=== PATIENT | male | born 1965 | race Caucasian/White ===

== ENCOUNTER 2017-06-20 17:15 | Inpatient (IN) | payer OTHER ==
--- NOTE | 2017-06-20 17:46 | Emergency Department Report ---
ED Shortness of Breath HPI - General Stated Complaint: SOB Time Seen by Provider: 06/20/17 17:35 Source: patient, EMS Mode of arrival: Stretcher Limitations: No Limitations - History of Present Illness Initial Comments: Patient is a 52-year-old male that presents to the ER via EMS for shortness of breath and cough 7 days patient states that the shortness of breath has worsened today. Patient states his cough is productive with yellow sputum. Patient is a current smoker of one pack per day. Patient denies chest pain,, fever, chills, diaphoresis. She states shortness of breath is worse with exertion. Patient denies past medical history but however has not seen a doctor in many years. MD Complaint: shortness of breath, cough -: Gradual, days(s) Severity: severe Consistency: constant Improves With: oxygen, bronchodilators Worsens With: lying flat, movement, coughing, inspiration Context: recent URI Associated Symptoms: cough, sputum production, diaphoresis Treatments Prior to Arrival: oxygen, bronchodilator - Related Data Home Oxygen Therapy: No Allergies Allergy/AdvReac Type Severity Reaction Status Date / Time codeine Allergy Severe Itching Verified 06/20/17 17:57 ED Review of Systems ROS: Stated complaint: SOB Other details as noted in HPI Constitutional: denies: chills, fever Eyes: denies: eye pain, eye discharge, vision change ENT: denies: ear pain, throat pain Respiratory: cough, shortness of breath. denies: wheezing Cardiovascular: denies: chest pain, palpitations Endocrine: no symptoms reported Gastrointestinal: denies: abdominal pain, nausea, diarrhea Genitourinary: denies: urgency, dysuria Musculoskeletal: denies: back pain, joint swelling, arthralgia Skin: denies: rash, lesions Neurological: denies: headache, weakness, paresthesias Psychiatric: denies: anxiety, depression Hematological/Lymphatic: denies: easy bleeding, easy bruising ED Past Medical Hx - Past Medical History Previous Medical History?: No ED Physical Exam - General General appearance: alert, in no apparent distress - Head Head exam: Present: atraumatic, normocephalic - Eye Eye exam: Present: normal appearance - ENT ENT exam: Present: mucous membranes moist - Neck Neck exam: Present: normal inspection - Respiratory Respiratory exam: Present: normal lung sounds bilaterally, respiratory distress , wheezes, rhonchi - Cardiovascular Cardiovascular Exam: Present: regular rate, normal rhythm. Absent: systolic murmur, diastolic murmur, rubs, gallop - GI/Abdominal GI/Abdominal exam: Present: soft, normal bowel sounds - Rectal Rectal exam: Present: deferred - Extremities Exam Extremities exam: Present: normal inspection - Back Exam Back exam: Present: normal inspection - Neurological Exam Neurological exam: Present: alert, oriented X3 - Psychiatric Psychiatric exam: Present: normal affect, normal mood - Skin Skin exam: Present: warm, dry, intact, normal color. Absent: rash ED Course Vital Signs 06/20/17 06/20/17 06/20/17 18:09 21:08 21:15 Temperature 98.7 F Pulse Rate 111 H Pulse Rate [ 84 Right Lower Lobe] Respiratory 26 H 32 H Rate Respiratory 20 Rate [Right Lower Lobe] Blood Pressure 196/103 Blood Pressure 183/94 [Left] O2 Sat by Pulse 96 94 Oximetry 06/21/17 00:11 Temperature Pulse Rate Pulse Rate [ Right Lower Lobe] Respiratory Rate Respiratory Rate [Right Lower Lobe] Blood Pressure 155/79 Blood Pressure [Left] O2 Sat by Pulse 96 Oximetry - Reevaluation(s) Reevaluation #1: 06/20/17 1920 pt became acutely worse with hypoxia at 86 and increase work to breath. rsi started and pt intubated due to hypoxia and increased effort. Reevaluation #2: 06/20/17 2100 Patient bucking the vent and moving within the bed. Will add Versed drip and titrated to effect. Patient currently maxed out on propofol and still moving and breathing over the vent. - Intubation Time Out Performed: Yes Sedative: Versed Paralytic: Succinylcholine Laryngoscope: Hess Assist Device Used: fiberoptic device ET Tube Size: 7.5 Tube Placement Confirmation: visualized tube passing t, equal breath sounds bilat, no breath sounds over epi, confirmation by capnometr Patient Tolerated Procedure: well, no complications Intubation Complications: none Additional Comments: X-ray checked as well and ET tube in good position ED Medical Decision Making - Lab Data Result diagrams: 06/20/17 19:00 06/20/17 19:00 - EKG Data -: EKG Interpreted by Me EKG shows normal: sinus rhythm Rate: tachycardia - EKG Data Interpretation: no acute changes, LVH - Radiology Data Radiology results: report reviewed - Medical Decision Making Stress case with hospitalist. Hospitalist to admit. All labs and diagnostics reviewed Critical Care Time: Yes Critical care attestation.: If time is entered above; I have spent that time in minutes in the direct care of this critically ill patient, excluding procedure time. Critical Care Time: 60 minutes spent with patient for critical care time ED Disposition Clinical Impression: SOB (shortness of breath), Hypoxia, Respiratory distress, Pneumonia, Congestive heart failure, Acute exacerbation of CHF (congestive heart failure) Disposition: OP ADMIT IP TO THIS HOSP Is pt being admited?: Yes Does the pt Need Aspirin: No Condition: Critical Time of Disposition: 20:07
[2017-06-20] MEDS ORDERED: DUONEB *Not for PRN Use IH ONE (18:15)
--- NOTE | 2017-06-20 18:59 | XRay Report ---
FINAL REPORT EXAM: XR CHEST 1V AP HISTORY: Dyspnea TECHNIQUE: One view examination of the chest PRIORS: None FINDINGS: Linear scar versus atelectasis in left mid and lower lung. Nonspecific patchy opacity with slight consolidation in right lower lung. No pneumothorax or pleural effusion. No acute displaced fracture. Cardiac silhouette size slightly enlarged without definite vascular congestion. Atherosclerotic tortuosity in aorta. IMPRESSION: Linear scar versus atelectasis in mid and lower left lung Patchy opacity in right lower lung may be edema, atelectasis, scar, or pneumonia. Followup may be useful to exclude underlying neoplasm
[2017-06-20 19:14] LABS: Basophils # (Auto) 0.1 K/mm3 (0.0-0.1); Basophils % (Auto) 0.7 % (0.0-1.8); Eosinophils % (Auto) 0.1 % (0.0-4.3); Hematocrit 42.9 % (35.5-45.6); Hemoglobin 14.8 gm/dl (11.8-15.2); Lymphocytes # (Auto) 0.4 K/mm3 (1.2-5.4); Lymphocytes % (Auto) 4.1 % (13.4-35.0); Mean Corpuscular HGB Conc 35 % (32-34); Mean Corpuscular Hemoglobin 35 pg (28-32); Mean Corpuscular Volume 100 fl (84-94); Monocytes # (Auto) 0.9 K/mm3 (0.0-0.8); Monocytes % (Auto) 8.9 % (0.0-7.3); Platelet Count 194 K/mm3 (140-440); Red Blood Count 4.28 M/mm3 (3.65-5.03); Red Cell Distribution Width 18.8 % (13.2-15.2)
[2017-06-20] MEDS ORDERED: ROCEPHIN/NS 1 GM/50 ML 1 GM/50 ML BAG IV ONE (19:22)
[2017-06-20] MEDS ORDERED: DIPRIVAN 10 MG/ML 1,000 MG/100 ML BOTTLE IV ONE (19:39)
[2017-06-20] MEDS: DIPRIVAN 10 MG/ML 1,000 MG/100 ML BOTTLE IV SCH (19:40)
[2017-06-20 19:42] LABS: Creatine Kinase MB 8.6 ng/mL (0.0-4.0)
[2017-06-20 19:43] LABS: Alanine Aminotransferase 119 units/L (7-56); Albumin 3.7 g/dL (3.9-5); BUN/Creatinine Ratio 18; Blood Urea Nitrogen 16 mg/dL (9-20); Calcium 8.9 mg/dL (8.4-10.2); Hemolysis Index 6
[2017-06-20] MEDS ORDERED: cefTRIAXone 1 GM in NACL 0.9% 20 ML IV ONE (20:00)
[2017-06-20 20:02] LABS: Chol/HDL Ratio 2.43 %; HDL Cholesterol 87 mg/dL (40-59); LDL Cholesterol,Direct 103 mg/dL (50-130)
[2017-06-20] MEDS ORDERED: VERSED IV ONE (20:23)
[2017-06-20] MEDS ORDERED: LASIX 80 MG in NACL 0.9% 50 ML IV ONE (20:43)
[2017-06-20] MEDS ORDERED: LASIX ONE (20:54)
--- NOTE | 2017-06-20 21:02 | XRay Report ---
FINAL REPORT EXAM: XR CHEST 1V AP HISTORY: post intubation TECHNIQUE: AP portable view of the chest. The study is centered at the upper chest. The lower chest is not included in the field of view. PRIORS: 06/20/2017 at 6:19 p.m. FINDINGS: There is an endotracheal tube in place which appears adequately positioned in the mid trachea. There is an NG tube in place which courses below the diaphragm and below the lower margin of the film. The visualized cardiomediastinal silhouette appears normal. A right basilar infiltrate is partially demonstrated. The bones and soft tissues are unremarkable. IMPRESSION: The endotracheal tube appears adequately positioned. Right basilar infiltrate incompletely evaluated
[2017-06-20] MEDS ORDERED: ARTIFICIAL TEARS OPHTH OINT OU PRN (21:11)
[2017-06-20] MEDS ORDERED: VASELINE LIP THERAPY TP PRN (21:11)
[2017-06-20] MEDS: MIDAZOLAM 100 MG in NACL 0.9% 80 ML IV SCH (21:25)
[2017-06-20] MEDS ORDERED: LASIX IV ONE (22:00)
[2017-06-20] MEDS ORDERED: NACL 0.9% 500 ML IV SCH (22:00)
--- NOTE | 2017-06-20 23:07 | History and Physical Report ---
History of Present Illness Date of examination: 06/20/17 Chief complaint: Respiratory failure History of present illness: By the time I examined the patient, the patient was intubated and on mechanical ventilation. So history is obtained from ER doctor documentation. The patient was complaining cough and shortness of breath for 1 week, while in the emergency department patient's shortness of breath was getting worse and become desaturated, and he was emergently intubated and put on mechanical ventilation. CTA was done and showed bilateral pneumonia. REVIEW OF SYSTEMS: Couldn't be obtained because patient is intubated in the mechanical ventilation. Past History Past Medical History: other (Couldn't be obtained because the patient is intubated and on MV.) Past Surgical History: Other (Couldn't be obtained because the patient is intubated and on MV.) Social history: other (Couldn't be obtained because the patient is intubated and on MV.) Family history: other (Couldn't be obtained because the patient is intubated and on MV.) Medications and Allergies Allergies Allergy/AdvReac Type Severity Reaction Status Date / Time codeine Allergy Severe Itching Verified 06/20/17 17:57 Active Meds: Active Medications Furosemide (Lasix) 40 mg PO 0600,1800 CRISTINA Hydrophilic Ointment (Vaseline Lip Therapy) 1 applic TP Q2HR PRN PRN Reason: Dry Lips Midazolam HCl 100 mg/ Sodium (Chloride) 100 mls @ 2 mls/hr IV TITR CRISTINA; 2 MG/HR PRN Reason: Protocol Last Admin: 06/20/17 21:25 Dose: 2 mg/hr, 2 mls/hr Propofol (Diprivan 10 Mg/Ml) 1,000 mg in 100 mls @ 2.177 mls/hr IV TITR CRISTINA; 5 MCG/KG/MIN PRN Reason: Protocol Piperacillin Sod/Tazobactam Sod (Zosyn/Ns 4.5gm/100ml) 4.5 gm in 100 mls @ 200 mls/hr IV Q6HR CRISTINA PRN Reason: Protocol Fentanyl Citrate (Fentanyl Drip Premix) 2,000 mcg in 100 mls @ 3.629 mls/hr IV TITR CRISTINA; 1 MCG/KG/HR PRN Reason: Protocol Methylprednisolone Sodium Succinate (Solu-Medrol) 60 mg IV TID CRISTINA Multi-Ingred Cream/Lotion/Oil/Oint (Artificial Tears Ophth Oint) 1 applic OU Q4HR PRN PRN Reason: Dry Eye(s) Sodium Chloride (Nacl 0.9% 500 Ml) 1 ml IV DIRECT CRISTINA Vancomycin HCl (Vancomycin Pharmacy To Dose) 1 each IV PKCONSULT CRISTINA PRN Reason: Protocol Exam - Physical Exam Narrative exam: patient is intubated and on MV. The patient appeared well nourished and normally developed. Vital signs as documented. Head exam is unremarkable. No scleral icterus . Neck is without jugular venous distension, thyromegaly, or carotid bruits. Lungs are coarse creptations bilaterally . Cardiac exam reveals regular rate and Rhythm. First and second heart sounds normal. No murmurs, rubs or gallops. Abdominal exam reveals normal bowel sounds, no masses, no organomegaly and no aortic enlargement. Extremities are nonedematous and both femoral and pedal pulses are normal. PROJECT DESIGNER: sedated. - Constitutional Vitals: Temp Pulse Resp BP Pulse Ox 98.7 F 84 32 H 196/103 94 06/20/17 18:09 06/20/17 21:08 06/20/17 21:15 06/20/17 21:15 06/20/17 21:15 Results - Labs CBC & Chem 7: 06/20/17 19:00 06/20/17 19:00 Labs: Laboratory Last Values WBC 9.9 K/mm3 (4.5-11.0) 06/20/17 19:00 RBC 4.28 M/mm3 (3.65-5.03) 06/20/17 19:00 Hgb 14.8 gm/dl (11.8-15.2) 06/20/17 19:00 Hct 42.9 % (35.5-45.6) 06/20/17 19:00 MCV 100 fl (84-94) H 06/20/17 19:00 MCH 35 pg (28-32) H 06/20/17 19:00 MCHC 35 % (32-34) H 06/20/17 19:00 RDW 18.8 % (13.2-15.2) H 06/20/17 19:00 Plt Count 194 K/mm3 (140-440) 06/20/17 19:00 Lymph % (Auto) 4.1 % (13.4-35.0) L 06/20/17 19:00 Bucks % (Auto) 8.9 % (0.0-7.3) H 06/20/17 19:00 Eos % (Auto) 0.1 % (0.0-4.3) 06/20/17 19:00 Baso % (Auto) 0.7 % (0.0-1.8) 06/20/17 19:00 Lymph # 0.4 K/mm3 (1.2-5.4) L 06/20/17 19:00 Bucks # 0.9 K/mm3 (0.0-0.8) H 06/20/17 19:00 Eos # 0.0 K/mm3 (0.0-0.4) 06/20/17 19:00 Baso # 0.1 K/mm3 (0.0-0.1) 06/20/17 19:00 Seg Neutrophils % 86.2 % (40.0-70.0) H 06/20/17 19:00 Seg Neutrophils # 8.6 K/mm3 (1.8-7.7) H 06/20/17 19:00 D-Dimer 747.03 ng/mlDDU (0-234) H 06/20/17 19:00 Sodium 142 mmol/L (137-145) 06/20/17 19:00 Potassium 3.7 mmol/L (3.6-5.0) 06/20/17 19:00 Chloride 98.8 mmol/L (98-107) 06/20/17 19:00 Carbon Dioxide 25 mmol/L (22-30) 06/20/17 19:00 Anion Gap 22 mmol/L 06/20/17 19:00 BUN 16 mg/dL (9-20) 06/20/17 19:00 Creatinine 0.9 mg/dL (0.8-1.5) 06/20/17 19:00 Estimated GFR > 60 ml/min 06/20/17 19:00 BUN/Creatinine Ratio 18 % 06/20/17 19:00 Glucose 98 mg/dL (75-100) 06/20/17 19:00 Calcium 8.9 mg/dL (8.4-10.2) 06/20/17 19:00 Total Bilirubin 2.10 mg/dL (0.1-1.2) H 06/20/17 19:00 AST 157 units/L (5-40) H 06/20/17 19:00 ALT 119 units/L (7-56) H 06/20/17 19:00 Alkaline Phosphatase 133 units/L (35-129) H 06/20/17 19:00 Total Creatine Kinase 285 units/L (55-170) H 06/20/17 19:00 CK-MB (CK-2) 8.6 ng/mL (0.0-4.0) H 06/20/17 19:00 CK-MB (CK-2) Rel Index 3.0 (0-4) 06/20/17 19:00 Troponin T 0.043 ng/mL (0.00-0.029) H 06/20/17 19:00 NT-Pro-B Natriuret Pep 68338 pg/mL (0-900) H 06/20/17 19:00 Total Protein 6.0 g/dL (6.3-8.2) L 06/20/17 19:00 Albumin 3.7 g/dL (3.9-5) L 06/20/17 19:00 Albumin/Globulin Ratio 1.6 % 06/20/17 19:00 Triglycerides 114 mg/dL (2-149) 06/20/17 19:00 Cholesterol 212 mg/dL (50-199) H 06/20/17 19:00 LDL Cholesterol Direct 103 mg/dL (50-130) 06/20/17 19:00 HDL Cholesterol 87 mg/dL (40-59) H 06/20/17 19:00 Cholesterol/HDL Ratio 2.43 % 06/20/17 19:00 - Imaging and Cardiology CT scan - chest: report reviewed (bilateral pneumonia) Assessment and Plan Assessment and plan: Acute hypoxic respiratory failure On mechanical ventilation less than 96 hours Sepsis Aspiration pneumonia Transaminitis - Patient is intubated and on mechanical ventilation, IV antibiotics, IV fluids , IV Solu-Medrol - Chemicals Distiller consulted - UDS pending, acute hepatitis panel pending DVT prophylaxis -Heparin Disposition - Admit to ICU The high probability of a clinically significant, sudden or life threatening deterioration of the [respiratory, PROJECT DESIGNER] system(s) required my full and direct attention, intervention and personal management. The aggregate critical care time was [35] minutes. This time is in addition to time spent performing reported procedures but includes the following: [X] Data Review and interpretation [X] Patient assessment and monitoring of vital signs [X] Documentation [X] Medication orders and management Advance Directives: Yes VTE prophylaxis?: Chemical Plan of care discussed with patient/family: Yes
[2017-06-20] MEDS ORDERED: APRESOLINE IV PRN (23:11)
[2017-06-20] MEDS: fentaNYL DRIP Premix 2,000 MCG/100 ML BAG IV SCH (23:30)
[2017-06-20] MEDS ORDERED: VANCOMYCIN PHARMACY TO DOSE IV SCH (23:45)
[2017-06-21] MEDS: PEPCID IV SCH ×3 (00:28→21:56)
[2017-06-21] MEDS: ZOSYN/NS 4.5GM/100ML 4.5 GM/100 ML VIAL IV SCH ×4 (00:28→19:35)
[2017-06-21] MEDS ORDERED: VANCOMYCIN 1,500 MG in NACL 0.9% 500 ML 500 ML IV ONE (02:00)
--- NOTE | 2017-06-21 02:02 | Cat Scan Report ---
FINAL REPORT EXAM: CT ANGIO CHEST HISTORY: sob. hypoxia. high d dimer TECHNIQUE: High-resolution helical axial images were obtained of the chest during intravenous administration of iodinated contrast. Images are reconstructed in the sagittal and coronal planes. PRIORS: None. FINDINGS: There is an endotracheal tube in place which appears adequately positioned in the mid trachea. There is NG tube in place with the tip in the stomach. There is no evidence of pulmonary embolism, the pulmonary arteries opacify normally. The thoracic aorta is tortuous. There is a kink in the proximal descending thoracic aorta with mild dilatation distal to the kink. There is coronary artery atherosclerotic calcification. The heart is mildly enlarged due to left ventricular enlargement. There are large bilateral dependent consolidative infiltrates and patchy bilateral upper lobe airspace infiltrates. Images through the upper abdomen show fatty infiltration of the liver. There are degenerative changes of the upper lumbar spine. IMPRESSION: 1. No evidence of pulmonary embolism. 2. 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 Large bilateral dependent consolidative infiltrates consistent with pneumonia. Possible aspiration pneumonia. Associated patchy bilateral upper lobe airspace infiltrates 4. Diffuse fatty infiltration of the liver. 5. Coronary artery atherosclerotic calcification. Enlarged left ventricle.
[2017-06-21] MEDS ORDERED: LASIX PO SCH (06:00)
[2017-06-21 06:41] LABS: Bacteria,Urine 1+ /HPF (Negative); Bilirubin,Urine NEG (Negative); Blood,Urine MOD (Negative); Color,Urine Yellow (Yellow); Nitrite,Urine NEG (Negative); Protein,Urine <15 mg/dL mg/dL (Negative); Urobilinogen,Urine < 2.0 mg/dL (<2.0)
[2017-06-21 06:46] LABS: Amphetamine Screen,Urine PRESUMPTIVE NEGATIVE; Cannabinoid Screen,Urine PRESUMPTIVE NEGATIVE; Cocaine Screen,Urine PRESUMPTIVE NEGATIVE; Methadone Screen,Urine PRESUMPTIVE NEGATIVE; Opiate Screen,Urine PRESUMPTIVE NEGATIVE
[2017-06-21] MEDS: MIDAZOLAM 100 MG in NACL 0.9% 80 ML IV SCH (07:20)
[2017-06-21 07:55] LABS: Benzodiazepines Screen,Urine PRESUMPTIVE POSITIVE
[2017-06-21] MEDS: DUONEB *Not for PRN Use IH SCH ×4 (07:56→20:10)
[2017-06-21 08:24] LABS: Hematocrit 42.1 % (35.5-45.6); Mean Corpuscular HGB Conc 33 % (32-34); Mean Corpuscular Hemoglobin 35 pg (28-32); Mean Corpuscular Volume 104 fl (84-94); Platelet Count 184 K/mm3 (140-440); Red Blood Count 4.06 M/mm3 (3.65-5.03); Red Cell Distribution Width 19.3 % (13.2-15.2)
[2017-06-21] MEDS: fentaNYL DRIP Premix 2,000 MCG/100 ML BAG IV SCH ×3 (08:31→22:21)
[2017-06-21 08:41] LABS: BUN/Creatinine Ratio 19; Blood Urea Nitrogen 21 mg/dL (9-20); Calcium 8.1 mg/dL (8.4-10.2); Hemolysis Index 75
[2017-06-21] MEDS: DIPRIVAN 10 MG/ML 1,000 MG/100 ML BOTTLE IV SCH ×4 (08:41→23:08)
[2017-06-21 09:23] LABS: Anisocytosis 1+; Macrocytosis 1+
[2017-06-21 09:24] LABS: Platelet Clumps Rare; Platelet Estimate Consistent w Auto
[2017-06-21 09:26] LABS: Band Neutrophils # (Manual) 0.4 K/mm3; Basophils % (Manual) 0 % (0.0-1.8); Eosinophils % (Manual) 0 % (0.0-4.3); Total Cells Counted 100
[2017-06-21] MEDS: HEPARIN SUB-Q SCH ×3 (09:28→21:14)
[2017-06-21] MEDS ORDERED: VERSED IV ONE (11:04)
[2017-06-21] MEDS ORDERED: QUELICIN ONE (11:04)
[2017-06-21 12:59] LABS: Hepatitis A Antibody IgM Non-Reactive (NonReactive); Hepatitis B Core IgM Non-Reactive (NonReactive); Hepatitis B Surface Antigen Non-Reactive (Negative); Hepatitis C Virus Antibody Non-Reactive (NonReactive)
--- NOTE | 2017-06-21 13:11 | Progress Note ---
Assessment and Plan Assessment and plan: Acute hypoxic respiratory failure On mechanical ventilation less than 96 hours Patient currently with before meals mode ventilation rate of 16, tidal volume 450, PEEP 8, FiO2 60%. Continue weaning ventilator per pulmonary. Patient is intubated and on mechanical ventilation, IV antibiotics, IV fluids Elevated BNP. Check echocardiogram. Sepsis. Continue sepsis pathway. Follow-up blood cultures Bilateral pneumonia. Etiology secondary to ? Aspiration. Continue IV antibiotics and follow-up chest x-ray. Reactive airway disease vs. asthma. There is been no report of course with history of asthma. Continue bronchodilators and IV Solu-Medrol. Transaminitis - Etiology, likely secondary to shock liver from sepsis. - UDS pending, acute hepatitis panel negative Elevated troponin. -Etiology, likely secondary to sepsis -Check echocardiogram, continue to trend troponins every 8 hours. DVT prophylaxis -Heparin Disposition - ICU management. The high probability of a clinically significant, sudden or life threatening deterioration of the [respiratory, COMMUNITY SERVICE REPRESENTATIVE] system(s) required my full and direct attention, intervention and personal management. The aggregate critical care time was [35] minutes. This time is in addition to time spent performing reported procedures but includes the following: [X] Data Review and interpretation [X] Patient assessment and monitoring of vital signs [X] Documentation [X] Medication orders and management History Interval history: Patient is currently intubated on mechanical ventilation. Hospitalist Physical - Constitutional Vitals: Temp Pulse Resp BP Pulse Ox 99.0 F 95 H 16 122/64 92 06/21/17 12:00 06/21/17 11:33 06/21/17 11:33 06/21/17 08:30 06/21/17 12:00 General appearance: Present: no acute distress, well-nourished, other (orally intubated) - EENT Eyes: Present: PERRL, EOM intact ENT: hearing intact, clear oral mucosa, dentition normal - Neck Neck: Present: supple, normal ROM - Respiratory Respiratory effort: normal Respiratory: bilateral: diminished, rhonchi - Cardiovascular Rhythm: regular Heart Sounds: Present: S1 & S2. Absent: gallop, rub - Extremities Extremities: no ischemia, No edema, Full ROM - Abdominal General gastrointestinal: soft, non-tender, non-distended, normal bowel sounds - Integumentary Integumentary: Present: clear, warm, dry - Neurologic Neurologic: CNII-XII intact, moves all extremities Results - Labs CBC & Chem 7: 06/21/17 07:50 06/21/17 07:50 Labs: Laboratory Last Values WBC 12.0 K/mm3 (4.5-11.0) H 06/21/17 07:50 RBC 4.06 M/mm3 (3.65-5.03) 06/21/17 07:50 Hgb 14.0 gm/dl (11.8-15.2) 06/21/17 07:50 Hct 42.1 % (35.5-45.6) 06/21/17 07:50 MCV 104 fl (84-94) H 06/21/17 07:50 MCH 35 pg (28-32) H 06/21/17 07:50 MCHC 33 % (32-34) 06/21/17 07:50 RDW 19.3 % (13.2-15.2) H 06/21/17 07:50 Plt Count 184 K/mm3 (140-440) 06/21/17 07:50 Lymph % (Auto) 4.1 % (13.4-35.0) L 06/20/17 19:00 Ralls % (Auto) 8.9 % (0.0-7.3) H 06/20/17 19:00 Eos % (Auto) 0.1 % (0.0-4.3) 06/20/17 19:00 Baso % (Auto) 0.7 % (0.0-1.8) 06/20/17 19:00 Lymph # 0.4 K/mm3 (1.2-5.4) L 06/20/17 19:00 Ralls # 0.9 K/mm3 (0.0-0.8) H 06/20/17 19:00 Eos # 0.0 K/mm3 (0.0-0.4) 06/20/17 19:00 Baso # 0.1 K/mm3 (0.0-0.1) 06/20/17 19:00 Add Manual Diff Complete 06/21/17 07:50 Total Counted 100 06/21/17 07:50 Seg Neutrophils % Party Bus Driver 06/21/17 07:50 Seg Neuts % (Manual) 93.0 % (40.0-70.0) H 06/21/17 07:50 Band Neutrophils % 3.0 % 06/21/17 07:50 Lymphocytes % (Manual) 1.0 % (13.4-35.0) L 06/21/17 07:50 Reactive Lymphs % (Man) 0 % 06/21/17 07:50 Monocytes % (Manual) 3.0 % (0.0-7.3) 06/21/17 07:50 Eosinophils % (Manual) 0 % (0.0-4.3) 06/21/17 07:50 Basophils % (Manual) 0 % (0.0-1.8) 06/21/17 07:50 Metamyelocytes % 0 % 06/21/17 07:50 Myelocytes % 0 % 06/21/17 07:50 Promyelocytes % 0 % 06/21/17 07:50 Blast Cells % 0 % 06/21/17 07:50 Nucleated RBC % Not Reportable 06/21/17 07:50 Seg Neutrophils # 8.6 K/mm3 (1.8-7.7) H 06/20/17 19:00 Seg Neutrophils # Man 11.2 K/mm3 (1.8-7.7) H 06/21/17 07:50 Band Neutrophils # 0.4 K/mm3 06/21/17 07:50 Lymphocytes # (Manual) 0.1 K/mm3 (1.2-5.4) L 06/21/17 07:50 Abs React Lymphs (Man) 0.0 K/mm3 06/21/17 07:50 Monocytes # (Manual) 0.4 K/mm3 (0.0-0.8) 06/21/17 07:50 Eosinophils # (Manual) 0.0 K/mm3 (0.0-0.4) 06/21/17 07:50 Basophils # (Manual) 0.0 K/mm3 (0.0-0.1) 06/21/17 07:50 Metamyelocytes # 0.0 K/mm3 06/21/17 07:50 Myelocytes # 0.0 K/mm3 06/21/17 07:50 Promyelocytes # 0.0 K/mm3 06/21/17 07:50 Blast Cells # 0.0 K/mm3 06/21/17 07:50 WBC Morphology Not Reportable 06/21/17 07:50 Hypersegmented Neuts Not Reportable 06/21/17 07:50 Hyposegmented Neuts Not Reportable 06/21/17 07:50 Hypogranular Neuts Not Reportable 06/21/17 07:50 Smudge Cells Not Reportable 06/21/17 07:50 Toxic Granulation Not Reportable 06/21/17 07:50 Toxic Vacuolation Not Reportable 06/21/17 07:50 Dohle Bodies Not Reportable 06/21/17 07:50 Pelger-Huet Anomaly Not Reportable 06/21/17 07:50 Luz Maria Rods Not Reportable 06/21/17 07:50 Platelet Estimate Consistent w auto 06/21/17 07:50 Clumped Platelets Rare 06/21/17 07:50 Plt Clumps, EDTA Not Reportable 06/21/17 07:50 Large Platelets Not Reportable 06/21/17 07:50 Giant Platelets Not Reportable 06/21/17 07:50 Platelet Satelliting Not Reportable 06/21/17 07:50 Plt Morphology Comment Not Reportable 06/21/17 07:50 RBC Morphology Not Reportable 06/21/17 07:50 Dimorphic RBCs Not Reportable 06/21/17 07:50 Polychromasia Not Reportable 06/21/17 07:50 Hypochromasia Not Reportable 06/21/17 07:50 Poikilocytosis Not Reportable 06/21/17 07:50 Anisocytosis 1+ 06/21/17 07:50 Microcytosis Not Reportable 06/21/17 07:50 Macrocytosis 1+ 06/21/17 07:50 Spherocytes Not Reportable 06/21/17 07:50 Pappenheimer Bodies Not Reportable 06/21/17 07:50 Sickle Cells Not Reportable 06/21/17 07:50 Target Cells Not Reportable 06/21/17 07:50 Tear Drop Cells Not Reportable 06/21/17 07:50 Ovalocytes Not Reportable 06/21/17 07:50 Helmet Cells Not Reportable 06/21/17 07:50 Marinelli-Manele Bodies Not Reportable 06/21/17 07:50 [place] Rings Not Reportable 06/21/17 07:50 Jennifer Cells Not Reportable 06/21/17 07:50 Bite Cells Not Reportable 06/21/17 07:50 Crenated Cell Not Reportable 06/21/17 07:50 Elliptocytes Not Reportable 06/21/17 07:50 Acanthocytes (Spur) Not Reportable 06/21/17 07:50 Rouleaux Not Reportable 06/21/17 07:50 Hemoglobin C Crystals Not Reportable 06/21/17 07:50 Schistocytes Not Reportable 06/21/17 07:50 Malaria parasites Not Reportable 06/21/17 07:50 Franklyn Bodies Not Reportable 06/21/17 07:50 Hem Pathologist Commnt No 06/21/17 07:50 D-Dimer 747.03 ng/mlDDU (0-234) H 06/20/17 19:00 POC ABG pH 7.438 (7.35-7.45) 06/21/17 04:40 POC ABG pCO2 47.1 (35-45) H 06/21/17 04:40 POC ABG pO2 221 (80-105) H 06/21/17 04:40 POC ABG HCO3 31.9 06/21/17 04:40 POC ABG Total CO2 33 06/21/17 04:40 POC ABG O2 Sat 100 06/21/17 04:40 POC ABG Base Excess 8 06/21/17 04:40 FiO2 100 % 06/21/17 04:40 Sodium 142 mmol/L (137-145) 06/21/17 07:50 Potassium 4.2 mmol/L (3.6-5.0) 06/21/17 07:50 Chloride 98.9 mmol/L (98-107) 06/21/17 07:50 Carbon Dioxide 24 mmol/L (22-30) 06/21/17 07:50 Anion Gap 23 mmol/L 06/21/17 07:50 BUN 21 mg/dL (9-20) H 06/21/17 07:50 Creatinine 1.1 mg/dL (0.8-1.5) 06/21/17 07:50 Estimated GFR > 60 ml/min 06/21/17 07:50 BUN/Creatinine Ratio 19 % 06/21/17 07:50 Glucose 130 mg/dL (75-100) H 06/21/17 07:50 Lactic Acid 1.50 mmol/L (0.7-2.0) 06/20/17 11:35 Calcium 8.1 mg/dL (8.4-10.2) L 06/21/17 07:50 Total Bilirubin 2.10 mg/dL (0.1-1.2) H 06/20/17 19:00 AST 157 units/L (5-40) H 06/20/17 19:00 ALT 119 units/L (7-56) H 06/20/17 19:00 Alkaline Phosphatase 133 units/L (35-129) H 06/20/17 19:00 Total Creatine Kinase 285 units/L (55-170) H 06/20/17 19:00 CK-MB (CK-2) 8.6 ng/mL (0.0-4.0) H 06/20/17 19:00 CK-MB (CK-2) Rel Index 3.0 (0-4) 06/20/17 19:00 Troponin T 0.043 ng/mL (0.00-0.029) H 06/20/17 19:00 NT-Pro-B Natriuret Pep 89437 pg/mL (0-900) H 06/20/17 19:00 Total Protein 6.0 g/dL (6.3-8.2) L 06/20/17 19:00 Albumin 3.7 g/dL (3.9-5) L 06/20/17 19:00 Albumin/Globulin Ratio 1.6 % 06/20/17 19:00 Triglycerides 114 mg/dL (2-149) 06/20/17 19:00 Cholesterol 212 mg/dL (50-199) H 06/20/17 19:00 LDL Cholesterol Direct 103 mg/dL (50-130) 06/20/17 19:00 HDL Cholesterol 87 mg/dL (40-59) H 06/20/17 19:00 Cholesterol/HDL Ratio 2.43 % 06/20/17 19:00 Urine Color Yellow (Yellow) 06/21/17 05:29 Urine Turbidity Clear (Clear) 06/21/17 05:29 Urine pH 5.0 (5.0-7.0) 06/21/17 05:29 Ur Specific [place] 1.049 (1.003-1.030) H 06/21/17 05:29 Urine Protein <15 mg/dl mg/dL (Negative) 06/21/17 05:29 Urine Glucose (UA) Neg mg/dL (Negative) 06/21/17 05:29 Urine Ketones Neg mg/dL (Negative) 06/21/17 05:29 Urine Blood Mod (Negative) 06/21/17 05:29 Urine Nitrite Neg (Negative) 06/21/17 05:29 Urine Bilirubin Neg (Negative) 06/21/17 05:29 Urine Urobilinogen < 2.0 mg/dL (<2.0) 06/21/17 05:29 Ur Leukocyte Esterase Tr (Negative) 06/21/17 05:29 Urine WBC (Auto) 11.0 /HPF (0.0-6.0) H 06/21/17 05:29 Urine RBC (Auto) 2.0 /HPF (0.0-6.0) 06/21/17 05:29 U Epithel Cells (Auto) < 1.0 /HPF (0-13.0) 06/21/17 05:29 Urine Bacteria (Auto) 1+ /HPF (Negative) 06/21/17 05:29 Urine Opiates Screen Presumptive negative 06/21/17 05:29 Urine Methadone Screen Presumptive negative 06/21/17 05:29 Ur Barbiturates Screen Presumptive negative 06/21/17 05:29 Ur Phencyclidine Scrn Presumptive negative 06/21/17 05:29 Ur Amphetamines Screen Presumptive negative 06/21/17 05:29 U Benzodiazepines Scrn Presumptive positive 06/21/17 05:29 Urine Cocaine Screen Presumptive negative 06/21/17 05:29 U Marijuana (THC) Screen Presumptive negative 06/21/17 05:29 Drugs of Abuse Note Disclamer 06/21/17 05:29 Hepatitis A IgM Ab Non-reactive (NonReactive) 06/21/17 11:35 Hep Bs Antigen Non-reactive (Negative) 06/21/17 11:35 Hep B Core IgM Ab Non-reactive (NonReactive) 06/21/17 11:35 Hepatitis C Antibody Non-reactive (NonReactive) 06/21/17 11:35
[2017-06-21] MEDS: VANCOMYCIN/NS 1 GM/250 ML 1 GM/250 ML BAG IV SCH (13:19)
--- NOTE | 2017-06-21 13:43 | Consultation ---
History of Present Illness Consult date: 06/21/17 Requesting physician: LIS CARSON Reason for consult: other (Acute Hypoxemic Resp Failure) History of present illness: PULMONARY/CCM CONSULT NOTE (Full dictation # [id number]) Please see dictated notes for full details Past History Past Medical History: other (Couldn't be obtained because the patient is intubated and on MV.) Past Surgical History: Other (Couldn't be obtained because the patient is intubated and on MV.) Social history: other (Couldn't be obtained because the patient is intubated and on MV.) Family history: other (Couldn't be obtained because the patient is intubated and on MV.) Medications and Allergies Allergies Allergy/AdvReac Type Severity Reaction Status Date / Time codeine Allergy Severe Itching Verified 06/20/17 17:57 Active Meds: Active Medications Albuterol/Ipratropium (Duoneb *Not For Prn Use*) 1 ampul IH QIDRT [facility] Last Admin: 06/21/17 11:28 Dose: 1 ampul Famotidine (Pepcid) 20 mg IV BID [facility] Last Admin: 06/21/17 10:55 Dose: 20 mg Heparin Sodium (Porcine) (Heparin) 5,000 unit SUB-Q TID [facility] Last Admin: 06/21/17 09:28 Dose: 5,000 unit Hydralazine HCl (Apresoline) 20 mg IV Q4H PRN PRN Reason: Hypertension Hydrophilic Ointment (Vaseline Lip Therapy) 1 applic TP Q2HR PRN PRN Reason: Dry Lips Midazolam HCl 100 mg/ Sodium (Chloride) 100 mls @ 2 mls/hr IV TITR CRISTINA; 2 MG/HR PRN Reason: Protocol Last Titration: 06/21/17 08:58 Dose: 0 mg/hr, 0 mls/hr Propofol (Diprivan 10 Mg/Ml) 1,000 mg in 100 mls @ 2.177 mls/hr IV TITR CRISTINA; 5 MCG/KG/MIN PRN Reason: Protocol Last Admin: 06/21/17 12:51 Dose: 50 mcg/kg/min, 21.773 mls/hr Piperacillin Sod/Tazobactam Sod (Zosyn/Ns 4.5gm/100ml) 4.5 gm in 100 mls @ 200 mls/hr IV Q6HR CRISTINA PRN Reason: Protocol Last Admin: 06/21/17 12:47 Dose: 200 mls/hr Fentanyl Citrate (Fentanyl Drip Premix) 2,000 mcg in 100 mls @ 3.629 mls/hr IV TITR CRISTINA; 1 MCG/KG/HR PRN Reason: Protocol Last Titration: 06/21/17 12:19 Dose: 1.1 mcg/kg/hr, 4 mls/hr Vancomycin HCl (Vancomycin/Ns 1 Gm/250 Ml) 1 gm in 250 mls @ 167.007 mls/hr IV Q12H [facility] Last Admin: 06/21/17 13:19 Dose: 167.007 mls/hr Influenza Virus Vaccine Quadrival (Fluarix Quad 8537-1550(36 Mos+) 0.5 ml IM .ONCE ONE Stop: 06/22/17 12:01 Methylprednisolone Sodium Succinate (Solu-Medrol) 60 mg IV TID [facility] Last Admin: 06/21/17 09:28 Dose: 60 mg Multi-Ingred Cream/Lotion/Oil/Oint (Artificial Tears Ophth Oint) 1 applic OU Q4HR PRN PRN Reason: Dry Eye(s) Pneumococcal Polyvalent Vaccine (Pneumovax 23) 0.5 ml IM .ONCE ONE Stop: 06/22/17 12:01 Sodium Chloride (Nacl 0.9% 500 Ml) 1 ml IV DIRECT CRISTINA Vancomycin HCl (Vancomycin Pharmacy To Dose) 1 each IV PKCONSULT CRISTINA PRN Reason: Protocol Physical Examination Vital signs: Vital Signs Temp Pulse Resp BP Pulse Ox 98.7 F 111 H 26 H 183/94 96 06/20/17 18:09 06/20/17 18:09 06/20/17 18:09 06/20/17 18:09 06/20/17 18:09 Results - Laboratory Findings CBC and BMP: 06/21/17 07:50 06/21/17 07:50 ABG POC ABG pH 7.438 (7.35-7.45) 06/21/17 04:40 POC ABG pCO2 47.1 (35-45) H 06/21/17 04:40 POC ABG pO2 221 (80-105) H 06/21/17 04:40 POC ABG HCO3 31.9 06/21/17 04:40 POC ABG Total CO2 33 06/21/17 04:40 POC ABG O2 Sat 100 06/21/17 04:40 PT/INR, D-dimer D-Dimer 747.03 ng/mlDDU (0-234) H 06/20/17 19:00 Abnormal lab findings: Abnormal Labs 06/20/17 06/20/17 06/20/17 19:00 19:00 19:00 WBC MCV 100 H MCH 35 H MCHC 35 H RDW 18.8 H Lymph % (Auto) 4.1 L [place] % (Auto) 8.9 H Lymph # 0.4 L [place]oard # 0.9 H Seg Neutrophils % 86.2 H Seg Neuts % (Manual) Lymphocytes % (Manual) Seg Neutrophils # 8.6 H Seg Neutrophils # Man Lymphocytes # (Manual) D-Dimer 747.03 H POC ABG pCO2 POC ABG pO2 BUN Glucose Calcium Total Bilirubin 2.10 H AST 157 H ALT 119 H Alkaline Phosphatase 133 H Total Creatine Kinase 285 H CK-MB (CK-2) 8.6 H Troponin T 0.043 H NT-Pro-B Natriuret Pep 73747 H Total Protein 6.0 L Albumin 3.7 L Cholesterol 212 H HDL Cholesterol 87 H Ur Specific [place] Urine WBC (Auto) 06/20/17 06/21/17 06/21/17 23:18 04:40 05:29 WBC MCV MCH MCHC RDW Lymph % (Auto) [place] % (Auto) Lymph # [place] # Seg Neutrophils % Seg Neuts % (Manual) Lymphocytes % (Manual) Seg Neutrophils # Seg Neutrophils # Man Lymphocytes # (Manual) D-Dimer POC ABG pCO2 53.9 H 47.1 H POC ABG pO2 221 H BUN Glucose Calcium Total Bilirubin AST ALT Alkaline Phosphatase Total Creatine Kinase CK-MB (CK-2) Troponin T NT-Pro-B Natriuret Pep Total Protein Albumin Cholesterol HDL Cholesterol Ur Specific [place] 1.049 H Urine WBC (Auto) 11.0 H 06/21/17 06/21/17 07:50 07:50 WBC 12.0 H MCV 104 H MCH 35 H MCHC RDW 19.3 H Lymph % (Auto) [place] % (Auto) Lymph # [place] # Seg Neutrophils % Seg Neuts % (Manual) 93.0 H Lymphocytes % (Manual) 1.0 L Seg Neutrophils # Seg Neutrophils # Man 11.2 H Lymphocytes # (Manual) 0.1 L D-Dimer POC ABG pCO2 POC ABG pO2 BUN 21 H Glucose 130 H Calcium 8.1 L Total Bilirubin AST ALT Alkaline Phosphatase Total Creatine Kinase CK-MB (CK-2) Troponin T NT-Pro-B Natriuret Pep Total Protein Albumin Cholesterol HDL Cholesterol Ur Specific [place] Urine WBC (Auto)
[2017-06-21 18:44] LABS: Magnesium 1.7 mg/dL (1.7-2.3)
[2017-06-22] MEDS: VANCOMYCIN/NS 1 GM/250 ML 1 GM/250 ML BAG IV SCH ×2 (00:39→12:20)
[2017-06-22] MEDS: ZOSYN/NS 4.5GM/100ML 4.5 GM/100 ML VIAL IV SCH ×4 (02:16→17:45)
[2017-06-22] MEDS: DIPRIVAN 10 MG/ML 1,000 MG/100 ML BOTTLE IV SCH ×5 (02:56→17:45)
[2017-06-22 04:43] LABS: Hematocrit 35.1 % (35.5-45.6); Hemoglobin 11.7 gm/dl (11.8-15.2); Mean Corpuscular HGB Conc 34 % (32-34); Mean Corpuscular Hemoglobin 35 pg (28-32); Mean Corpuscular Volume 103 fl (84-94); Platelet Count 150 K/mm3 (140-440); Red Cell Distribution Width 18.7 % (13.2-15.2)
[2017-06-22 05:05] LABS: Calcium 7.7 mg/dL (8.4-10.2)
[2017-06-22 05:07] LABS: Creatine Kinase MB 6.3 ng/mL (0.0-4.0)
[2017-06-22 05:46] LABS: Band Neutrophils # (Manual) 0.1 K/mm3; Basophils % (Manual) 0 % (0.0-1.8); Eosinophils % (Manual) 0 % (0.0-4.3); RBC Morphology Normal; Total Cells Counted 100
[2017-06-22] MEDS: fentaNYL DRIP Premix 2,000 MCG/100 ML BAG IV SCH ×3 (06:02→17:25)
--- NOTE | 2017-06-22 07:20 | Consultation ---
PULMONARY CRITICAL CARE CONSULTATION CONSULTING PHYSICIAN: Dr. Fox. REASON FOR CONSULTATION: Acute respiratory failure. CHIEF COMPLAINT AND HISTORY OF PRESENT ILLNESS: The patient is a 52-year-old male with past medical history unknown really, who was brought in by emergency medical services after about 7 days of coughing and shortness of breath. On the day of presentation, the patient had complained that the shortness of breath was worse and was coughing up yellowish phlegm. He does have a 10+ pack year tobacco smoking history. Apparently, he had denied fevers, chills, diaphoresis to the Emergency Room physician and complained of some dyspnea on exertion. He went into severe respiratory extremis while in the Emergency Room and was intubated. We are asked to assist with his management. When I stopped by to see him, he was on mechanical ventilatory support. He was sedated, really sedation scale or RASS scale of about -2 to -3 at the time I saw him and he was unarousable. I do not have any history of vomiting or overt aspiration, although I cannot rule that out. This really is as much of the history of presentation as I have. PAST MEDICAL HISTORY: Unknown. PAST SURGICAL HISTORY: Unknown. MEDICATIONS: He was on at the time I stopped by to see him were reviewed, pertinent medications include the following: He was on DuoNeb treatments nebulized q.i.d., Pepcid 20 mg IV b.i.d., fentanyl drip was going at 4 mcg/kg per hour, heparin 5000 units subcu t.i.d., Solu-Medrol 60 mg IV t.i.d., Versed drip was not hanging, a propofol drip was going at 50 mcg per kilogram per minute. He was on Zosyn 4.5 grams IV q. 6 hours. Vancomycin 1 gram IV q. 12 hours. ALLERGIES: CODEINE, nature of this allergy is unknown. DIET: Well-built gentleman, acute weight loss or gain history is unknown. FAMILY AND SOCIAL HISTORY: It appears that he lives in the community. According to the ER notes, he was brought in from home. Alcohol, tobacco history is as in the body of history above; a 10+ pack year tobacco smoking. Alcohol, illicit drug use or abuse history is unknown. REVIEW OF SYSTEMS: Unobtainable secondary to the patient's medical and mental condition. Since he has been here, no gross hematochezia or melena, no gross hematuria, no hematemesis, no bloody tracheal secretions, no witnessed seizures have been reported. PHYSICAL EXAMINATION: VITAL SIGNS: On presentation in the Emergency Room, vital signs. He was afebrile, temperature 98.7, pulse was 111, respiratory rate 26, blood pressure 183/94, oxygen sats were 96%, inspired oxygen concentration was not recorded. GENERAL: A well-built male, a little unkempt. He does look his stated age, on the mechanical ventilator. No significant patient ventilator dyssynchrony. Sedated. HEAD, EYES, EARS, NOSE AND THROAT: He is anicteric. No conjunctival erythema. Endotracheal tube is in place, taped at the lips around 20 to 23 cm. Grossly, no palpable lymph nodes in the supraclavicular or submandibular lymph node chains. No gross jugular venous distention, no thyromegaly. LUNGS: Auscultation of both lung blandon, diminished bibasilar air entry, very scant basilar rales, no wheezing. HEART: Sounds 1 and 2 are heard; at the time of my evaluation, regular rate and rhythm. He had a systolic ejection murmur that was heard best in the upper right sternal border. No rubs. ABDOMEN: Soft. Bowel sounds are positive, did not appear tender. No palpable hepatosplenomegaly. EXTREMITIES: Without overt digital clubbing, cyanosis, or pedal edema. Dorsalis pedis pulses were palpable bilaterally. NEUROLOGIC: The pupils were equal, round, about 2 mm, sluggishly reactive to light. Extraocular muscle movements could not be assessed. He had spontaneous movement to noxious stimuli of all 4 extremities. LABORATORY DATA: From my review are as follows: Admission white count 9900, hemoglobin 14.8, hematocrit 42.9, platelet count 194. No band forms reported. D-dimer was elevated at 747. Arterial blood gas showed a pH of 7.36, pCO2 of 54, pO2 of 91 on 100% at presentation. Serum sodium was 142, potassium 3.7, chloride 99, bicarbonate 25, BUN 16, creatinine 0.9, glucose was 98. Lactic acid level was within normal limits. Total bilirubin was 2.1, AST 157, ALT 119. Troponin 0.043. Albumin 3.7. LDL cholesterol 103. Urine drug screen was negative. Urinalysis is negative for nitrites, trace leukocyte esterase, 11 white cells per high power field. Hepatitis screen was negative. Influenza A and B antigen test negative. Blood cultures no growth to date. DIAGNOSTIC DATA: Radiographic studies have been reviewed. I have also reviewed the radiologist's interpretation. A CT scan essentially shows dense consolidation of both lower lobes with some air bronchograms in them. No significant ground glass opacification or pleural effusions. 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 Chest x-ray shows an endotracheal tube in place with the tip at the lower level of the clavicular heads. ASSESSMENT AND PLAN: 1. Acute hypoxemic respiratory failure, on mechanical ventilator support. 2. Bilateral pneumonia, possibly aspiration with basilar predominance. 3. Hypercapnia. 4. Elevated D-dimer. 5. Elevated transaminases. 6. Hyperlipidemia. 7. Possible urinary tract infection. PLAN: We will keep him on full mechanical ventilatory support in the short time. We will continue bronchodilators and pulmonary hygiene per the respiratory therapist. We will continue systemic steroids as ordered at this time. It is unclear if he does have a baseline history of chronic obstructive pulmonary disease. No active wheezing. I will deescalate the systemic steroids shortly. Anti-infectives will be continued as ordered broad-spectrum with vancomycin and Zosyn. They will be deescalated based on results of clinical and microbiologic data. I will also get a CRP level and trend along with lactic acid level as necessary. Oxygen will be weaned to keep sats greater than or equal to about 90%, PEEP is currently at 8 with a tidal volume of 500 and a rate of 16. We will continue those settings. His FiO2 is now down to 60%. A 2D echocardiogram will be ordered if none has been ordered to evaluate for heart failure and to help make decisions regarding ARDS ventilation strategies. He is appropriately on GI and DVT prophylaxis. Venous thromboembolic disorder workup is negative so far. Flu and pneumonia vaccination will be per protocol. Enteral nutrition will be the feeding modality of choice, a nutrition consult has been placed. Thank you very much for the consult. We will follow along and make further recommendations as picture progresses/becomes clearer. At this time, I have spent about 30 to 35 minutes of critical care time without overlap excluding any procedural time that may be necessary. He is critically ill on life-sustaining interventions including mechanical ventilatory support at high risk for further deterioration including . JOB# [id number] MAEGAN/IAN
[2017-06-22] MEDS: DUONEB *Not for PRN Use IH SCH ×5 (09:29→20:13)
[2017-06-22] MEDS: HEPARIN SUB-Q SCH ×3 (09:56→22:34)
[2017-06-22] MEDS: PEPCID IV SCH ×2 (09:56→22:34)
--- NOTE | 2017-06-22 10:38 | Consultation ---
History of Present Illness Consult date: 06/22/17 Consult reason: tachycardia History of present illness: 52 YO man with unknown previous medical history who presented to ED with severe shortness of breath and was intubated due to respiratory failure. He is felt to have bilateral pneumonia likely due to aspiration and sepsis. He is not able to provide and medical history at the present time. His BNP was also noted to be elevated. We have been asked to consult because he had episode of non-sustained ventricular tachycardia. ECG is consistent with NSR, LAE, LVH, prolonged QTc. Past History Past Medical History: other (Couldn't be obtained because the patient is intubated and on MV.) Past Surgical History: Other (Couldn't be obtained because the patient is intubated and on MV.) Social history: other (Couldn't be obtained because the patient is intubated and on MV.) Family history: other (Couldn't be obtained because the patient is intubated and on MV.) Medications and Allergies Allergies Allergy/AdvReac Type Severity Reaction Status Date / Time codeine Allergy Severe Itching Verified 06/20/17 17:57 Active Meds: Active Medications Albuterol/Ipratropium (Duoneb *Not For Prn Use*) 1 ampul IH QIDRT [facility] Last Admin: 06/22/17 09:29 Dose: 1 ampul Famotidine (Pepcid) 20 mg IV BID [facility] Last Admin: 06/22/17 09:56 Dose: 20 mg Heparin Sodium (Porcine) (Heparin) 5,000 unit SUB-Q TID [facility] Last Admin: 06/22/17 09:56 Dose: 5,000 unit Hydralazine HCl (Apresoline) 20 mg IV Q4H PRN PRN Reason: Hypertension Hydrophilic Ointment (Vaseline Lip Therapy) 1 applic TP Q2HR PRN PRN Reason: Dry Lips Midazolam HCl 100 mg/ Sodium (Chloride) 100 mls @ 2 mls/hr IV TITR CRISTINA; 2 MG/HR PRN Reason: Protocol Last Titration: 06/21/17 08:58 Dose: 0 mg/hr, 0 mls/hr Propofol (Diprivan 10 Mg/Ml) 1,000 mg in 100 mls @ 2.177 mls/hr IV TITR CRISTINA; 5 MCG/KG/MIN PRN Reason: Protocol Last Admin: 06/22/17 07:31 Dose: 50 mcg/kg/min, 21.773 mls/hr Piperacillin Sod/Tazobactam Sod (Zosyn/Ns 4.5gm/100ml) 4.5 gm in 100 mls @ 200 mls/hr IV Q6HR CRISTINA PRN Reason: Protocol Last Admin: 06/22/17 06:02 Dose: 200 mls/hr Fentanyl Citrate (Fentanyl Drip Premix) 2,000 mcg in 100 mls @ 3.629 mls/hr IV TITR CRISTINA; 1 MCG/KG/HR PRN Reason: Protocol Last Admin: 06/22/17 06:02 Dose: 4 mcg/kg/hr, 14.515 mls/hr Vancomycin HCl (Vancomycin/Ns 1 Gm/250 Ml) 1 gm in 250 mls @ 167.007 mls/hr IV Q12H [facility] Last Admin: 06/22/17 00:39 Dose: 167.007 mls/hr Influenza Virus Vaccine Quadrival (Fluarix Quad 0540-2128(36 Mos+) 0.5 ml IM .ONCE ONE Stop: 06/22/17 12:01 Methylprednisolone Sodium Succinate (Solu-Medrol) 60 mg IV TID [facility] Last Admin: 06/22/17 09:56 Dose: 60 mg Multi-Ingred Cream/Lotion/Oil/Oint (Artificial Tears Ophth Oint) 1 applic OU Q4HR PRN PRN Reason: Dry Eye(s) Pneumococcal Polyvalent Vaccine (Pneumovax 23) 0.5 ml IM .ONCE ONE Stop: 06/22/17 12:01 Sodium Chloride (Nacl 0.9% 500 Ml) 1 ml IV DIRECT CRISTINA Vancomycin HCl (Vancomycin Pharmacy To Dose) 1 each IV PKCONSULT CRISTIAN PRN Reason: Protocol Review of Systems ROS unobtainable: due to endotracheal tube Physical Examination Vital Signs Temp Pulse Resp BP Pulse Ox 98.7 F 111 H 26 H 183/94 96 06/20/17 18:09 06/20/17 18:09 06/20/17 18:09 06/20/17 18:09 06/20/17 18:09 General appearance: no acute distress HEENT: Positive: PERRL Neck: Positive: neck supple, trachea midline Cardiac: Positive: Reg Rate and Rhythm. Negative: Audible Murmur Lungs: Positive: Rhonchi (bilateral coarse breath sounds) Abdomen: Positive: Soft, Active Bowel Sounds Extremities: Absent: edema Results 06/22/17 04:19 06/22/17 04:19 Cardiac Enzymes 06/22/17 Range/Units 04:19 CK-MB (CK-2) 6.3 H (0.0-4.0) ng/mL CBC 06/22/17 Range/Units 04:19 WBC 10.5 (4.5-11.0) K/mm3 RBC 3.40 L (3.65-5.03) M/mm3 Hgb 11.7 L (11.8-15.2) gm/dl Hct 35.1 L D (35.5-45.6) % Plt Count 150 (140-440) K/mm3 Comprehensive Metabolic Panel 06/22/17 Range/Units 04:19 Sodium 143 (137-145) mmol/L Potassium 4.3 (3.6-5.0) mmol/L Chloride 100.4 (98-107) mmol/L Carbon Dioxide 27 (22-30) mmol/L BUN 41 H (9-20) mg/dL Creatinine 1.6 H (0.8-1.5) mg/dL Glucose 126 H (75-100) mg/dL Calcium 7.7 L (8.4-10.2) mg/dL Assessment and Plan Respiratory failure Sepsis Pneumonia Non sustained ventricular tachycardia Nonspecifically elevated cardiac enzymes: pattern not consistent with ACS Recommend: Check Echocardiogram Monitor and correct electrolyte abnormalities Continue current therapy.
--- NOTE | 2017-06-22 11:16 | Progress Note ---
Assessment and Plan Assessment and plan: Acute hypoxic respiratory failure On mechanical ventilation less than 96 hours Patient currently with AC mode ventilation rate of 16, tidal volume 450, PEEP 8 , FiO2 60%. Continue weaning ventilator per pulmonary. Patient is intubated and on mechanical ventilation, IV antibiotics, IV fluids Elevated BNP. Check echocardiogram. Sepsis. Continue sepsis pathway. Follow-up blood cultures Bilateral pneumonia. Etiology secondary to ? Aspiration. Continue IV antibiotics and follow-up chest x-ray. Acute renal failure. Etiology likely secondary to acute kidney injury from sepsis/ATN. Continue IV fluid hydration. Consider nephrology consultation. Reactive airway disease vs. asthma. ? history of asthma. Continue bronchodilators and IV Solu-Medrol. Transaminitis - Etiology, likely secondary to shock liver from sepsis. - UDS pending, acute hepatitis panel negative Elevated troponin. -Etiology, likely secondary to sepsis -Check echocardiogram, continue to trend troponins every 8 hours. NSVT. Cardiology consultation pending. DVT prophylaxis -Heparin Disposition - ICU management. The high probability of a clinically significant, sudden or life threatening deterioration of the [respiratory, [employer]] system(s) required my full and direct attention, intervention and personal management. The aggregate critical care time was [35] minutes. This time is in addition to time spent performing reported procedures but includes the following: [X] Data Review and interpretation [X] Patient assessment and monitoring of vital signs [X] Documentation [X] Medication orders and management History Interval history: Patient is currently intubated on mechanical ventilation. Hospitalist Physical - Constitutional Vitals: Temp Pulse Resp BP Pulse Ox 99.2 F 63 18 103/52 97 06/22/17 08:00 06/22/17 09:44 06/22/17 09:44 06/22/17 09:29 06/22/17 09:29 General appearance: Present: no acute distress, well-nourished, other (orally intubated) - EENT Eyes: Present: PERRL, EOM intact ENT: hearing intact, clear oral mucosa, dentition normal - Neck Neck: Present: supple, normal ROM - Respiratory Respiratory effort: normal Respiratory: bilateral: CTA - Cardiovascular Rhythm: regular Heart Sounds: Present: S1 & S2. Absent: gallop, rub - Extremities Extremities: no ischemia, No edema, Full ROM - Abdominal General gastrointestinal: soft, non-tender, non-distended, normal bowel sounds - Integumentary Integumentary: Present: clear, warm, dry - Neurologic Neurologic: CNII-XII intact, moves all extremities Results - Labs CBC & Chem 7: 06/22/17 04:19 06/22/17 04:19 Labs: Laboratory Last Values WBC 10.5 K/mm3 (4.5-11.0) 06/22/17 04:19 RBC 3.40 M/mm3 (3.65-5.03) L 06/22/17 04:19 Hgb 11.7 gm/dl (11.8-15.2) L 06/22/17 04:19 Hct 35.1 % (35.5-45.6) L D 06/22/17 04:19 MCV 103 fl (84-94) H 06/22/17 04:19 MCH 35 pg (28-32) H 06/22/17 04:19 MCHC 34 % (32-34) 06/22/17 04:19 RDW 18.7 % (13.2-15.2) H 06/22/17 04:19 Plt Count 150 K/mm3 (140-440) 06/22/17 04:19 Lymph % (Auto) 4.1 % (13.4-35.0) L 06/20/17 19:00 [place] % (Auto) 8.9 % (0.0-7.3) H 06/20/17 19:00 Eos % (Auto) 0.1 % (0.0-4.3) 06/20/17 19:00 Baso % (Auto) 0.7 % (0.0-1.8) 06/20/17 19:00 Lymph # 0.4 K/mm3 (1.2-5.4) L 06/20/17 19:00 [place] # 0.9 K/mm3 (0.0-0.8) H 06/20/17 19:00 Eos # 0.0 K/mm3 (0.0-0.4) 06/20/17 19:00 Baso # 0.1 K/mm3 (0.0-0.1) 06/20/17 19:00 Add Manual Diff Complete 06/22/17 04:19 Total Counted 100 06/22/17 04:19 Seg Neutrophils % [employer] Technician 06/22/17 04:19 Seg Neuts % (Manual) 97.0 % (40.0-70.0) H 06/22/17 04:19 Band Neutrophils % 1.0 % 06/22/17 04:19 Lymphocytes % (Manual) 1.0 % (13.4-35.0) L 06/22/17 04:19 Reactive Lymphs % (Man) 0 % 06/22/17 04:19 Monocytes % (Manual) 1.0 % (0.0-7.3) 06/22/17 04:19 Eosinophils % (Manual) 0 % (0.0-4.3) 06/22/17 04:19 Basophils % (Manual) 0 % (0.0-1.8) 06/22/17 04:19 Metamyelocytes % 0 % 06/22/17 04:19 Myelocytes % 0 % 06/22/17 04:19 Promyelocytes % 0 % 06/22/17 04:19 Blast Cells % 0 % 06/22/17 04:19 Nucleated RBC % Not Reportable 06/22/17 04:19 Seg Neutrophils # 8.6 K/mm3 (1.8-7.7) H 06/20/17 19:00 Seg Neutrophils # Man 10.2 K/mm3 (1.8-7.7) H 06/22/17 04:19 Band Neutrophils # 0.1 K/mm3 06/22/17 04:19 Lymphocytes # (Manual) 0.1 K/mm3 (1.2-5.4) L 06/22/17 04:19 Abs React Lymphs (Man) 0.0 K/mm3 06/22/17 04:19 Monocytes # (Manual) 0.1 K/mm3 (0.0-0.8) 06/22/17 04:19 Eosinophils # (Manual) 0.0 K/mm3 (0.0-0.4) 06/22/17 04:19 Basophils # (Manual) 0.0 K/mm3 (0.0-0.1) 06/22/17 04:19 Metamyelocytes # 0.0 K/mm3 06/22/17 04:19 Myelocytes # 0.0 K/mm3 06/22/17 04:19 Promyelocytes # 0.0 K/mm3 06/22/17 04:19 Blast Cells # 0.0 K/mm3 06/22/17 04:19 WBC Morphology Not Reportable 06/22/17 04:19 Hypersegmented Neuts Not Reportable 06/22/17 04:19 Hyposegmented Neuts Not Reportable 06/22/17 04:19 Hypogranular Neuts Not Reportable 06/22/17 04:19 Smudge Cells Not Reportable 06/22/17 04:19 Toxic Granulation Not Reportable 06/22/17 04:19 Toxic Vacuolation Not Reportable 06/22/17 04:19 Dohle Bodies Not Reportable 06/22/17 04:19 Pelger-Huet Anomaly Not Reportable 06/22/17 04:19 Luz Maria Rods Not Reportable 06/22/17 04:19 Platelet Estimate Appears normal 06/22/17 04:19 Clumped Platelets Not Reportable 06/22/17 04:19 Plt Clumps, EDTA Not Reportable 06/22/17 04:19 Large Platelets Not Reportable 06/22/17 04:19 Giant Platelets Not Reportable 06/22/17 04:19 Platelet Satelliting Not Reportable 06/22/17 04:19 Plt Morphology Comment Not Reportable 06/22/17 04:19 RBC Morphology Normal 06/22/17 04:19 Dimorphic RBCs Not Reportable 06/22/17 04:19 Polychromasia Not Reportable 06/22/17 04:19 Hypochromasia Not Reportable 06/22/17 04:19 Poikilocytosis Not Reportable 06/22/17 04:19 Anisocytosis Not Reportable 06/22/17 04:19 Microcytosis Not Reportable 06/22/17 04:19 Macrocytosis Not Reportable 06/22/17 04:19 Spherocytes Not Reportable 06/22/17 04:19 Pappenheimer Bodies Not Reportable 06/22/17 04:19 Sickle Cells Not Reportable 06/22/17 04:19 Target Cells Not Reportable 06/22/17 04:19 Tear Drop Cells Not Reportable 06/22/17 04:19 Ovalocytes Not Reportable 06/22/17 04:19 Helmet Cells Not Reportable 06/22/17 04:19 [place] Bodies Not Reportable 06/22/17 04:[address] [place] [address] Rings Not Reportable 06/22/17 04:19 [place] Cells Not Reportable 06/22/17 04:19 Bite Cells Not Reportable 06/22/17 04:19 Crenated Cell Not Reportable 06/22/17 04:19 Elliptocytes Not Reportable 06/22/17 04:19 Acanthocytes (Spur) Not Reportable 06/22/17 04:19 Rouleaux Not Reportable 06/22/17 04:19 Hemoglobin C Crystals Not Reportable 06/22/17 04:19 Schistocytes Not Reportable 06/22/17 04:19 Malaria parasites Not Reportable 06/22/17 04:19 [place] Bodies Not Reportable 06/22/17 04:19 Hem Pathologist Commnt No 06/22/17 04:19 D-Dimer 747.03 ng/mlDDU (0-234) H 06/20/17 19:00 POC ABG pH 7.352 (7.35-7.45) 06/22/17 03:03 POC ABG pCO2 56.7 (35-45) H 06/22/17 03:03 POC ABG pO2 115 (80-105) H 06/22/17 03:03 POC ABG HCO3 31.5 06/22/17 03:03 POC ABG Total CO2 33 06/22/17 03:03 POC ABG O2 Sat 98 06/22/17 03:03 POC ABG Base Excess 6 06/22/17 03:03 FiO2 50 % 06/22/17 03:03 Sodium 143 mmol/L (137-145) 06/22/17 04:19 Potassium 4.3 mmol/L (3.6-5.0) 06/22/17 04:19 Chloride 100.4 mmol/L (98-107) 06/22/17 04:19 Carbon Dioxide 27 mmol/L (22-30) 06/22/17 04:19 Anion Gap 20 mmol/L 06/22/17 04:19 BUN 41 mg/dL (9-20) H 06/22/17 04:19 Creatinine 1.6 mg/dL (0.8-1.5) H 06/22/17 04:19 Estimated GFR 45 ml/min 06/22/17 04:19 BUN/Creatinine Ratio 26 % 06/22/17 04:19 Glucose 126 mg/dL (75-100) H 06/22/17 04:19 Lactic Acid 1.50 mmol/L (0.7-2.0) 06/20/17 11:35 Calcium 7.7 mg/dL (8.4-10.2) L 06/22/17 04:19 Phosphorus 7.20 mg/dL (2.5-4.5) H 06/21/17 18:15 Magnesium 1.70 mg/dL (1.7-2.3) 06/21/17 18:15 Total Bilirubin 2.10 mg/dL (0.1-1.2) H 06/20/17 19:00 AST 157 units/L (5-40) H 06/20/17 19:00 ALT 119 units/L (7-56) H 06/20/17 19:00 Alkaline Phosphatase 133 units/L (35-129) H 06/20/17 19:00 Total Creatine Kinase 228 units/L (55-170) H 06/22/17 04:19 CK-MB (CK-2) 6.3 ng/mL (0.0-4.0) H 06/22/17 04:19 CK-MB (CK-2) Rel Index 2.7 (0-4) 06/22/17 04:19 Troponin T 0.031 ng/mL (0.00-0.029) H D 06/22/17 04:19 C-Reactive Protein 3.90 mg/dL (0.00-1.30) H 06/21/17 18:15 NT-Pro-B Natriuret Pep 67127 pg/mL (0-900) H 06/20/17 19:00 Total Protein 6.0 g/dL (6.3-8.2) L 06/20/17 19:00 Albumin 3.7 g/dL (3.9-5) L 06/20/17 19:00 Albumin/Globulin Ratio 1.6 % 06/20/17 19:00 Triglycerides 114 mg/dL (2-149) 06/20/17 19:00 Cholesterol 212 mg/dL (50-199) H 06/20/17 19:00 LDL Cholesterol Direct 103 mg/dL (50-130) 06/20/17 19:00 HDL Cholesterol 87 mg/dL (40-59) H 06/20/17 19:00 Cholesterol/HDL Ratio 2.43 % 06/20/17 19:00 Urine Color Yellow (Yellow) 06/21/17 05:29 Urine Turbidity Clear (Clear) 06/21/17 05:29 Urine pH 5.0 (5.0-7.0) 06/21/17 05:29 Ur Specific [place] 1.049 (1.003-1.030) H 06/21/17 05:29 Urine Protein <15 mg/dl mg/dL (Negative) 06/21/17 05:29 Urine Glucose (UA) Neg mg/dL (Negative) 06/21/17 05:29 Urine Ketones Neg mg/dL (Negative) 06/21/17 05:29 Urine Blood Mod (Negative) 06/21/17 05:29 Urine Nitrite Neg (Negative) 06/21/17 05:29 Urine Bilirubin Neg (Negative) 06/21/17 05:29 Urine Urobilinogen < 2.0 mg/dL (<2.0) 06/21/17 05:29 Ur Leukocyte Esterase Tr (Negative) 06/21/17 05:29 Urine WBC (Auto) 11.0 /HPF (0.0-6.0) H 06/21/17 05:29 Urine RBC (Auto) 2.0 /HPF (0.0-6.0) 06/21/17 05:29 U Epithel Cells (Auto) < 1.0 /HPF (0-13.0) 06/21/17 05:29 Urine Bacteria (Auto) 1+ /HPF (Negative) 06/21/17 05:29 Urine Opiates Screen Presumptive negative 06/21/17 05:29 Urine Methadone Screen Presumptive negative 06/21/17 05:29 Ur Barbiturates Screen Presumptive negative 06/21/17 05:29 Ur Phencyclidine Scrn Presumptive negative 06/21/17 05:29 Ur Amphetamines Screen Presumptive negative 06/21/17 05:29 U Benzodiazepines Scrn Presumptive positive 06/21/17 05:29 Urine Cocaine Screen Presumptive negative 06/21/17 05:29 U Marijuana (THC) Screen Presumptive negative 06/21/17 05:29 Drugs of Abuse Note Disclamer 06/21/17 05:29 Hepatitis A IgM Ab Non-reactive (NonReactive) 06/21/17 11:35 Hep Bs Antigen Non-reactive (Negative) 06/21/17 11:35 Hep B Core IgM Ab Non-reactive (NonReactive) 06/21/17 11:35 Hepatitis C Antibody Non-reactive (NonReactive) 06/21/17 11:35
[2017-06-22] MEDS ORDERED: PNEUMOVAX 23 IM ONE (12:00)
[2017-06-22] MEDS ORDERED: Fluarix Quad 2017-2018(36 MOS+ IM ONE (12:00)
--- NOTE | 2017-06-22 13:45 | Progress Note ---
Assessment and Plan Acute hypoxemic respiratory failure, on mechanical ventilator support. Bilateral pneumonia, possibly aspiration with basilar predominance. Hypercapnia. Elevated D-dimer. Elevated transaminases. Hyperlipidemia. Possible urinary tract infection. - continue full AC support - reduced Peep to 8 as long as O2 Sats > 90% - continue aspiration precations / addressing VAP bundle daily - continue bronchodilators and pulmonary hygeine per RT - continue enteral nutrition as tolerated - continue empiric AB's and follow cultures - continue GI & VTE prophylaxis Subjective Date of service: 06/22/17 Principal diagnosis: Acute Hypoxemic Hypercapnic Resp Failure; Bilateral Pneumonis (?Aspiration) Interval history: Patient is seen today for: Acute Hypoxemic Hypercapnic Resp Failure; Bilateral Pneumonis (?Aspiration) Seen and examined at bedside; 24hour events reviewed; nursing and respiratory care staff consulted; no adverse overnight events reported to me; remains on MVS and tolerating well; Sedate RASS -3; no emesis or overt aspiration reported ; FiO2 down to 40% but Peep still at 8 cmH2O Objective Vital Signs - 12hr 06/22/17 06/22/17 06/22/17 02:00 02:30 02:58 Temperature Pulse Rate 76 71 67 Pulse Rate [ Anterior Bilateral Throughout] Respiratory 11 L 15 Rate Respiratory Rate [Anterior Bilateral Throughout] Blood Pressure 101/55 102/49 100/46 Blood Pressure [Left] O2 Sat by Pulse 97 99 98 Oximetry 06/22/17 06/22/17 06/22/17 03:00 03:20 03:23 Temperature Pulse Rate 67 68 Pulse Rate [ Anterior Bilateral Throughout] Respiratory 18 Rate Respiratory Rate [Anterior Bilateral Throughout] Blood Pressure 101/47 Blood Pressure [Left] O2 Sat by Pulse 98 98 98 Oximetry 06/22/17 06/22/17 06/22/17 03:30 04:00 04:30 Temperature Pulse Rate 61 62 62 Pulse Rate [ Anterior Bilateral Throughout] Respiratory 18 18 18 Rate Respiratory Rate [Anterior Bilateral Throughout] Blood Pressure 101/45 101/47 103/48 Blood Pressure [Left] O2 Sat by Pulse 97 97 98 Oximetry 06/22/17 06/22/17 06/22/17 05:00 05:30 06:00 Temperature Pulse Rate 67 63 64 Pulse Rate [ Anterior Bilateral Throughout] Respiratory 18 18 18 Rate Respiratory Rate [Anterior Bilateral Throughout] Blood Pressure 103/52 101/48 100/50 Blood Pressure [Left] O2 Sat by Pulse 98 96 96 Oximetry 06/22/17 06/22/17 06/22/17 06:30 06:46 07:00 Temperature 98.3 F Pulse Rate 62 62 62 Pulse Rate [ Anterior Bilateral Throughout] Respiratory 18 16 18 Rate Respiratory Rate [Anterior Bilateral Throughout] Blood Pressure 100/48 102/50 Blood Pressure 101/51 [Left] O2 Sat by Pulse 96 97 97 Oximetry 06/22/17 06/22/17 06/22/17 07:30 08:00 08:30 Temperature 99.2 F Pulse Rate 65 64 63 Pulse Rate [ Anterior Bilateral Throughout] Respiratory 18 18 18 Rate Respiratory Rate [Anterior Bilateral Throughout] Blood Pressure 104/52 104/52 102/51 Blood Pressure [Left] O2 Sat by Pulse 97 96 97 Oximetry 06/22/17 06/22/17 06/22/17 09:00 09:29 09:30 Temperature Pulse Rate 62 61 61 Pulse Rate [ 61 Anterior Bilateral Throughout] Respiratory 18 18 Rate Respiratory 18 Rate [Anterior Bilateral Throughout] Blood Pressure 104/52 103/52 105/52 Blood Pressure [Left] O2 Sat by Pulse 97 97 97 Oximetry 06/22/17 06/22/17 06/22/17 09:44 10:00 10:30 Temperature Pulse Rate 64 64 Pulse Rate [ 63 Anterior Bilateral Throughout] Respiratory 18 18 Rate Respiratory 18 Rate [Anterior Bilateral Throughout] Blood Pressure 107/53 107/51 Blood Pressure [Left] O2 Sat by Pulse 96 97 Oximetry 06/22/17 06/22/17 06/22/17 11:00 11:30 12:29 Temperature Pulse Rate 70 67 63 Pulse Rate [ 64 Anterior Bilateral Throughout] Respiratory 18 18 Rate Respiratory 18 Rate [Anterior Bilateral Throughout] Blood Pressure 111/55 109/55 111/55 Blood Pressure [Left] O2 Sat by Pulse 97 96 97 Oximetry 06/22/17 06/22/17 12:42 12:53 Temperature Pulse Rate 63 Pulse Rate [ 62 Anterior Bilateral Throughout] Respiratory Rate Respiratory 18 Rate [Anterior Bilateral Throughout] Blood Pressure 108/56 Blood Pressure [Left] O2 Sat by Pulse 97 Oximetry Constitutional: no acute distress, other (sedated) Eyes: non-icteric ENT: oropharynx moist, other (ETT at 22cm) Neck: supple, no lymphadenopathy, no JVD, other (No thyromegaly) Effort: mildly labored Ascultation: Bilateral: rales (bases) Percussion: Bilateral: not dull Cardiovascular: regular rate and rhythm, other (No rubs or murmurs) Gastrointestinal: normoactive bowel sounds, soft, non-tender, non-distended, other (No palpable HSM) Integumentary: normal Extremities: no cyanosis, no edema, pink and warm, pulses normal Neurologic: non-focal exam (grossly), unable to assess, other (sedated) Psychiatric: other (sedated) CBC and BMP: 06/22/17 04:19 06/22/17 04:19 ABG, PT/INR, D-dimer: ABG POC ABG pH 7.352 (7.35-7.45) 06/22/17 03:03 POC ABG pCO2 56.7 (35-45) H 06/22/17 03:03 POC ABG pO2 115 (80-105) H 06/22/17 03:03 POC ABG HCO3 31.5 06/22/17 03:03 POC ABG Total CO2 33 06/22/17 03:03 POC ABG O2 Sat 98 06/22/17 03:03 PT/INR, D-dimer D-Dimer 747.03 ng/mlDDU (0-234) H 06/20/17 19:00 Abnormal lab findings: Abnormal Labs 06/20/17 06/20/17 06/20/17 19:00 19:00 19:00 WBC RBC Hgb Hct MCV 100 H MCH 35 H MCHC 35 H RDW 18.8 H Lymph % (Auto) 4.1 L [place] % (Auto) 8.9 H Lymph # 0.4 L [place] # 0.9 H Seg Neutrophils % 86.2 H Seg Neuts % (Manual) Lymphocytes % (Manual) Seg Neutrophils # 8.6 H Seg Neutrophils # Man Lymphocytes # (Manual) D-Dimer 747.03 H POC ABG pCO2 POC ABG pO2 BUN Creatinine Glucose Calcium Phosphorus Total Bilirubin 2.10 H AST 157 H ALT 119 H Alkaline Phosphatase 133 H Total Creatine Kinase 285 H CK-MB (CK-2) 8.6 H Troponin T 0.043 H C-Reactive Protein NT-Pro-B Natriuret Pep 73256 H Total Protein 6.0 L Albumin 3.7 L Cholesterol 212 H HDL Cholesterol 87 H Ur Specific [place] Urine WBC (Auto) 06/20/17 06/21/1706/21/18 23:18 04:40 05:29 WBC RBC Hgb Hct MCV MCH MCHC RDW Lymph % (Auto) [place] % (Auto) Lymph # [place] # Seg Neutrophils % Seg Neuts % (Manual) Lymphocytes % (Manual) Seg Neutrophils # Seg Neutrophils # Man Lymphocytes # (Manual) D-Dimer POC ABG pCO2 53.9 H 47.1 H POC ABG pO2 221 H BUN Creatinine Glucose Calcium Phosphorus Total Bilirubin AST ALT Alkaline Phosphatase Total Creatine Kinase CK-MB (CK-2) Troponin T C-Reactive Protein NT-Pro-B Natriuret Pep Total Protein Albumin Cholesterol HDL Cholesterol Ur Specific [place] 1.049 H Urine WBC (Auto) 11.0 H 06/21/17 06/21/17 06/21/17 07:50 07:50 13:33 WBC 12.0 H RBC Hgb Hct MCV 104 H MCH 35 H MCHC RDW 19.3 H Lymph % (Auto) [place] % (Auto) Lymph # [place] # Seg Neutrophils % Seg Neuts % (Manual) 93.0 H Lymphocytes % (Manual) 1.0 L Seg Neutrophils # Seg Neutrophils # Man 11.2 H Lymphocytes # (Manual) 0.1 L D-Dimer POC ABG pCO2 POC ABG pO2 BUN 21 H Creatinine Glucose 130 H Calcium 8.1 L Phosphorus Total Bilirubin AST ALT Alkaline Phosphatase Total Creatine Kinase CK-MB (CK-2) Troponin T 0.054 H D C-Reactive Protein NT-Pro-B Natriuret Pep Total Protein Albumin Cholesterol HDL Cholesterol Ur Specific [place] Urine WBC (Auto) 06/21/17 06/21/17 06/21/17 18:15 18:15 20:55 WBC RBC Hgb Hct MCV MCH MCHC RDW Lymph % (Auto) [place] % (Auto) Lymph # [place] # Seg Neutrophils % Seg Neuts % (Manual) Lymphocytes % (Manual) Seg Neutrophils # Seg Neutrophils # Man Lymphocytes # (Manual) D-Dimer POC ABG pCO2 POC ABG pO2 BUN Creatinine Glucose Calcium Phosphorus 7.20 H Total Bilirubin AST ALT Alkaline Phosphatase Total Creatine Kinase CK-MB (CK-2) Troponin T 0.042 H D C-Reactive Protein 3.90 H NT-Pro-B Natriuret Pep Total Protein Albumin Cholesterol HDL Cholesterol Ur Specific [place] Urine WBC (Auto) 06/22/17 06/22/17 06/22/17 03:03 04:19 04:19 WBC RBC 3.40 L Hgb 11.7 L Hct 35.1 L D MCV 103 H MCH 35 H MCHC RDW 18.7 H Lymph % (Auto) [place] % (Auto) Lymph # [place] # Seg Neutrophils % Seg Neuts % (Manual) 97.0 H Lymphocytes % (Manual) 1.0 L Seg Neutrophils # Seg Neutrophils # Man 10.2 H Lymphocytes # (Manual) 0.1 L D-Dimer POC ABG pCO2 56.7 H POC ABG pO2 115 H BUN 41 H Creatinine 1.6 H Glucose 126 H Calcium 7.7 L Phosphorus Total Bilirubin AST ALT Alkaline Phosphatase Total Creatine Kinase CK-MB (CK-2) Troponin T C-Reactive Protein NT-Pro-B Natriuret Pep Total Protein Albumin Cholesterol HDL Cholesterol Ur Specific [place] Urine WBC (Auto) 06/22/17 04:19 WBC RBC Hgb Hct MCV MCH MCHC RDW Lymph % (Auto) [place] % (Auto) Lymph # [place] # Seg Neutrophils % Seg Neuts % (Manual) Lymphocytes % (Manual) Seg Neutrophils # Seg Neutrophils # Man Lymphocytes # (Manual) D-Dimer POC ABG pCO2 POC ABG pO2 BUN Creatinine Glucose Calcium Phosphorus Total Bilirubin AST ALT Alkaline Phosphatase Total Creatine Kinase 228 H CK-MB (CK-2) 6.3 H Troponin T 0.031 H D C-Reactive Protein NT-Pro-B Natriuret Pep Total Protein Albumin Cholesterol HDL Cholesterol Ur Specific [place] Urine WBC (Auto) Chest x-ray: pending Allied health notes reviewed: nursing
[2017-06-22] MEDS ORDERED: ATIVAN ONE (13:56)
[2017-06-22] MEDS ORDERED: ATIVAN IV ONE (14:03)
--- NOTE | 2017-06-22 14:39 | Event Note ---
Date: 06/22/17 Reported seizure type activity on fentanyl and propofol drips - started keppra - begin versed drip and wean off propofol
[2017-06-22] MEDS ORDERED: KEPPRA 500 MG in NACL 0.9% 100 ML IV SCH (15:00)
--- NOTE | 2017-06-22 15:18 | Consultation ---
History of Present Illness - Reason for Consult Consult date: 06/22/17 acute renal failure Requesting physician: SANA ALLRED - History of Present Illness 52-year-old male questioned past medical history presents with 1 week history of cough and shortness of breath. Cough was productive of yellow sputum. Patient diagnosed with bilateral pneumonia possibly aspiration and was intubated for hypercapnic hypoxemic respiratory failure. Had a CT of the chest on Jun 20 which showed large bilateral consolidation /infiltrates consistent with pneumonia and bilateral patchy upper lobe disease with pseudocoarctation of thoracic aorta. Blood pressure was as high as 183/94 mmHg presentation yesterday blood pressure dropped to as low as 94 5/46 mmHg. Patient is not getting any nonsteroidal anti-inflammatory drugs. 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 I'm consulted to assist in managing renal failure. Patient is not able to give a history being intubated on ventilator and so history is obtained from review of the records. Past History Past Medical History: other (Couldn't be obtained because the patient is intubated and on MV.) Past Surgical History: Other (Couldn't be obtained because the patient is intubated and on MV.) Social history: other (Couldn't be obtained because the patient is intubated and on MV.) Family history: other (Couldn't be obtained because the patient is intubated and on MV.) Medications and Allergies Allergies Allergy/AdvReac Type Severity Reaction Status Date / Time codeine Allergy Severe Itching Verified 06/20/17 17:57 Active Meds: Active Medications Albuterol/Ipratropium (Duoneb *Not For Prn Use*) 1 ampul IH QIDRT [facility] Last Admin: 06/22/17 15:11 Dose: 1 ampul Famotidine (Pepcid) 20 mg IV BID [facility] Last Admin: 06/22/17 09:56 Dose: 20 mg Heparin Sodium (Porcine) (Heparin) 5,000 unit SUB-Q TID [facility] Last Admin: 06/22/17 09:56 Dose: 5,000 unit Hydralazine HCl (Apresoline) 20 mg IV Q4H PRN PRN Reason: Hypertension Hydrophilic Ointment (Vaseline Lip Therapy) 1 applic TP Q2HR PRN PRN Reason: Dry Lips Midazolam HCl 100 mg/ Sodium (Chloride) 100 mls @ 2 mls/hr IV TITR [facility]; 2 MG/HR PRN Reason: Protocol Last Titration: 06/21/17 08:58 Dose: 0 mg/hr, 0 mls/hr Propofol (Diprivan 10 Mg/Ml) 1,000 mg in 100 mls @ 2.177 mls/hr IV TITR [facility]STINA; 5 MCG/KG/MIN PRN Reason: Protocol Last Admin: 06/22/17 15:10 Dose: 50 mcg/kg/min, 21.773 mls/hr Piperacillin Sod/Tazobactam Sod (Zosyn/Ns 4.5gm/100ml) 4.5 gm in 100 mls @ 200 mls/hr IV Q6HR [facility] PRN Reason: Protocol Last Admin: 06/22/17 11:33 Dose: 200 mls/hr Fentanyl Citrate (Fentanyl Drip Premix) 2,000 mcg in 100 mls @ 3.629 mls/hr IV TITR [facility]; 1 MCG/KG/HR PRN Reason: Protocol Last Admin: 06/22/17 11:47 Dose: 4 mcg/kg/hr, 14.515 mls/hr Levetiracetam (Keppra 500 Mg/Ns 0.82% 100 Ml) 500 mg in 100 mls @ 400 mls/hr IV Q12HR [facility] Methylprednisolone Sodium Succinate (Solu-Medrol) 60 mg IV TID [facility] Last Admin: 06/22/17 09:56 Dose: 60 mg Multi-Ingred Cream/Lotion/Oil/Oint (Artificial Tears Ophth Oint) 1 applic OU Q4HR PRN PRN Reason: Dry Eye(s) Sodium Chloride (Nacl 0.9% 500 Ml) 1 ml IV DIRECT [facility] Vancomycin HCl (Vancomycin Pharmacy To Dose) 1 each IV PKCONSULT [facility] PRN Reason: Protocol Review of Systems ROS unobtainable: due to endotracheal tube Exam - Vital Signs Vital signs: Vital Signs Temp Pulse Resp BP Pulse Ox 98.7 F 111 H 26 H 183/94 96 06/20/17 18:09 06/20/17 18:09 06/20/17 18:09 06/20/17 18:09 06/20/17 18:09 - Physical Exam Narrative exam: Middle-aged male lying in bed intubated on ventilator. Patient was having jerking movements when I saw him HEENT: NCAT, endotracheal tube intact Neck: Supple, no venous distention CVS: S1S2 RRR with no murmur, rub or gallop Chest: Bilateral rhonchi Abdomen: Protuberant, soft, nontender, no organomegaly, bowel sounds are present Extremities: No edema and no clubbing Skin warm and dry with no rash Neuro: Awake, alert no focal deficits Results - Lab Results 06/22/17 04:19 06/22/17 04:19 Most recent lab results Calcium 7.7 mg/dL (8.4-10.2) L 06/22/17 04:19 Phosphorus 7.20 mg/dL (2.5-4.5) H 06/21/17 18:15 Magnesium 1.70 mg/dL (1.7-2.3) 06/21/17 18:15 Assessment and Plan - Patient Problems (1) Other acute kidney failure Current Visit: Yes Status: Acute Plan to address problem: Get urine studies. Kidney ultrasound. Gentle volume repletion with close monitoring for signs of overload. Follow-up electrolytes and renal function (2) Acute respiratory failure with hypoxia Current Visit: Yes Status: Acute Plan to address problem: Management by pulmonary (3) Transaminasemia Current Visit: Yes Status: Acute Plan to address problem: Hepatitis B and C negative. Follow-up liver function tests. (4) Hyperphosphatemia Current Visit: Yes Status: Acute Plan to address problem: Start tube feeds low in phosphorus and follow up phosphorus level may need to start binder (5) Seizure Current Visit: Yes Status: Acute Plan to address problem: Possible seizure may be related to benzodiazepine withdrawal. Patient given 2 mg of Ativan with resolution. Discussed with the nurse to notify her primary attending to consider starting Versed drip
--- NOTE | 2017-06-22 15:38 | XRay Report ---
FINAL REPORT PROCEDURE: Portable upright chest x-ray TECHNIQUE: Chest radiograph anteroposterior view. CPT 25650 HISTORY: pneumonia COMPARISON: Prior study 06/20/2017 FINDINGS: Endotracheal tube remains in place. The tip is located 6.4 centimeters above the nancie. NG tube is seen directed into the stomach. The distal end of the tube is not visualized. The heart is enlarged. Pulmonary vasculature less distended than on the prior study. Bibasilar alveolar densities have improved significantly. There still patchy alveolar density remaining left side greater than right. I cannot exclude minimal left effusion. No acute bony abnormalities are identified. IMPRESSION: Significantly improved bilateral lower lobe consolidations, there still alveolar densities remaining left side worse than right. I cannot exclude a small left effusion. Cardiomegaly stable. Pulmonary vascular hypertension changes improved. Endotracheal tube and NG tube in good position as described..
[2017-06-22] MEDS: MIDAZOLAM 100 MG in NACL 0.9% 80 ML IV SCH (16:49)
[2017-06-22] MEDS: KEPPRA 500 MG/NS 0.82% 100 ML 500 MG/100 ML BAG IV SCH ×2 (16:58→22:33)
--- NOTE | 2017-06-22 18:08 | Ultrasound Report ---
FINAL REPORT PROCEDURE: US RENAL BILAT TECHNIQUE: Real-time sonography in multiple planes of the kidneys, ureters and urinary bladder was performed with image documentation. CPT 55570 HISTORY: Acute kidney injury COMPARISON: No prior studies are available for comparison. FINDINGS: The echogenicity of the renal cortex of both kidneys appears normal. No masses calculi or hydronephrosis visualized. No abnormal perinephric fluid collections are identified. The right kidney measures 11.8 x 4.9 x 5.8 centimeter. The left kidney measures 12.1 x 6.4 x 5.0 centimeters. There is a Moody catheter visualized in the urinary bladder which is otherwise empty and difficult to characterize. IMPRESSION: Negative renal ultrasound..
[2017-06-23] MEDS: ZOSYN/NS 4.5GM/100ML 4.5 GM/100 ML VIAL IV SCH ×5 (00:39→23:07)
[2017-06-23] MEDS: fentaNYL DRIP Premix 2,000 MCG/100 ML BAG IV SCH ×3 (00:53→17:32)
[2017-06-23 04:49] LABS: Basophils % (Auto) 0.2 % (0.0-1.8); Hematocrit 38.2 % (35.5-45.6); Hemoglobin 12.5 gm/dl (11.8-15.2); Lymphocytes # (Auto) 0.6 K/mm3 (1.2-5.4); Lymphocytes % (Auto) 5.5 % (13.4-35.0); Mean Corpuscular HGB Conc 33 % (32-34); Mean Corpuscular Hemoglobin 33 pg (28-32); Mean Corpuscular Volume 102 fl (84-94); Monocytes # (Auto) 0.7 K/mm3 (0.0-0.8); Monocytes % (Auto) 6.6 % (0.0-7.3); Platelet Count 153 K/mm3 (140-440); Red Blood Count 3.74 M/mm3 (3.65-5.03); Red Cell Distribution Width 18.9 % (13.2-15.2)
[2017-06-23 04:59] LABS: Calcium 8.2 mg/dL (8.4-10.2)
[2017-06-23 05:39] LABS: Creatinine,Urine 136.8 mg/dL (0.1-20.0)
[2017-06-23] MEDS: HEPARIN SUB-Q SCH ×3 (08:06→21:33)
[2017-06-23] MEDS: DUONEB *Not for PRN Use IH SCH ×4 (08:20→19:23)
[2017-06-23] MEDS: PEPCID IV SCH ×2 (09:30→21:31)
[2017-06-23] MEDS: KEPPRA 500 MG/NS 0.82% 100 ML 500 MG/100 ML BAG IV SCH ×2 (10:05→21:32)
--- NOTE | 2017-06-23 10:15 | Progress Note ---
Assessment and Plan Respiratory failure on mechanical ventilation Sepsis Pneumonia Acute renal failure Nonspecifically elevated cardiac enzymes: pattern not consistent with ACS Non sustained ventricular tachycardia no reoccurrence Subjective Date of service: 06/23/17 Principal diagnosis: Acute Hypoxemic Hypercapnic Resp Failure; Bilateral Pneumonis (?Aspiration) Interval history: Intubated, sedated on mechanical ventilation. Objective Vital Signs Temp Pulse Pulse Pulse Pulse Resp Resp 06/23/17 10:00 73 06/23/17 09:31 73 17 06/23/17 09:00 73 18 06/23/17 08:34 67 06/23/17 08:31 62 18 06/23/17 08:20 68 06/23/17 08:12 68 06/23/17 08:00 100.6 F H 69 18 06/23/17 07:31 87 15 06/23/17 07:00 74 18 06/23/17 06:31 126 H 20 06/23/17 06:00 80 18 06/23/17 05:45 78 18 06/23/17 05:31 74 18 06/23/17 05:15 74 18 06/23/17 05:00 76 18 06/23/17 04:45 80 18 06/23/17 04:31 86 18 06/23/17 04:15 102 H 18 06/23/17 04:01 120 H 15 06/23/17 04:00 99.4 F 06/23/17 03:45 71 18 06/23/17 03:41 72 06/23/17 03:31 70 18 06/23/17 03:15 71 18 06/23/17 03:00 71 18 06/23/17 02:45 70 18 06/23/17 02:31 72 18 06/23/17 02:15 70 18 06/23/17 02:00 73 18 06/23/17 01:45 73 18 06/23/17 01:31 73 18 06/23/17 01:15 72 18 06/23/17 01:00 72 18 06/23/17 00:45 74 18 06/23/17 00:30 74 18 06/23/17 00:15 72 18 06/23/17 00:00 98.8 F 71 18 06/22/17 23:45 74 18 06/22/17 23:31 74 18 06/22/17 23:27 74 01/14/18 23:22 73 18 18 23:15 74 18 18 23:09 75 18 06/22/17 23:00 74 18 06/22/17 22:46 73 18 18 22:45 73 18 18 22:31 74 18 18 22:15 74 18 18 22:00 74 18 18 21:45 74 18 18 21:31 74 18 06/22/17 21:15 74 18 06/22/17 21:00 74 18 06/22/17 20:45 75 18 06/22/17 20:31 72 18 06/22/17 20:23 74 18 06/22/17 20:15 75 18 06/22/17 20:13 70 18 06/22/17 20:09 69 06/22/17 20:00 98.8 F 69 18 06/22/17 19:45 71 18 06/22/17 19:31 70 18 06/22/17 19:21 72 18 06/22/17 19:11 72 18 18 19:00 72 18 18 18:51 68 18 18 18:41 70 18 18 18:31 68 18 18 18:21 70 18 06/22/17 18:10 70 18 18 18:00 71 18 18 17:51 68 18 18 17:41 70 18 18 17:31 69 18 18 17:21 71 18 18 17:11 72 18 18 17:00 70 18 18 16:51 73 18 18 16:41 73 18 18 16:39 74 18 18 16:24 77 18 15:30 64 18 18 15:23 69 18 06/22/18 15:05 70 68 14/18 15:01 69 18 18 14:30 74 18 1418 14:00 87 18 18 13:30 71 18 18 13:00 69 18 18 12:53 62 18 06/22/17 12:42 63 06/22/17 12:30 63 16 06/22/17 12:29 63 64 18 06/22/17 12:00 65 18 06/22/17 11:30 67 18 06/22/17 11:00 70 18 06/22/17 10:30 64 18 Resp Resp BP Pulse Ox 06/23/17 10:00 06/23/17 09:31 131/61 99 06/23/17 09:00 131/61 98 06/23/17 08:34 18 06/23/17 08:31 121/55 100 06/23/17 08:20 18 06/23/17 08:12 121/55 99 06/23/17 08:00 121/55 98 06/23/17 07:31 116/56 98 06/23/17 07:00 126/55 95 06/23/17 06:31 116/56 100 06/23/17 06:00 116/56 97 06/23/17 05:45 115/53 99 06/23/17 05:31 115/53 98 06/23/17 05:15 115/53 97 06/23/17 05:00 115/53 94 06/23/17 04:45 136/76 93 06/23/17 04:31 136/76 92 06/23/17 04:15 136/76 92 06/23/17 04:01 136/76 100 06/23/17 04:00 98 06/23/17 03:45 129/58 99 06/23/17 03:41 129/58 99 06/23/17 03:31 129/58 99 06/23/17 03:15 129/58 99 06/23/17 03:00 129/58 98 06/23/17 02:45 128/61 99 06/23/17 02:31 128/61 99 06/23/17 02:15 128/61 99 06/23/17 02:00 128/61 98 06/23/17 01:45 128/56 99 06/23/17 01:31 128/56 99 06/23/17 01:15 128/56 99 06/23/17 01:00 128/56 97 06/23/17 00:45 120/54 99 06/23/17 00:30 120/54 99 06/23/17 00:15 120/54 99 06/23/17 00:00 120/54 98 06/22/17 23:45 120/55 98 06/22/17 23:31 120/55 98 06/22/17 23:27 120/55 98 06/22/17 23:22 120/55 98 06/22/17 23:15 120/55 98 06/22/17 23:09 120/55 98 06/22/17 23:00 120/55 97 06/22/17 22:46 118/55 98 06/22/17 22:45 119/55 97 06/22/17 22:31 119/55 98 06/22/17 22:15 119/55 97 06/22/17 22:00 119/55 96 06/22/17 21:45 119/54 97 06/22/17 21:31 119/54 97 06/22/17 21:15 119/54 97 06/22/17 21:00 119/54 95 06/22/17 20:45 118/55 96 06/22/17 20:31 118/55 95 06/22/17 20:23 06/22/17 20:15 118/55 100 06/22/17 20:13 06/22/17 20:09 118/55 98 06/22/17 20:00 118/55 98 06/22/17 19:45 120/56 98 06/22/17 19:31 120/56 98 06/22/17 19:21 120/56 98 06/22/17 19:11 120/56 98 06/22/17 19:00 120/56 97 06/22/17 18:51 117/54 98 06/22/17 18:41 117/54 98 06/22/17 18:31 117/54 97 06/22/17 18:21 117/54 97 06/22/17 18:10 117/54 96 06/22/17 18:00 117/54 94 06/22/17 17:51 116/54 97 06/22/17 17:41 116/54 97 06/22/17 17:31 116/54 97 06/22/17 17:21 116/54 96 06/22/17 17:11 116/54 96 06/22/17 17:00 116/54 95 06/22/17 16:51 97 06/22/17 16:41 97 06/22/17 16:39 97 06/22/17 16:24 118/54 98 06/22/17 15:30 117/56 99 06/22/17 15:23 06/22/17 15:05 18 118/55 986 H 06/22/17 15:01 117/57 96 06/22/17 14:30 119/57 93 06/22/17 14:00 128/66 93 06/22/17 13:30 114/56 95 06/22/17 13:00 109/55 95 06/22/17 12:53 06/22/17 12:42 108/56 97 06/22/17 12:30 111/55 97 06/22/17 12:29 111/55 97 06/22/17 12:00 109/54 97 06/22/17 11:30 109/55 96 06/22/17 11:00 111/55 97 06/22/17 10:30 107/51 97 - Physical Examination HEENT: Positive: PERRL Neck: Positive: neck supple, trachea midline Abdomen: Positive: Soft, Active Bowel Sounds Extremities: Absent: edema - Labs and Meds CBC 06/23/17 Range/Units 04:20 WBC 11.4 H (4.5-11.0) K/mm3 RBC 3.74 (3.65-5.03) M/mm3 Hgb 12.5 (11.8-15.2) gm/dl Hct 38.2 (35.5-45.6) % Plt Count 153 (140-440) K/mm3 Lymph # 0.6 L (1.2-5.4) K/mm3 [place] # 0.7 (0.0-0.8) K/mm3 Eos # 0.0 (0.0-0.4) K/mm3 Baso # 0.0 (0.0-0.1) K/mm3 Comprehensive Metabolic Panel 06/23/17 Range/Units 04:20 Sodium 146 H (137-145) mmol/L Potassium 4.4 (3.6-5.0) mmol/L Chloride 103.2 (98-107) mmol/L Carbon Dioxide 30 (22-30) mmol/L BUN 38 H (9-20) mg/dL Creatinine 1.3 (0.8-1.5) mg/dL Glucose 107 H (75-100) mg/dL Calcium 8.2 L (8.4-10.2) mg/dL - Allied health notes Allied health notes reviewed: nursing
--- NOTE | 2017-06-23 12:29 | Progress Note ---
Assessment and Plan Assessment and plan: Acute hypoxic respiratory failure On mechanical ventilation less than 96 hours Patient currently with AC mode ventilation rate of 16, tidal volume 450, PEEP 8 , FiO2 60%. Continue weaning ventilator per pulmonary. Patient is intubated and on mechanical ventilation, IV antibiotics, IV fluids Elevated BNP. Check echocardiogram. Sepsis. Continue sepsis pathway. Follow-up blood cultures Bilateral pneumonia. Etiology secondary to ? Aspiration. Continue IV antibiotics and follow-up chest x-ray. Acute renal failure. Etiology likely secondary to acute kidney injury from sepsis/ATN and contrast nephropathy per Renal. Reactive airway disease vs. asthma. ? history of asthma. Continue bronchodilators and IV Solu-Medrol. Transaminitis - Etiology, likely secondary to shock liver from sepsis. - acute hepatitis panel negative Elevated troponin. -Etiology, likely secondary to sepsis -Echocardiogram reveals global left ventricular systolic function severely decreased with EF of 20-25%. Left atrium is moderately to severely dilated. NSVT. Cardiology following ? Seizure. Possible seizure may be related to benzodiazepine withdrawal. Patient given 2 mg of Ativan with resolution. DVT prophylaxis -Heparin Disposition - ICU management. The high probability of a clinically significant, sudden or life threatening deterioration of the [respiratory, [employer] and cardiac] system(s) required my full and direct attention, intervention and personal management. The aggregate critical care time was [35] minutes. This time is in addition to time spent performing reported procedures but includes the following: [X] Data Review and interpretation [X] Patient assessment and monitoring of vital signs [X] Documentation [X] Medication orders and management History Interval history: Patient is currently intubated on mechanical ventilation. Hospitalist Physical - Constitutional Vitals: Temp Pulse Resp BP Pulse Ox 98.6 F 77 12 133/60 98 06/23/17 12:00 06/23/17 12:22 06/23/17 12:22 06/23/17 12:19 06/23/17 12:19 General appearance: Present: no acute distress - EENT Eyes: Present: PERRL, EOM intact ENT: hearing intact, clear oral mucosa, dentition normal - Neck Neck: Present: supple, normal ROM - Respiratory Respiratory effort: normal Respiratory: bilateral: diminished, rhonchi - Cardiovascular Rhythm: regular Heart Sounds: Present: S1 & S2. Absent: gallop, rub - Extremities Extremities: no ischemia, No edema, Full ROM - Abdominal General gastrointestinal: soft, non-tender, non-distended, normal bowel sounds - Integumentary Integumentary: Present: clear, warm, dry - Neurologic Neurologic: CNII-XII intact, moves all extremities Results - Labs CBC & Chem 7: 06/23/17 04:20 06/23/17 04:20 Labs: Laboratory Last Values WBC 11.4 K/mm3 (4.5-11.0) H 06/23/17 04:20 RBC 3.74 M/mm3 (3.65-5.03) 06/23/17 04:20 Hgb 12.5 gm/dl (11.8-15.2) 06/23/17 04:20 Hct 38.2 % (35.5-45.6) 06/23/17 04:20 MCV 102 fl (84-94) H 06/23/17 04:20 MCH 33 pg (28-32) H 06/23/17 04:20 MCHC 33 % (32-34) 06/23/17 04:20 RDW 18.9 % (13.2-15.2) H 06/23/17 04:20 Plt Count 153 K/mm3 (140-440) 06/23/17 04:20 Lymph % (Auto) 5.5 % (13.4-35.0) L 06/23/17 04:20 [place] % (Auto) 6.6 % (0.0-7.3) 06/23/17 04:20 Eos % (Auto) 0.0 % (0.0-4.3) 06/23/17 04:20 Baso % (Auto) 0.2 % (0.0-1.8) 06/23/17 04:20 Lymph # 0.6 K/mm3 (1.2-5.4) L 06/23/17 04:20 [place] # 0.7 K/mm3 (0.0-0.8) 06/23/17 04:20 Eos # 0.0 K/mm3 (0.0-0.4) 06/23/17 04:20 Baso # 0.0 K/mm3 (0.0-0.1) 06/23/17 04:20 Add Manual Diff Complete 06/22/17 04:19 Total Counted 100 06/22/17 04:19 Seg Neutrophils % 87.7 % (40.0-70.0) H 06/23/17 04:20 Seg Neuts % (Manual) 97.0 % (40.0-70.0) H 06/22/17 04:19 Band Neutrophils % 1.0 % 06/22/17 04:19 Lymphocytes % (Manual) 1.0 % (13.4-35.0) L 06/22/17 04:19 Reactive Lymphs % (Man) 0 % 06/22/17 04:19 Monocytes % (Manual) 1.0 % (0.0-7.3) 06/22/17 04:19 Eosinophils % (Manual) 0 % (0.0-4.3) 06/22/17 04:19 Basophils % (Manual) 0 % (0.0-1.8) 06/22/17 04:19 Metamyelocytes % 0 % 06/22/17 04:19 Myelocytes % 0 % 06/22/17 04:19 Promyelocytes % 0 % 06/22/17 04:19 Blast Cells % 0 % 06/22/17 04:19 Nucleated RBC % Not Reportable 06/22/17 04:19 Seg Neutrophils # 10.0 K/mm3 (1.8-7.7) H 06/23/17 04:20 Seg Neutrophils # Man 10.2 K/mm3 (1.8-7.7) H 06/22/17 04:19 Band Neutrophils # 0.1 K/mm3 06/22/17 04:19 Lymphocytes # (Manual) 0.1 K/mm3 (1.2-5.4) L 06/22/17 04:19 Abs React Lymphs (Man) 0.0 K/mm3 06/22/17 04:19 Monocytes # (Manual) 0.1 K/mm3 (0.0-0.8) 06/22/17 04:19 Eosinophils # (Manual) 0.0 K/mm3 (0.0-0.4) 06/22/17 04:19 Basophils # (Manual) 0.0 K/mm3 (0.0-0.1) 06/22/17 04:19 Metamyelocytes # 0.0 K/mm3 06/22/17 04:19 Myelocytes # 0.0 K/mm3 06/22/17 04:19 Promyelocytes # 0.0 K/mm3 06/22/17 04:19 Blast Cells # 0.0 K/mm3 06/22/17 04:19 WBC Morphology Not Reportable 06/22/17 04:19 Hypersegmented Neuts Not Reportable 06/22/17 04:19 Hyposegmented Neuts Not Reportable 06/22/17 04:19 Hypogranular Neuts Not Reportable 06/22/17 04:19 Smudge Cells Not Reportable 06/22/17 04:19 Toxic Granulation Not Reportable 06/22/17 04:19 Toxic Vacuolation Not Reportable 06/22/17 04:19 Dohle Bodies Not Reportable 06/22/17 04:19 Pelger-Huet Anomaly Not Reportable 06/22/17 04:19 Luz Maria Rods Not Reportable 06/22/17 04:19 Platelet Estimate Appears normal 06/22/17 04:19 Clumped Platelets Not Reportable 06/22/17 04:19 Plt Clumps, EDTA Not Reportable 06/22/17 04:19 Large Platelets Not Reportable 06/22/17 04:19 Giant Platelets Not Reportable 06/22/17 04:19 Platelet Satelliting Not Reportable 06/22/17 04:19 Plt Morphology Comment Not Reportable 06/22/17 04:19 RBC Morphology Normal 06/22/17 04:19 Dimorphic RBCs Not Reportable 06/22/17 04:19 Polychromasia Not Reportable 06/22/17 04:19 Hypochromasia Not Reportable 06/22/17 04:19 Poikilocytosis Not Reportable 06/22/17 04:19 Anisocytosis Not Reportable 06/22/17 04:19 Microcytosis Not Reportable 06/22/17 04:19 Macrocytosis Not Reportable 06/22/17 04:19 Spherocytes Not Reportable 06/22/17 04:19 Pappenheimer Bodies Not Reportable 06/22/17 04:19 Sickle Cells Not Reportable 06/22/17 04:19 Target Cells Not Reportable 06/22/17 04:19 Tear Drop Cells Not Reportable 06/22/17 04:19 Ovalocytes Not Reportable 06/22/17 04:19 Helmet Cells Not Reportable 06/22/17 04:19 [place] Bodies Not Reportable 06/22/17 04:19 [place] Rings Not Reportable 06/22/17 04:19 [place] Cells Not Reportable 06/22/17 04:19 Bite Cells Not Reportable 06/22/17 04:19 Crenated Cell Not Reportable 06/22/17 04:19 Elliptocytes Not Reportable 06/22/17 04:19 Acanthocytes (Spur) Not Reportable 06/22/17 04:19 Rouleaux Not Reportable 06/22/17 04:19 Hemoglobin C Crystals Not Reportable 06/22/17 04:19 Schistocytes Not Reportable 06/22/17 04:19 Malaria parasites Not Reportable 06/22/17 04:19 [place] Bodies Not Reportable 06/22/17 04:19 Hem Pathologist Commnt No 06/22/17 04:19 D-Dimer 747.03 ng/mlDDU (0-234) H 06/20/17 19:00 POC ABG pH 7.492 (7.35-7.45) H 06/23/17 04:06 POC ABG pCO2 45.5 (35-45) H 06/23/17 04:06 POC ABG pO2 104 (80-105) 06/23/17 04:06 POC ABG HCO3 34.8 06/23/17 04:06 POC ABG Total CO2 36 06/23/17 04:06 POC ABG O2 Sat 98 06/23/17 04:06 POC ABG Base Excess 11 06/23/17 04:06 FiO2 40 % 06/23/17 04:06 Sodium 146 mmol/L (137-145) H 06/23/17 04:20 Potassium 4.4 mmol/L (3.6-5.0) 06/23/17 04:20 Chloride 103.2 mmol/L (98-107) 06/23/17 04:20 Carbon Dioxide 30 mmol/L (22-30) 06/23/17 04:20 Anion Gap 17 mmol/L 06/23/17 04:20 BUN 38 mg/dL (9-20) H 06/23/17 04:20 Creatinine 1.3 mg/dL (0.8-1.5) 06/23/17 04:20 Estimated GFR 58 ml/min 06/23/17 04:20 BUN/Creatinine Ratio 29 % 06/23/17 04:20 Glucose 107 mg/dL (75-100) H 06/23/17 04:20 Lactic Acid 1.50 mmol/L (0.7-2.0) 06/20/17 11:35 Calcium 8.2 mg/dL (8.4-10.2) L 06/23/17 04:20 Phosphorus 7.20 mg/dL (2.5-4.5) H 06/21/17 18:15 Magnesium 1.70 mg/dL (1.7-2.3) 06/21/17 18:15 Total Bilirubin 2.10 mg/dL (0.1-1.2) H 06/20/17 19:00 AST 157 units/L (5-40) H 06/20/17 19:00 ALT 119 units/L (7-56) H 06/20/17 19:00 Alkaline Phosphatase 133 units/L (35-129) H 06/20/17 19:00 Total Creatine Kinase 228 units/L (55-170) H 06/22/17 04:19 CK-MB (CK-2) 6.3 ng/mL (0.0-4.0) H 06/22/17 04:19 CK-MB (CK-2) Rel Index 2.7 (0-4) 06/22/17 04:19 Troponin T 0.031 ng/mL (0.00-0.029) H D 06/22/17 04:19 C-Reactive Protein 3.90 mg/dL (0.00-1.30) H 06/21/17 18:15 NT-Pro-B Natriuret Pep 65536 pg/mL (0-900) H 06/20/17 19:00 Total Protein 6.0 g/dL (6.3-8.2) L 06/20/17 19:00 Albumin 3.7 g/dL (3.9-5) L 06/20/17 19:00 Albumin/Globulin Ratio 1.6 % 06/20/17 19:00 Triglycerides 114 mg/dL (2-149) 06/20/17 19:00 Cholesterol 212 mg/dL (50-199) H 06/20/17 19:00 LDL Cholesterol Direct 103 mg/dL (50-130) 06/20/17 19:00 HDL Cholesterol 87 mg/dL (40-59) H 06/20/17 19:00 Cholesterol/HDL Ratio 2.43 % 06/20/17 19:00 Urine Color Yellow (Yellow) 06/21/17 05:29 Urine Turbidity Clear (Clear) 06/21/17 05:29 Urine pH 5.0 (5.0-7.0) 06/21/17 05:29 Ur Specific [place] 1.049 (1.003-1.030) H 06/21/17 05:29 Urine Protein <15 mg/dl mg/dL (Negative) 06/21/17 05:29 Urine Glucose (UA) Neg mg/dL (Negative) 06/21/17 05:29 Urine Ketones Neg mg/dL (Negative) 06/21/17 05:29 Urine Blood Mod (Negative) 06/21/17 05:29 Urine Nitrite Neg (Negative) 06/21/17 05:29 Urine Bilirubin Neg (Negative) 06/21/17 05:29 Urine Urobilinogen < 2.0 mg/dL (<2.0) 06/21/17 05:29 Ur Leukocyte Esterase Tr (Negative) 06/21/17 05:29 Urine WBC (Auto) 11.0 /HPF (0.0-6.0) H 06/21/17 05:29 Urine RBC (Auto) 2.0 /HPF (0.0-6.0) 06/21/17 05:29 U Epithel Cells (Auto) < 1.0 /HPF (0-13.0) 06/21/17 05:29 Urine Bacteria (Auto) 1+ /HPF (Negative) 06/21/17 05:29 Urine Creatinine 136.8 mg/dL (0.1-20.0) H 06/23/17 04:10 Urine Sodium 34 mmol/L 06/23/17 04:10 Urine Total Protein 41 mg/dL (5-11.8) H 06/23/17 04:10 Random Vancomycin 7.4 ug/mL (0-40.0) 06/23/17 04:20 Urine Opiates Screen Presumptive negative 06/21/17 05:29 Urine Methadone Screen Presumptive negative 06/21/17 05:29 Ur Barbiturates Screen Presumptive negative 06/21/17 05:29 Ur Phencyclidine Scrn Presumptive negative 06/21/17 05:29 Ur Amphetamines Screen Presumptive negative 06/21/17 05:29 U Benzodiazepines Scrn Presumptive positive 06/21/17 05:29 Urine Cocaine Screen Presumptive negative 06/21/17 05:29 U Marijuana (THC) Screen Presumptive negative 06/21/17 05:29 Drugs of Abuse Note Disclamer 06/21/17 05:29 Hepatitis A IgM Ab Non-reactive (NonReactive) 06/21/17 11:35 Hep Bs Antigen Non-reactive (Negative) 06/21/17 11:35 Hep B Core IgM Ab Non-reactive (NonReactive) 06/21/17 11:35 Hepatitis C Antibody Non-reactive (NonReactive) 06/21/17 11:35
[2017-06-23] MEDS: DIPRIVAN 10 MG/ML 1,000 MG/100 ML BOTTLE IV SCH ×2 (13:56→21:29)
[2017-06-23] MEDS ORDERED: SIMPLE SYRUP FEEDTUBE PRN ×2 (15:04)
[2017-06-23] MEDS ORDERED: SODIUM BICARBONATE FEEDTUBE PRN (15:04)
[2017-06-23] MEDS ORDERED: PANCREAZE DR 10,500 UNIT FEEDTUBE PRN (15:04)
--- NOTE | 2017-06-23 15:09 | Progress Note ---
Assessment and Plan - Patient Problems (1) Other acute kidney failure Current Visit: Yes Status: Acute Plan to address problem: Get urine studies. Kidney ultrasound. Gentle volume repletion with close monitoring for signs of overload. Follow-up electrolytes and renal function (2) Acute respiratory failure with hypoxia Current Visit: Yes Status: Acute Plan to address problem: Management by pulmonary (3) Transaminasemia Current Visit: Yes Status: Acute Plan to address problem: Hepatitis B and C negative. Follow-up liver function tests. (4) Hyperphosphatemia Current Visit: Yes Status: Acute Plan to address problem: Follow up phosphorus level in am. May need to start binder (5) Seizure Current Visit: Yes Status: Acute Plan to address problem: Possible seizure .Continue management Subjective Date of service: 06/23/17 Principal diagnosis: Acute Hypoxemic Hypercapnic Resp Failure; Bilateral Pneumonis (?Aspiration) Interval history: Patient seen lying in bed. Intubated on ventilator. Sedated. Vent setting AC PEEP 5 FiO2 35% Objective - Exam Narrative Exam: Middle-aged male lying in bed intubated on ventilator. HEENT: NCAT, endotracheal tube intact Neck: Supple, no venous distention CVS: S1S2 RRR with no murmur, rub or gallop Chest: Faint rhonchi Abdomen: Protuberant, soft, nontender, no organomegaly, bowel sounds are present Extremities: No edema and no clubbing Skin warm and dry with no rash Neuro: Awake, alert no focal deficits - Vital Signs Vital signs: Vital Signs - 12hr 06/23/17 06/23/17 06/23/17 03:15 03:31 03:41 Temperature Pulse Rate 71 70 72 Pulse Rate [ Anterior Right Throughout] Respiratory 18 18 Rate Respiratory Rate [Anterior Right Throughout] Blood Pressure 129/58 129/58 129/58 O2 Sat by Pulse 99 99 99 Oximetry 06/23/17 06/23/17 06/23/17 03:45 04:00 04:01 Temperature 99.4 F Pulse Rate 71 120 H Pulse Rate [ Anterior Right Throughout] Respiratory 18 15 Rate Respiratory Rate [Anterior Right Throughout] Blood Pressure 129/58 136/76 O2 Sat by Pulse 99 98 100 Oximetry 06/23/17 06/23/17 06/23/17 04:15 04:31 04:45 Temperature Pulse Rate 102 H 86 80 Pulse Rate [ Anterior Right Throughout] Respiratory 18 18 18 Rate Respiratory Rate [Anterior Right Throughout] Blood Pressure 136/76 136/76 136/76 O2 Sat by Pulse 92 92 93 Oximetry 06/23/17 06/23/17 06/23/17 05:00 05:15 05:31 Temperature Pulse Rate 76 74 74 Pulse Rate [ Anterior Right Throughout] Respiratory 18 18 18 Rate Respiratory Rate [Anterior Right Throughout] Blood Pressure 115/53 115/53 115/53 O2 Sat by Pulse 94 97 98 Oximetry 06/23/17 06/23/17 06/23/17 05:45 06:00 06:31 Temperature Pulse Rate 78 80 126 H Pulse Rate [ Anterior Right Throughout] Respiratory 18 18 20 Rate Respiratory Rate [Anterior Right Throughout] Blood Pressure 115/53 116/56 116/56 O2 Sat by Pulse 99 97 100 Oximetry 06/23/17 06/23/17 06/23/17 07:00 07:31 08:00 Temperature 100.6 F H Pulse Rate 74 87 69 Pulse Rate [ Anterior Right Throughout] Respiratory 18 15 18 Rate Respiratory Rate [Anterior Right Throughout] Blood Pressure 126/55 116/56 121/55 O2 Sat by Pulse 95 98 98 Oximetry 06/23/17 06/23/17 06/23/17 08:12 08:20 08:31 Temperature Pulse Rate 68 62 Pulse Rate [ 68 Anterior Right Throughout] Respiratory 18 Rate Respiratory 18 Rate [Anterior Right Throughout] Blood Pressure 121/55 121/55 O2 Sat by Pulse 99 100 Oximetry 06/23/17 06/23/17 06/23/17 08:34 09:00 09:31 Temperature Pulse Rate 73 73 Pulse Rate [ 67 Anterior Right Throughout] Respiratory 18 17 Rate Respiratory 18 Rate [Anterior Right Throughout] Blood Pressure 131/61 131/61 O2 Sat by Pulse 98 99 Oximetry 06/23/17 06/23/17 06/23/17 10:00 10:30 11:00 Temperature Pulse Rate 76 73 74 Pulse Rate [ Anterior Right Throughout] Respiratory 18 18 18 Rate Respiratory Rate [Anterior Right Throughout] Blood Pressure 135/64 134/63 133/62 O2 Sat by Pulse 97 97 97 Oximetry 06/23/17 06/23/17 06/23/17 11:30 12:00 12:19 Temperature 98.6 F Pulse Rate 73 71 77 Pulse Rate [ Anterior Right Throughout] Respiratory 18 18 Rate Respiratory Rate [Anterior Right Throughout] Blood Pressure 135/62 133/60 133/60 O2 Sat by Pulse 97 97 98 Oximetry 06/23/17 06/23/17 06/23/17 12:22 12:30 12:32 Temperature Pulse Rate 73 Pulse Rate [ 77 70 Anterior Right Throughout] Respiratory 12 Rate Respiratory 12 12 Rate [Anterior Right Throughout] Blood Pressure 134/62 O2 Sat by Pulse 99 Oximetry 06/23/17 06/23/17 06/23/17 13:00 13:30 14:00 Temperature Pulse Rate 87 87 106 H Pulse Rate [ Anterior Right Throughout] Respiratory 15 15 11 L Rate Respiratory Rate [Anterior Right Throughout] Blood Pressure 134/68 137/67 136/73 O2 Sat by Pulse 91 90 95 Oximetry - Lab 06/23/17 04:20 06/23/17 04:20 Most recent lab results Calcium 8.2 mg/dL (8.4-10.2) L 06/23/17 04:20 Phosphorus 7.20 mg/dL (2.5-4.5) H 06/21/17 18:15 Magnesium 1.70 mg/dL (1.7-2.3) 06/21/17 18:15 Urine Creatinine 136.8 mg/dL (0.1-20.0) H 06/23/17 04:10 Urine Sodium 34 mmol/L 06/23/17 04:10 Urine Total Protein 41 mg/dL (5-11.8) H 06/23/17 04:10
--- NOTE | 2017-06-23 15:13 | Progress Note ---
Assessment and Plan Acute hypoxemic respiratory failure, on mechanical ventilator support. Bilateral pneumonia, possibly aspiration with basilar predominance. Hypercapnia. Elevated D-dimer. Elevated transaminases. Hyperlipidemia. Possible urinary tract infection. - continue full AC support - reduce Peep to 8 as long as O2 Sats > 90% - continue aspiration precautions / addressing VAP bundle daily - continue bronchodilators and pulmonary hygiene per RT - continue enteral nutrition as tolerated - continue empiric AB's and follow cultures - continue GI & VTE prophylaxis - continue other care per attending / orther consultants ...30' CCT Subjective Date of service: 06/23/17 Principal diagnosis: Acute Hypoxemic Hypercapnic Resp Failure; Bilateral Pneumonis (?Aspiration) Interval history: Patient is seen today for: Acute Hypoxemic Hypercapnic Resp Failure; Bilateral Pneumonis (?Aspiration) Seen and examined at bedside; 24hour events reviewed; nursing and respiratory care staff consulted; no adverse overnight events reported to me; remains on MVS and tolerating well; remaisn on MVS; AMS is persistent but requiring high doses of sedatives; No emesis or overt aspiration and no seizure activity Objective Vital Signs - 12hr 06/23/17 06/23/17 06/23/17 03:15 03:31 03:41 Temperature Pulse Rate 71 70 72 Pulse Rate [ Anterior Right Throughout] Respiratory 18 18 Rate Respiratory Rate [Anterior Right Throughout] Blood Pressure 129/58 129/58 129/58 O2 Sat by Pulse 99 99 99 Oximetry 06/23/17 06/23/17 06/23/17 03:45 04:00 04:01 Temperature 99.4 F Pulse Rate 71 120 H Pulse Rate [ Anterior Right Throughout] Respiratory 18 15 Rate Respiratory Rate [Anterior Right Throughout] Blood Pressure 129/58 136/76 O2 Sat by Pulse 99 98 100 Oximetry 06/23/17 06/23/17 06/23/17 04:15 04:31 04:45 Temperature Pulse Rate 102 H 86 80 Pulse Rate [ Anterior Right Throughout] Respiratory 18 18 18 Rate Respiratory Rate [Anterior Right Throughout] Blood Pressure 136/76 136/76 136/76 O2 Sat by Pulse 92 92 93 Oximetry 06/23/17 06/23/17 06/23/17 05:00 05:15 05:31 Temperature Pulse Rate 76 74 74 Pulse Rate [ Anterior Right Throughout] Respiratory 18 18 18 Rate Respiratory Rate [Anterior Right Throughout] Blood Pressure 115/53 115/53 115/53 O2 Sat by Pulse 94 97 98 Oximetry 06/23/17 06/23/17 06/23/17 05:45 06:00 06:31 Temperature Pulse Rate 78 80 126 H Pulse Rate [ Anterior Right Throughout] Respiratory 18 18 20 Rate Respiratory Rate [Anterior Right Throughout] Blood Pressure 115/53 116/56 116/56 O2 Sat by Pulse 99 97 100 Oximetry 06/23/17 06/23/17 06/23/17 07:00 07:31 08:00 Temperature 100.6 F H Pulse Rate 74 87 69 Pulse Rate [ Anterior Right Throughout] Respiratory 18 15 18 Rate Respiratory Rate [Anterior Right Throughout] Blood Pressure 126/55 116/56 121/55 O2 Sat by Pulse 95 98 98 Oximetry 06/23/17 06/23/17 06/23/17 08:12 08:20 08:31 Temperature Pulse Rate 68 62 Pulse Rate [ 68 Anterior Right Throughout] Respiratory 18 Rate Respiratory 18 Rate [Anterior Right Throughout] Blood Pressure 121/55 121/55 O2 Sat by Pulse 99 100 Oximetry 06/23/17 06/23/17 06/23/17 08:34 09:00 09:31 Temperature Pulse Rate 73 73 Pulse Rate [ 67 Anterior Right Throughout] Respiratory 18 17 Rate Respiratory 18 Rate [Anterior Right Throughout] Blood Pressure 131/61 131/61 O2 Sat by Pulse 98 99 Oximetry 06/23/17 06/23/17 06/23/17 10:00 10:30 11:00 Temperature Pulse Rate 76 73 74 Pulse Rate [ Anterior Right Throughout] Respiratory 18 18 18 Rate Respiratory Rate [Anterior Right Throughout] Blood Pressure 135/64 134/63 133/62 O2 Sat by Pulse 97 97 97 Oximetry 06/23/17 06/23/17 06/23/17 11:30 12:00 12:19 Temperature 98.6 F Pulse Rate 73 71 77 Pulse Rate [ Anterior Right Throughout] Respiratory 18 18 Rate Respiratory Rate [Anterior Right Throughout] Blood Pressure 135/62 133/60 133/60 O2 Sat by Pulse 97 97 98 Oximetry 06/23/17 06/23/17 06/23/17 12:22 12:30 12:32 Temperature Pulse Rate 73 Pulse Rate [ 77 70 Anterior Right Throughout] Respiratory 12 Rate Respiratory 12 12 Rate [Anterior Right Throughout] Blood Pressure 134/62 O2 Sat by Pulse 99 Oximetry 06/23/17 06/23/17 06/23/17 13:00 13:30 14:00 Temperature Pulse Rate 87 87 106 H Pulse Rate [ Anterior Right Throughout] Respiratory 15 15 11 L Rate Respiratory Rate [Anterior Right Throughout] Blood Pressure 134/68 137/67 136/73 O2 Sat by Pulse 91 90 95 Oximetry Constitutional: no acute distress, other (sedated) Eyes: non-icteric ENT: oropharynx moist, other (ETT at 22cm) Neck: supple, no lymphadenopathy, no JVD, other (No thyromegaly) Effort: mildly labored Ascultation: Bilateral: rales (bases) Percussion: Bilateral: not dull Cardiovascular: regular rate and rhythm, other (No rubs or murmurs) Gastrointestinal: normoactive bowel sounds, soft, non-tender, non-distended, other (No palpable HSM) Integumentary: normal Extremities: no cyanosis, no edema, pink and warm, pulses normal Neurologic: non-focal exam (grossly), unable to assess, other (sedated) Psychiatric: other (sedated) CBC and BMP: 06/26/17 05:30 06/26/17 05:30 ABG, PT/INR, D-dimer: ABG POC ABG pH 7.492 (7.35-7.45) H 06/23/17 04:06 POC ABG pCO2 45.5 (35-45) H 06/23/17 04:06 POC ABG pO2 104 (80-105) 06/23/17 04:06 POC ABG HCO3 34.8 06/23/17 04:06 POC ABG Total CO2 36 06/23/17 04:06 POC ABG O2 Sat 98 06/23/17 04:06 PT/INR, D-dimer D-Dimer 747.03 ng/mlDDU (0-234) H 06/20/17 19:00 Abnormal lab findings: Abnormal Labs 06/20/17 06/20/17 06/20/17 19:00 19:00 19:00 WBC RBC Hgb Hct MCV 100 H MCH 35 H MCHC 35 H RDW 18.8 H Lymph % (Auto) 4.1 L [place] % (Auto) 8.9 H Lymph # 0.4 L [place] # 0.9 H Seg Neutrophils % 86.2 H Seg Neuts % (Manual) Lymphocytes % (Manual) Seg Neutrophils # 8.6 H Seg Neutrophils # Man Lymphocytes # (Manual) D-Dimer 747.03 H POC ABG pH POC ABG pCO2 POC ABG pO2 Sodium BUN Creatinine Glucose Calcium Phosphorus Total Bilirubin 2.10 H AST 157 H ALT 119 H Alkaline Phosphatase 133 H Total Creatine Kinase 285 H CK-MB (CK-2) 8.6 H Troponin T 0.043 H C-Reactive Protein NT-Pro-B Natriuret Pep 47790 H Total Protein 6.0 L Albumin 3.7 L Cholesterol 212 H HDL Cholesterol 87 H Ur Specific [place] Urine WBC (Auto) Urine Creatinine Urine Total Protein 06/20/17 06/21/17 06/21/17 23:18 04:40 05:29 WBC RBC Hgb Hct MCV MCH MCHC RDW Lymph % (Auto) [place] % (Auto) Lymph # [place] # Seg Neutrophils % Seg Neuts % (Manual) Lymphocytes % (Manual) Seg Neutrophils # Seg Neutrophils # Man Lymphocytes # (Manual) D-Dimer POC ABG pH POC ABG pCO2 53.9 H 47.1 H POC ABG pO2 221 H Sodium BUN Creatinine Glucose Calcium Phosphorus Total Bilirubin AST ALT Alkaline Phosphatase Total Creatine Kinase CK-MB (CK-2) Troponin T C-Reactive Protein NT-Pro-B Natriuret Pep Total Protein Albumin Cholesterol HDL Cholesterol Ur Specific [place] 1.049 H Urine WBC (Auto) 11.0 H Urine Creatinine Urine Total Protein 06/21/17 06/21/17 06/21/17 07:50 07:50 13:33 WBC 12.0 H RBC Hgb Hct MCV 104 H MCH 35 H MCHC RDW 19.3 H Lymph % (Auto) [place] % (Auto) Lymph # [place] # Seg Neutrophils % Seg Neuts % (Manual) 93.0 H Lymphocytes % (Manual) 1.0 L Seg Neutrophils # Seg Neutrophils # Man 11.2 H Lymphocytes # (Manual) 0.1 L D-Dimer POC ABG pH POC ABG pCO2 POC ABG pO2 Sodium BUN 21 H Creatinine Glucose 130 H Calcium 8.1 L Phosphorus Total Bilirubin AST ALT Alkaline Phosphatase Total Creatine Kinase CK-MB (CK-2) Troponin T 0.054 H D C-Reactive Protein NT-Pro-B Natriuret Pep Total Protein Albumin Cholesterol HDL Cholesterol Ur Specific [place] Urine WBC (Auto) Urine Creatinine Urine Total Protein 06/21/17 06/21/17 06/21/17 18:15 18:15 20:55 WBC RBC Hgb Hct MCV MCH MCHC RDW Lymph % (Auto) [place] % (Auto) Lymph # [place] # Seg Neutrophils % Seg Neuts % (Manual) Lymphocytes % (Manual) Seg Neutrophils # Seg Neutrophils # Man Lymphocytes # (Manual) D-Dimer POC ABG pH POC ABG pCO2 POC ABG pO2 Sodium BUN Creatinine Glucose Calcium Phosphorus 7.20 H Total Bilirubin AST ALT Alkaline Phosphatase Total Creatine Kinase CK-MB (CK-2) Troponin T 0.042 H D C-Reactive Protein 3.90 H NT-Pro-B Natriuret Pep Total Protein Albumin Cholesterol HDL Cholesterol Ur Specific [place] Urine WBC (Auto) Urine Creatinine Urine Total Protein 06/22/17 06/22/17 06/22/17 03:03 04:19 04:19 WBC RBC 3.40 L Hgb 11.7 L Hct 35.1 L D MCV 103 H MCH 35 H MCHC RDW 18.7 H Lymph % (Auto) [place] % (Auto) Lymph # [place] # Seg Neutrophils % Seg Neuts % (Manual) 97.0 H Lymphocytes % (Manual) 1.0 L Seg Neutrophils # Seg Neutrophils # Man 10.2 H Lymphocytes # (Manual) 0.1 L D-Dimer POC ABG pH POC ABG pCO2 56.7 H POC ABG pO2 115 H Sodium BUN 41 H Creatinine 1.6 H Glucose 126 H Calcium 7.7 L Phosphorus Total Bilirubin AST ALT Alkaline Phosphatase Total Creatine Kinase CK-MB (CK-2) Troponin T C-Reactive Protein NT-Pro-B Natriuret Pep Total Protein Albumin Cholesterol HDL Cholesterol Ur Specific [place] Urine WBC (Auto) Urine Creatinine Urine Total Protein 06/22/17 06/23/17 06/23/17 04:19 04:06 04:10 WBC RBC Hgb Hct MCV MCH MCHC RDW Lymph % (Auto) [place] % (Auto) Lymph # [place] # Seg Neutrophils % Seg Neuts % (Manual) Lymphocytes % (Manual) Seg Neutrophils # Seg Neutrophils # Man Lymphocytes # (Manual) D-Dimer POC ABG pH 7.492 H POC ABG pCO2 45.5 H POC ABG pO2 Sodium BUN Creatinine Glucose Calcium Phosphorus Total Bilirubin AST ALT Alkaline Phosphatase Total Creatine Kinase 228 H CK-MB (CK-2) 6.3 H Troponin T 0.031 H D C-Reactive Protein NT-Pro-B Natriuret Pep Total Protein Albumin Cholesterol HDL Cholesterol Ur Specific [place] Urine WBC (Auto) Urine Creatinine 136.8 H Urine Total Protein 41 H 06/23/17 06/23/17 04:20 04:20 WBC 11.4 H RBC Hgb Hct MCV 102 H MCH 33 H MCHC RDW 18.9 H Lymph % (Auto) 5.5 L [place] % (Auto) Lymph # 0.6 L [place] # Seg Neutrophils % 87.7 H Seg Neuts % (Manual) Lymphocytes % (Manual) Seg Neutrophils # 10.0 H Seg Neutrophils # Man Lymphocytes # (Manual) D-Dimer POC ABG pH POC ABG pCO2 POC ABG pO2 Sodium 146 H BUN 38 H Creatinine Glucose 107 H Calcium 8.2 L Phosphorus Total Bilirubin AST ALT Alkaline Phosphatase Total Creatine Kinase CK-MB (CK-2) Troponin T C-Reactive Protein NT-Pro-B Natriuret Pep Total Protein Albumin Cholesterol HDL Cholesterol Ur Specific [place] Urine WBC (Auto) Urine Creatinine Urine Total Protein Chest x-ray: image reviewed (RLL consolidation vs effusion) Allied health notes reviewed: nursing
--- NOTE | 2017-06-23 18:41 | XRay Report ---
FINAL REPORT PROCEDURE: XR ABDOMEN 1V AP TECHNIQUE: AP supine portable radiograph of the abdomen was obtained at 06/23/2017 21:38 (T) . HISTORY: Nasogastric tube placement. COMPARISON: No prior studies are available for comparison. FINDINGS: Bowel gas pattern: Diffusely air-filled bowel, both small and large bowel. Masses or calcifications: None. Bony structures: Normal. Other: Moderate cardiomegaly. Bibasilar pulmonary opacities and possible effusions. Enteric tube overlies expected location of the gastric body. Overlying monitoring leads. IMPRESSION: Enteric tube overlies expected location of the gastric body. Diffusely air-filled bowel, both large and small bowel. Consider ileus, cannot exclude obstruction. Consider attention on followup radiographs. Cardiomegaly. Bibasilar opacities and possible small bilateral pleural effusions. Consider correlation with chest radiograph.
[2017-06-23] MEDS: APRESOLINE PO SCH (21:31)
[2017-06-23] MEDS: COREG PO SCH (21:31)
[2017-06-23] MEDS ORDERED: VANCOMYCIN/NS 1 GM/250 ML 1 GM/250 ML BAG IV SCH (22:00)
[2017-06-24] MEDS: fentaNYL DRIP Premix 2,000 MCG/100 ML BAG IV SCH ×3 (03:20→20:00)
[2017-06-24] MEDS: DIPRIVAN 10 MG/ML 1,000 MG/100 ML BOTTLE IV SCH ×6 (03:40→23:57)
[2017-06-24] MEDS: APRESOLINE PO SCH ×3 (05:29→22:38)
[2017-06-24] MEDS: ZOSYN/NS 4.5GM/100ML 4.5 GM/100 ML VIAL IV SCH ×2 (05:29→12:19)
[2017-06-24 06:44] LABS: Hematocrit 40.3 % (35.5-45.6); Mean Corpuscular HGB Conc 32 % (32-34); Mean Corpuscular Hemoglobin 33 pg (28-32); Mean Corpuscular Volume 104 fl (84-94); Platelet Count 154 K/mm3 (140-440); Red Cell Distribution Width 18.5 % (13.2-15.2)
[2017-06-24 07:09] LABS: BUN/Creatinine Ratio 40; Blood Urea Nitrogen 40 mg/dL (9-20); Calcium 8.4 mg/dL (8.4-10.2); Hemolysis Index 4
[2017-06-24] MEDS: DUONEB *Not for PRN Use IH SCH ×4 (07:58→20:55)
[2017-06-24 07:59] LABS: Basophils % (Manual) 0 % (0.0-1.8); Eosinophils % (Manual) 0 % (0.0-4.3); Total Cells Counted 100
[2017-06-24 08:00] LABS: Giant Platelets Rare; Ovalocytes Few; Stomatocytes 2+
[2017-06-24] MEDS: PEPCID IV SCH (09:17)
[2017-06-24] MEDS: HEPARIN SUB-Q SCH ×3 (09:17→20:42)
[2017-06-24] MEDS: BABY ASPIRIN PO SCH (09:18)
[2017-06-24] MEDS: KEPPRA 500 MG/NS 0.82% 100 ML 500 MG/100 ML BAG IV SCH (09:18)
[2017-06-24] MEDS: COREG PO SCH ×2 (09:18→22:38)
--- NOTE | 2017-06-24 09:22 | Progress Note ---
Assessment and Plan Respiratory failure on mechanical ventilation Acute systolic heart failure Echocardiogram shows a dilated cardiomyopathy with left ventricular ejection fraction 20-25%. In addition there is a thickened and calcified aortic valve with moderate aortic stenosis. Sepsis Pneumonia Acute renal failure Nonspecifically elevated cardiac enzymes Non sustained ventricular tachycardia no reoccurrence Continue medical therapy for heart failure. Further cardiac evaluation and management will depend on clinical course. Subjective Date of service: 06/24/17 Principal diagnosis: Acute Hypoxemic Hypercapnic Resp Failure; Bilateral Pneumonis (?Aspiration) Interval history: Patient remains intubated, sedated on mechanical ventilation. Objective Vital Signs Temp Pulse Pulse Resp Resp BP Pulse Ox 06/24/17 08:20 62 16 06/24/17 08:00 99.3 F 06/24/17 07:58 64 16 06/24/17 07:55 64 124/57 97 06/24/17 07:30 65 16 124/57 95 06/24/17 07:00 69 16 124/57 93 06/24/17 06:30 85 17 122/57 96 06/24/17 06:00 68 16 122/57 91 06/24/17 05:30 67 16 127/59 96 06/24/17 05:29 67 127/59 06/24/17 05:00 70 16 127/59 92 06/24/17 04:33 73 129/66 93 06/24/17 04:30 72 13 129/66 93 06/24/17 04:00 76 12 129/66 92 06/24/17 03:30 72 12 140/72 93 06/24/17 03:23 98.1 F 06/24/17 03:00 81 12 140/72 93 06/24/17 02:30 92 H 15 136/70 94 06/24/17 02:00 73 16 130/62 96 06/24/17 01:30 72 13 134/59 95 06/24/17 01:00 73 14 133/60 06/24/17 00:30 72 15 133/60 95 06/24/17 00:00 73 13 129/62 96 06/23/17 23:40 73 126/61 96 06/23/17 23:30 74 14 126/61 95 06/23/17 23:22 98.6 F 06/23/17 23:00 76 15 132/60 96 06/23/17 22:30 74 19 136/63 96 06/23/17 22:00 78 13 133/62 94 06/23/17 21:31 80 134/63 06/23/17 21:30 81 14 129/64 91 06/23/17 21:00 85 15 134/63 90 06/23/17 20:30 109 H 11 L 147/72 96 06/23/17 20:00 97.9 F 77 12 140/66 95 06/23/17 19:44 83 13 06/23/17 19:30 78 17 137/65 95 06/23/17 19:29 80 13 06/23/17 19:24 83 136/67 95 06/23/17 19:00 85 12 136/67 91 06/23/17 18:37 87 12 159/80 97 06/23/17 18:31 120 H 14 159/80 94 06/23/17 18:00 108 H 12 159/80 97 06/23/17 17:30 98 H 12 147/75 98 06/23/17 17:00 105 H 14 149/74 96 06/23/17 16:39 120 H 16 06/23/17 16:30 90 13 146/72 06/23/17 16:24 113 H 15 06/23/17 16:19 88 137/66 96 06/23/17 16:00 82 17 137/66 90 06/23/17 15:30 80 15 136/64 93 06/23/17 15:27 99.5 F 06/23/17 15:26 99.5 F 06/23/17 15:00 80 14 136/64 94 06/23/17 14:30 85 15 134/67 92 06/23/17 14:00 106 H 11 L 136/73 95 06/23/17 13:30 87 15 137/67 90 06/23/17 13:00 87 15 134/68 91 06/23/17 12:32 70 12 06/23/17 12:30 73 12 134/62 99 06/23/17 12:22 77 12 06/23/17 12:19 77 133/60 98 06/23/17 12:00 98.6 F 71 18 133/60 98 06/23/17 11:30 73 18 135/62 97 06/23/17 11:00 74 18 133/62 97 06/23/17 10:30 73 18 134/63 97 01/15/18 10:00 76 18 135/64 97 06/23/17 09:31 73 17 131/61 99 - Physical Examination General: Other (intubated on the vent) Cardiac: Positive: Reg Rate and Rhythm - Labs and Meds CBC 06/24/17 Range/Units 06:31 WBC 8.6 (4.5-11.0) K/mm3 RBC 3.90 (3.65-5.03) M/mm3 Hgb 13.0 (11.8-15.2) gm/dl Hct 40.3 (35.5-45.6) % Plt Count 154 (140-440) K/mm3 Comprehensive Metabolic Panel 06/24/17 Range/Units 06:31 Sodium 148 H (137-145) mmol/L Potassium 4.7 (3.6-5.0) mmol/L Chloride 106.8 (98-107) mmol/L Carbon Dioxide 32 H (22-30) mmol/L BUN 40 H (9-20) mg/dL Creatinine 1.0 (0.8-1.5) mg/dL Glucose 154 H (75-100) mg/dL Calcium 8.4 (8.4-10.2) mg/dL - Allied health notes Allied health notes reviewed: nursing
[2017-06-24] MEDS ORDERED: KEPPRA PO SCH (10:00)
--- NOTE | 2017-06-24 10:07 | Progress Note ---
Assessment and Plan - Patient Problems (1) Other acute kidney failure Current Visit: Yes Status: Acute Plan to address problem: pt in recovery phase, renal US unremarkable. Follow-up electrolytes and renal function (2) Acute respiratory failure with hypoxia Current Visit: Yes Status: Acute Plan to address problem: Management by pulmonary (3) Transaminasemia Current Visit: Yes Status: Acute Plan to address problem: Hepatitis B and C negative. Follow-up liver function tests. (4) Hyperphosphatemia Current Visit: Yes Status: Acute Plan to address problem: Follow up phosphorus level in am. May need to start binder (5) Seizure Current Visit: Yes Status: Acute Plan to address problem: Possible seizure .Continue management (4) Hypernatremia Current Visit: Yes Status: Acute Plan to address problem: increase free water flushes (5) Pneumonia Current Visit: Yes Status: Acute Plan to address problem: cont ABXs, no renal adjustment needed, given improved eGFR. Subjective Date of service: 06/24/17 Principal diagnosis: Acute Hypoxemic Hypercapnic Resp Failure; Bilateral Pneumonis (?Aspiration) Interval history: Pt intubated, sedated Objective - Vital Signs Vital signs: Vital Signs - 12hr 06/23/17 06/23/17 06/23/17 22:30 23:00 23:22 Temperature 98.6 F Pulse Rate 74 76 Pulse Rate [ Anterior Right Throughout] Respiratory 19 15 Rate Respiratory Rate [Anterior Right Throughout] Blood Pressure 136/63 132/60 O2 Sat by Pulse 96 96 Oximetry 06/23/17 06/23/17 06/24/17 23:30 23:40 00:00 Temperature Pulse Rate 74 73 73 Pulse Rate [ Anterior Right Throughout] Respiratory 14 13 Rate Respiratory Rate [Anterior Right Throughout] Blood Pressure 126/61 126/61 129/62 O2 Sat by Pulse 95 96 96 Oximetry 06/24/17 06/24/17 06/24/17 00:30 01:00 01:30 Temperature Pulse Rate 72 73 72 Pulse Rate [ Anterior Right Throughout] Respiratory 15 14 13 Rate Respiratory Rate [Anterior Right Throughout] Blood Pressure 133/60 133/60 134/59 O2 Sat by Pulse 95 95 Oximetry 06/24/17 06/24/17 06/24/17 02:00 02:30 03:00 Temperature Pulse Rate 73 92 H 81 Pulse Rate [ Anterior Right Throughout] Respiratory 16 15 12 Rate Respiratory Rate [Anterior Right Throughout] Blood Pressure 130/62 136/70 140/72 O2 Sat by Pulse 96 94 93 Oximetry 06/24/17 06/24/17 06/24/17 03:23 03:30 04:00 Temperature 98.1 F Pulse Rate 72 76 Pulse Rate [ Anterior Right Throughout] Respiratory 12 12 Rate Respiratory Rate [Anterior Right Throughout] Blood Pressure 140/72 129/66 O2 Sat by Pulse 93 92 Oximetry 06/24/17 06/24/17 06/24/17 04:30 04:33 05:00 Temperature Pulse Rate 72 73 70 Pulse Rate [ Anterior Right Throughout] Respiratory 13 16 Rate Respiratory Rate [Anterior Right Throughout] Blood Pressure 129/66 129/66 127/59 O2 Sat by Pulse 93 93 92 Oximetry 06/24/17 06/24/17 06/24/17 05:29 05:30 06:00 Temperature Pulse Rate 67 67 68 Pulse Rate [ Anterior Right Throughout] Respiratory 16 16 Rate Respiratory Rate [Anterior Right Throughout] Blood Pressure 127/59 127/59 122/57 O2 Sat by Pulse 96 91 Oximetry 06/24/17 06/24/17 06/24/17 06:30 07:00 07:30 Temperature Pulse Rate 85 69 65 Pulse Rate [ Anterior Right Throughout] Respiratory 17 16 16 Rate Respiratory Rate [Anterior Right Throughout] Blood Pressure 122/57 124/57 124/57 O2 Sat by Pulse 96 93 95 Oximetry 06/24/17 06/24/17 06/24/17 07:55 07:58 08:00 Temperature 99.3 F Pulse Rate 64 Pulse Rate [ 64 Anterior Right Throughout] Respiratory Rate Respiratory 16 Rate [Anterior Right Throughout] Blood Pressure 124/57 O2 Sat by Pulse 97 Oximetry 06/24/17 06/24/17 08:20 09:18 Temperature Pulse Rate 69 Pulse Rate [ 62 Anterior Right Throughout] Respiratory Rate Respiratory 16 Rate [Anterior Right Throughout] Blood Pressure 123/52 O2 Sat by Pulse Oximetry - General Appearance General appearance: well-developed, well-nourished, appears stated age, sedated on ventilator EENT: ATNC, PERRL, mucous membranes moist Neck: no JVD Respiratory: Present: Decreased Breath Sounds Cardiology: regular, S1S2 Gastrointestinal: normoactive bowel sounds Integumentary: no rash, other (no edema ) Neurologic: other (intubated, sedated ) - Lab 06/24/17 06:31 06/24/17 06:31 Most recent lab results Calcium 8.4 mg/dL (8.4-10.2) 06/24/17 06:31 Phosphorus 7.20 mg/dL (2.5-4.5) H 06/21/17 18:15 Magnesium 1.70 mg/dL (1.7-2.3) 06/21/17 18:15 Urine Creatinine 136.8 mg/dL (0.1-20.0) H 06/23/17 04:10 Urine Sodium 34 mmol/L 06/23/17 04:10 Urine Total Protein 41 mg/dL (5-11.8) H 06/23/17 04:10
--- NOTE | 2017-06-24 11:19 | Progress Note ---
Assessment and Plan Assessment and plan: Acute hypoxic respiratory failure On mechanical ventilation less than 96 hours Patient currently with AC mode ventilation rate of 16, tidal volume 450, PEEP 8 , FiO2 60%. Continue weaning ventilator per pulmonary. Patient is intubated and on mechanical ventilation, IV antibiotics, IV fluids Elevated BNP. Check echocardiogram. Sepsis. Continue sepsis pathway. Follow-up blood cultures Bilateral pneumonia. Etiology secondary to ? Aspiration. Continue IV antibiotics and follow-up chest x-ray. Acute renal failure. Etiology likely secondary to acute kidney injury from sepsis/ATN and contrast nephropathy per Renal. Renal ultrasound unremarkable. Continue to follow-up electrolytes and renal function. Reactive airway disease vs. asthma. ? history of asthma. Continue bronchodilators and IV Solu-Medrol. Transaminitis - Etiology, likely secondary to shock liver from sepsis. - acute hepatitis panel negative Elevated troponin. -Etiology, likely secondary to sepsis -Echocardiogram reveals global left ventricular systolic function severely decreased with EF of 20-25%. Left atrium is moderately to severely dilated. NSVT. Cardiology following ? Seizure. Possible seizure may be related to benzodiazepine withdrawal. No new activity. Check EEG. Neurology consultation. DVT prophylaxis -Heparin Disposition - ICU management. The high probability of a clinically significant, sudden or life threatening deterioration of the [respiratory, DISINTEGRATOR FEEDER and cardiac] system(s) required my full and direct attention, intervention and personal management. The aggregate critical care time was [35] minutes. This time is in addition to time spent performing reported procedures but includes the following: [X] Data Review and interpretation [X] Patient assessment and monitoring of vital signs [X] Documentation [X] Medication orders and management History Interval history: Patient is currently intubated on mechanical ventilation. Hospitalist Physical - Constitutional Vitals: Temp Pulse Resp BP Pulse Ox 99.3 F 69 16 123/52 97 06/24/17 08:00 06/24/17 09:18 06/24/17 08:20 06/24/17 09:18 06/24/17 07:55 General appearance: Present: no acute distress - EENT Eyes: Present: PERRL, EOM intact ENT: hearing intact, clear oral mucosa, dentition normal - Neck Neck: Present: supple, normal ROM - Respiratory Respiratory effort: normal Respiratory: bilateral: CTA - Cardiovascular Rhythm: regular Heart Sounds: Present: S1 & S2. Absent: gallop, rub - Extremities Extremities: no ischemia, No edema, Full ROM - Abdominal General gastrointestinal: soft, non-tender, non-distended, normal bowel sounds - Integumentary Integumentary: Present: clear, warm, dry - Neurologic Neurologic: CNII-XII intact, moves all extremities Results - Labs CBC & Chem 7: 06/24/17 06:31 06/24/17 06:31 Labs: Laboratory Last Values WBC 8.6 K/mm3 (4.5-11.0) 06/24/17 06:31 RBC 3.90 M/mm3 (3.65-5.03) 06/24/17 06:31 Hgb 13.0 gm/dl (11.8-15.2) 06/24/17 06:31 Hct 40.3 % (35.5-45.6) 06/24/17 06:31 MCV 104 fl (84-94) H 06/24/17 06:31 MCH 33 pg (28-32) H 06/24/17 06:31 MCHC 32 % (32-34) 06/24/17 06:31 RDW 18.5 % (13.2-15.2) H 06/24/17 06:31 Plt Count 154 K/mm3 (140-440) 06/24/17 06:31 Lymph % (Auto) 5.5 % (13.4-35.0) L 06/23/17 04:20 [place] % (Auto) 6.6 % (0.0-7.3) 06/23/17 04:20 Eos % (Auto) 0.0 % (0.0-4.3) 06/23/17 04:20 Baso % (Auto) 0.2 % (0.0-1.8) 06/23/17 04:20 Lymph # 0.6 K/mm3 (1.2-5.4) L 06/23/17 04:20 [place] # 0.7 K/mm3 (0.0-0.8) 06/23/17 04:20 Eos # 0.0 K/mm3 (0.0-0.4) 06/23/17 04:20 Baso # 0.0 K/mm3 (0.0-0.1) 06/23/17 04:20 Add Manual Diff Complete 06/24/17 06:31 Total Counted 100 06/24/17 06:31 Seg Neutrophils % Animal Husbandry Professor 06/24/17 06:31 Seg Neuts % (Manual) 96.0 % (40.0-70.0) H 06/24/17 06:31 Band Neutrophils % 0 % 06/24/17 06:31 Lymphocytes % (Manual) 3.0 % (13.4-35.0) L 06/24/17 06:31 Reactive Lymphs % (Man) 0 % 06/24/17 06:31 Monocytes % (Manual) 1.0 % (0.0-7.3) 06/24/17 06:31 Eosinophils % (Manual) 0 % (0.0-4.3) 06/24/17 06:31 Basophils % (Manual) 0 % (0.0-1.8) 06/24/17 06:31 Metamyelocytes % 0 % 06/24/17 06:31 Myelocytes % 0 % 06/24/17 06:31 Promyelocytes % 0 % 06/24/17 06:31 Blast Cells % 0 % 06/24/17 06:31 Nucleated RBC % Not Reportable 06/24/17 06:31 Seg Neutrophils # 10.0 K/mm3 (1.8-7.7) H 06/23/17 04:20 Seg Neutrophils # Man 8.3 K/mm3 (1.8-7.7) H 06/24/17 06:31 Band Neutrophils # 0.0 K/mm3 06/24/17 06:31 Lymphocytes # (Manual) 0.3 K/mm3 (1.2-5.4) L 06/24/17 06:31 Abs React Lymphs (Man) 0.0 K/mm3 06/24/17 06:31 Monocytes # (Manual) 0.1 K/mm3 (0.0-0.8) 06/24/17 06:31 Eosinophils # (Manual) 0.0 K/mm3 (0.0-0.4) 06/24/17 06:31 Basophils # (Manual) 0.0 K/mm3 (0.0-0.1) 06/24/17 06:31 Metamyelocytes # 0.0 K/mm3 06/24/17 06:31 Myelocytes # 0.0 K/mm3 06/24/17 06:31 Promyelocytes # 0.0 K/mm3 06/24/17 06:31 Blast Cells # 0.0 K/mm3 06/24/17 06:31 WBC Morphology Not Reportable 06/24/17 06:31 Hypersegmented Neuts Not Reportable 06/24/17 06:31 Hyposegmented Neuts Not Reportable 06/24/17 06:31 Hypogranular Neuts Not Reportable 06/24/17 06:31 Smudge Cells Not Reportable 06/24/17 06:31 Toxic Granulation Not Reportable 06/24/17 06:31 Toxic Vacuolation Not Reportable 06/24/17 06:31 Dohle Bodies Not Reportable 06/24/17 06:31 Pelger-Huet Anomaly Not Reportable 06/24/17 06:31 Luz Maria Rods Not Reportable 06/24/17 06:31 Platelet Estimate Appears normal 06/24/17 06:31 Clumped Platelets Not Reportable 06/24/17 06:31 Plt Clumps, EDTA Not Reportable 06/24/17 06:31 Large Platelets Not Reportable 06/24/17 06:31 Giant Platelets Rare 06/24/17 06:31 Platelet Satelliting Not Reportable 06/24/17 06:31 Plt Morphology Comment Not Reportable 06/24/17 06:31 RBC Morphology Not Reportable 06/24/17 06:31 Dimorphic RBCs Not Reportable 06/24/17 06:31 Polychromasia Not Reportable 06/24/17 06:31 Hypochromasia Not Reportable 06/24/17 06:31 Poikilocytosis Not Reportable 06/24/17 06:31 Anisocytosis Not Reportable 06/24/17 06:31 Microcytosis Not Reportable 06/24/17 06:31 Macrocytosis Not Reportable 06/24/17 06:31 Spherocytes Not Reportable 06/24/17 06:31 Pappenheimer Bodies Not Reportable 06/24/17 06:31 Sickle Cells Not Reportable 06/24/17 06:31 Target Cells Not Reportable 06/24/17 06:31 Tear Drop Cells Not Reportable 06/24/17 06:31 Ovalocytes Few 06/24/17 06:31 Stomatocytes 2+ 06/24/17 06:31 Helmet Cells Not Reportable 06/24/17 06:31 [place] Bodies Not Reportable 06/24/17 06:31 [place] Rings Not Reportable 06/24/17 06:31 Jennifer Cells Not Reportable 06/24/17 06:31 Bite Cells Not Reportable 06/24/17 06:31 Crenated Cell Not Reportable 06/24/17 06:31 Elliptocytes Not Reportable 06/24/17 06:31 Acanthocytes (Spur) Not Reportable 06/24/17 06:31 Rouleaux Not Reportable 06/24/17 06:31 Hemoglobin C Crystals Not Reportable 06/24/17 06:31 Schistocytes Not Reportable 06/24/17 06:31 Malaria parasites Not Reportable 06/24/17 06:31 [place] Bodies Not Reportable 06/24/17 06:31 Hem Pathologist Commnt No 06/24/17 06:31 D-Dimer 747.03 ng/mlDDU (0-234) H 06/20/17 19:00 POC ABG pH 7.331 (7.35-7.45) L 06/24/17 04:50 POC ABG pCO2 63.6 (35-45) H 06/24/17 04:50 POC ABG pO2 69 (80-105) L 06/24/17 04:50 POC ABG HCO3 33.6 06/24/17 04:50 POC ABG Total CO2 36 06/24/17 04:50 POC ABG O2 Sat 91 06/24/17 04:50 POC ABG Base Excess 8 06/24/17 04:50 FiO2 40 % 06/24/17 04:50 Sodium 148 mmol/L (137-145) H 06/24/17 06:31 Potassium 4.7 mmol/L (3.6-5.0) 06/24/17 06:31 Chloride 106.8 mmol/L (98-107) 06/24/17 06:31 Carbon Dioxide 32 mmol/L (22-30) H 06/24/17 06:31 Anion Gap 14 mmol/L 06/24/17 06:31 BUN 40 mg/dL (9-20) H 06/24/17 06:31 Creatinine 1.0 mg/dL (0.8-1.5) 06/24/17 06:31 Estimated GFR > 60 ml/min 06/24/17 06:31 BUN/Creatinine Ratio 40 % 06/24/17 06:31 Glucose 154 mg/dL (75-100) H 06/24/17 06:31 Lactic Acid 1.50 mmol/L (0.7-2.0) 06/20/17 11:35 Calcium 8.4 mg/dL (8.4-10.2) 06/24/17 06:31 Phosphorus 7.20 mg/dL (2.5-4.5) H 06/21/17 18:15 Magnesium 1.70 mg/dL (1.7-2.3) 06/21/17 18:15 Total Bilirubin 2.10 mg/dL (0.1-1.2) H 06/20/17 19:00 AST 157 units/L (5-40) H 06/20/17 19:00 ALT 119 units/L (7-56) H 06/20/17 19:00 Alkaline Phosphatase 133 units/L (35-129) H 06/20/17 19:00 Total Creatine Kinase 228 units/L (55-170) H 06/22/17 04:19 CK-MB (CK-2) 6.3 ng/mL (0.0-4.0) H 06/22/17 04:19 CK-MB (CK-2) Rel Index 2.7 (0-4) 06/22/17 04:19 Troponin T 0.031 ng/mL (0.00-0.029) H D 06/22/17 04:19 C-Reactive Protein 3.90 mg/dL (0.00-1.30) H 06/21/17 18:15 NT-Pro-B Natriuret Pep 57197 pg/mL (0-900) H 06/20/17 19:00 Total Protein 6.0 g/dL (6.3-8.2) L 06/20/17 19:00 Albumin 3.7 g/dL (3.9-5) L 06/20/17 19:00 Albumin/Globulin Ratio 1.6 % 06/20/17 19:00 Triglycerides 114 mg/dL (2-149) 06/20/17 19:00 Cholesterol 212 mg/dL (50-199) H 06/20/17 19:00 LDL Cholesterol Direct 103 mg/dL (50-130) 06/20/17 19:00 HDL Cholesterol 87 mg/dL (40-59) H 06/20/17 19:00 Cholesterol/HDL Ratio 2.43 % 06/20/17 19:00 Urine Color Yellow (Yellow) 06/21/17 05:29 Urine Turbidity Clear (Clear) 06/21/17 05:29 Urine pH 5.0 (5.0-7.0) 06/21/17 05:29 Ur Specific [place] 1.049 (1.003-1.030) H 06/21/17 05:29 Urine Protein <15 mg/dl mg/dL (Negative) 06/21/17 05:29 Urine Glucose (UA) Neg mg/dL (Negative) 06/21/17 05:29 Urine Ketones Neg mg/dL (Negative) 06/21/17 05:29 Urine Blood Mod (Negative) 06/21/17 05:29 Urine Nitrite Neg (Negative) 06/21/17 05:29 Urine Bilirubin Neg (Negative) 06/21/17 05:29 Urine Urobilinogen < 2.0 mg/dL (<2.0) 06/21/17 05:29 Ur Leukocyte Esterase Tr (Negative) 06/21/17 05:29 Urine WBC (Auto) 11.0 /HPF (0.0-6.0) H 06/21/17 05:29 Urine RBC (Auto) 2.0 /HPF (0.0-6.0) 06/21/17 05:29 U Epithel Cells (Auto) < 1.0 /HPF (0-13.0) 06/21/17 05:29 Urine Bacteria (Auto) 1+ /HPF (Negative) 06/21/17 05:29 Urine Creatinine 136.8 mg/dL (0.1-20.0) H 06/23/17 04:10 Urine Sodium 34 mmol/L 06/23/17 04:10 Urine Total Protein 41 mg/dL (5-11.8) H 06/23/17 04:10 Random Vancomycin 7.4 ug/mL (0-40.0) 06/23/17 04:20 Urine Opiates Screen Presumptive negative 06/21/17 05:29 Urine Methadone Screen Presumptive negative 06/21/17 05:29 Ur Barbiturates Screen Presumptive negative 06/21/17 05:29 Ur Phencyclidine Scrn Presumptive negative 06/21/17 05:29 Ur Amphetamines Screen Presumptive negative 06/21/17 05:29 U Benzodiazepines Scrn Presumptive positive 06/21/17 05:29 Urine Cocaine Screen Presumptive negative 06/21/17 05:29 U Marijuana (THC) Screen Presumptive negative 06/21/17 05:29 Drugs of Abuse Note Disclamer 06/21/17 05:29 Hepatitis A IgM Ab Non-reactive (NonReactive) 06/21/17 11:35 Hep Bs Antigen Non-reactive (Negative) 06/21/17 11:35 Hep B Core IgM Ab Non-reactive (NonReactive) 06/21/17 11:35 Hepatitis C Antibody Non-reactive (NonReactive) 06/21/17 11:35
--- NOTE | 2017-06-24 17:30 | Consultation ---
History of Present Illness Consult date: 06/24/17 Requesting physician: LIBERTAD DEWITT Reason for Consult: seizure while on ventilator History of present illness: 52 year old male who was admitted thru the ER with bilateral pneumonia and cardiomyopathy, placed on ventilator when he acutely desaturated, requring sedation to reduce agitation. On 06/22/2017, the patient had a witnessed generalized seizure according to the notes, around the time of manipulating his sedatives. He is currently on fentanyl drip. There is no prior history of seizure disorder, to our knowledge. Past History Past Medical History: other (Couldn't be obtained because the patient is intubated and on MV.) Past Surgical History: Other (Couldn't be obtained because the patient is intubated and on MV.) Social history: other (Couldn't be obtained because the patient is intubated and on MV.) Family history: other (Couldn't be obtained because the patient is intubated and on MV.) Medications and Allergies Allergies Allergy/AdvReac Type Severity Reaction Status Date / Time codeine Allergy Severe Itching Verified 06/20/17 17:57 Active Meds: Active Medications Albuterol/Ipratropium (Duoneb *Not For Prn Use*) 1 ampul IH QIDRT [facility] Last Admin: 06/24/17 15:50 Dose: 1 ampul Lipase/Protease/Amylase (Pancreaze Dr 10,500 Unit) 1 each FEEDTUBE PRN PRN PRN Reason: For Clogged Feeding Tube Aspirin (Baby Aspirin) 81 mg PO QDAY [facility] Last Admin: 06/24/17 09:18 Dose: 81 mg Carvedilol (Coreg) 3.125 mg PO BID [facility] Last Admin: 06/24/17 09:18 Dose: 3.125 mg Famotidine (Pepcid) 20 mg PO BID [facility] Heparin Sodium (Porcine) (Heparin) 5,000 unit SUB-Q TID [facility] Last Admin: 06/24/17 14:59 Dose: 5,000 unit Hydralazine HCl (Apresoline) 20 mg IV Q4H PRN PRN Reason: Hypertension Hydralazine HCl (Apresoline) 25 mg PO Q8HR [facility] Last Admin: 06/24/17 14:00 Dose: 25 mg Hydrophilic Ointment (Vaseline Lip Therapy) 1 applic TP Q2HR PRN PRN Reason: Dry Lips Midazolam HCl 100 mg/ Sodium (Chloride) 100 mls @ 2 mls/hr IV TITR [facility]STINA; 2 MG/HR PRN Reason: Protocol Last Titration: 06/23/17 20:34 Dose: 2 mg/hr, 2 mls/hr Propofol (Diprivan 10 Mg/Ml) 1,000 mg in 100 mls @ 2.177 mls/hr IV TITR CRISTINA; 5 MCG/KG/MIN PRN Reason: Protocol Last Admin: 06/24/17 15:45 Dose: 50 mcg/kg/min, 21.773 mls/hr Fentanyl Citrate (Fentanyl Drip Premix) 2,000 mcg in 100 mls @ 3.629 mls/hr IV TITR CRISTINA; 1 MCG/KG/HR PRN Reason: Protocol Last Admin: 06/24/17 10:45 Dose: 3 mcg/kg/hr, 10.886 mls/hr Levetiracetam (Keppra) 500 mg PO BID [facility] Methylprednisolone Sodium Succinate (Solu-Medrol) 60 mg IV TID [facility] Last Admin: 06/24/17 14:00 Dose: 60 mg Multi-Ingred Cream/Lotion/Oil/Oint (Artificial Tears Ophth Oint) 1 applic OU Q4HR PRN PRN Reason: Dry Eye(s) Quetiapine Fumarate (Seroquel) 200 mg PO QHS [facility] Simple Syrup (Simple Syrup) 15 ml FEEDTUBE PRN PRN PRN Reason: Hypoglycemia Simple Syrup (Simple Syrup) 30 ml FEEDTUBE PRN PRN PRN Reason: Hypoglycemia Sodium Bicarbonate (Sodium Bicarbonate) 325 mg FEEDTUBE PRN PRN PRN Reason: For Clogged Feeding Tube Sodium Chloride (Nacl 0.9% 500 Ml) 1 ml IV DIRECT [facility] Physical Examination - Vital Signs Vital Signs: Vital Signs Temp Pulse Resp BP Pulse Ox 98.7 F 111 H 26 H 183/94 96 06/20/17 18:09 06/20/17 18:09 06/20/17 18:09 06/20/17 18:09 06/20/17 18:09 - Constitutional General appearance: other (on ventilator) - EENT EENT: Present: PERRL, mucous membranes moist, hearing intact - Respiratory Respiratory: Present: lungs clear, normal breath sounds - Cardiovascular Cardiovascular: Present: regular rate, normal S1, normal S2, other Extremities: Present: no peripheral edema bilatateraly, no clubbing, cyanosis, no inflammation - Gastrointestinal Gastrointestinal: Present: hypoactive bowel sounds, soft, non-tender - Integumentary Integumentary: Present: normal - Neurologic Cranial nerve examination: PERRL, V1/V2/V3 grossly intact, face symmetric Speech examination: other (intubated - cannot assess.) Sensorimotor examination: other (moves all extremities well. hand tape recorder mechanic is equal bilaterally.) Detailed motor examination: grossly full strength in, full strength in all tyshawn Detailed sensory examination: light touch, pain Reflex and gait examination: other (reflexes decreased. no babinski sign or clonus.) - Musculoskeletal Musculoskeletal: Present: normal range of motion - Psychiatric Psychiatric: Present: other (agitated on ventilator if sedation is lifted.) Results - Laboratory Findings CBC and BMP: 06/24/17 06:31 06/24/17 06:31 Abnormal Lab Findings: Abnormal Labs 06/20/17 06/20/17 06/20/17 19:00 19:00 19:00 WBC RBC Hgb Hct MCV 100 H MCH 35 H MCHC 35 H RDW 18.8 H Lymph % (Auto) 4.1 L Branch % (Auto) 8.9 H Lymph # 0.4 L Branch # 0.9 H Seg Neutrophils % 86.2 H Seg Neuts % (Manual) Lymphocytes % (Manual) Seg Neutrophils # 8.6 H Seg Neutrophils # Man Lymphocytes # (Manual) D-Dimer 747.03 H POC ABG pH POC ABG pCO2 POC ABG pO2 Sodium Carbon Dioxide BUN Creatinine Glucose Calcium Phosphorus Total Bilirubin 2.10 H AST 157 H ALT 119 H Alkaline Phosphatase 133 H Total Creatine Kinase 285 H CK-MB (CK-2) 8.6 H Troponin T 0.043 H C-Reactive Protein NT-Pro-B Natriuret Pep 61385 H Total Protein 6.0 L Albumin 3.7 L Cholesterol 212 H HDL Cholesterol 87 H Ur Specific [place] Urine WBC (Auto) Urine Creatinine Urine Total Protein 06/20/17 06/21/17 06/21/17 23:18 04:40 05:29 WBC RBC Hgb Hct MCV MCH MCHC RDW Lymph % (Auto) Branch % (Auto) Lymph # Branch # Seg Neutrophils % Seg Neuts % (Manual) Lymphocytes % (Manual) Seg Neutrophils # Seg Neutrophils # Man Lymphocytes # (Manual) D-Dimer POC ABG pH POC ABG pCO2 53.9 H 47.1 H POC ABG pO2 221 H Sodium Carbon Dioxide BUN Creatinine Glucose Calcium Phosphorus Total Bilirubin AST ALT Alkaline Phosphatase Total Creatine Kinase CK-MB (CK-2) Troponin T C-Reactive Protein NT-Pro-B Natriuret Pep Total Protein Albumin Cholesterol HDL Cholesterol Ur Specific [place] 1.049 H Urine WBC (Auto) 11.0 H Urine Creatinine Urine Total Protein 06/21/17 06/21/17 06/21/17 07:50 07:50 13:33 WBC 12.0 H RBC Hgb Hct MCV 104 H MCH 35 H MCHC RDW 19.3 H Lymph % (Auto) Branch % (Auto) Lymph # Branch # Seg Neutrophils % Seg Neuts % (Manual) 93.0 H Lymphocytes % (Manual) 1.0 L Seg Neutrophils # Seg Neutrophils # Man 11.2 H Lymphocytes # (Manual) 0.1 L D-Dimer POC ABG pH POC ABG pCO2 POC ABG pO2 Sodium Carbon Dioxide BUN 21 H Creatinine Glucose 130 H Calcium 8.1 L Phosphorus Total Bilirubin AST ALT Alkaline Phosphatase Total Creatine Kinase CK-MB (CK-2) Troponin T 0.054 H D C-Reactive Protein NT-Pro-B Natriuret Pep Total Protein Albumin Cholesterol HDL Cholesterol Ur Specific [place] Urine WBC (Auto) Urine Creatinine Urine Total Protein 06/21/17 06/21/17 06/21/17 18:15 18:15 20:55 WBC RBC Hgb Hct MCV MCH MCHC RDW Lymph % (Auto) Branch % (Auto) Lymph # Branch # Seg Neutrophils % Seg Neuts % (Manual) Lymphocytes % (Manual) Seg Neutrophils # Seg Neutrophils # Man Lymphocytes # (Manual) D-Dimer POC ABG pH POC ABG pCO2 POC ABG pO2 Sodium Carbon Dioxide BUN Creatinine Glucose Calcium Phosphorus 7.20 H Total Bilirubin AST ALT Alkaline Phosphatase Total Creatine Kinase CK-MB (CK-2) Troponin T 0.042 H D C-Reactive Protein 3.90 H NT-Pro-B Natriuret Pep Total Protein Albumin Cholesterol HDL Cholesterol Ur Specific [place] Urine WBC (Auto) Urine Creatinine Urine Total Protein 06/22/17 06/22/17 06/22/17 03:03 04:19 04:19 WBC RBC 3.40 L Hgb 11.7 L Hct 35.1 L D MCV 103 H MCH 35 H MCHC RDW 18.7 H Lymph % (Auto) Branch % (Auto) Lymph # Branch # Seg Neutrophils % Seg Neuts % (Manual) 97.0 H Lymphocytes % (Manual) 1.0 L Seg Neutrophils # Seg Neutrophils # Man 10.2 H Lymphocytes # (Manual) 0.1 L D-Dimer POC ABG pH POC ABG pCO2 56.7 H POC ABG pO2 115 H Sodium Carbon Dioxide BUN 41 H Creatinine 1.6 H Glucose 126 H Calcium 7.7 L Phosphorus Total Bilirubin AST ALT Alkaline Phosphatase Total Creatine Kinase CK-MB (CK-2) Troponin T C-Reactive Protein NT-Pro-B Natriuret Pep Total Protein Albumin Cholesterol HDL Cholesterol Ur Specific [place] Urine WBC (Auto) Urine Creatinine Urine Total Protein 06/22/17 06/23/17 06/23/17 04:19 04:06 04:10 WBC RBC Hgb Hct MCV MCH MCHC RDW Lymph % (Auto) Branch % (Auto) Lymph # Branch # Seg Neutrophils % Seg Neuts % (Manual) Lymphocytes % (Manual) Seg Neutrophils # Seg Neutrophils # Man Lymphocytes # (Manual) D-Dimer POC ABG pH 7.492 H POC ABG pCO2 45.5 H POC ABG pO2 Sodium Carbon Dioxide BUN Creatinine Glucose Calcium Phosphorus Total Bilirubin AST ALT Alkaline Phosphatase Total Creatine Kinase 228 H CK-MB (CK-2) 6.3 H Troponin T 0.031 H D C-Reactive Protein NT-Pro-B Natriuret Pep Total Protein Albumin Cholesterol HDL Cholesterol Ur Specific [place] Urine WBC (Auto) Urine Creatinine 136.8 H Urine Total Protein 41 H 06/23/17 06/23/17 06/24/17 04:20 04:20 04:50 WBC 11.4 H RBC Hgb Hct MCV 102 H MCH 33 H MCHC RDW 18.9 H Lymph % (Auto) 5.5 L Branch % (Auto) Lymph # 0.6 L Branch # Seg Neutrophils % 87.7 H Seg Neuts % (Manual) Lymphocytes % (Manual) Seg Neutrophils # 10.0 H Seg Neutrophils # Man Lymphocytes # (Manual) D-Dimer POC ABG pH 7.331 L POC ABG pCO2 63.6 H POC ABG pO2 69 L Sodium 146 H Carbon Dioxide BUN 38 H Creatinine Glucose 107 H Calcium 8.2 L Phosphorus Total Bilirubin AST ALT Alkaline Phosphatase Total Creatine Kinase CK-MB (CK-2) Troponin T C-Reactive Protein NT-Pro-B Natriuret Pep Total Protein Albumin Cholesterol HDL Cholesterol Ur Specific [place] Urine WBC (Auto) Urine Creatinine Urine Total Protein 06/24/17 06/24/17 06:31 06:31 WBC RBC Hgb Hct MCV 104 H MCH 33 H MCHC RDW 18.5 H Lymph % (Auto) Branch % (Auto) Lymph # Branch # Seg Neutrophils % Seg Neuts % (Manual) 96.0 H Lymphocytes % (Manual) 3.0 L Seg Neutrophils # Seg Neutrophils # Man 8.3 H Lymphocytes # (Manual) 0.3 L D-Dimer POC ABG pH POC ABG pCO2 POC ABG pO2 Sodium 148 H Carbon Dioxide 32 H BUN 40 H Creatinine Glucose 154 H Calcium Phosphorus Total Bilirubin AST ALT Alkaline Phosphatase Total Creatine Kinase CK-MB (CK-2) Troponin T C-Reactive Protein NT-Pro-B Natriuret Pep Total Protein Albumin Cholesterol HDL Cholesterol Ur Specific [place] Urine WBC (Auto) Urine Creatinine Urine Total Protein Echocardiogram - EF of 25% CT chest - bilateral pneumonia. Assessment and Plan 52 year old male admitted with bilateral pneumonia and heart failure. Ventilator dependent at this time. He had a seizure while withdrawing benzodiazepines on 06/22/2017. No further seizures. An EEG is pending. Plan - agree with obtaining an EEG. When extubated we could consider doing a CT brain for completeness. Continue pulmonary and metabolic support.
--- NOTE | 2017-06-24 18:47 | Progress Note ---
Assessment and Plan Acute hypoxemic respiratory failure, on mechanical ventilator support. Bilateral pneumonia, possibly aspiration with basilar predominance. Hypercapnia. Elevated D-dimer. Elevated transaminases. Hyperlipidemia. Possible urinary tract infection. - Continue mechanical ventilatory support -Lung protective strategies -VAP bundle addressed -Start Seroquel for agitation management in preparation for weaning trial -Daily SAT/SBt--has been very agitated and combative when sedation is turned off - continue full AC support - reduced Peep to 6 as long as O2 Sats > 90% - continue aspiration precautions / addressing VAP bundle daily - continue bronchodilators and pulmonary hygiene per RT - continue enteral nutrition as tolerated - continue empiric AB's and follow cultures - continue GI & VTE prophylaxis Subjective Date of service: 06/24/17 Principal diagnosis: Acute Hypoxemic Hypercapnic Resp Failure; Bilateral Pneumonis (?Aspiration) Interval history: Patient is seen today for: Acute Hypoxemic Hypercapnic Resp Failure; Bilateral Pneumonia(Aspiration) Seen and examined at bedside; 24hour events reviewed; nursing and respiratory care staff consulted; no adverse overnight events reported to me; remains on MVS and tolerating well; very agitated this morning when his sedation was discontinued Objective - Exam Narrative Exam: Middle-aged male lying in bed intubated on ventilator. ETT to mechanical ventilator, no dys-synchrony HEENT: NCAT, Neck: Supple, no venous distention CVS: S1S2 RRR with no murmur, rub or gallop Chest: Decreased AE bilaterally with rhonchi Abdomen: Protuberant, soft, nontender, no organomegaly, bowel sounds are present Extremities: No edema and no clubbing Skin warm and dry with no rash Neuro: Rousable, non-focal neurology Vital Signs - 12hr 06/24/17 06/24/17 06/24/17 07:00 07:30 07:55 Temperature Pulse Rate 69 65 64 Pulse Rate [ Anterior Bilateral Throughout] Pulse Rate [ Anterior Right Throughout] Respiratory 16 16 Rate Respiratory Rate [Anterior Bilateral Throughout] Respiratory Rate [Anterior Right Throughout] Blood Pressure 124/57 124/57 124/57 O2 Sat by Pulse 93 95 97 Oximetry 06/24/17 06/24/17 06/24/17 07:58 08:00 08:20 Temperature 99.3 F Pulse Rate 63 Pulse Rate [ 64 64 Anterior Bilateral Throughout] Pulse Rate [ 64 62 Anterior Right Throughout] Respiratory 16 Rate Respiratory 16 16 Rate [Anterior Bilateral Throughout] Respiratory 16 16 Rate [Anterior Right Throughout] Blood Pressure 123/54 O2 Sat by Pulse 97 Oximetry 06/24/17 06/24/17 06/24/17 08:30 09:00 09:18 Temperature Pulse Rate 65 67 69 Pulse Rate [ Anterior Bilateral Throughout] Pulse Rate [ Anterior Right Throughout] Respiratory 16 16 Rate Respiratory Rate [Anterior Bilateral Throughout] Respiratory Rate [Anterior Right Throughout] Blood Pressure 123/54 123/52 123/52 O2 Sat by Pulse 96 92 Oximetry 06/24/17 06/24/17 06/24/17 09:30 10:00 10:30 Temperature Pulse Rate 74 63 63 Pulse Rate [ Anterior Bilateral Throughout] Pulse Rate [ Anterior Right Throughout] Respiratory 16 16 16 Rate Respiratory Rate [Anterior Bilateral Throughout] Respiratory Rate [Anterior Right Throughout] Blood Pressure 123/52 122/55 122/55 O2 Sat by Pulse 96 94 95 Oximetry 06/24/17 06/24/17 06/24/17 11:00 11:30 11:51 Temperature Pulse Rate 63 92 H 66 Pulse Rate [ Anterior Bilateral Throughout] Pulse Rate [ Anterior Right Throughout] Respiratory 16 17 Rate Respiratory Rate [Anterior Bilateral Throughout] Respiratory Rate [Anterior Right Throughout] Blood Pressure 121/54 121/54 121/54 O2 Sat by Pulse 93 98 94 Oximetry 06/24/17 06/24/17 06/24/17 11:53 12:00 12:07 Temperature 99.5 F Pulse Rate 67 Pulse Rate [ 66 65 Anterior Bilateral Throughout] Pulse Rate [ Anterior Right Throughout] Respiratory 16 Rate Respiratory 16 16 Rate [Anterior Bilateral Throughout] Respiratory Rate [Anterior Right Throughout] Blood Pressure 126/55 O2 Sat by Pulse 96 Oximetry 06/24/17 06/24/17 06/24/17 12:30 13:00 13:30 Temperature Pulse Rate 67 113 H 77 Pulse Rate [ Anterior Bilateral Throughout] Pulse Rate [ Anterior Right Throughout] Respiratory 16 13 16 Rate Respiratory Rate [Anterior Bilateral Throughout] Respiratory Rate [Anterior Right Throughout] Blood Pressure 126/55 134/75 134/75 O2 Sat by Pulse 93 96 90 Oximetry 06/24/17 06/24/17 06/24/17 14:00 14:30 15:00 Temperature Pulse Rate 72 84 108 H Pulse Rate [ Anterior Bilateral Throughout] Pulse Rate [ Anterior Right Throughout] Respiratory 16 16 18 Rate Respiratory Rate [Anterior Bilateral Throughout] Respiratory Rate [Anterior Right Throughout] Blood Pressure 132/63 124/74 138/70 O2 Sat by Pulse 90 93 91 Oximetry 06/24/17 06/24/17 06/24/17 15:30 15:46 15:50 Temperature Pulse Rate 131 H 110 H Pulse Rate [ 104 H Anterior Bilateral Throughout] Pulse Rate [ Anterior Right Throughout] Respiratory 13 Rate Respiratory 16 Rate [Anterior Bilateral Throughout] Respiratory Rate [Anterior Right Throughout] Blood Pressure 138/70 138/70 O2 Sat by Pulse 93 94 Oximetry 06/24/17 06/24/17 06/24/17 15:59 16:00 16:30 Temperature 98.7 F Pulse Rate 104 H 101 H Pulse Rate [ 105 H Anterior Bilateral Throughout] Pulse Rate [ Anterior Right Throughout] Respiratory 17 13 Rate Respiratory 18 Rate [Anterior Bilateral Throughout] Respiratory Rate [Anterior Right Throughout] Blood Pressure 138/72 138/72 O2 Sat by Pulse 90 95 Oximetry 06/24/17 06/24/17 06/24/17 17:00 17:30 18:00 Temperature Pulse Rate 97 H 96 H 82 Pulse Rate [ Anterior Bilateral Throughout] Pulse Rate [ Anterior Right Throughout] Respiratory 11 L 15 16 Rate Respiratory Rate [Anterior Bilateral Throughout] Respiratory Rate [Anterior Right Throughout] Blood Pressure 143/69 143/69 130/59 O2 Sat by Pulse 95 89 90 Oximetry Constitutional: no acute distress, other (sedated) Eyes: non-icteric ENT: oropharynx moist, other (ETT at 22cm) Neck: supple, no lymphadenopathy, no JVD, other (No thyromegaly) Effort: mildly labored Ascultation: Bilateral: rales (bases) Percussion: Bilateral: not dull Cardiovascular: regular rate and rhythm, other (No rubs or murmurs) Gastrointestinal: hypoactive bowel sounds, soft, non-tender Integumentary: normal Extremities: no cyanosis, no edema, pink and warm, pulses normal Neurologic: non-focal exam (grossly), unable to assess, other (sedated) Psychiatric: other (sedated) CBC and BMP: 06/24/17 06:31 06/24/17 06:31 ABG, PT/INR, D-dimer: ABG POC ABG pH 7.331 (7.35-7.45) L 06/24/17 04:50 POC ABG pCO2 63.6 (35-45) H 06/24/17 04:50 POC ABG pO2 69 (80-105) L 06/24/17 04:50 POC ABG HCO3 33.6 06/24/17 04:50 POC ABG Total CO2 36 06/24/17 04:50 POC ABG O2 Sat 91 06/24/17 04:50 PT/INR, D-dimer D-Dimer 747.03 ng/mlDDU (0-234) H 06/20/17 19:00 Abnormal lab findings: Abnormal Labs 06/20/17 06/20/17 06/20/17 19:00 19:00 19:00 WBC RBC Hgb Hct MCV 100 H MCH 35 H MCHC 35 H RDW 18.8 H Lymph % (Auto) 4.1 L [place] % (Auto) 8.9 H Lymph # 0.4 L [place] # 0.9 H Seg Neutrophils % 86.2 H Seg Neuts % (Manual) Lymphocytes % (Manual) Seg Neutrophils # 8.6 H Seg Neutrophils # Man Lymphocytes # (Manual) D-Dimer 747.03 H POC ABG pH POC ABG pCO2 POC ABG pO2 Sodium Carbon Dioxide BUN Creatinine Glucose Calcium Phosphorus Total Bilirubin 2.10 H AST 157 H ALT 119 H Alkaline Phosphatase 133 H Total Creatine Kinase 285 H CK-MB (CK-2) 8.6 H Troponin T 0.043 H C-Reactive Protein NT-Pro-B Natriuret Pep 54845 H Total Protein 6.0 L Albumin 3.7 L Cholesterol 212 H HDL Cholesterol 87 H Ur Specific [place] Urine WBC (Auto) Urine Creatinine Urine Total Protein 06/20/17 06/21/17 06/21/17 23:18 04:40 05:29 WBC RBC Hgb Hct MCV MCH MCHC RDW Lymph % (Auto) [place] % (Auto) Lymph # [place] # Seg Neutrophils % Seg Neuts % (Manual) Lymphocytes % (Manual) Seg Neutrophils # Seg Neutrophils # Man Lymphocytes # (Manual) D-Dimer POC ABG pH POC ABG pCO2 53.9 H 47.1 H POC ABG pO2 221 H Sodium Carbon Dioxide BUN Creatinine Glucose Calcium Phosphorus Total Bilirubin AST ALT Alkaline Phosphatase Total Creatine Kinase CK-MB (CK-2) Troponin T C-Reactive Protein NT-Pro-B Natriuret Pep Total Protein Albumin Cholesterol HDL Cholesterol Ur Specific [place] 1.049 H Urine WBC (Auto) 11.0 H Urine Creatinine Urine Total Protein 06/21/17 06/21/1706/21/18 07:50 07:50 13:33 WBC 12.0 H RBC Hgb Hct MCV 104 H MCH 35 H MCHC RDW 19.3 H Lymph % (Auto) [place] % (Auto) Lymph # [place] # Seg Neutrophils % Seg Neuts % (Manual) 93.0 H Lymphocytes % (Manual) 1.0 L Seg Neutrophils # Seg Neutrophils # Man 11.2 H Lymphocytes # (Manual) 0.1 L D-Dimer POC ABG pH POC ABG pCO2 POC ABG pO2 Sodium Carbon Dioxide BUN 21 H Creatinine Glucose 130 H Calcium 8.1 L Phosphorus Total Bilirubin AST ALT Alkaline Phosphatase Total Creatine Kinase CK-MB (CK-2) Troponin T 0.054 H D C-Reactive Protein NT-Pro-B Natriuret Pep Total Protein Albumin Cholesterol HDL Cholesterol Ur Specific [place] Urine WBC (Auto) Urine Creatinine Urine Total Protein 06/21/17 06/21/17 06/21/17 18:15 18:15 20:55 WBC RBC Hgb Hct MCV MCH MCHC RDW Lymph % (Auto) [place] % (Auto) Lymph # [place] # Seg Neutrophils % Seg Neuts % (Manual) Lymphocytes % (Manual) Seg Neutrophils # Seg Neutrophils # Man Lymphocytes # (Manual) D-Dimer POC ABG pH POC ABG pCO2 POC ABG pO2 Sodium Carbon Dioxide BUN Creatinine Glucose Calcium Phosphorus 7.20 H Total Bilirubin AST ALT Alkaline Phosphatase Total Creatine Kinase CK-MB (CK-2) Troponin T 0.042 H D C-Reactive Protein 3.90 H NT-Pro-B Natriuret Pep Total Protein Albumin Cholesterol HDL Cholesterol Ur Specific [place] Urine WBC (Auto) Urine Creatinine Urine Total Protein 06/22/17 06/22/17 06/22/17 03:03 04:19 04:19 WBC RBC 3.40 L Hgb 11.7 L Hct 35.1 L D MCV 103 H MCH 35 H MCHC RDW 18.7 H Lymph % (Auto) [place] % (Auto) Lymph # [place] # Seg Neutrophils % Seg Neuts % (Manual) 97.0 H Lymphocytes % (Manual) 1.0 L Seg Neutrophils # Seg Neutrophils # Man 10.2 H Lymphocytes # (Manual) 0.1 L D-Dimer POC ABG pH POC ABG pCO2 56.7 H POC ABG pO2 115 H Sodium Carbon Dioxide BUN 41 H Creatinine 1.6 H Glucose 126 H Calcium 7.7 L Phosphorus Total Bilirubin AST ALT Alkaline Phosphatase Total Creatine Kinase CK-MB (CK-2) Troponin T C-Reactive Protein NT-Pro-B Natriuret Pep Total Protein Albumin Cholesterol HDL Cholesterol Ur Specific [place] Urine WBC (Auto) Urine Creatinine Urine Total Protein 06/22/17 06/23/17 06/23/17 04:19 04:06 04:10 WBC RBC Hgb Hct MCV MCH MCHC RDW Lymph % (Auto) [place] % (Auto) Lymph # [place] # Seg Neutrophils % Seg Neuts % (Manual) Lymphocytes % (Manual) Seg Neutrophils # Seg Neutrophils # Man Lymphocytes # (Manual) D-Dimer POC ABG pH 7.492 H POC ABG pCO2 45.5 H POC ABG pO2 Sodium Carbon Dioxide BUN Creatinine Glucose Calcium Phosphorus Total Bilirubin AST ALT Alkaline Phosphatase Total Creatine Kinase 228 H CK-MB (CK-2) 6.3 H Troponin T 0.031 H D C-Reactive Protein NT-Pro-B Natriuret Pep Total Protein Albumin Cholesterol HDL Cholesterol Ur Specific [place] Urine WBC (Auto) Urine Creatinine 136.8 H Urine Total Protein 41 H 06/23/17 06/23/17 06/24/17 04:20 04:20 04:50 WBC 11.4 H RBC Hgb Hct MCV 102 H MCH 33 H MCHC RDW 18.9 H Lymph % (Auto) 5.5 L [place] % (Auto) Lymph # 0.6 L [place] # Seg Neutrophils % 87.7 H Seg Neuts % (Manual) Lymphocytes % (Manual) Seg Neutrophils # 10.0 H Seg Neutrophils # Man Lymphocytes # (Manual) D-Dimer POC ABG pH 7.331 L POC ABG pCO2 63.6 H POC ABG pO2 69 L Sodium 146 H Carbon Dioxide BUN 38 H Creatinine Glucose 107 H Calcium 8.2 L Phosphorus Total Bilirubin AST ALT Alkaline Phosphatase Total Creatine Kinase CK-MB (CK-2) Troponin T C-Reactive Protein NT-Pro-B Natriuret Pep Total Protein Albumin Cholesterol HDL Cholesterol Ur Specific [place] Urine WBC (Auto) Urine Creatinine Urine Total Protein 06/24/17 06/24/17 06:31 06:31 WBC RBC Hgb Hct MCV 104 H MCH 33 H MCHC RDW 18.5 H Lymph % (Auto) [place] % (Auto) Lymph # [place] # Seg Neutrophils % Seg Neuts % (Manual) 96.0 H Lymphocytes % (Manual) 3.0 L Seg Neutrophils # Seg Neutrophils # Man 8.3 H Lymphocytes # (Manual) 0.3 L D-Dimer POC ABG pH POC ABG pCO2 POC ABG pO2 Sodium 148 H Carbon Dioxide 32 H BUN 40 H Creatinine Glucose 154 H Calcium Phosphorus Total Bilirubin AST ALT Alkaline Phosphatase Total Creatine Kinase CK-MB (CK-2) Troponin T C-Reactive Protein NT-Pro-B Natriuret Pep Total Protein Albumin Cholesterol HDL Cholesterol Ur Specific [place] Urine WBC (Auto) Urine Creatinine Urine Total Protein Chest x-ray: image reviewed Allied health notes reviewed: nursing Critical care time in (mins) excluding proc time.: 45 Critical care attestation.: If time is entered above; I have spent that time in minutes in the direct care of this critically ill patient, excluding procedure time.
[2017-06-24] MEDS: KEPPRA PO SCH (22:36)
[2017-06-24] MEDS: PEPCID PO SCH (22:37)
[2017-06-25] MEDS: fentaNYL DRIP Premix 2,000 MCG/100 ML BAG IV SCH ×3 (03:52→21:10)
[2017-06-25] MEDS: DIPRIVAN 10 MG/ML 1,000 MG/100 ML BOTTLE IV SCH ×4 (03:55→20:11)
[2017-06-25] MEDS: APRESOLINE PO SCH ×3 (05:13→21:11)
[2017-06-25 06:46] LABS: BUN/Creatinine Ratio 50; Blood Urea Nitrogen 40 mg/dL (9-20); Calcium 8.4 mg/dL (8.4-10.2); Hemolysis Index 5
[2017-06-25 06:51] LABS: Hematocrit 39.8 % (35.5-45.6); Hemoglobin 13.3 gm/dl (11.8-15.2); Mean Corpuscular HGB Conc 34 % (32-34); Mean Corpuscular Hemoglobin 34 pg (28-32); Mean Corpuscular Volume 103 fl (84-94); Platelet Count 148 K/mm3 (140-440); Red Blood Count 3.88 M/mm3 (3.65-5.03); Red Cell Distribution Width 18.6 % (13.2-15.2)
[2017-06-25] MEDS: DUONEB *Not for PRN Use IH SCH ×4 (08:36→19:58)
[2017-06-25] MEDS: HEPARIN SUB-Q SCH ×2 (09:44→13:29)
[2017-06-25] MEDS: COREG PO SCH ×2 (09:45→21:12)
[2017-06-25] MEDS: BABY ASPIRIN PO SCH (09:45)
[2017-06-25] MEDS: PEPCID PO SCH ×2 (09:46→21:08)
[2017-06-25] MEDS: KEPPRA PO SCH ×2 (09:47→21:07)
[2017-06-25 10:13] LABS: Basophils % (Manual) 0 % (0.0-1.8); Eosinophils % (Manual) 0 % (0.0-4.3); Total Cells Counted 100
[2017-06-25 10:14] LABS: Anisocytosis 1+; Poikilocytosis Few
--- NOTE | 2017-06-25 10:39 | Progress Note ---
Assessment and Plan - Patient Problems (1) Other acute kidney failure Current Visit: Yes Status: Acute Plan to address problem: pt in recovery phase. Follow-up electrolytes and renal function (2) Acute respiratory failure with hypoxia Current Visit: Yes Status: Acute Plan to address problem: Management by pulmonary (3) Transaminasemia Current Visit: Yes Status: Acute Plan to address problem: Hepatitis B and C negative. Follow-up liver function tests. (4) Hyperphosphatemia Current Visit: Yes Status: Acute Plan to address problem: Follow up phosphorus level in am. May need to start binder (5) Seizure Current Visit: Yes Status: Acute Plan to address problem: Possible seizure .Continue management (4) Hypernatremia Current Visit: Yes Status: Acute Plan to address problem: increase free water flushes to 250cc q 4hrs (5) Pneumonia Current Visit: Yes Status: Acute Plan to address problem: cont ABXs, no renal adjustment needed, given improved eGFR. Subjective Date of service: 06/25/17 Principal diagnosis: Acute Hypoxemic Hypercapnic Resp Failure; Bilateral Pneumonis (?Aspiration) Interval history: Pt intubated, sedated Objective - Vital Signs Vital signs: Vital Signs - 12hr 06/24/17 06/24/17 06/24/17 23:00 23:08 23:30 Temperature Pulse Rate 63 63 64 Pulse Rate [ Anterior Left Lower Lobe] Respiratory 16 16 16 Rate Respiratory Rate [Anterior Left Lower Lobe ] Blood Pressure 125/56 130/56 125/56 O2 Sat by Pulse 97 98 97 Oximetry 06/24/17 06/25/17 06/25/17 23:50 00:00 00:30 Temperature 98.1 F Pulse Rate 62 62 Pulse Rate [ Anterior Left Lower Lobe] Respiratory 16 16 Rate Respiratory Rate [Anterior Left Lower Lobe ] Blood Pressure 123/56 121/56 121/56 O2 Sat by Pulse 98 96 98 Oximetry 06/25/17 06/25/17 06/25/17 01:00 01:30 02:00 Temperature Pulse Rate 62 61 61 Pulse Rate [ Anterior Left Lower Lobe] Respiratory 16 16 16 Rate Respiratory Rate [Anterior Left Lower Lobe ] Blood Pressure 122/55 122/55 125/56 O2 Sat by Pulse 96 97 96 Oximetry 06/25/17 06/25/17 06/25/17 02:30 03:00 03:30 Temperature Pulse Rate 59 L 59 L 59 L Pulse Rate [ Anterior Left Lower Lobe] Respiratory 16 16 16 Rate Respiratory Rate [Anterior Left Lower Lobe ] Blood Pressure 125/56 125/56 125/56 O2 Sat by Pulse 98 97 98 Oximetry 06/25/17 06/25/17 06/25/17 04:00 04:30 04:31 Temperature 98.4 F Pulse Rate 58 L 58 L 61 Pulse Rate [ Anterior Left Lower Lobe] Respiratory 16 16 Rate Respiratory Rate [Anterior Left Lower Lobe ] Blood Pressure 125/56 125/56 125/56 O2 Sat by Pulse 96 97 97 Oximetry 06/25/17 06/25/17 06/25/17 05:00 05:13 05:30 Temperature Pulse Rate 58 L 62 57 L Pulse Rate [ Anterior Left Lower Lobe] Respiratory 16 16 Rate Respiratory Rate [Anterior Left Lower Lobe ] Blood Pressure 124/58 124/58 124/58 O2 Sat by Pulse 96 97 Oximetry 06/25/17 06/25/17 06/25/17 06:00 08:00 08:40 Temperature Pulse Rate 56 L 127 H Pulse Rate [ 83 Anterior Left Lower Lobe] Respiratory 16 Rate Respiratory 18 Rate [Anterior Left Lower Lobe ] Blood Pressure 128/57 158/78 O2 Sat by Pulse 97 99 Oximetry 06/25/17 09:45 Temperature Pulse Rate 118 H Pulse Rate [ Anterior Left Lower Lobe] Respiratory Rate Respiratory Rate [Anterior Left Lower Lobe ] Blood Pressure 158/78 O2 Sat by Pulse Oximetry - General Appearance General appearance: well-nourished, appears stated age, sedated on ventilator EENT: ATNC, PERRL, mucous membranes moist Neck: no JVD Respiratory: Present: Clear to Ascultation Cardiology: regular, S1S2 Gastrointestinal: normoactive bowel sounds Integumentary: no rash, other (no edema ) Neurologic: other (intubated, sedated ) - Lab 06/25/17 05:20 06/25/17 05:20 Most recent lab results Calcium 8.4 mg/dL (8.4-10.2) 06/25/17 05:20 Phosphorus 7.20 mg/dL (2.5-4.5) H 06/21/17 18:15 Magnesium 1.70 mg/dL (1.7-2.3) 06/21/17 18:15 Urine Creatinine 136.8 mg/dL (0.1-20.0) H 06/23/17 04:10 Urine Sodium 34 mmol/L 06/23/17 04:10 Urine Total Protein 41 mg/dL (5-11.8) H 06/23/17 04:10
--- NOTE | 2017-06-25 11:49 | XRay Report ---
PORTABLE CHEST INDICATION: Respiratory failure. COMPARISON: 06/22/2017 FINDINGS: Portable, frontal chest radiograph now demonstrates increased haziness/pleural fluid at the lung bases, right more than left. Hemidiaphragms now obscured. Exaggerated cardiomediastinal silhouette/mild cardiomegaly. Stable endotracheal and nasogastric tubes. EKG leads. Intact bones. CONCLUSION: Interval worsening with increased hazy, right more than left basilar opacities/effusions. Thank you for the opportunity to participate in this patient's care.
--- NOTE | 2017-06-25 12:18 | Progress Note ---
Assessment and Plan Acute hypoxemic respiratory failure, on mechanical ventilator support. Bilateral pneumonia, possibly aspiration with basilar predominance. Hypercapnia. Elevated D-dimer. Elevated transaminases. Hyperlipidemia. Possible urinary tract infection. - Continue mechanical ventilatory support -Lung protective strategies -VAP bundle addressed -Start Seroquel for agitation management in preparation for weaning trial, add low dose librium today -Daily SAT/SBt--has been very agitated and combative when sedation is turned off - continue full AC support -get CXR today - reduced Peep to 6 as long as O2 Sats > 90% - continue aspiration precautions / addressing VAP bundle daily - continue bronchodilators and pulmonary hygiene per RT - continue enteral nutrition as tolerated - continue empiric AB's and follow cultures - continue GI & VTE prophylaxis Subjective Date of service: 06/25/17 Principal diagnosis: Acute Hypoxemic Hypercapnic Resp Failure; Bilateral Pneumonis (?Aspiration) Interval history: Patient is seen today for: Acute Hypoxemic Hypercapnic Resp Failure; Bilateral Pneumonia(Aspiration) Seen and examined at bedside; 24hour events reviewed; nursing and respiratory care staff consulted; no adverse overnight events reported to me; remains on MVS and tolerating well; continues to remain very agitated when his sedation is decreased. Vitals, labs, medications, chart reviewed. Did not tolerate PSV this morning...very agitated, tacyhpnic and tachycardic. Discussed with ICU team in multidisciplinary rounds. Objective - Exam Narrative Exam: Middle-aged male lying in bed intubated on ventilator. ETT to mechanical ventilator, no dys-synchrony HEENT: NCAT, Neck: Supple, no venous distention CVS: S1S2 RRR with no murmur, rub or gallop Chest: Decreased AE bilaterally with rhonchi Abdomen: Protuberant, soft, nontender, no organomegaly, bowel sounds are present Extremities: No edema and no clubbing Skin warm and dry with no rash Neuro: Rousable, non-focal neurology Vital Signs - 12hr 06/25/17 06/25/17 06/25/17 00:30 01:00 01:30 Temperature Pulse Rate 62 62 61 Pulse Rate [ Anterior Left Lower Lobe] Respiratory 16 16 16 Rate Respiratory Rate [Anterior Left Lower Lobe ] Blood Pressure 121/56 122/55 122/55 O2 Sat by Pulse 98 96 97 Oximetry 06/25/17 06/25/17 06/25/17 02:00 02:30 03:00 Temperature Pulse Rate 61 59 L 59 L Pulse Rate [ Anterior Left Lower Lobe] Respiratory 16 16 16 Rate Respiratory Rate [Anterior Left Lower Lobe ] Blood Pressure 125/56 125/56 125/56 O2 Sat by Pulse 96 98 97 Oximetry 06/25/17 06/25/17 06/25/17 03:30 04:00 04:30 Temperature 98.4 F Pulse Rate 59 L 58 L 58 L Pulse Rate [ Anterior Left Lower Lobe] Respiratory 16 16 16 Rate Respiratory Rate [Anterior Left Lower Lobe ] Blood Pressure 125/56 125/56 125/56 O2 Sat by Pulse 98 96 97 Oximetry 06/25/17 06/25/17 06/25/17 04:31 05:00 05:13 Temperature Pulse Rate 61 58 L 62 Pulse Rate [ Anterior Left Lower Lobe] Respiratory 16 Rate Respiratory Rate [Anterior Left Lower Lobe ] Blood Pressure 125/56 124/58 124/58 O2 Sat by Pulse 97 96 Oximetry 06/25/17 06/25/17 06/25/17 05:30 06:00 06:30 Temperature Pulse Rate 57 L 56 L 61 Pulse Rate [ Anterior Left Lower Lobe] Respiratory 16 16 16 Rate Respiratory Rate [Anterior Left Lower Lobe ] Blood Pressure 124/58 128/57 128/57 O2 Sat by Pulse 97 97 98 Oximetry 06/25/17 06/25/17 06/25/17 07:00 07:30 08:00 Temperature Pulse Rate 58 L 72 85 Pulse Rate [ 83 Anterior Left Lower Lobe] Respiratory 16 16 16 Rate Respiratory 18 Rate [Anterior Left Lower Lobe ] Blood Pressure 122/53 122/53 142/67 O2 Sat by Pulse 97 99 96 Oximetry 06/25/17 06/25/17 06/25/17 08:30 08:40 09:00 Temperature Pulse Rate 87 127 H 117 H Pulse Rate [ Anterior Left Lower Lobe] Respiratory 17 10 L Rate Respiratory Rate [Anterior Left Lower Lobe ] Blood Pressure 142/67 158/78 142/67 O2 Sat by Pulse 98 99 99 Oximetry 06/25/17 06/25/17 06/25/17 09:30 09:45 10:00 Temperature Pulse Rate 111 H 118 H 92 H Pulse Rate [ Anterior Left Lower Lobe] Respiratory 14 16 Rate Respiratory Rate [Anterior Left Lower Lobe ] Blood Pressure 158/78 158/78 126/69 O2 Sat by Pulse 95 87 Oximetry 06/25/17 06/25/17 06/25/17 10:30 11:00 11:30 Temperature Pulse Rate 88 85 77 Pulse Rate [ Anterior Left Lower Lobe] Respiratory 16 16 16 Rate Respiratory Rate [Anterior Left Lower Lobe ] Blood Pressure 126/69 131/62 131/62 O2 Sat by Pulse 92 87 89 Oximetry 06/25/17 12:00 Temperature Pulse Rate 67 Pulse Rate [ Anterior Left Lower Lobe] Respiratory 16 Rate Respiratory Rate [Anterior Left Lower Lobe ] Blood Pressure 122/52 O2 Sat by Pulse 91 Oximetry Constitutional: no acute distress, other (sedated) Eyes: non-icteric ENT: oropharynx moist, other (ETT at 22cm) Neck: supple, no lymphadenopathy, no JVD, other (No thyromegaly) Effort: mildly labored Ascultation: Bilateral: rales (bases) Percussion: Bilateral: not dull Cardiovascular: regular rate and rhythm, other (No rubs or murmurs) Gastrointestinal: hypoactive bowel sounds, soft, non-tender Integumentary: normal Extremities: no cyanosis, no edema, pink and warm, pulses normal Neurologic: non-focal exam (grossly), unable to assess, other (sedated) Psychiatric: other (sedated) CBC and BMP: 06/25/17 05:20 06/25/17 05:20 ABG, PT/INR, D-dimer: ABG POC ABG pH 7.479 (7.35-7.45) H 06/25/17 04:46 POC ABG pCO2 44.9 (35-45) 06/25/17 04:46 POC ABG pO2 79 (80-105) L 06/25/17 04:46 POC ABG HCO3 33.3 06/25/17 04:46 POC ABG Total CO2 35 06/25/17 04:46 POC ABG O2 Sat 96 06/25/17 04:46 PT/INR, D-dimer D-Dimer 747.03 ng/mlDDU (0-234) H 06/20/17 19:00 Abnormal lab findings: Abnormal Labs 06/20/17 06/20/17 06/20/17 19:00 19:00 19:00 WBC RBC Hgb Hct MCV 100 H MCH 35 H MCHC 35 H RDW 18.8 H Lymph % (Auto) 4.1 L [place] % (Auto) 8.9 H Lymph # 0.4 L [place] # 0.9 H Seg Neutrophils % 86.2 H Seg Neuts % (Manual) Lymphocytes % (Manual) Seg Neutrophils # 8.6 H Seg Neutrophils # Man Lymphocytes # (Manual) D-Dimer 747.03 H POC ABG pH POC ABG pCO2 POC ABG pO2 Sodium Chloride Carbon Dioxide BUN Creatinine Glucose Calcium Phosphorus Total Bilirubin 2.10 H AST 157 H ALT 119 H Alkaline Phosphatase 133 H Total Creatine Kinase 285 H CK-MB (CK-2) 8.6 H Troponin T 0.043 H C-Reactive Protein NT-Pro-B Natriuret Pep 60701 H Total Protein 6.0 L Albumin 3.7 L Cholesterol 212 H HDL Cholesterol 87 H Ur Specific [place] Urine WBC (Auto) Urine Creatinine Urine Total Protein 06/20/17 06/21/17 06/21/17 23:18 04:40 05:29 WBC RBC Hgb Hct MCV MCH MCHC RDW Lymph % (Auto) [place] % (Auto) Lymph # [place] # Seg Neutrophils % Seg Neuts % (Manual) Lymphocytes % (Manual) Seg Neutrophils # Seg Neutrophils # Man Lymphocytes # (Manual) D-Dimer POC ABG pH POC ABG pCO2 53.9 H 47.1 H POC ABG pO2 221 H Sodium Chloride Carbon Dioxide BUN Creatinine Glucose Calcium Phosphorus Total Bilirubin AST ALT Alkaline Phosphatase Total Creatine Kinase CK-MB (CK-2) Troponin T C-Reactive Protein NT-Pro-B Natriuret Pep Total Protein Albumin Cholesterol HDL Cholesterol Ur Specific [place] 1.049 H Urine WBC (Auto) 11.0 H Urine Creatinine Urine Total Protein 06/21/17 06/21/17 06/21/17 07:50 07:50 13:33 WBC 12.0 H RBC Hgb Hct MCV 104 H MCH 35 H MCHC RDW 19.3 H Lymph % (Auto) [place] % (Auto) Lymph # [place] # Seg Neutrophils % Seg Neuts % (Manual) 93.0 H Lymphocytes % (Manual) 1.0 L Seg Neutrophils # Seg Neutrophils # Man 11.2 H Lymphocytes # (Manual) 0.1 L D-Dimer POC ABG pH POC ABG pCO2 POC ABG pO2 Sodium Chloride Carbon Dioxide BUN 21 H Creatinine Glucose 130 H Calcium 8.1 L Phosphorus Total Bilirubin AST ALT Alkaline Phosphatase Total Creatine Kinase CK-MB (CK-2) Troponin T 0.054 H D C-Reactive Protein NT-Pro-B Natriuret Pep Total Protein Albumin Cholesterol HDL Cholesterol Ur Specific [place] Urine WBC (Auto) Urine Creatinine Urine Total Protein 06/21/17 06/21/17 06/21/17 18:15 18:15 20:55 WBC RBC Hgb Hct MCV MCH MCHC RDW Lymph % (Auto) [place] % (Auto) Lymph # [place] # Seg Neutrophils % Seg Neuts % (Manual) Lymphocytes % (Manual) Seg Neutrophils # Seg Neutrophils # Man Lymphocytes # (Manual) D-Dimer POC ABG pH POC ABG pCO2 POC ABG pO2 Sodium Chloride Carbon Dioxide BUN Creatinine Glucose Calcium Phosphorus 7.20 H Total Bilirubin AST ALT Alkaline Phosphatase Total Creatine Kinase CK-MB (CK-2) Troponin T 0.042 H D C-Reactive Protein 3.90 H NT-Pro-B Natriuret Pep Total Protein Albumin Cholesterol HDL Cholesterol Ur Specific [place] Urine WBC (Auto) Urine Creatinine Urine Total Protein 06/22/17 06/22/17 06/22/17 03:03 04:19 04:19 WBC RBC 3.40 L Hgb 11.7 L Hct 35.1 L D MCV 103 H MCH 35 H MCHC RDW 18.7 H Lymph % (Auto) [place] % (Auto) Lymph # [place] # Seg Neutrophils % Seg Neuts % (Manual) 97.0 H Lymphocytes % (Manual) 1.0 L Seg Neutrophils # Seg Neutrophils # Man 10.2 H Lymphocytes # (Manual) 0.1 L D-Dimer POC ABG pH POC ABG pCO2 56.7 H POC ABG pO2 115 H Sodium Chloride Carbon Dioxide BUN 41 H Creatinine 1.6 H Glucose 126 H Calcium 7.7 L Phosphorus Total Bilirubin AST ALT Alkaline Phosphatase Total Creatine Kinase CK-MB (CK-2) Troponin T C-Reactive Protein NT-Pro-B Natriuret Pep Total Protein Albumin Cholesterol HDL Cholesterol Ur Specific [place] Urine WBC (Auto) Urine Creatinine Urine Total Protein 06/22/17 06/23/17 06/23/17 04:19 04:06 04:10 WBC RBC Hgb Hct MCV MCH MCHC RDW Lymph % (Auto) [place] % (Auto) Lymph # [place] # Seg Neutrophils % Seg Neuts % (Manual) Lymphocytes % (Manual) Seg Neutrophils # Seg Neutrophils # Man Lymphocytes # (Manual) D-Dimer POC ABG pH 7.492 H POC ABG pCO2 45.5 H POC ABG pO2 Sodium Chloride Carbon Dioxide BUN Creatinine Glucose Calcium Phosphorus Total Bilirubin AST ALT Alkaline Phosphatase Total Creatine Kinase 228 H CK-MB (CK-2) 6.3 H Troponin T 0.031 H D C-Reactive Protein NT-Pro-B Natriuret Pep Total Protein Albumin Cholesterol HDL Cholesterol Ur Specific [place] Urine WBC (Auto) Urine Creatinine 136.8 H Urine Total Protein 41 H 06/23/17 06/23/17 06/24/17 04:20 04:20 04:50 WBC 11.4 H RBC Hgb Hct MCV 102 H MCH 33 H MCHC RDW 18.9 H Lymph % (Auto) 5.5 L [place] % (Auto) Lymph # 0.6 L [place] # Seg Neutrophils % 87.7 H Seg Neuts % (Manual) Lymphocytes % (Manual) Seg Neutrophils # 10.0 H Seg Neutrophils # Man Lymphocytes # (Manual) D-Dimer POC ABG pH 7.331 L POC ABG pCO2 63.6 H POC ABG pO2 69 L Sodium 146 H Chloride Carbon Dioxide BUN 38 H Creatinine Glucose 107 H Calcium 8.2 L Phosphorus Total Bilirubin AST ALT Alkaline Phosphatase Total Creatine Kinase CK-MB (CK-2) Troponin T C-Reactive Protein NT-Pro-B Natriuret Pep Total Protein Albumin Cholesterol HDL Cholesterol Ur Specific [place] Urine WBC (Auto) Urine Creatinine Urine Total Protein 06/24/17 06/24/17 06/25/17 06:31 06:31 04:35 WBC RBC Hgb Hct MCV 104 H MCH 33 H MCHC RDW 18.5 H Lymph % (Auto) [place] % (Auto) Lymph # [place] # Seg Neutrophils % Seg Neuts % (Manual) 96.0 H Lymphocytes % (Manual) 3.0 L Seg Neutrophils # Seg Neutrophils # Man 8.3 H Lymphocytes # (Manual) 0.3 L D-Dimer POC ABG pH 7.471 H POC ABG pCO2 47.8 H POC ABG pO2 48 L Sodium 148 H Chloride Carbon Dioxide 32 H BUN 40 H Creatinine Glucose 154 H Calcium Phosphorus Total Bilirubin AST ALT Alkaline Phosphatase Total Creatine Kinase CK-MB (CK-2) Troponin T C-Reactive Protein NT-Pro-B Natriuret Pep Total Protein Albumin Cholesterol HDL Cholesterol Ur Specific [place] Urine WBC (Auto) Urine Creatinine Urine Total Protein 06/25/17 06/25/17 06/25/17 04:46 05:20 05:20 WBC RBC Hgb Hct MCV 103 H MCH 34 H MCHC RDW 18.6 H Lymph % (Auto) [place] % (Auto) Lymph # [place] # Seg Neutrophils % Seg Neuts % (Manual) 90.0 H Lymphocytes % (Manual) 6.0 L Seg Neutrophils # Seg Neutrophils # Man 9.5 H Lymphocytes # (Manual) 0.6 L D-Dimer POC ABG pH 7.479 H POC ABG pCO2 POC ABG pO2 79 L Sodium 149 H Chloride 109.1 H Carbon Dioxide BUN 40 H Creatinine Glucose 122 H Calcium Phosphorus Total Bilirubin AST ALT Alkaline Phosphatase Total Creatine Kinase CK-MB (CK-2) Troponin T C-Reactive Protein NT-Pro-B Natriuret Pep Total Protein Albumin Cholesterol HDL Cholesterol Ur Specific [place] Urine WBC (Auto) Urine Creatinine Urine Total Protein Chest x-ray: other (CXR ordered, no new films. ) Allied health notes reviewed: RT
[2017-06-25] MEDS: LIBRIUM PO SCH ×2 (12:33→21:13)
--- NOTE | 2017-06-25 13:55 | Progress Note ---
Assessment and Plan 52 year old male admitted with bilateral pneumonia and heart failure. Ventilator dependent at this time. He had a seizure while withdrawing benzodiazepines on 06/22/2017. No further seizures. An EEG is pending. Plan - Await EEG. Pneumonia and heart failure, aortic stenosis per pulmonaruy and cardiology Will follow mental status. Continue Keppra for now. Subjective Date of service: 06/25/17 Principal diagnosis: Acute Hypoxemic Hypercapnic Resp Failure; Bilateral Pneumonis (?Aspiration) Interval history: Patient remains on the ventilator with sedation. Notes addressing extubation asppreciated. Objective - Vital Sign Vital Signs - 12hr 06/25/17 06/25/17 06/25/17 02:00 02:30 03:00 Temperature Pulse Rate 61 59 L 59 L Pulse Rate [ Anterior Left Lower Lobe] Respiratory 16 16 16 Rate Respiratory Rate [Anterior Left Lower Lobe ] Blood Pressure 125/56 125/56 125/56 O2 Sat by Pulse 96 98 97 Oximetry 06/25/17 06/25/17 06/25/17 03:30 04:00 04:30 Temperature 98.4 F Pulse Rate 59 L 58 L 58 L Pulse Rate [ Anterior Left Lower Lobe] Respiratory 16 16 16 Rate Respiratory Rate [Anterior Left Lower Lobe ] Blood Pressure 125/56 125/56 125/56 O2 Sat by Pulse 98 96 97 Oximetry 06/25/17 06/25/17 06/25/17 04:31 05:00 05:13 Temperature Pulse Rate 61 58 L 62 Pulse Rate [ Anterior Left Lower Lobe] Respiratory 16 Rate Respiratory Rate [Anterior Left Lower Lobe ] Blood Pressure 125/56 124/58 124/58 O2 Sat by Pulse 97 96 Oximetry 06/25/17 06/25/17 06/25/17 05:30 06:00 06:30 Temperature Pulse Rate 57 L 56 L 61 Pulse Rate [ Anterior Left Lower Lobe] Respiratory 16 16 16 Rate Respiratory Rate [Anterior Left Lower Lobe ] Blood Pressure 124/58 128/57 128/57 O2 Sat by Pulse 97 97 98 Oximetry 06/25/17 06/25/17 06/25/17 07:00 07:30 08:00 Temperature 98.1 F Pulse Rate 58 L 72 85 Pulse Rate [ 83 Anterior Left Lower Lobe] Respiratory 16 16 16 Rate Respiratory 18 Rate [Anterior Left Lower Lobe ] Blood Pressure 122/53 122/53 142/67 O2 Sat by Pulse 97 99 96 Oximetry 06/25/17 06/25/17 06/25/17 08:30 08:40 09:00 Temperature Pulse Rate 87 127 H 117 H Pulse Rate [ Anterior Left Lower Lobe] Respiratory 17 10 L Rate Respiratory Rate [Anterior Left Lower Lobe ] Blood Pressure 142/67 158/78 142/67 O2 Sat by Pulse 98 99 99 Oximetry 06/25/17 06/25/17 06/25/17 09:30 09:45 10:00 Temperature Pulse Rate 111 H 118 H 92 H Pulse Rate [ Anterior Left Lower Lobe] Respiratory 14 16 Rate Respiratory Rate [Anterior Left Lower Lobe ] Blood Pressure 158/78 158/78 126/69 O2 Sat by Pulse 95 87 Oximetry 06/25/17 06/25/17 06/25/17 10:30 11:00 11:30 Temperature Pulse Rate 88 85 77 Pulse Rate [ Anterior Left Lower Lobe] Respiratory 16 16 16 Rate Respiratory Rate [Anterior Left Lower Lobe ] Blood Pressure 126/69 131/62 131/62 O2 Sat by Pulse 92 87 89 Oximetry 06/25/17 06/25/17 06/25/17 12:00 12:20 12:43 Temperature 98.3 F Pulse Rate 67 Pulse Rate [ 64 66 Anterior Left Lower Lobe] Respiratory 16 Rate Respiratory 16 16 Rate [Anterior Left Lower Lobe ] Blood Pressure 122/52 O2 Sat by Pulse 91 Oximetry 06/25/17 13:31 Temperature Pulse Rate Pulse Rate [ Anterior Left Lower Lobe] Respiratory Rate Respiratory Rate [Anterior Left Lower Lobe ] Blood Pressure 118/55 O2 Sat by Pulse Oximetry - General Apperance Constitutional: comfortable - EENT EENT: PERRL, mucous membranes moist, hearing intact - Respiratory Respiratory: lungs clear, normal breath sounds - Cardiovascular Cardiovascular: regular rate, normal S1, normal S2, other (systolic murmur 2/6) Extremities: no peripheral edema bilat, no clubbing, cyanosis, no inflammation - Gastrointestinal Gastrointestinal: normoactive bowel sounds, soft, non-tender - Integumentary Integumentary: normal - Neurologic Cranial nerve examination: PERRL, face symmetric Detailed motor examination: grossly full strength in (withdraws to pain. opens eyes to voice. not following commands, on sedation.) Reflex and gait examination: other (No clonus, no babinski. reflexes are trace throughout.) - Laboratory Findings CBC and BMP: 06/25/17 05:20 06/25/17 05:20 Abnormal Lab Findings: Abnormal Labs 06/20/17 06/20/17 06/20/17 19:00 19:00 19:00 WBC RBC Hgb Hct MCV 100 H MCH 35 H MCHC 35 H RDW 18.8 H Lymph % (Auto) 4.1 L [place] % (Auto) 8.9 H Lymph # 0.4 L [place] # 0.9 H Seg Neutrophils % 86.2 H Seg Neuts % (Manual) Lymphocytes % (Manual) Seg Neutrophils # 8.6 H Seg Neutrophils # Man Lymphocytes # (Manual) D-Dimer 747.03 H POC ABG pH POC ABG pCO2 POC ABG pO2 Sodium Chloride Carbon Dioxide BUN Creatinine Glucose Calcium Phosphorus Total Bilirubin 2.10 H AST 157 H ALT 119 H Alkaline Phosphatase 133 H Total Creatine Kinase 285 H CK-MB (CK-2) 8.6 H Troponin T 0.043 H C-Reactive Protein NT-Pro-B Natriuret Pep 12281 H Total Protein 6.0 L Albumin 3.7 L Cholesterol 212 H HDL Cholesterol 87 H Ur Specific [place] Urine WBC (Auto) Urine Creatinine Urine Total Protein 06/20/17 06/21/17 06/21/17 23:18 04:40 05:29 WBC RBC Hgb Hct MCV MCH MCHC RDW Lymph % (Auto) [place] % (Auto) Lymph # [place] # Seg Neutrophils % Seg Neuts % (Manual) Lymphocytes % (Manual) Seg Neutrophils # Seg Neutrophils # Man Lymphocytes # (Manual) D-Dimer POC ABG pH POC ABG pCO2 53.9 H 47.1 H POC ABG pO2 221 H Sodium Chloride Carbon Dioxide BUN Creatinine Glucose Calcium Phosphorus Total Bilirubin AST ALT Alkaline Phosphatase Total Creatine Kinase CK-MB (CK-2) Troponin T C-Reactive Protein NT-Pro-B Natriuret Pep Total Protein Albumin Cholesterol HDL Cholesterol Ur Specific [place] 1.049 H Urine WBC (Auto) 11.0 H Urine Creatinine Urine Total Protein 06/21/17 06/21/17 06/21/17 07:50 07:50 13:33 WBC 12.0 H RBC Hgb Hct MCV 104 H MCH 35 H MCHC RDW 19.3 H Lymph % (Auto) [place] % (Auto) Lymph # [place] # Seg Neutrophils % Seg Neuts % (Manual) 93.0 H Lymphocytes % (Manual) 1.0 L Seg Neutrophils # Seg Neutrophils # Man 11.2 H Lymphocytes # (Manual) 0.1 L D-Dimer POC ABG pH POC ABG pCO2 POC ABG pO2 Sodium Chloride Carbon Dioxide BUN 21 H Creatinine Glucose 130 H Calcium 8.1 L Phosphorus Total Bilirubin AST ALT Alkaline Phosphatase Total Creatine Kinase CK-MB (CK-2) Troponin T 0.054 H D C-Reactive Protein NT-Pro-B Natriuret Pep Total Protein Albumin Cholesterol HDL Cholesterol Ur Specific [place] Urine WBC (Auto) Urine Creatinine Urine Total Protein 06/21/17 06/21/17 06/21/17 18:15 18:15 20:55 WBC RBC Hgb Hct MCV MCH MCHC RDW Lymph % (Auto) [place] % (Auto) Lymph # [place] # Seg Neutrophils % Seg Neuts % (Manual) Lymphocytes % (Manual) Seg Neutrophils # Seg Neutrophils # Man Lymphocytes # (Manual) D-Dimer POC ABG pH POC ABG pCO2 POC ABG pO2 Sodium Chloride Carbon Dioxide BUN Creatinine Glucose Calcium Phosphorus 7.20 H Total Bilirubin AST ALT Alkaline Phosphatase Total Creatine Kinase CK-MB (CK-2) Troponin T 0.042 H D C-Reactive Protein 3.90 H NT-Pro-B Natriuret Pep Total Protein Albumin Cholesterol HDL Cholesterol Ur Specific [place] Urine WBC (Auto) Urine Creatinine Urine Total Protein 06/22/17 06/22/17 06/22/17 03:03 04:19 04:19 WBC RBC 3.40 L Hgb 11.7 L Hct 35.1 L D MCV 103 H MCH 35 H MCHC RDW 18.7 H Lymph % (Auto) [place] % (Auto) Lymph # [place] # Seg Neutrophils % Seg Neuts % (Manual) 97.0 H Lymphocytes % (Manual) 1.0 L Seg Neutrophils # Seg Neutrophils # Man 10.2 H Lymphocytes # (Manual) 0.1 L D-Dimer POC ABG pH POC ABG pCO2 56.7 H POC ABG pO2 115 H Sodium Chloride Carbon Dioxide BUN 41 H Creatinine 1.6 H Glucose 126 H Calcium 7.7 L Phosphorus Total Bilirubin AST ALT Alkaline Phosphatase Total Creatine Kinase CK-MB (CK-2) Troponin T C-Reactive Protein NT-Pro-B Natriuret Pep Total Protein Albumin Cholesterol HDL Cholesterol Ur Specific [place] Urine WBC (Auto) Urine Creatinine Urine Total Protein 06/22/17 06/23/17 06/23/17 04:19 04:06 04:10 WBC RBC Hgb Hct MCV MCH MCHC RDW Lymph % (Auto) [place] % (Auto) Lymph # [place] # Seg Neutrophils % Seg Neuts % (Manual) Lymphocytes % (Manual) Seg Neutrophils # Seg Neutrophils # Man Lymphocytes # (Manual) D-Dimer POC ABG pH 7.492 H POC ABG pCO2 45.5 H POC ABG pO2 Sodium Chloride Carbon Dioxide BUN Creatinine Glucose Calcium Phosphorus Total Bilirubin AST ALT Alkaline Phosphatase Total Creatine Kinase 228 H CK-MB (CK-2) 6.3 H Troponin T 0.031 H D C-Reactive Protein NT-Pro-B Natriuret Pep Total Protein Albumin Cholesterol HDL Cholesterol Ur Specific [place] Urine WBC (Auto) Urine Creatinine 136.8 H Urine Total Protein 41 H 06/23/17 06/23/17 06/24/17 04:20 04:20 04:50 WBC 11.4 H RBC Hgb Hct MCV 102 H MCH 33 H MCHC RDW 18.9 H Lymph % (Auto) 5.5 L [place] % (Auto) Lymph # 0.6 L [place] # Seg Neutrophils % 87.7 H Seg Neuts % (Manual) Lymphocytes % (Manual) Seg Neutrophils # 10.0 H Seg Neutrophils # Man Lymphocytes # (Manual) D-Dimer POC ABG pH 7.331 L POC ABG pCO2 63.6 H POC ABG pO2 69 L Sodium 146 H Chloride Carbon Dioxide BUN 38 H Creatinine Glucose 107 H Calcium 8.2 L Phosphorus Total Bilirubin AST ALT Alkaline Phosphatase Total Creatine Kinase CK-MB (CK-2) Troponin T C-Reactive Protein NT-Pro-B Natriuret Pep Total Protein Albumin Cholesterol HDL Cholesterol Ur Specific [place] Urine WBC (Auto) Urine Creatinine Urine Total Protein 06/24/17 06/24/17 06/25/17 06:31 06:31 04:35 WBC RBC Hgb Hct MCV 104 H MCH 33 H MCHC RDW 18.5 H Lymph % (Auto) [place] % (Auto) Lymph # [place] # Seg Neutrophils % Seg Neuts % (Manual) 96.0 H Lymphocytes % (Manual) 3.0 L Seg Neutrophils # Seg Neutrophils # Man 8.3 H Lymphocytes # (Manual) 0.3 L D-Dimer POC ABG pH 7.471 H POC ABG pCO2 47.8 H POC ABG pO2 48 L Sodium 148 H Chloride Carbon Dioxide 32 H BUN 40 H Creatinine Glucose 154 H Calcium Phosphorus Total Bilirubin AST ALT Alkaline Phosphatase Total Creatine Kinase CK-MB (CK-2) Troponin T C-Reactive Protein NT-Pro-B Natriuret Pep Total Protein Albumin Cholesterol HDL Cholesterol Ur Specific [place] Urine WBC (Auto) Urine Creatinine Urine Total Protein 06/25/17 06/25/17 06/25/17 04:46 05:20 05:20 WBC RBC Hgb Hct MCV 103 H MCH 34 H MCHC RDW 18.6 H Lymph % (Auto) [place] % (Auto) Lymph # [place] # Seg Neutrophils % Seg Neuts % (Manual) 90.0 H Lymphocytes % (Manual) 6.0 L Seg Neutrophils # Seg Neutrophils # Man 9.5 H Lymphocytes # (Manual) 0.6 L D-Dimer POC ABG pH 7.479 H POC ABG pCO2 POC ABG pO2 79 L Sodium 149 H Chloride 109.1 H Carbon Dioxide BUN 40 H Creatinine Glucose 122 H Calcium Phosphorus Total Bilirubin AST ALT Alkaline Phosphatase Total Creatine Kinase CK-MB (CK-2) Troponin T C-Reactive Protein NT-Pro-B Natriuret Pep Total Protein Albumin Cholesterol HDL Cholesterol Ur Specific [place] Urine WBC (Auto) Urine Creatinine Urine Total Protein
--- NOTE | 2017-06-25 14:27 | Progress Note ---
Assessment and Plan Respiratory failure on mechanical ventilation Acute systolic heart failure Echocardiogram shows a dilated cardiomyopathy with left ventricular ejection fraction 20-25%. In addition there is a thickened and calcified aortic valve with mild aortic stenosis and severe eccentric aortic regurgitation Sepsis Pneumonia Acute renal failure Nonspecifically elevated cardiac enzymes Non sustained ventricular tachycardia no reoccurrence Recommendations: Continue medical therapy for heart failure. Further evaluation of his aortic regurgitation is warranted once medically stable Will continue to follow. Subjective Date of service: 06/25/17 Principal diagnosis: Acute Hypoxemic Hypercapnic Resp Failure; Bilateral Pneumonis (?Aspiration) Interval history: Patient is sedated and mechanically ventilated Tele is showing SR Objective Vital Signs Temp Pulse Pulse Pulse Resp Resp Resp 06/25/17 13:31 06/25/17 12:43 66 16 06/25/17 12:20 64 16 06/25/17 12:00 98.3 F 67 16 06/25/17 11:30 77 16 06/25/17 11:00 85 16 06/25/17 10:30 88 16 06/25/17 10:00 92 H 16 06/25/17 09:45 118 H 06/25/17 09:30 111 H 14 06/25/17 09:00 117 H 10 L 06/25/17 08:40 127 H 06/25/17 08:30 87 17 06/25/17 08:00 98.1 F 85 83 16 18 06/25/17 07:30 72 16 06/25/17 07:00 58 L 16 06/25/17 06:30 61 16 06/25/17 06:00 56 L 16 06/25/17 05:30 57 L 16 06/25/17 05:13 62 06/25/17 05:00 58 L 16 06/25/17 04:31 61 06/25/17 04:30 58 L 16 06/25/17 04:00 98.4 F 58 L 16 06/25/17 03:30 59 L 16 06/25/17 03:00 59 L 16 06/25/17 02:30 59 L 16 06/25/17 02:00 61 16 06/25/17 01:30 61 16 06/25/17 01:00 62 16 06/25/17 00:30 62 16 06/25/17 00:00 98.1 F 62 16 06/24/17 23:50 06/24/17 23:30 64 16 06/24/17 23:08 63 16 06/24/17 23:00 63 16 06/24/17 22:38 64 06/24/17 22:30 64 16 06/24/17 22:00 63 16 06/24/17 21:30 70 16 06/24/17 21:00 72 16 06/24/17 20:55 70 70 17 06/24/17 20:30 115 H 22 06/24/17 20:00 98.7 F 73 16 06/24/17 19:30 86 16 06/24/17 19:00 96 H 16 06/24/17 18:30 84 16 06/24/17 18:00 82 16 06/24/17 17:30 96 H 15 06/24/17 17:00 97 H 11 L 06/24/17 16:30 101 H 13 06/24/17 16:00 98.7 F 104 H 17 06/24/17 15:59 105 H 18 06/24/17 15:50 104 H 16 06/24/17 15:46 110 H 06/24/17 15:30 131 H 13 06/24/17 15:00 108 H 18 06/24/17 14:30 84 16 BP Pulse Ox 06/25/17 13:31 118/55 06/25/17 12:43 06/25/17 12:20 06/25/17 12:00 122/52 91 06/25/17 11:30 131/62 89 06/25/17 11:00 131/62 87 06/25/17 10:30 126/69 92 06/25/17 10:00 126/69 87 06/25/17 09:45 158/78 06/25/17 09:30 158/78 95 06/25/17 09:00 142/67 99 06/25/17 08:40 158/78 99 06/25/17 08:30 142/67 98 06/25/17 08:00 142/67 96 06/25/17 07:30 122/53 99 06/25/17 07:00 122/53 97 06/25/17 06:30 128/57 98 06/25/17 06:00 128/57 97 06/25/17 05:30 124/58 97 06/25/17 05:13 124/58 06/25/17 05:00 124/58 96 06/25/17 04:31 125/56 97 06/25/17 04:30 125/56 97 06/25/17 04:00 125/56 96 06/25/17 03:30 125/56 98 06/25/17 03:00 125/56 97 06/25/17 02:30 125/56 98 06/25/17 02:00 125/56 96 06/25/17 01:30 122/55 97 06/25/17 01:00 122/55 96 06/25/17 00:30 121/56 98 06/25/17 00:00 121/56 96 06/24/17 23:50 123/56 98 06/24/17 23:30 125/56 97 06/24/17 23:08 130/56 98 06/24/17 23:00 125/56 97 06/24/17 22:38 121/63 06/24/17 22:30 121/53 99 06/24/17 22:00 121/53 94 06/24/17 21:30 130/56 94 06/24/17 21:00 130/56 95 06/24/17 20:55 124/56 96 06/24/17 20:30 124/56 100 06/24/17 20:00 124/56 93 06/24/17 19:30 132/62 94 06/24/17 19:00 132/62 91 06/24/17 18:30 130/59 92 06/24/17 18:00 130/59 90 06/24/17 17:30 143/69 89 06/24/17 17:00 143/69 95 06/24/17 16:30 138/72 95 06/24/17 16:00 138/72 90 06/24/17 15:59 06/24/17 15:50 06/24/17 15:46 138/70 94 06/24/17 15:30 138/70 93 06/24/17 15:00 138/70 91 06/24/17 14:30 124/74 93 - Physical Examination General: Other (intubated on the vent) HEENT: Positive: PERRL Neck: Positive: neck supple, trachea midline Cardiac: Positive: Reg Rate and Rhythm Lungs: Positive: Ventilated Respirations Abdomen: Positive: Soft, Active Bowel Sounds Extremities: Absent: edema - Labs and Meds CBC 06/25/17 Range/Units 05:20 WBC 10.5 (4.5-11.0) K/mm3 RBC 3.88 (3.65-5.03) M/mm3 Hgb 13.3 (11.8-15.2) gm/dl Hct 39.8 (35.5-45.6) % Plt Count 148 (140-440) K/mm3 Comprehensive Metabolic Panel 06/25/17 Range/Units 05:20 Sodium 149 H (137-145) mmol/L Potassium 4.8 (3.6-5.0) mmol/L Chloride 109.1 H (98-107) mmol/L Carbon Dioxide 30 (22-30) mmol/L BUN 40 H (9-20) mg/dL Creatinine 0.8 (0.8-1.5) mg/dL Glucose 122 H (75-100) mg/dL Calcium 8.4 (8.4-10.2) mg/dL - Allied health notes Allied health notes reviewed: RT
--- NOTE | 2017-06-25 19:07 | Progress Note ---
Assessment and Plan Assessment and plan: Acute hypoxic respiratory failure -Patient is intubated and on mechanical ventilation -Weaning trial -Neurology consulted and will do EEG - Patient is on COPD protocol On mechanical ventilation > 96 hours Sepsis Aspiration pneumonia - Patient is on IV Zosyn Transaminitis - UDS is positive for benzo, acute hepatitis panel is negative DVT prophylaxis -Heparin Disposition -Continue ICU care The high probability of a clinically significant, sudden or life threatening deterioration of the [respiratory, RADIOLOGY RN] system(s) required my full and direct attention, intervention and personal management. The aggregate critical care time was [35] minutes. This time is in addition to time spent performing reported procedures but includes the following: [X] Data Review and interpretation [X] Patient assessment and monitoring of vital signs [X] Documentation [X] Medication orders and management History Interval history: Patient is intubated and on mechanical ventilation, sedated Hospitalist Physical - Physical exam Narrative exam: patient is intubated and on MV. The patient appeared well nourished and normally developed. Vital signs as documented. Head exam is unremarkable. No scleral icterus . Neck is without jugular venous distension, thyromegaly, or carotid bruits. Lungs are coarse creptations bilaterally . Cardiac exam reveals regular rate and Rhythm. First and second heart sounds normal. No murmurs, rubs or gallops. Abdominal exam reveals normal bowel sounds, no masses, no organomegaly and no aortic enlargement. Extremities are nonedematous and both femoral and pedal pulses are normal. RADIOLOGY RN: sedated. - Constitutional Vitals: Temp Pulse Resp BP Pulse Ox 98.8 F 87 16 136/65 94 06/25/17 16:00 06/25/17 18:00 06/25/17 18:00 06/25/17 18:00 06/25/17 18:00 General appearance: Present: no acute distress Results - Labs CBC & Chem 7: 06/26/17 05:30 06/26/17 05:30 Labs: Laboratory Last Values WBC 10.5 K/mm3 (4.5-11.0) 06/25/17 05:20 RBC 3.88 M/mm3 (3.65-5.03) 06/25/17 05:20 Hgb 13.3 gm/dl (11.8-15.2) 06/25/17 05:20 Hct 39.8 % (35.5-45.6) 06/25/17 05:20 MCV 103 fl (84-94) H 06/25/17 05:20 MCH 34 pg (28-32) H 06/25/17 05:20 MCHC 34 % (32-34) 06/25/17 05:20 RDW 18.6 % (13.2-15.2) H 06/25/17 05:20 Plt Count 148 K/mm3 (140-440) 06/25/17 05:20 Lymph % (Auto) 5.5 % (13.4-35.0) L 06/23/17 04:20 Anderson % (Auto) 6.6 % (0.0-7.3) 06/23/17 04:20 Eos % (Auto) 0.0 % (0.0-4.3) 06/23/17 04:20 Baso % (Auto) 0.2 % (0.0-1.8) 06/23/17 04:20 Lymph # 0.6 K/mm3 (1.2-5.4) L 06/23/17 04:20 Anderson # 0.7 K/mm3 (0.0-0.8) 06/23/17 04:20 Eos # 0.0 K/mm3 (0.0-0.4) 06/23/17 04:20 Baso # 0.0 K/mm3 (0.0-0.1) 06/23/17 04:20 Add Manual Diff Complete 06/25/17 05:20 Total Counted 100 06/25/17 05:20 Seg Neutrophils % Manager Production 06/25/17 05:20 Seg Neuts % (Manual) 90.0 % (40.0-70.0) H 06/25/17 05:20 Band Neutrophils % 0 % 06/25/17 05:20 Lymphocytes % (Manual) 6.0 % (13.4-35.0) L 06/25/17 05:20 Reactive Lymphs % (Man) 0 % 06/25/17 05:20 Monocytes % (Manual) 4.0 % (0.0-7.3) 06/25/17 05:20 Eosinophils % (Manual) 0 % (0.0-4.3) 06/25/17 05:20 Basophils % (Manual) 0 % (0.0-1.8) 06/25/17 05:20 Metamyelocytes % 0 % 06/25/17 05:20 Myelocytes % 0 % 06/25/17 05:20 Promyelocytes % 0 % 06/25/17 05:20 Blast Cells % 0 % 06/25/17 05:20 Nucleated RBC % Not Reportable 06/25/17 05:20 Seg Neutrophils # 10.0 K/mm3 (1.8-7.7) H 06/23/17 04:20 Seg Neutrophils # Man 9.5 K/mm3 (1.8-7.7) H 06/25/17 05:20 Band Neutrophils # 0.0 K/mm3 06/25/17 05:20 Lymphocytes # (Manual) 0.6 K/mm3 (1.2-5.4) L 06/25/17 05:20 Abs React Lymphs (Man) 0.0 K/mm3 06/25/17 05:20 Monocytes # (Manual) 0.4 K/mm3 (0.0-0.8) 06/25/17 05:20 Eosinophils # (Manual) 0.0 K/mm3 (0.0-0.4) 06/25/17 05:20 Basophils # (Manual) 0.0 K/mm3 (0.0-0.1) 06/25/17 05:20 Metamyelocytes # 0.0 K/mm3 06/25/17 05:20 Myelocytes # 0.0 K/mm3 06/25/17 05:20 Promyelocytes # 0.0 K/mm3 06/25/17 05:20 Blast Cells # 0.0 K/mm3 06/25/17 05:20 WBC Morphology Not Reportable 06/25/17 05:20 Hypersegmented Neuts Not Reportable 06/25/17 05:20 Hyposegmented Neuts Not Reportable 06/25/17 05:20 Hypogranular Neuts Not Reportable 06/25/17 05:20 Smudge Cells Not Reportable 06/25/17 05:20 Toxic Granulation Not Reportable 06/25/17 05:20 Toxic Vacuolation Not Reportable 06/25/17 05:20 Dohle Bodies Not Reportable 06/25/17 05:20 Pelger-Huet Anomaly Not Reportable 06/25/17 05:20 Luz Maria Rods Not Reportable 06/25/17 05:20 Platelet Estimate Not Reportable 06/25/17 05:20 Clumped Platelets Not Reportable 06/25/17 05:20 Plt Clumps, EDTA Not Reportable 06/25/17 05:20 Large Platelets Not Reportable 06/25/17 05:20 Giant Platelets Not Reportable 06/25/17 05:20 Platelet Satelliting Not Reportable 06/25/17 05:20 Plt Morphology Comment Not Reportable 06/25/17 05:20 RBC Morphology Not Reportable 06/25/17 05:20 Dimorphic RBCs Not Reportable 06/25/17 05:20 Polychromasia Not Reportable 06/25/17 05:20 Hypochromasia Not Reportable 06/25/17 05:20 Poikilocytosis Few 06/25/17 05:20 Anisocytosis 1+ 06/25/17 05:20 Microcytosis Not Reportable 06/25/17 05:20 Macrocytosis Not Reportable 06/25/17 05:20 Spherocytes Not Reportable 06/25/17 05:20 Pappenheimer Bodies Not Reportable 06/25/17 05:20 Sickle Cells Not Reportable 06/25/17 05:20 Target Cells Not Reportable 06/25/17 05:20 Tear Drop Cells Not Reportable 06/25/17 05:20 Ovalocytes Not Reportable 06/25/17 05:20 Stomatocytes 2+ 06/24/17 06:31 Helmet Cells Not Reportable 06/25/17 05:20 Marinelli-[place] Bodies Not Reportable 06/25/17 05:20 Talmage Rings Not Reportable 06/25/17 05:20 Jennifer Cells Not Reportable 06/25/17 05:20 Bite Cells Not Reportable 06/25/17 05:20 Crenated Cell Not Reportable 06/25/17 05:20 Elliptocytes Not Reportable 06/25/17 05:20 Acanthocytes (Spur) Not Reportable 06/25/17 05:20 Rouleaux Not Reportable 06/25/17 05:20 Hemoglobin C Crystals Not Reportable 06/25/17 05:20 Schistocytes Not Reportable 06/25/17 05:20 Malaria parasites Not Reportable 06/25/17 05:20 Franklyn Bodies Not Reportable 06/25/17 05:20 Hem Pathologist Commnt No 06/25/17 05:20 D-Dimer 747.03 ng/mlDDU (0-234) H 06/20/17 19:00 POC ABG pH 7.479 (7.35-7.45) H 06/25/17 04:46 POC ABG pCO2 44.9 (35-45) 06/25/17 04:46 POC ABG pO2 79 (80-105) L 06/25/17 04:46 POC ABG HCO3 33.3 06/25/17 04:46 POC ABG Total CO2 35 06/25/17 04:46 POC ABG O2 Sat 96 06/25/17 04:46 POC ABG Base Excess 10 06/25/17 04:46 FiO2 40 % 06/25/17 04:46 Sodium 149 mmol/L (137-145) H 06/25/17 05:20 Potassium 4.8 mmol/L (3.6-5.0) 06/25/17 05:20 Chloride 109.1 mmol/L (98-107) H 06/25/17 05:20 Carbon Dioxide 30 mmol/L (22-30) 06/25/17 05:20 Anion Gap 15 mmol/L 06/25/17 05:20 BUN 40 mg/dL (9-20) H 06/25/17 05:20 Creatinine 0.8 mg/dL (0.8-1.5) 06/25/17 05:20 Estimated GFR > 60 ml/min 06/25/17 05:20 BUN/Creatinine Ratio 50 % 06/25/17 05:20 Glucose 122 mg/dL (75-100) H 06/25/17 05:20 Lactic Acid 1.50 mmol/L (0.7-2.0) 06/20/17 11:35 Calcium 8.4 mg/dL (8.4-10.2) 06/25/17 05:20 Phosphorus 7.20 mg/dL (2.5-4.5) H 06/21/17 18:15 Magnesium 1.70 mg/dL (1.7-2.3) 06/21/17 18:15 Total Bilirubin 2.10 mg/dL (0.1-1.2) H 06/20/17 19:00 AST 157 units/L (5-40) H 06/20/17 19:00 ALT 119 units/L (7-56) H 06/20/17 19:00 Alkaline Phosphatase 133 units/L (35-129) H 06/20/17 19:00 Total Creatine Kinase 228 units/L (55-170) H 06/22/17 04:19 CK-MB (CK-2) 6.3 ng/mL (0.0-4.0) H 06/22/17 04:19 CK-MB (CK-2) Rel Index 2.7 (0-4) 06/22/17 04:19 Troponin T 0.031 ng/mL (0.00-0.029) H D 06/22/17 04:19 C-Reactive Protein 3.90 mg/dL (0.00-1.30) H 06/21/17 18:15 NT-Pro-B Natriuret Pep 02884 pg/mL (0-900) H 06/20/17 19:00 Total Protein 6.0 g/dL (6.3-8.2) L 06/20/17 19:00 Albumin 3.7 g/dL (3.9-5) L 06/20/17 19:00 Albumin/Globulin Ratio 1.6 % 06/20/17 19:00 Triglycerides 114 mg/dL (2-149) 06/20/17 19:00 Cholesterol 212 mg/dL (50-199) H 06/20/17 19:00 LDL Cholesterol Direct 103 mg/dL (50-130) 06/20/17 19:00 HDL Cholesterol 87 mg/dL (40-59) H 06/20/17 19:00 Cholesterol/HDL Ratio 2.43 % 06/20/17 19:00 Vitamin B12 756.4 pg/mL (211-911) 06/25/17 16:07 Urine Color Yellow (Yellow) 06/21/17 05:29 Urine Turbidity Clear (Clear) 06/21/17 05:29 Urine pH 5.0 (5.0-7.0) 06/21/17 05:29 Ur Specific [place] 1.049 (1.003-1.030) H 06/21/17 05:29 Urine Protein <15 mg/dl mg/dL (Negative) 06/21/17 05:29 Urine Glucose (UA) Neg mg/dL (Negative) 06/21/17 05:29 Urine Ketones Neg mg/dL (Negative) 06/21/17 05:29 Urine Blood Mod (Negative) 06/21/17 05:29 Urine Nitrite Neg (Negative) 06/21/17 05:29 Urine Bilirubin Neg (Negative) 06/21/17 05:29 Urine Urobilinogen < 2.0 mg/dL (<2.0) 06/21/17 05:29 Ur Leukocyte Esterase Tr (Negative) 06/21/17 05:29 Urine WBC (Auto) 11.0 /HPF (0.0-6.0) H 06/21/17 05:29 Urine RBC (Auto) 2.0 /HPF (0.0-6.0) 06/21/17 05:29 U Epithel Cells (Auto) < 1.0 /HPF (0-13.0) 06/21/17 05:29 Urine Bacteria (Auto) 1+ /HPF (Negative) 06/21/17 05:29 Urine Creatinine 136.8 mg/dL (0.1-20.0) H 06/23/17 04:10 Urine Sodium 34 mmol/L 06/23/17 04:10 Urine Total Protein 41 mg/dL (5-11.8) H 06/23/17 04:10 Random Vancomycin 7.4 ug/mL (0-40.0) 06/23/17 04:20 Urine Opiates Screen Presumptive negative 06/21/17 05:29 Urine Methadone Screen Presumptive negative 06/21/17 05:29 Ur Barbiturates Screen Presumptive negative 06/21/17 05:29 Ur Phencyclidine Scrn Presumptive negative 06/21/17 05:29 Ur Amphetamines Screen Presumptive negative 06/21/17 05:29 U Benzodiazepines Scrn Presumptive positive 06/21/17 05:29 Urine Cocaine Screen Presumptive negative 06/21/17 05:29 U Marijuana (THC) Screen Presumptive negative 06/21/17 05:29 Drugs of Abuse Note Disclamer 06/21/17 05:29 Hepatitis A IgM Ab Non-reactive (NonReactive) 06/21/17 11:35 Hep Bs Antigen Non-reactive (Negative) 06/21/17 11:35 Hep B Core IgM Ab Non-reactive (NonReactive) 06/21/17 11:35 Hepatitis C Antibody Non-reactive (NonReactive) 06/21/17 11:35
[2017-06-26] MEDS: DIPRIVAN 10 MG/ML 1,000 MG/100 ML BOTTLE IV SCH ×2 (02:45→12:45)
[2017-06-26 06:38] LABS: Basophils % (Auto) 0.1 % (0.0-1.8); Hematocrit 41.8 % (35.5-45.6); Hemoglobin 13.9 gm/dl (11.8-15.2); Lymphocytes # (Auto) 0.4 K/mm3 (1.2-5.4); Lymphocytes % (Auto) 3.7 % (13.4-35.0); Mean Corpuscular HGB Conc 33 % (32-34); Mean Corpuscular Hemoglobin 34 pg (28-32); Mean Corpuscular Volume 103 fl (84-94); Monocytes # (Auto) 0.7 K/mm3 (0.0-0.8); Monocytes % (Auto) 6.5 % (0.0-7.3); Platelet Count 158 K/mm3 (140-440); Red Blood Count 4.06 M/mm3 (3.65-5.03); Red Cell Distribution Width 18.6 % (13.2-15.2)
[2017-06-26] MEDS: APRESOLINE PO SCH ×3 (06:38→21:36)
[2017-06-26 07:01] LABS: BUN/Creatinine Ratio 48; Blood Urea Nitrogen 43 mg/dL (9-20); Calcium 8.7 mg/dL (8.4-10.2); Hemolysis Index 7
[2017-06-26] MEDS: fentaNYL DRIP Premix 2,000 MCG/100 ML BAG IV SCH ×2 (07:45→21:50)
[2017-06-26] MEDS ORDERED: ZOSYN/NS 3.375GM/50ML 3.375 GM/50 ML BAG IV SCH (08:00)
[2017-06-26] MEDS: DUONEB *Not for PRN Use IH SCH ×5 (08:58→20:46)
[2017-06-26] MEDS: KEPPRA PO SCH ×2 (09:47→21:30)
[2017-06-26] MEDS: BABY ASPIRIN PO SCH (09:47)
[2017-06-26] MEDS: HEPARIN SUB-Q SCH ×3 (09:47→21:41)
[2017-06-26] MEDS: PEPCID PO SCH ×2 (09:47→21:39)
[2017-06-26] MEDS: COREG PO SCH ×2 (09:48→21:37)
--- NOTE | 2017-06-26 10:57 | Progress Note ---
Assessment and Plan - Patient Problems (1) Other acute kidney failure Current Visit: Yes Status: Acute Plan to address problem: pt in recovery phase. Follow-up electrolytes and renal function (2) Acute respiratory failure with hypoxia Current Visit: Yes Status: Acute Plan to address problem: Management by pulmonary (3) Transaminasemia Current Visit: Yes Status: Acute Plan to address problem: Hepatitis B and C negative. Follow-up liver function tests. (4) Hyperphosphatemia Current Visit: Yes Status: Acute Plan to address problem: Follow up phosphorus level in am. May need to start binder (5) Seizure Current Visit: Yes Status: Acute Plan to address problem: Possible seizure .Continue management (4) Hypernatremia Current Visit: Yes Status: Acute Plan to address problem: rising Na noted, start D5W (5) Pneumonia Current Visit: Yes Status: Acute Plan to address problem: cont ABXs, no renal adjustment needed, given improved eGFR. Subjective Date of service: 06/26/17 Principal diagnosis: Acute Hypoxemic Hypercapnic Resp Failure; Bilateral Pneumonis (?Aspiration) Interval history: Pt intubated, agitated. Objective - Vital Signs Vital signs: Vital Signs - 12hr 06/25/17 06/25/17 06/25/17 23:00 23:30 23:48 Temperature Pulse Rate 81 81 78 Pulse Rate [ Anterior Bilateral Throughout] Respiratory 20 19 Rate Respiratory Rate [Anterior Bilateral Throughout] Blood Pressure 144/65 144/65 144/65 O2 Sat by Pulse 97 99 98 Oximetry 06/26/17 06/26/17 06/26/17 00:00 00:30 01:00 Temperature 99.8 F H Pulse Rate 85 77 104 H Pulse Rate [ Anterior Bilateral Throughout] Respiratory 16 17 14 Rate Respiratory Rate [Anterior Bilateral Throughout] Blood Pressure 139/68 144/65 139/70 O2 Sat by Pulse 94 97 Oximetry 06/26/17 06/26/17 06/26/17 01:30 02:00 02:30 Temperature Pulse Rate 71 65 65 Pulse Rate [ Anterior Bilateral Throughout] Respiratory 14 17 16 Rate Respiratory Rate [Anterior Bilateral Throughout] Blood Pressure 139/70 132/56 132/56 O2 Sat by Pulse 97 95 96 Oximetry 06/26/17 06/26/17 06/26/17 03:00 03:30 03:54 Temperature Pulse Rate 66 64 76 Pulse Rate [ Anterior Bilateral Throughout] Respiratory 16 Rate Respiratory Rate [Anterior Bilateral Throughout] Blood Pressure 136/58 136/58 036/58 O2 Sat by Pulse 95 96 98 Oximetry 06/26/17 06/26/17 06/26/17 04:00 04:30 05:00 Temperature 98.5 F Pulse Rate 72 64 68 Pulse Rate [ Anterior Bilateral Throughout] Respiratory Rate Respiratory Rate [Anterior Bilateral Throughout] Blood Pressure 154/66 154/66 135/55 O2 Sat by Pulse 95 96 95 Oximetry 06/26/17 06/26/17 06/26/17 05:30 06:00 06:31 Temperature Pulse Rate 70 69 77 Pulse Rate [ Anterior Bilateral Throughout] Respiratory 12 Rate Respiratory Rate [Anterior Bilateral Throughout] Blood Pressure 135/55 147/61 147/61 O2 Sat by Pulse 99 98 97 Oximetry 06/26/17 06/26/17 06/26/17 06:38 07:01 07:31 Temperature Pulse Rate 84 77 86 Pulse Rate [ Anterior Bilateral Throughout] Respiratory 7 L 17 Rate Respiratory Rate [Anterior Bilateral Throughout] Blood Pressure 147/61 147/61 154/74 O2 Sat by Pulse 97 98 Oximetry 06/26/17 06/26/17 06/26/17 08:00 08:31 08:40 Temperature 98.5 F Pulse Rate 82 78 81 Pulse Rate [ Anterior Bilateral Throughout] Respiratory 15 15 Rate Respiratory Rate [Anterior Bilateral Throughout] Blood Pressure 160/70 160/70 150/71 O2 Sat by Pulse 96 95 97 Oximetry 06/26/17 06/26/17 06/26/17 08:50 09:00 09:48 Temperature Pulse Rate 78 Pulse Rate [ 100 H 90 Anterior Bilateral Throughout] Respiratory Rate Respiratory 15 16 Rate [Anterior Bilateral Throughout] Blood Pressure 155/71 O2 Sat by Pulse Oximetry - General Appearance General appearance: appears stated age, intubated, anxious EENT: ATNC, PERRL, mucous membranes dry Neck: no JVD Respiratory: Present: Clear to Ascultation Cardiology: regular, S1S2 Gastrointestinal: normoactive bowel sounds Integumentary: no rash, other (no edema ) Neurologic: no focal deficit, confused - Lab 06/26/17 05:30 06/26/17 05:30 Most recent lab results Calcium 8.7 mg/dL (8.4-10.2) 06/26/17 05:30 Phosphorus 7.20 mg/dL (2.5-4.5) H 06/21/17 18:15 Magnesium 1.70 mg/dL (1.7-2.3) 06/21/17 18:15 Urine Creatinine 136.8 mg/dL (0.1-20.0) H 06/23/17 04:10 Urine Sodium 34 mmol/L 06/23/17 04:10 Urine Total Protein 41 mg/dL (5-11.8) H 06/23/17 04:10
[2017-06-26] MEDS: D5W 1,000 ML IV SCH (13:47)
[2017-06-26] MEDS: LIBRIUM PO SCH ×2 (13:48→21:38)
--- NOTE | 2017-06-26 14:40 | Progress Note ---
Assessment and Plan 52 year old male admitted with bilateral pneumonia and heart failure. Ventilator dependent at this time. He had a seizure while withdrawing benzodiazepines on 06/22/2017. No further seizures. Attempt at extubation failed. Resoiratory failure. Bilateral pneumonia. Seizure Cardiomyopathy, aortic stenosis/insufficiency Plan - as per pulmonary and cardiology. Will check EEG results Continue Keppra for now. Subjective Date of service: 06/26/17 Principal diagnosis: Acute Hypoxemic Hypercapnic Resp Failure; Bilateral Pneumonis (?Aspiration) Interval history: Patient remains on the ventilator with sedation. Notes addressing extubation asppreciated. Continues with bilateral pneumonia. EEG performed today. Objective - Exam Narrative Exam: When sedation lightens the patient moves all extremities well. He follows commands. Attempts to sit up. Eyes are midline, face symmetric. Sensation intact. - Vital Sign Vital Signs - 12hr 06/26/17 06/26/17 06/26/17 03:00 03:30 03:54 Temperature Pulse Rate 66 64 76 Pulse Rate [ Anterior Bilateral Throughout] Respiratory 16 Rate Respiratory Rate [Anterior Bilateral Throughout] Blood Pressure 136/58 136/58 036/58 O2 Sat by Pulse 95 96 98 Oximetry 06/26/17 06/26/17 06/26/17 04:00 04:30 05:00 Temperature 98.5 F Pulse Rate 72 64 68 Pulse Rate [ Anterior Bilateral Throughout] Respiratory Rate Respiratory Rate [Anterior Bilateral Throughout] Blood Pressure 154/66 154/66 135/55 O2 Sat by Pulse 95 96 95 Oximetry 06/26/17 06/26/17 06/26/17 05:30 06:00 06:31 Temperature Pulse Rate 70 69 77 Pulse Rate [ Anterior Bilateral Throughout] Respiratory 12 Rate Respiratory Rate [Anterior Bilateral Throughout] Blood Pressure 135/55 147/61 147/61 O2 Sat by Pulse 99 98 97 Oximetry 06/26/17 06/26/17 06/26/17 06:38 07:01 07:31 Temperature Pulse Rate 84 77 86 Pulse Rate [ Anterior Bilateral Throughout] Respiratory 7 L 17 Rate Respiratory Rate [Anterior Bilateral Throughout] Blood Pressure 147/61 147/61 154/74 O2 Sat by Pulse 97 98 Oximetry 06/26/17 06/26/17 06/26/17 08:00 08:31 08:40 Temperature 98.5 F Pulse Rate 82 78 81 Pulse Rate [ Anterior Bilateral Throughout] Respiratory 15 15 Rate Respiratory Rate [Anterior Bilateral Throughout] Blood Pressure 160/70 160/70 150/71 O2 Sat by Pulse 96 95 97 Oximetry 06/26/17 06/26/17 06/26/17 08:50 09:00 09:31 Temperature Pulse Rate 83 77 Pulse Rate [ 100 H 90 Anterior Bilateral Throughout] Respiratory 12 12 Rate Respiratory 15 16 Rate [Anterior Bilateral Throughout] Blood Pressure 150/71 150/71 O2 Sat by Pulse 94 97 Oximetry 06/26/17 06/26/17 06/26/17 09:48 10:00 10:31 Temperature Pulse Rate 78 81 98 H Pulse Rate [ Anterior Bilateral Throughout] Respiratory 10 L 11 L Rate Respiratory Rate [Anterior Bilateral Throughout] Blood Pressure 155/71 161/71 161/71 O2 Sat by Pulse 95 Oximetry 06/26/17 06/26/17 06/26/17 11:01 11:31 12:00 Temperature 99.6 F Pulse Rate 93 H 73 77 Pulse Rate [ Anterior Bilateral Throughout] Respiratory 14 11 L 11 L Rate Respiratory Rate [Anterior Bilateral Throughout] Blood Pressure 155/77 150/68 136/62 O2 Sat by Pulse 90 89 Oximetry 06/26/17 06/26/17 06/26/17 12:31 13:00 13:29 Temperature Pulse Rate 76 72 Pulse Rate [ Anterior Bilateral Throughout] Respiratory 11 L 11 L Rate Respiratory Rate [Anterior Bilateral Throughout] Blood Pressure 155/77 144/64 144/64 O2 Sat by Pulse 90 89 Oximetry - Laboratory Findings CBC and BMP: 06/26/17 05:30 06/26/17 05:30 Abnormal Lab Findings: Abnormal Labs 06/20/17 06/20/17 06/20/17 19:00 19:00 19:00 WBC RBC Hgb Hct MCV 100 H MCH 35 H MCHC 35 H RDW 18.8 H Lymph % (Auto) 4.1 L [place] % (Auto) 8.9 H Lymph # 0.4 L [place] # 0.9 H Seg Neutrophils % 86.2 H Seg Neuts % (Manual) Lymphocytes % (Manual) Seg Neutrophils # 8.6 H Seg Neutrophils # Man Lymphocytes # (Manual) D-Dimer 747.03 H POC ABG pH POC ABG pCO2 POC ABG pO2 Sodium Chloride Carbon Dioxide BUN Creatinine Glucose Calcium Phosphorus Total Bilirubin 2.10 H AST 157 H ALT 119 H Alkaline Phosphatase 133 H Total Creatine Kinase 285 H CK-MB (CK-2) 8.6 H Troponin T 0.043 H C-Reactive Protein NT-Pro-B Natriuret Pep 93754 H Total Protein 6.0 L Albumin 3.7 L Cholesterol 212 H HDL Cholesterol 87 H Ur Specific [place] Urine WBC (Auto) Urine Creatinine Urine Total Protein 06/20/17 06/21/17 06/21/17 23:18 04:40 05:29 WBC RBC Hgb Hct MCV MCH MCHC RDW Lymph % (Auto) [place] % (Auto) Lymph # [place] # Seg Neutrophils % Seg Neuts % (Manual) Lymphocytes % (Manual) Seg Neutrophils # Seg Neutrophils # Man Lymphocytes # (Manual) D-Dimer POC ABG pH POC ABG pCO2 53.9 H 47.1 H POC ABG pO2 221 H Sodium Chloride Carbon Dioxide BUN Creatinine Glucose Calcium Phosphorus Total Bilirubin AST ALT Alkaline Phosphatase Total Creatine Kinase CK-MB (CK-2) Troponin T C-Reactive Protein NT-Pro-B Natriuret Pep Total Protein Albumin Cholesterol HDL Cholesterol Ur Specific [place] 1.049 H Urine WBC (Auto) 11.0 H Urine Creatinine Urine Total Protein 06/21/17 06/21/17 06/21/17 07:50 07:50 13:33 WBC 12.0 H RBC Hgb Hct MCV 104 H MCH 35 H MCHC RDW 19.3 H Lymph % (Auto) [place] % (Auto) Lymph # [place] # Seg Neutrophils % Seg Neuts % (Manual) 93.0 H Lymphocytes % (Manual) 1.0 L Seg Neutrophils # Seg Neutrophils # Man 11.2 H Lymphocytes # (Manual) 0.1 L D-Dimer POC ABG pH POC ABG pCO2 POC ABG pO2 Sodium Chloride Carbon Dioxide BUN 21 H Creatinine Glucose 130 H Calcium 8.1 L Phosphorus Total Bilirubin AST ALT Alkaline Phosphatase Total Creatine Kinase CK-MB (CK-2) Troponin T 0.054 H D C-Reactive Protein NT-Pro-B Natriuret Pep Total Protein Albumin Cholesterol HDL Cholesterol Ur Specific [place] Urine WBC (Auto) Urine Creatinine Urine Total Protein 06/21/17 06/21/17 06/21/17 18:15 18:15 20:55 WBC RBC Hgb Hct MCV MCH MCHC RDW Lymph % (Auto) [place] % (Auto) Lymph # [place] # Seg Neutrophils % Seg Neuts % (Manual) Lymphocytes % (Manual) Seg Neutrophils # Seg Neutrophils # Man Lymphocytes # (Manual) D-Dimer POC ABG pH POC ABG pCO2 POC ABG pO2 Sodium Chloride Carbon Dioxide BUN Creatinine Glucose Calcium Phosphorus 7.20 H Total Bilirubin AST ALT Alkaline Phosphatase Total Creatine Kinase CK-MB (CK-2) Troponin T 0.042 H D C-Reactive Protein 3.90 H NT-Pro-B Natriuret Pep Total Protein Albumin Cholesterol HDL Cholesterol Ur Specific [place] Urine WBC (Auto) Urine Creatinine Urine Total Protein 06/22/17 06/22/17 06/22/17 03:03 04:19 04:19 WBC RBC 3.40 L Hgb 11.7 L Hct 35.1 L D MCV 103 H MCH 35 H MCHC RDW 18.7 H Lymph % (Auto) [place] % (Auto) Lymph # [place] # Seg Neutrophils % Seg Neuts % (Manual) 97.0 H Lymphocytes % (Manual) 1.0 L Seg Neutrophils # Seg Neutrophils # Man 10.2 H Lymphocytes # (Manual) 0.1 L D-Dimer POC ABG pH POC ABG pCO2 56.7 H POC ABG pO2 115 H Sodium Chloride Carbon Dioxide BUN 41 H Creatinine 1.6 H Glucose 126 H Calcium 7.7 L Phosphorus Total Bilirubin AST ALT Alkaline Phosphatase Total Creatine Kinase CK-MB (CK-2) Troponin T C-Reactive Protein NT-Pro-B Natriuret Pep Total Protein Albumin Cholesterol HDL Cholesterol Ur Specific [place] Urine WBC (Auto) Urine Creatinine Urine Total Protein 06/22/17 06/23/17 06/23/17 04:19 04:06 04:10 WBC RBC Hgb Hct MCV MCH MCHC RDW Lymph % (Auto) [place] % (Auto) Lymph # [place] # Seg Neutrophils % Seg Neuts % (Manual) Lymphocytes % (Manual) Seg Neutrophils # Seg Neutrophils # Man Lymphocytes # (Manual) D-Dimer POC ABG pH 7.492 H POC ABG pCO2 45.5 H POC ABG pO2 Sodium Chloride Carbon Dioxide BUN Creatinine Glucose Calcium Phosphorus Total Bilirubin AST ALT Alkaline Phosphatase Total Creatine Kinase 228 H CK-MB (CK-2) 6.3 H Troponin T 0.031 H D C-Reactive Protein NT-Pro-B Natriuret Pep Total Protein Albumin Cholesterol HDL Cholesterol Ur Specific [place] Urine WBC (Auto) Urine Creatinine 136.8 H Urine Total Protein 41 H 06/23/17 06/23/17 06/24/17 04:20 04:20 04:50 WBC 11.4 H RBC Hgb Hct MCV 102 H MCH 33 H MCHC RDW 18.9 H Lymph % (Auto) 5.5 L [place] % (Auto) Lymph # 0.6 L [place] # Seg Neutrophils % 87.7 H Seg Neuts % (Manual) Lymphocytes % (Manual) Seg Neutrophils # 10.0 H Seg Neutrophils # Man Lymphocytes # (Manual) D-Dimer POC ABG pH 7.331 L POC ABG pCO2 63.6 H POC ABG pO2 69 L Sodium 146 H Chloride Carbon Dioxide BUN 38 H Creatinine Glucose 107 H Calcium 8.2 L Phosphorus Total Bilirubin AST ALT Alkaline Phosphatase Total Creatine Kinase CK-MB (CK-2) Troponin T C-Reactive Protein NT-Pro-B Natriuret Pep Total Protein Albumin Cholesterol HDL Cholesterol Ur Specific [place] Urine WBC (Auto) Urine Creatinine Urine Total Protein 06/24/17 06/24/17 06/25/17 06:31 06:31 04:35 WBC RBC Hgb Hct MCV 104 H MCH 33 H MCHC RDW 18.5 H Lymph % (Auto) [place] % (Auto) Lymph # [place] # Seg Neutrophils % Seg Neuts % (Manual) 96.0 H Lymphocytes % (Manual) 3.0 L Seg Neutrophils # Seg Neutrophils # Man 8.3 H Lymphocytes # (Manual) 0.3 L D-Dimer POC ABG pH 7.471 H POC ABG pCO2 47.8 H POC ABG pO2 48 L Sodium 148 H Chloride Carbon Dioxide 32 H BUN 40 H Creatinine Glucose 154 H Calcium Phosphorus Total Bilirubin AST ALT Alkaline Phosphatase Total Creatine Kinase CK-MB (CK-2) Troponin T C-Reactive Protein NT-Pro-B Natriuret Pep Total Protein Albumin Cholesterol HDL Cholesterol Ur Specific [place] Urine WBC (Auto) Urine Creatinine Urine Total Protein 06/25/17 06/25/17 06/25/17 04:46 05:20 05:20 WBC RBC Hgb Hct MCV 103 H MCH 34 H MCHC RDW 18.6 H Lymph % (Auto) [place] % (Auto) Lymph # [place] # Seg Neutrophils % Seg Neuts % (Manual) 90.0 H Lymphocytes % (Manual) 6.0 L Seg Neutrophils # Seg Neutrophils # Man 9.5 H Lymphocytes # (Manual) 0.6 L D-Dimer POC ABG pH 7.479 H POC ABG pCO2 POC ABG pO2 79 L Sodium 149 H Chloride 109.1 H Carbon Dioxide BUN 40 H Creatinine Glucose 122 H Calcium Phosphorus Total Bilirubin AST ALT Alkaline Phosphatase Total Creatine Kinase CK-MB (CK-2) Troponin T C-Reactive Protein NT-Pro-B Natriuret Pep Total Protein Albumin Cholesterol HDL Cholesterol Ur Specific [place] Urine WBC (Auto) Urine Creatinine Urine Total Protein 06/26/17 06/26/17 06/26/17 03:59 05:30 05:30 WBC RBC Hgb Hct MCV 103 H MCH 34 H MCHC RDW 18.6 H Lymph % (Auto) 3.7 L [place] % (Auto) Lymph # 0.4 L [place] # Seg Neutrophils % 89.7 H Seg Neuts % (Manual) Lymphocytes % (Manual) Seg Neutrophils # 9.9 H Seg Neutrophils # Man Lymphocytes # (Manual) D-Dimer POC ABG pH 7.499 H POC ABG pCO2 POC ABG pO2 109 H Sodium 151 H Chloride 110.2 H Carbon Dioxide 32 H BUN 43 H Creatinine Glucose 154 H Calcium Phosphorus Total Bilirubin AST ALT Alkaline Phosphatase Total Creatine Kinase CK-MB (CK-2) Troponin T C-Reactive Protein NT-Pro-B Natriuret Pep Total Protein Albumin Cholesterol HDL Cholesterol Ur Specific [place] Urine WBC (Auto) Urine Creatinine Urine Total Protein
--- NOTE | 2017-06-26 15:16 | Progress Note ---
Assessment and Plan Acute hypoxemic respiratory failure, on mechanical ventilator support. Bilateral pneumonia, possibly aspiration with basilar predominance. Hypercapnia. Elevated D-dimer. Elevated transaminases. Hyperlipidemia. Possible urinary tract infection. - continue PSV trials as tolerated - wean Peep to 5 as long as O2 Sats > 90% - continue aspiration precautions / addressing VAP bundle daily - continue bronchodilators and pulmonary hygiene per RT - continue enteral nutrition as tolerated - continue empiric AB's and follow cultures - continue GI & VTE prophylaxis - continue other care per attending / orther consultants ...30' CCT Subjective Date of service: 06/26/17 Principal diagnosis: Acute Hypoxemic Hypercapnic Resp Failure; Bilateral Pneumonis (?Aspiration) Interval history: Patient is seen today for: Acute Hypoxemic Hypercapnic Resp Failure; Bilateral Pneumonis (?Aspiration) Seen and examined at bedside; 24hour events reviewed; nursing and respiratory care staff consulted; no adverse overnight events reported to me; remains on MVS ; tolerating PSV trials; oxygenation improving; a little more coherent; No emesis or overt aspiration Objective Vital Signs - 12hr 06/26/17 06/26/17 06/26/17 03:30 03:54 04:00 Temperature 98.5 F Pulse Rate 64 76 72 Pulse Rate [ Anterior Bilateral Throughout] Respiratory Rate Respiratory Rate [Anterior Bilateral Throughout] Blood Pressure 136/58 036/58 154/66 O2 Sat by Pulse 96 98 95 Oximetry 06/26/17 06/26/17 06/26/17 04:30 05:00 05:30 Temperature Pulse Rate 64 68 70 Pulse Rate [ Anterior Bilateral Throughout] Respiratory Rate Respiratory Rate [Anterior Bilateral Throughout] Blood Pressure 154/66 135/55 135/55 O2 Sat by Pulse 96 95 99 Oximetry 06/26/17 06/26/17 06/26/17 06:00 06:31 06:38 Temperature Pulse Rate 69 77 84 Pulse Rate [ Anterior Bilateral Throughout] Respiratory 12 Rate Respiratory Rate [Anterior Bilateral Throughout] Blood Pressure 147/61 147/61 147/61 O2 Sat by Pulse 98 97 Oximetry 06/26/17 06/26/17 06/26/17 07:01 07:31 08:00 Temperature 98.5 F Pulse Rate 77 86 82 Pulse Rate [ Anterior Bilateral Throughout] Respiratory 7 L 17 15 Rate Respiratory Rate [Anterior Bilateral Throughout] Blood Pressure 147/61 154/74 160/70 O2 Sat by Pulse 97 98 96 Oximetry 06/26/17 06/26/17 06/26/17 08:31 08:40 08:50 Temperature Pulse Rate 78 81 Pulse Rate [ 100 H Anterior Bilateral Throughout] Respiratory 15 Rate Respiratory 15 Rate [Anterior Bilateral Throughout] Blood Pressure 160/70 150/71 O2 Sat by Pulse 95 97 Oximetry 06/26/17 06/26/17 06/26/17 09:00 09:31 09:48 Temperature Pulse Rate 83 77 78 Pulse Rate [ 90 Anterior Bilateral Throughout] Respiratory 12 12 Rate Respiratory 16 Rate [Anterior Bilateral Throughout] Blood Pressure 150/71 150/71 155/71 O2 Sat by Pulse 94 97 Oximetry 06/26/17 06/26/17 06/26/17 10:00 10:31 11:01 Temperature Pulse Rate 81 98 H 93 H Pulse Rate [ Anterior Bilateral Throughout] Respiratory 10 L 11 L 14 Rate Respiratory Rate [Anterior Bilateral Throughout] Blood Pressure 161/71 161/71 155/77 O2 Sat by Pulse 95 Oximetry 06/26/17 06/26/17 06/26/17 11:31 12:00 12:31 Temperature 99.6 F Pulse Rate 73 77 76 Pulse Rate [ Anterior Bilateral Throughout] Respiratory 11 L 11 L 11 L Rate Respiratory Rate [Anterior Bilateral Throughout] Blood Pressure 150/68 136/62 155/77 O2 Sat by Pulse 90 89 90 Oximetry 06/26/17 06/26/17 06/26/17 13:00 13:29 14:20 Temperature Pulse Rate 72 Pulse Rate [ 80 Anterior Bilateral Throughout] Respiratory 11 L Rate Respiratory 16 Rate [Anterior Bilateral Throughout] Blood Pressure 144/64 144/64 O2 Sat by Pulse 89 94 Oximetry 06/26/17 14:40 Temperature Pulse Rate Pulse Rate [ 80 Anterior Bilateral Throughout] Respiratory Rate Respiratory 16 Rate [Anterior Bilateral Throughout] Blood Pressure O2 Sat by Pulse Oximetry Constitutional: no acute distress, other (sedated) Eyes: non-icteric ENT: oropharynx moist, other (ETT at 22cm) Neck: supple, no lymphadenopathy, no JVD, other (No thyromegaly) Effort: mildly labored Ascultation: Bilateral: rales (bases) Percussion: Bilateral: not dull Cardiovascular: regular rate and rhythm, other (No rubs or murmurs) Gastrointestinal: normoactive bowel sounds, soft, non-tender, non-distended, other (No palpable HSM) Integumentary: normal Extremities: no cyanosis, no edema, pink and warm, pulses normal Neurologic: non-focal exam (grossly), unable to assess, other (sedated) Psychiatric: other (sedated) CBC and BMP: 06/26/17 05:30 06/28/17 06:10 ABG, PT/INR, D-dimer: ABG POC ABG pH 7.499 (7.35-7.45) H 06/26/17 03:59 POC ABG pCO2 44.7 (35-45) 06/26/17 03:59 POC ABG pO2 109 (80-105) H 06/26/17 03:59 POC ABG HCO3 34.7 06/26/17 03:59 POC ABG Total CO2 36 06/26/17 03:59 POC ABG O2 Sat 99 06/26/17 03:59 PT/INR, D-dimer D-Dimer 747.03 ng/mlDDU (0-234) H 06/20/17 19:00 Abnormal lab findings: Abnormal Labs 06/20/17 06/20/17 06/20/17 19:00 19:00 19:00 WBC RBC Hgb Hct MCV 100 H MCH 35 H MCHC 35 H RDW 18.8 H Lymph % (Auto) 4.1 L [place] % (Auto) 8.9 H Lymph # 0.4 L [place] # 0.9 H Seg Neutrophils % 86.2 H Seg Neuts % (Manual) Lymphocytes % (Manual) Seg Neutrophils # 8.6 H Seg Neutrophils # Man Lymphocytes # (Manual) D-Dimer 747.03 H POC ABG pH POC ABG pCO2 POC ABG pO2 Sodium Chloride Carbon Dioxide BUN Creatinine Glucose Calcium Phosphorus Total Bilirubin 2.10 H AST 157 H ALT 119 H Alkaline Phosphatase 133 H Total Creatine Kinase 285 H CK-MB (CK-2) 8.6 H Troponin T 0.043 H C-Reactive Protein NT-Pro-B Natriuret Pep 00810 H Total Protein 6.0 L Albumin 3.7 L Cholesterol 212 H HDL Cholesterol 87 H Ur Specific [place] Urine WBC (Auto) Urine Creatinine Urine Total Protein 06/20/17 06/21/17 06/21/17 23:18 04:40 05:29 WBC RBC Hgb Hct MCV MCH MCHC RDW Lymph % (Auto) [place] % (Auto) Lymph # [place] # Seg Neutrophils % Seg Neuts % (Manual) Lymphocytes % (Manual) Seg Neutrophils # Seg Neutrophils # Man Lymphocytes # (Manual) D-Dimer POC ABG pH POC ABG pCO2 53.9 H 47.1 H POC ABG pO2 221 H Sodium Chloride Carbon Dioxide BUN Creatinine Glucose Calcium Phosphorus Total Bilirubin AST ALT Alkaline Phosphatase Total Creatine Kinase CK-MB (CK-2) Troponin T C-Reactive Protein NT-Pro-B Natriuret Pep Total Protein Albumin Cholesterol HDL Cholesterol Ur Specific [place] 1.049 H Urine WBC (Auto) 11.0 H Urine Creatinine Urine Total Protein 06/21/17 06/21/17 06/21/17 07:50 07:50 13:33 WBC 12.0 H RBC Hgb Hct MCV 104 H MCH 35 H MCHC RDW 19.3 H Lymph % (Auto) [place] % (Auto) Lymph # [place] # Seg Neutrophils % Seg Neuts % (Manual) 93.0 H Lymphocytes % (Manual) 1.0 L Seg Neutrophils # Seg Neutrophils # Man 11.2 H Lymphocytes # (Manual) 0.1 L D-Dimer POC ABG pH POC ABG pCO2 POC ABG pO2 Sodium Chloride Carbon Dioxide BUN 21 H Creatinine Glucose 130 H Calcium 8.1 L Phosphorus Total Bilirubin AST ALT Alkaline Phosphatase Total Creatine Kinase CK-MB (CK-2) Troponin T 0.054 H D C-Reactive Protein NT-Pro-B Natriuret Pep Total Protein Albumin Cholesterol HDL Cholesterol Ur Specific [place] Urine WBC (Auto) Urine Creatinine Urine Total Protein 06/21/17 06/21/17 06/21/17 18:15 18:15 20:55 WBC RBC Hgb Hct MCV MCH MCHC RDW Lymph % (Auto) [place] % (Auto) Lymph # [place] # Seg Neutrophils % Seg Neuts % (Manual) Lymphocytes % (Manual) Seg Neutrophils # Seg Neutrophils # Man Lymphocytes # (Manual) D-Dimer POC ABG pH POC ABG pCO2 POC ABG pO2 Sodium Chloride Carbon Dioxide BUN Creatinine Glucose Calcium Phosphorus 7.20 H Total Bilirubin AST ALT Alkaline Phosphatase Total Creatine Kinase CK-MB (CK-2) Troponin T 0.042 H D C-Reactive Protein 3.90 H NT-Pro-B Natriuret Pep Total Protein Albumin Cholesterol HDL Cholesterol Ur Specific [place] Urine WBC (Auto) Urine Creatinine Urine Total Protein 06/22/17 06/22/17 06/22/17 03:03 04:19 04:19 WBC RBC 3.40 L Hgb 11.7 L Hct 35.1 L D MCV 103 H MCH 35 H MCHC RDW 18.7 H Lymph % (Auto) [place] % (Auto) Lymph # [place] # Seg Neutrophils % Seg Neuts % (Manual) 97.0 H Lymphocytes % (Manual) 1.0 L Seg Neutrophils # Seg Neutrophils # Man 10.2 H Lymphocytes # (Manual) 0.1 L D-Dimer POC ABG pH POC ABG pCO2 56.7 H POC ABG pO2 115 H Sodium Chloride Carbon Dioxide BUN 41 H Creatinine 1.6 H Glucose 126 H Calcium 7.7 L Phosphorus Total Bilirubin AST ALT Alkaline Phosphatase Total Creatine Kinase CK-MB (CK-2) Troponin T C-Reactive Protein NT-Pro-B Natriuret Pep Total Protein Albumin Cholesterol HDL Cholesterol Ur Specific [place] Urine WBC (Auto) Urine Creatinine Urine Total Protein 06/22/17 06/23/17 06/23/17 04:19 04:06 04:10 WBC RBC Hgb Hct MCV MCH MCHC RDW Lymph % (Auto) [place] % (Auto) Lymph # [place] # Seg Neutrophils % Seg Neuts % (Manual) Lymphocytes % (Manual) Seg Neutrophils # Seg Neutrophils # Man Lymphocytes # (Manual) D-Dimer POC ABG pH 7.492 H POC ABG pCO2 45.5 H POC ABG pO2 Sodium Chloride Carbon Dioxide BUN Creatinine Glucose Calcium Phosphorus Total Bilirubin AST ALT Alkaline Phosphatase Total Creatine Kinase 228 H CK-MB (CK-2) 6.3 H Troponin T 0.031 H D C-Reactive Protein NT-Pro-B Natriuret Pep Total Protein Albumin Cholesterol HDL Cholesterol Ur Specific [place] Urine WBC (Auto) Urine Creatinine 136.8 H Urine Total Protein 41 H 06/23/17 06/23/17 06/24/17 04:20 04:20 04:50 WBC 11.4 H RBC Hgb Hct MCV 102 H MCH 33 H MCHC RDW 18.9 H Lymph % (Auto) 5.5 L [place] % (Auto) Lymph # 0.6 L [place] # Seg Neutrophils % 87.7 H Seg Neuts % (Manual) Lymphocytes % (Manual) Seg Neutrophils # 10.0 H Seg Neutrophils # Man Lymphocytes # (Manual) D-Dimer POC ABG pH 7.331 L POC ABG pCO2 63.6 H POC ABG pO2 69 L Sodium 146 H Chloride Carbon Dioxide BUN 38 H Creatinine Glucose 107 H Calcium 8.2 L Phosphorus Total Bilirubin AST ALT Alkaline Phosphatase Total Creatine Kinase CK-MB (CK-2) Troponin T C-Reactive Protein NT-Pro-B Natriuret Pep Total Protein Albumin Cholesterol HDL Cholesterol Ur Specific [place] Urine WBC (Auto) Urine Creatinine Urine Total Protein 06/24/17 06/24/17 06/25/17 06:31 06:31 04:35 WBC RBC Hgb Hct MCV 104 H MCH 33 H MCHC RDW 18.5 H Lymph % (Auto) [place] % (Auto) Lymph # [place] # Seg Neutrophils % Seg Neuts % (Manual) 96.0 H Lymphocytes % (Manual) 3.0 L Seg Neutrophils # Seg Neutrophils # Man 8.3 H Lymphocytes # (Manual) 0.3 L D-Dimer POC ABG pH 7.471 H POC ABG pCO2 47.8 H POC ABG pO2 48 L Sodium 148 H Chloride Carbon Dioxide 32 H BUN 40 H Creatinine Glucose 154 H Calcium Phosphorus Total Bilirubin AST ALT Alkaline Phosphatase Total Creatine Kinase CK-MB (CK-2) Troponin T C-Reactive Protein NT-Pro-B Natriuret Pep Total Protein Albumin Cholesterol HDL Cholesterol Ur Specific [place] Urine WBC (Auto) Urine Creatinine Urine Total Protein 06/25/17 06/25/17 06/25/17 04:46 05:20 05:20 WBC RBC Hgb Hct MCV 103 H MCH 34 H MCHC RDW 18.6 H Lymph % (Auto) [place] % (Auto) Lymph # [place] # Seg Neutrophils % Seg Neuts % (Manual) 90.0 H Lymphocytes % (Manual) 6.0 L Seg Neutrophils # Seg Neutrophils # Man 9.5 H Lymphocytes # (Manual) 0.6 L D-Dimer POC ABG pH 7.479 H POC ABG pCO2 POC ABG pO2 79 L Sodium 149 H Chloride 109.1 H Carbon Dioxide BUN 40 H Creatinine Glucose 122 H Calcium Phosphorus Total Bilirubin AST ALT Alkaline Phosphatase Total Creatine Kinase CK-MB (CK-2) Troponin T C-Reactive Protein NT-Pro-B Natriuret Pep Total Protein Albumin Cholesterol HDL Cholesterol Ur Specific [place] Urine WBC (Auto) Urine Creatinine Urine Total Protein 06/26/17 06/26/17 06/26/17 03:59 05:30 05:30 WBC RBC Hgb Hct MCV 103 H MCH 34 H MCHC RDW 18.6 H Lymph % (Auto) 3.7 L [place] % (Auto) Lymph # 0.4 L [place] # Seg Neutrophils % 89.7 H Seg Neuts % (Manual) Lymphocytes % (Manual) Seg Neutrophils # 9.9 H Seg Neutrophils # Man Lymphocytes # (Manual) D-Dimer POC ABG pH 7.499 H POC ABG pCO2 POC ABG pO2 109 H Sodium 151 H Chloride 110.2 H Carbon Dioxide 32 H BUN 43 H Creatinine Glucose 154 H Calcium Phosphorus Total Bilirubin AST ALT Alkaline Phosphatase Total Creatine Kinase CK-MB (CK-2) Troponin T C-Reactive Protein NT-Pro-B Natriuret Pep Total Protein Albumin Cholesterol HDL Cholesterol Ur Specific [place] Urine WBC (Auto) Urine Creatinine Urine Total Protein Allied health notes reviewed: nursing
--- NOTE | 2017-06-26 16:12 | Progress Note ---
Assessment and Plan - Patient Problems (1) Congestive heart failure Current Visit: Yes Status: Acute Plan to address problem: Patient hospitalized with fluid overload and congestive heart failure, currently on the vent with respiratory failure. Echocardiogram shows a severe dilated cardiomyopathy, ejection fraction 20-25%, and moderate aortic stenosis. Continue medical therapy and supportive management. Further cardiac evaluation and management will depend on clinical course. Subjective Date of service: 06/26/17 Principal diagnosis: Acute Hypoxemic Hypercapnic Resp Failure; Bilateral Pneumonis (?Aspiration) Interval history: The patient is sedated, on the vent. On telemetry, there is a stable normal sinus rhythm. Objective Vital Signs Temp Pulse Pulse Resp Resp BP Pulse Ox 06/26/17 14:40 80 16 06/26/17 14:20 80 16 94 06/26/17 13:29 144/64 06/26/17 13:00 72 11 L 144/64 89 06/26/17 12:31 76 11 L 155/77 90 06/26/17 12:00 99.6 F 77 11 L 136/62 89 06/26/17 11:31 73 11 L 150/68 90 06/26/17 11:01 93 H 14 155/77 06/26/17 10:31 98 H 11 L 161/71 06/26/17 10:00 81 10 L 161/71 95 06/26/17 09:48 78 155/71 06/26/17 09:31 77 12 150/71 97 06/26/17 09:00 83 90 12 16 150/71 94 06/26/17 08:50 100 H 15 06/26/17 08:40 81 150/71 97 06/26/17 08:31 78 15 160/70 95 06/26/17 08:00 98.5 F 82 15 160/70 96 06/26/17 07:31 86 17 154/74 98 06/26/17 07:01 77 7 L 147/61 97 06/26/17 06:38 84 147/61 06/26/17 06:31 77 12 147/61 97 06/26/17 06:00 69 147/61 98 06/26/17 05:30 70 135/55 99 06/26/17 05:00 68 135/55 95 06/26/17 04:30 64 154/66 96 06/26/17 04:00 98.5 F 72 154/66 95 06/26/17 03:54 76 036/58 98 06/26/17 03:30 64 136/58 96 06/26/17 03:00 66 16 136/58 95 06/26/17 02:30 65 16 132/56 96 06/26/17 02:00 65 17 132/56 95 06/26/17 01:30 71 14 139/70 97 06/26/17 01:00 104 H 14 139/70 06/26/17 00:30 77 17 144/65 97 06/26/17 00:00 99.8 F H 85 16 139/68 94 06/25/17 23:48 78 144/65 98 06/25/17 23:30 81 19 144/65 99 06/25/17 23:00 81 20 144/65 97 06/25/17 22:30 84 20 135/59 99 06/25/17 22:00 63 17 135/59 98 06/25/17 21:30 83 18 143/71 98 06/25/17 21:12 77 145/67 06/25/17 21:11 77 145/67 06/25/17 21:00 80 18 145/67 100 06/25/17 20:30 62 16 143/71 100 06/25/17 20:00 99.1 F 84 17 143/71 98 06/25/17 19:58 81 77 20 143/71 99 06/25/17 19:30 62 16 123/56 96 06/25/17 19:00 64 16 123/56 93 06/25/17 18:30 75 16 136/65 92 06/25/17 18:12 88 17 136/65 94 06/25/17 18:00 87 16 136/65 94 06/25/17 17:30 61 16 119/49 98 06/25/17 17:00 60 16 119/49 96 06/25/17 16:30 61 16 119/49 97 - Physical Examination General: Other (intubated on the vent) HEENT: Positive: PERRL Neck: Positive: neck supple, trachea midline Cardiac: Positive: Reg Rate and Rhythm Lungs: Positive: Decreased Breath Sounds Neuro: Positive: Other (sedated, on the ventilator) Abdomen: Positive: Soft, Active Bowel Sounds Skin: Positive: Clear Extremities: Absent: edema - Labs and Meds CBC 06/26/17 Range/Units 05:30 WBC 11.0 (4.5-11.0) K/mm3 RBC 4.06 (3.65-5.03) M/mm3 Hgb 13.9 (11.8-15.2) gm/dl Hct 41.8 (35.5-45.6) % Plt Count 158 (140-440) K/mm3 Lymph # 0.4 L (1.2-5.4) K/mm3 Burt # 0.7 (0.0-0.8) K/mm3 Eos # 0.0 (0.0-0.4) K/mm3 Baso # 0.0 (0.0-0.1) K/mm3 Comprehensive Metabolic Panel 06/26/17 Range/Units 05:30 Sodium 151 H (137-145) mmol/L Potassium 5.0 (3.6-5.0) mmol/L Chloride 110.2 H (98-107) mmol/L Carbon Dioxide 32 H (22-30) mmol/L BUN 43 H (9-20) mg/dL Creatinine 0.9 (0.8-1.5) mg/dL Glucose 154 H (75-100) mg/dL Calcium 8.7 (8.4-10.2) mg/dL - Allied health notes Allied health notes reviewed: nursing
--- NOTE | 2017-06-26 16:33 | Progress Note ---
Assessment and Plan Assessment and plan: Acute hypoxic respiratory failure -Patient is intubated and on mechanical ventilation -Weaning trial -Neurology consulted and will do EEG - Patient is on COPD protocol On mechanical ventilation > 96 hours Sepsis Aspiration pneumonia - Patient is on IV Zosyn Acute systolic congestive heart failure Transaminitis - UDS is positive for benzo, acute hepatitis panel is negative DVT prophylaxis -Heparin Disposition -Continue ICU care The high probability of a clinically significant, sudden or life threatening deterioration of the [respiratory, LABORER SAWMILL] system(s) required my full and direct attention, intervention and personal management. The aggregate critical care time was [35] minutes. This time is in addition to time spent performing reported procedures but includes the following: [X] Data Review and interpretation [X] Patient assessment and monitoring of vital signs [X] Documentation [X] Medication orders and management History Interval history: Patient is intubated and on mechanical ventilation, sedated Hospitalist Physical - Physical exam Narrative exam: patient is intubated and on MV. The patient appeared well nourished and normally developed. Vital signs as documented. Head exam is unremarkable. No scleral icterus . Neck is without jugular venous distension, thyromegaly, or carotid bruits. Lungs are coarse creptations bilaterally, decreased air entry bilaterally . Cardiac exam reveals regular rate and Rhythm. First and second heart sounds normal. No murmurs, rubs or gallops. Abdominal exam reveals normal bowel sounds, no masses, no organomegaly and no aortic enlargement. Extremities are nonedematous and both femoral and pedal pulses are normal. LABORER SAWMILL: sedated. - Constitutional Vitals: Temp Pulse Resp BP Pulse Ox 99.6 F 62 16 127/56 91 06/26/17 12:00 06/26/17 16:00 06/26/17 16:00 06/26/17 16:00 06/26/17 16:00 General appearance: Present: no acute distress Results - Labs CBC & Chem 7: 06/26/17 05:30 06/26/17 05:30 Labs: Laboratory Last Values WBC 11.0 K/mm3 (4.5-11.0) 06/26/17 05:30 RBC 4.06 M/mm3 (3.65-5.03) 06/26/17 05:30 Hgb 13.9 gm/dl (11.8-15.2) 06/26/17 05:30 Hct 41.8 % (35.5-45.6) 06/26/17 05:30 MCV 103 fl (84-94) H 06/26/17 05:30 MCH 34 pg (28-32) H 06/26/17 05:30 MCHC 33 % (32-34) 06/26/17 05:30 RDW 18.6 % (13.2-15.2) H 06/26/17 05:30 Plt Count 158 K/mm3 (140-440) 06/26/17 05:30 Lymph % (Auto) 3.7 % (13.4-35.0) L 06/26/17 05:30 [place] % (Auto) 6.5 % (0.0-7.3) 06/26/17 05:30 Eos % (Auto) 0.0 % (0.0-4.3) 06/26/17 05:30 Baso % (Auto) 0.1 % (0.0-1.8) 06/26/17 05:30 Lymph # 0.4 K/mm3 (1.2-5.4) L 06/26/17 05:30 [place] # 0.7 K/mm3 (0.0-0.8) 06/26/17 05:30 Eos # 0.0 K/mm3 (0.0-0.4) 06/26/17 05:30 Baso # 0.0 K/mm3 (0.0-0.1) 06/26/17 05:30 Add Manual Diff Complete 06/25/17 05:20 Total Counted 100 06/25/17 05:20 Seg Neutrophils % 89.7 % (40.0-70.0) H 06/26/17 05:30 Seg Neuts % (Manual) 90.0 % (40.0-70.0) H 06/25/17 05:20 Band Neutrophils % 0 % 06/25/17 05:20 Lymphocytes % (Manual) 6.0 % (13.4-35.0) L 06/25/17 05:20 Reactive Lymphs % (Man) 0 % 06/25/17 05:20 Monocytes % (Manual) 4.0 % (0.0-7.3) 06/25/17 05:20 Eosinophils % (Manual) 0 % (0.0-4.3) 06/25/17 05:20 Basophils % (Manual) 0 % (0.0-1.8) 06/25/17 05:20 Metamyelocytes % 0 % 06/25/17 05:20 Myelocytes % 0 % 06/25/17 05:20 Promyelocytes % 0 % 06/25/17 05:20 Blast Cells % 0 % 06/25/17 05:20 Nucleated RBC % Not Reportable 06/25/17 05:20 Seg Neutrophils # 9.9 K/mm3 (1.8-7.7) H 06/26/17 05:30 Seg Neutrophils # Man 9.5 K/mm3 (1.8-7.7) H 06/25/17 05:20 Band Neutrophils # 0.0 K/mm3 06/25/17 05:20 Lymphocytes # (Manual) 0.6 K/mm3 (1.2-5.4) L 06/25/17 05:20 Abs React Lymphs (Man) 0.0 K/mm3 06/25/17 05:20 Monocytes # (Manual) 0.4 K/mm3 (0.0-0.8) 06/25/17 05:20 Eosinophils # (Manual) 0.0 K/mm3 (0.0-0.4) 06/25/17 05:20 Basophils # (Manual) 0.0 K/mm3 (0.0-0.1) 06/25/17 05:20 Metamyelocytes # 0.0 K/mm3 06/25/17 05:20 Myelocytes # 0.0 K/mm3 06/25/17 05:20 Promyelocytes # 0.0 K/mm3 06/25/17 05:20 Blast Cells # 0.0 K/mm3 06/25/17 05:20 WBC Morphology Not Reportable 06/25/17 05:20 Hypersegmented Neuts Not Reportable 06/25/17 05:20 Hyposegmented Neuts Not Reportable 06/25/17 05:20 Hypogranular Neuts Not Reportable 06/25/17 05:20 Smudge Cells Not Reportable 06/25/17 05:20 Toxic Granulation Not Reportable 06/25/17 05:20 Toxic Vacuolation Not Reportable 06/25/17 05:20 Dohle Bodies Not Reportable 06/25/17 05:20 Pelger-Huet Anomaly Not Reportable 06/25/17 05:20 Luz Maria Rods Not Reportable 06/25/17 05:20 Platelet Estimate Not Reportable 06/25/17 05:20 Clumped Platelets Not Reportable 06/25/17 05:20 Plt Clumps, EDTA Not Reportable 06/25/17 05:20 Large Platelets Not Reportable 06/25/17 05:20 Giant Platelets Not Reportable 06/25/17 05:20 Platelet Satelliting Not Reportable 06/25/17 05:20 Plt Morphology Comment Not Reportable 06/25/17 05:20 RBC Morphology Not Reportable 06/25/17 05:20 Dimorphic RBCs Not Reportable 06/25/17 05:20 Polychromasia Not Reportable 06/25/17 05:20 Hypochromasia Not Reportable 06/25/17 05:20 Poikilocytosis Few 06/25/17 05:20 Anisocytosis 1+ 06/25/17 05:20 Microcytosis Not Reportable 06/25/17 05:20 Macrocytosis Not Reportable 06/25/17 05:20 Spherocytes Not Reportable 06/25/17 05:20 Pappenheimer Bodies Not Reportable 06/25/17 05:20 Sickle Cells Not Reportable 06/25/17 05:20 Target Cells Not Reportable 06/25/17 05:20 Tear Drop Cells Not Reportable 06/25/17 05:20 Ovalocytes Not Reportable 06/25/17 05:20 Stomatocytes 2+ 06/24/17 06:31 Helmet Cells Not Reportable 06/25/17 05:20 [place] Bodies Not Reportable 06/25/17 05:20 [place] Rings Not Reportable 06/25/17 05:20 Jennifer Cells Not Reportable 06/25/17 05:20 Bite Cells Not Reportable 06/25/17 05:20 Crenated Cell Not Reportable 06/25/17 05:20 Elliptocytes Not Reportable 06/25/17 05:20 Acanthocytes (Spur) Not Reportable 06/25/17 05:20 Rouleaux Not Reportable 06/25/17 05:20 Hemoglobin C Crystals Not Reportable 06/25/17 05:20 Schistocytes Not Reportable 06/25/17 05:20 Malaria parasites Not Reportable 06/25/17 05:20 Franklyn Bodies Not Reportable 06/25/17 05:20 Hem Pathologist Commnt No 06/25/17 05:20 D-Dimer 747.03 ng/mlDDU (0-234) H 06/20/17 19:00 POC ABG pH 7.499 (7.35-7.45) H 06/26/17 03:59 POC ABG pCO2 44.7 (35-45) 06/26/17 03:59 POC ABG pO2 109 (80-105) H 06/26/17 03:59 POC ABG HCO3 34.7 06/26/17 03:59 POC ABG Total CO2 36 06/26/17 03:59 POC ABG O2 Sat 99 06/26/17 03:59 POC ABG Base Excess 12 06/26/17 03:59 FiO2 40 % 06/26/17 03:59 Sodium 151 mmol/L (137-145) H 06/26/17 05:30 Potassium 5.0 mmol/L (3.6-5.0) 06/26/17 05:30 Chloride 110.2 mmol/L (98-107) H 06/26/17 05:30 Carbon Dioxide 32 mmol/L (22-30) H 06/26/17 05:30 Anion Gap 14 mmol/L 06/26/17 05:30 BUN 43 mg/dL (9-20) H 06/26/17 05:30 Creatinine 0.9 mg/dL (0.8-1.5) 06/26/17 05:30 Estimated GFR > 60 ml/min 06/26/17 05:30 BUN/Creatinine Ratio 48 % 06/26/17 05:30 Glucose 154 mg/dL (75-100) H 06/26/17 05:30 Lactic Acid 1.50 mmol/L (0.7-2.0) 06/20/17 11:35 Calcium 8.7 mg/dL (8.4-10.2) 06/26/17 05:30 Phosphorus 7.20 mg/dL (2.5-4.5) H 06/21/17 18:15 Magnesium 1.70 mg/dL (1.7-2.3) 06/21/17 18:15 Total Bilirubin 2.10 mg/dL (0.1-1.2) H 06/20/17 19:00 AST 157 units/L (5-40) H 06/20/17 19:00 ALT 119 units/L (7-56) H 06/20/17 19:00 Alkaline Phosphatase 133 units/L (35-129) H 06/20/17 19:00 Total Creatine Kinase 228 units/L (55-170) H 06/22/17 04:19 CK-MB (CK-2) 6.3 ng/mL (0.0-4.0) H 06/22/17 04:19 CK-MB (CK-2) Rel Index 2.7 (0-4) 06/22/17 04:19 Troponin T 0.031 ng/mL (0.00-0.029) H D 06/22/17 04:19 C-Reactive Protein 3.90 mg/dL (0.00-1.30) H 06/21/17 18:15 NT-Pro-B Natriuret Pep 70781 pg/mL (0-900) H 06/20/17 19:00 Total Protein 6.0 g/dL (6.3-8.2) L 06/20/17 19:00 Albumin 3.7 g/dL (3.9-5) L 06/20/17 19:00 Albumin/Globulin Ratio 1.6 % 06/20/17 19:00 Triglycerides 114 mg/dL (2-149) 06/20/17 19:00 Cholesterol 212 mg/dL (50-199) H 06/20/17 19:00 LDL Cholesterol Direct 103 mg/dL (50-130) 06/20/17 19:00 HDL Cholesterol 87 mg/dL (40-59) H 06/20/17 19:00 Cholesterol/HDL Ratio 2.43 % 06/20/17 19:00 Vitamin B12 756.4 pg/mL (211-911) 06/25/17 16:07 Urine Color Yellow (Yellow) 06/21/17 05:29 Urine Turbidity Clear (Clear) 06/21/17 05:29 Urine pH 5.0 (5.0-7.0) 06/21/17 05:29 Ur Specific [place] 1.049 (1.003-1.030) H 06/21/17 05:29 Urine Protein <15 mg/dl mg/dL (Negative) 06/21/17 05:29 Urine Glucose (UA) Neg mg/dL (Negative) 06/21/17 05:29 Urine Ketones Neg mg/dL (Negative) 06/21/17 05:29 Urine Blood Mod (Negative) 06/21/17 05:29 Urine Nitrite Neg (Negative) 06/21/17 05:29 Urine Bilirubin Neg (Negative) 06/21/17 05:29 Urine Urobilinogen < 2.0 mg/dL (<2.0) 06/21/17 05:29 Ur Leukocyte Esterase Tr (Negative) 06/21/17 05:29 Urine WBC (Auto) 11.0 /HPF (0.0-6.0) H 06/21/17 05:29 Urine RBC (Auto) 2.0 /HPF (0.0-6.0) 06/21/17 05:29 U Epithel Cells (Auto) < 1.0 /HPF (0-13.0) 06/21/17 05:29 Urine Bacteria (Auto) 1+ /HPF (Negative) 06/21/17 05:29 Urine Creatinine 136.8 mg/dL (0.1-20.0) H 06/23/17 04:10 Urine Sodium 34 mmol/L 06/23/17 04:10 Urine Total Protein 41 mg/dL (5-11.8) H 06/23/17 04:10 Random Vancomycin 7.4 ug/mL (0-40.0) 06/23/17 04:20 Urine Opiates Screen Presumptive negative 06/21/17 05:29 Urine Methadone Screen Presumptive negative 06/21/17 05:29 Ur Barbiturates Screen Presumptive negative 06/21/17 05:29 Ur Phencyclidine Scrn Presumptive negative 06/21/17 05:29 Ur Amphetamines Screen Presumptive negative 06/21/17 05:29 U Benzodiazepines Scrn Presumptive positive 06/21/17 05:29 Urine Cocaine Screen Presumptive negative 06/21/17 05:29 U Marijuana (THC) Screen Presumptive negative 06/21/17 05:29 Drugs of Abuse Note Disclamer 06/21/17 05:29 Hepatitis A IgM Ab Non-reactive (NonReactive) 06/21/17 11:35 Hep Bs Antigen Non-reactive (Negative) 06/21/17 11:35 Hep B Core IgM Ab Non-reactive (NonReactive) 06/21/17 11:35 Hepatitis C Antibody Non-reactive (NonReactive) 06/21/17 11:35
[2017-06-26] MEDS: ZOSYN/NS 3.375GM/50ML 3.375 GM/50 ML BAG IV SCH ×2 (18:47→22:04)
[2017-06-27] MEDS: DIPRIVAN 10 MG/ML 1,000 MG/100 ML BOTTLE IV SCH (00:09)
[2017-06-27] MEDS: ZOSYN/NS 3.375GM/50ML 3.375 GM/50 ML BAG IV SCH (06:02)
[2017-06-27] MEDS: APRESOLINE PO SCH ×3 (06:03→22:15)
[2017-06-27] MEDS: LIBRIUM PO SCH ×4 (06:07→20:03)
[2017-06-27] MEDS: DUONEB *Not for PRN Use IH SCH ×3 (07:48→19:11)
[2017-06-27] MEDS: BABY ASPIRIN PO SCH (09:13)
[2017-06-27] MEDS: HEPARIN SUB-Q SCH ×4 (09:13→20:08)
[2017-06-27] MEDS: PEPCID PO SCH ×2 (09:13→22:14)
[2017-06-27] MEDS: COREG PO SCH ×2 (09:13→22:15)
[2017-06-27] MEDS: KEPPRA PO SCH ×2 (09:14→22:14)
--- NOTE | 2017-06-27 10:33 | Progress Note ---
Assessment and Plan Respiratory failure on mechanical ventilation Acute systolic heart failure Echocardiogram shows a dilated cardiomyopathy with left ventricular ejection fraction 20-25%. In addition there is a thickened and calcified aortic valve with moderate aortic stenosis and moderate to severe aortic regurgitation. Sepsis Pneumonia Acute renal failure Nonspecifically elevated cardiac enzymes Non sustained ventricular tachycardia no reoccurrence Recommendations: Continue medical therapy for heart failure. Further evaluation of his aortic regurgitation is warranted once medically stable. Subjective Date of service: 06/27/17 Principal diagnosis: Acute Hypoxemic Hypercapnic Resp Failure; Bilateral Pneumonis (?Aspiration) Interval history: Patient remains intubated, on mechanical ventilation. For planned extubation today. Objective Vital Signs Temp Pulse Pulse Pulse Pulse Resp Resp 06/27/17 09:13 74 06/27/17 08:30 69 15 06/27/17 08:00 99.1 F 72 70 12 06/27/17 07:54 78 06/27/17 07:49 76 06/27/17 07:41 70 17 06/27/17 07:30 75 14 06/27/17 07:00 64 16 06/27/17 06:30 06/27/17 06:03 62 06/27/17 06:00 63 06/27/17 05:30 58 L 16 06/27/17 05:00 58 L 16 06/27/17 04:31 62 17 06/27/17 04:00 98.9 F 58 L 16 06/27/17 03:31 60 16 06/27/17 03:00 67 16 06/27/17 02:31 70 16 06/27/17 02:00 73 16 06/27/17 01:30 69 16 06/27/17 01:00 75 16 06/27/17 00:30 70 16 06/27/17 00:00 98.0 F 60 16 06/26/17 23:30 60 16 06/26/17 23:00 62 16 06/26/17 22:31 70 15 06/26/17 22:00 65 16 06/26/17 21:37 67 06/26/17 21:36 67 06/26/17 21:31 63 16 06/26/17 21:06 64 16 06/26/17 21:00 66 16 06/26/17 20:51 65 06/26/17 20:46 76 17 06/26/17 20:40 83 06/26/17 20:31 77 01/18/18 20:00 98.9 F 72 06/26/17 19:31 79 06/26/17 19:00 91 H 14 06/26/17 18:31 90 06/26/17 18:00 76 9 L 06/26/17 17:31 87 9 L 06/26/17 17:01 94 H 9 L 06/26/17 16:31 66 16 06/26/17 16:11 66 16 06/26/17 16:00 98.8 F 62 16 06/26/17 15:31 60 16 06/26/17 15:00 77 12 06/26/17 14:40 80 16 06/26/17 14:31 62 16 06/26/17 14:20 80 16 06/26/17 14:00 66 11 L 06/26/17 13:31 72 13 06/26/17 13:29 06/26/17 13:00 72 11 L 06/26/17 12:31 76 11 L 06/26/17 12:00 99.6 F 77 11 L 06/26/17 11:31 73 11 L 06/26/17 11:01 93 H 14 06/26/17 10:31 98 H 11 L Resp BP Pulse Ox 06/27/17 09:13 138/57 06/27/17 08:30 139/58 95 06/27/17 08:00 139/58 94 06/27/17 07:54 18 06/27/17 07:49 18 06/27/17 07:41 131/54 96 06/27/17 07:30 131/54 96 06/27/17 07:00 131/54 94 06/27/17 06:30 138/60 98 06/27/17 06:03 138/60 06/27/17 06:00 138/60 96 06/27/17 05:30 127/54 97 06/27/17 05:00 127/54 94 06/27/17 04:31 125/52 98 06/27/17 04:00 125/52 94 06/27/17 03:31 137/59 97 06/27/17 03:00 137/59 94 06/27/17 02:31 154/69 97 06/27/17 02:00 154/69 99 06/27/17 01:30 149/65 97 06/27/17 01:00 149/65 95 18 00:30 125/56 98 18 00:00 125/56 95 18 23:30 122/52 97 18 23:00 131/55 95 18 22:31 158/53 95 18 22:00 131/55 94 06/26/17 21:37 158/53 18 21:36 158/53 06/26/17 21:31 158/53 97 06/26/17 21:06 06/26/17 21:00 158/53 94 06/26/17 20:51 144/61 96 06/26/17 20:46 06/26/17 20:40 144/61 98 06/26/17 20:31 151/64 96 06/26/17 20:00 144/61 94 06/26/17 19:31 151/64 95 06/26/17 19:00 151/64 93 18 18:31 153/65 95 06/26/17 18:00 153/65 94 18 17:31 127/56 94 18 17:01 154/73 95 06/26/17 16:31 127/56 93 06/26/17 16:11 127/56 95 06/26/17 16:00 127/56 91 18 15:31 146/65 94 18 15:00 146/65 94 18 14:40 06/26/17 14:31 144/64 92 06/26/17 14:20 94 06/26/17 14:00 139/59 90 18 13:31 144/64 92 06/26/17 13:29 144/64 18 13:00 144/64 89 06/26/17 12:31 155/77 90 06/26/17 12:00 136/62 89 06/26/17 11:31 150/68 90 18 11:01 155/77 06/26/17 10:31 161/71 - Physical Examination General: Other (intubated on the vent) HEENT: Positive: PERRL Cardiac: Positive: Reg Rate and Rhythm - Allied health notes Allied health notes reviewed: nursing
--- NOTE | 2017-06-27 12:19 | Progress Note ---
Assessment and Plan Acute hypoxemic respiratory failure, on mechanical ventilator support. Bilateral pneumonia, possibly aspiration with basilar predominance. Hypercapnia. Elevated D-dimer. Elevated transaminases. Hyperlipidemia. Possible urinary tract infection. - trial of extubation - continue aspiration precautions - continue bronchodilators and pulmonary hygiene per RT - hold tube feeds for extubation; ST evaluation post extubation - continue empiric AB's and follow cultures - continue GI & VTE prophylaxis - continue other care per attending / orther consultants ...30' CCT Subjective Date of service: 06/27/17 Principal diagnosis: Acute Hypoxemic Hypercapnic Resp Failure; Bilateral Pneumonis (?Aspiration) Interval history: Patient is seen today for: Acute Hypoxemic Hypercapnic Resp Failure; Bilateral Pneumonis (?Aspiration) Seen and examined at bedside; 24hour events reviewed; nursing and respiratory care staff consulted; no adverse overnight events reported to me; remains on MVS ; tolerating SBT very well; following commands; good cuff leak; No N/V/F/C Objective Vital Signs - 12hr 06/27/17 06/27/17 06/27/17 00:30 01:00 01:30 Temperature Pulse Rate 70 75 69 Pulse Rate [ Anterior Left Lower Lobe] Pulse Rate [ Left Dorsalis Pedis] Respiratory 16 16 16 Rate Respiratory Rate [Anterior Left Lower Lobe ] Blood Pressure 125/56 149/65 149/65 O2 Sat by Pulse 98 95 97 Oximetry 06/27/17 06/27/17 06/27/17 02:00 02:31 03:00 Temperature Pulse Rate 73 70 67 Pulse Rate [ Anterior Left Lower Lobe] Pulse Rate [ Left Dorsalis Pedis] Respiratory 16 16 16 Rate Respiratory Rate [Anterior Left Lower Lobe ] Blood Pressure 154/69 154/69 137/59 O2 Sat by Pulse 99 97 94 Oximetry 06/27/17 06/27/17 06/27/17 03:31 04:00 04:31 Temperature 98.9 F Pulse Rate 60 58 L 62 Pulse Rate [ Anterior Left Lower Lobe] Pulse Rate [ Left Dorsalis Pedis] Respiratory 16 16 17 Rate Respiratory Rate [Anterior Left Lower Lobe ] Blood Pressure 137/59 125/52 125/52 O2 Sat by Pulse 97 94 98 Oximetry 06/27/17 06/27/17 06/27/17 05:00 05:30 06:00 Temperature Pulse Rate 58 L 58 L 63 Pulse Rate [ Anterior Left Lower Lobe] Pulse Rate [ Left Dorsalis Pedis] Respiratory 16 16 Rate Respiratory Rate [Anterior Left Lower Lobe ] Blood Pressure 127/54 127/54 138/60 O2 Sat by Pulse 94 97 96 Oximetry 06/27/17 06/27/17 06/27/17 06:03 06:30 07:00 Temperature Pulse Rate 62 64 Pulse Rate [ Anterior Left Lower Lobe] Pulse Rate [ Left Dorsalis Pedis] Respiratory 16 Rate Respiratory Rate [Anterior Left Lower Lobe ] Blood Pressure 138/60 138/60 131/54 O2 Sat by Pulse 98 94 Oximetry 06/27/17 06/27/17 06/27/17 07:30 07:41 07:49 Temperature Pulse Rate 75 70 Pulse Rate [ 76 Anterior Left Lower Lobe] Pulse Rate [ Left Dorsalis Pedis] Respiratory 14 17 Rate Respiratory 18 Rate [Anterior Left Lower Lobe ] Blood Pressure 131/54 131/54 O2 Sat by Pulse 96 96 Oximetry 06/27/17 06/27/17 06/27/17 07:54 08:00 08:30 Temperature 99.1 F Pulse Rate 72 69 Pulse Rate [ 78 Anterior Left Lower Lobe] Pulse Rate [ 70 Left Dorsalis Pedis] Respiratory 12 15 Rate Respiratory 18 Rate [Anterior Left Lower Lobe ] Blood Pressure 139/58 139/58 O2 Sat by Pulse 94 95 Oximetry 06/27/17 06/27/17 06/27/17 09:00 09:13 09:30 Temperature Pulse Rate 69 74 77 Pulse Rate [ Anterior Left Lower Lobe] Pulse Rate [ Left Dorsalis Pedis] Respiratory 14 11 L Rate Respiratory Rate [Anterior Left Lower Lobe ] Blood Pressure 138/57 138/57 138/57 O2 Sat by Pulse 93 95 Oximetry 06/27/17 06/27/17 06/27/17 10:00 10:30 11:00 Temperature Pulse Rate 78 75 70 Pulse Rate [ Anterior Left Lower Lobe] Pulse Rate [ Left Dorsalis Pedis] Respiratory 9 L 13 15 Rate Respiratory Rate [Anterior Left Lower Lobe ] Blood Pressure 131/55 131/55 130/53 O2 Sat by Pulse 93 93 92 Oximetry 06/27/17 06/27/17 06/27/17 11:29 11:31 12:00 Temperature 98.6 F Pulse Rate 74 Pulse Rate [ Anterior Left Lower Lobe] Pulse Rate [ Left Dorsalis Pedis] Respiratory 20 Rate Respiratory Rate [Anterior Left Lower Lobe ] Blood Pressure O2 Sat by Pulse 96 95 Oximetry Constitutional: no acute distress, other (sedated) Eyes: non-icteric ENT: oropharynx moist, other (ETT at 22cm) Neck: supple, no lymphadenopathy, no JVD, other (No thyromegaly) Effort: mildly labored Ascultation: Bilateral: rales (bases) Percussion: Bilateral: not dull Cardiovascular: regular rate and rhythm, other (No rubs or murmurs) Gastrointestinal: normoactive bowel sounds, soft, non-tender, non-distended, other (No palpable HSM) Integumentary: normal Extremities: no cyanosis, no edema, pink and warm, pulses normal Neurologic: non-focal exam (grossly), unable to assess, other (sedated) Psychiatric: other (sedated) CBC and BMP: 06/26/17 05:30 06/28/17 06:10 ABG, PT/INR, D-dimer: ABG POC ABG pH 7.497 (7.35-7.45) H 06/27/17 09:52 POC ABG pCO2 38.1 (35-45) 06/27/17 09:52 POC ABG pO2 71 (80-105) L 06/27/17 09:52 POC ABG HCO3 29.6 06/27/17 09:52 POC ABG Total CO2 31 06/27/17 09:52 POC ABG O2 Sat 95 06/27/17 09:52 PT/INR, D-dimer D-Dimer 747.03 ng/mlDDU (0-234) H 06/20/17 19:00 Abnormal lab findings: Abnormal Labs 06/20/17 06/20/17 06/20/17 19:00 19:00 19:00 WBC RBC Hgb Hct MCV 100 H MCH 35 H MCHC 35 H RDW 18.8 H Lymph % (Auto) 4.1 L [place] % (Auto) 8.9 H Lymph # 0.4 L [place] # 0.9 H Seg Neutrophils % 86.2 H Seg Neuts % (Manual) Lymphocytes % (Manual) Seg Neutrophils # 8.6 H Seg Neutrophils # Man Lymphocytes # (Manual) D-Dimer 747.03 H POC ABG pH POC ABG pCO2 POC ABG pO2 Sodium Chloride Carbon Dioxide BUN Creatinine Glucose POC Glucose Calcium Phosphorus Total Bilirubin 2.10 H AST 157 H ALT 119 H Alkaline Phosphatase 133 H Total Creatine Kinase 285 H CK-MB (CK-2) 8.6 H Troponin T 0.043 H C-Reactive Protein NT-Pro-B Natriuret Pep 20915 H Total Protein 6.0 L Albumin 3.7 L Cholesterol 212 H HDL Cholesterol 87 H Ur Specific [place] Urine WBC (Auto) Urine Creatinine Urine Total Protein 06/20/17 06/21/17 06/21/17 23:18 04:40 05:29 WBC RBC Hgb Hct MCV MCH MCHC RDW Lymph % (Auto) [place] % (Auto) Lymph # [place] # Seg Neutrophils % Seg Neuts % (Manual) Lymphocytes % (Manual) Seg Neutrophils # Seg Neutrophils # Man Lymphocytes # (Manual) D-Dimer POC ABG pH POC ABG pCO2 53.9 H 47.1 H POC ABG pO2 221 H Sodium Chloride Carbon Dioxide BUN Creatinine Glucose POC Glucose Calcium Phosphorus Total Bilirubin AST ALT Alkaline Phosphatase Total Creatine Kinase CK-MB (CK-2) Troponin T C-Reactive Protein NT-Pro-B Natriuret Pep Total Protein Albumin Cholesterol HDL Cholesterol Ur Specific [place] 1.049 H Urine WBC (Auto) 11.0 H Urine Creatinine Urine Total Protein 06/21/17 06/21/17 06/21/17 07:50 07:50 13:33 WBC 12.0 H RBC Hgb Hct MCV 104 H MCH 35 H MCHC RDW 19.3 H Lymph % (Auto) [place] % (Auto) Lymph # [place] # Seg Neutrophils % Seg Neuts % (Manual) 93.0 H Lymphocytes % (Manual) 1.0 L Seg Neutrophils # Seg Neutrophils # Man 11.2 H Lymphocytes # (Manual) 0.1 L D-Dimer POC ABG pH POC ABG pCO2 POC ABG pO2 Sodium Chloride Carbon Dioxide BUN 21 H Creatinine Glucose 130 H POC Glucose Calcium 8.1 L Phosphorus Total Bilirubin AST ALT Alkaline Phosphatase Total Creatine Kinase CK-MB (CK-2) Troponin T 0.054 H D C-Reactive Protein NT-Pro-B Natriuret Pep Total Protein Albumin Cholesterol HDL Cholesterol Ur Specific [place] Urine WBC (Auto) Urine Creatinine Urine Total Protein 06/21/17 06/21/17 06/21/17 18:15 18:15 20:55 WBC RBC Hgb Hct MCV MCH MCHC RDW Lymph % (Auto) [place] % (Auto) Lymph # [place] # Seg Neutrophils % Seg Neuts % (Manual) Lymphocytes % (Manual) Seg Neutrophils # Seg Neutrophils # Man Lymphocytes # (Manual) D-Dimer POC ABG pH POC ABG pCO2 POC ABG pO2 Sodium Chloride Carbon Dioxide BUN Creatinine Glucose POC Glucose Calcium Phosphorus 7.20 H Total Bilirubin AST ALT Alkaline Phosphatase Total Creatine Kinase CK-MB (CK-2) Troponin T 0.042 H D C-Reactive Protein 3.90 H NT-Pro-B Natriuret Pep Total Protein Albumin Cholesterol HDL Cholesterol Ur Specific [place] Urine WBC (Auto) Urine Creatinine Urine Total Protein 06/22/17 06/22/17 06/22/17 03:03 04:19 04:19 WBC RBC 3.40 L Hgb 11.7 L Hct 35.1 L D MCV 103 H MCH 35 H MCHC RDW 18.7 H Lymph % (Auto) [place] % (Auto) Lymph # [place] # Seg Neutrophils % Seg Neuts % (Manual) 97.0 H Lymphocytes % (Manual) 1.0 L Seg Neutrophils # Seg Neutrophils # Man 10.2 H Lymphocytes # (Manual) 0.1 L D-Dimer POC ABG pH POC ABG pCO2 56.7 H POC ABG pO2 115 H Sodium Chloride Carbon Dioxide BUN 41 H Creatinine 1.6 H Glucose 126 H POC Glucose Calcium 7.7 L Phosphorus Total Bilirubin AST ALT Alkaline Phosphatase Total Creatine Kinase CK-MB (CK-2) Troponin T C-Reactive Protein NT-Pro-B Natriuret Pep Total Protein Albumin Cholesterol HDL Cholesterol Ur Specific [place] Urine WBC (Auto) Urine Creatinine Urine Total Protein 06/22/17 06/23/17 06/23/17 04:19 04:06 04:10 WBC RBC Hgb Hct MCV MCH MCHC RDW Lymph % (Auto) [place] % (Auto) Lymph # [place] # Seg Neutrophils % Seg Neuts % (Manual) Lymphocytes % (Manual) Seg Neutrophils # Seg Neutrophils # Man Lymphocytes # (Manual) D-Dimer POC ABG pH 7.492 H POC ABG pCO2 45.5 H POC ABG pO2 Sodium Chloride Carbon Dioxide BUN Creatinine Glucose POC Glucose Calcium Phosphorus Total Bilirubin AST ALT Alkaline Phosphatase Total Creatine Kinase 228 H CK-MB (CK-2) 6.3 H Troponin T 0.031 H D C-Reactive Protein NT-Pro-B Natriuret Pep Total Protein Albumin Cholesterol HDL Cholesterol Ur Specific [place] Urine WBC (Auto) Urine Creatinine 136.8 H Urine Total Protein 41 H 06/23/17 06/23/17 06/24/17 04:20 04:20 04:50 WBC 11.4 H RBC Hgb Hct MCV 102 H MCH 33 H MCHC RDW 18.9 H Lymph % (Auto) 5.5 L [place] % (Auto) Lymph # 0.6 L [place] # Seg Neutrophils % 87.7 H Seg Neuts % (Manual) Lymphocytes % (Manual) Seg Neutrophils # 10.0 H Seg Neutrophils # Man Lymphocytes # (Manual) D-Dimer POC ABG pH 7.331 L POC ABG pCO2 63.6 H POC ABG pO2 69 L Sodium 146 H Chloride Carbon Dioxide BUN 38 H Creatinine Glucose 107 H POC Glucose Calcium 8.2 L Phosphorus Total Bilirubin AST ALT Alkaline Phosphatase Total Creatine Kinase CK-MB (CK-2) Troponin T C-Reactive Protein NT-Pro-B Natriuret Pep Total Protein Albumin Cholesterol HDL Cholesterol Ur Specific [place] Urine WBC (Auto) Urine Creatinine Urine Total Protein 06/24/17 06/24/17 06/25/17 06:31 06:31 04:35 WBC RBC Hgb Hct MCV 104 H MCH 33 H MCHC RDW 18.5 H Lymph % (Auto) [place] % (Auto) Lymph # [place] # Seg Neutrophils % Seg Neuts % (Manual) 96.0 H Lymphocytes % (Manual) 3.0 L Seg Neutrophils # Seg Neutrophils # Man 8.3 H Lymphocytes # (Manual) 0.3 L D-Dimer POC ABG pH 7.471 H POC ABG pCO2 47.8 H POC ABG pO2 48 L Sodium 148 H Chloride Carbon Dioxide 32 H BUN 40 H Creatinine Glucose 154 H POC Glucose Calcium Phosphorus Total Bilirubin AST ALT Alkaline Phosphatase Total Creatine Kinase CK-MB (CK-2) Troponin T C-Reactive Protein NT-Pro-B Natriuret Pep Total Protein Albumin Cholesterol HDL Cholesterol Ur Specific [place] Urine WBC (Auto) Urine Creatinine Urine Total Protein 06/25/17 06/25/17 06/25/17 04:46 05:20 05:20 WBC RBC Hgb Hct MCV 103 H MCH 34 H MCHC RDW 18.6 H Lymph % (Auto) [place] % (Auto) Lymph # [place] # Seg Neutrophils % Seg Neuts % (Manual) 90.0 H Lymphocytes % (Manual) 6.0 L Seg Neutrophils # Seg Neutrophils # Man 9.5 H Lymphocytes # (Manual) 0.6 L D-Dimer POC ABG pH 7.479 H POC ABG pCO2 POC ABG pO2 79 L Sodium 149 H Chloride 109.1 H Carbon Dioxide BUN 40 H Creatinine Glucose 122 H POC Glucose Calcium Phosphorus Total Bilirubin AST ALT Alkaline Phosphatase Total Creatine Kinase CK-MB (CK-2) Troponin T C-Reactive Protein NT-Pro-B Natriuret Pep Total Protein Albumin Cholesterol HDL Cholesterol Ur Specific [place] Urine WBC (Auto) Urine Creatinine Urine Total Protein 06/26/17 06/26/17 06/26/17 03:59 05:30 05:30 WBC RBC Hgb Hct MCV 103 H MCH 34 H MCHC RDW 18.6 H Lymph % (Auto) 3.7 L [place] % (Auto) Lymph # 0.4 L [place] # Seg Neutrophils % 89.7 H Seg Neuts % (Manual) Lymphocytes % (Manual) Seg Neutrophils # 9.9 H Seg Neutrophils # Man Lymphocytes # (Manual) D-Dimer POC ABG pH 7.499 H POC ABG pCO2 POC ABG pO2 109 H Sodium 151 H Chloride 110.2 H Carbon Dioxide 32 H BUN 43 H Creatinine Glucose 154 H POC Glucose Calcium Phosphorus Total Bilirubin AST ALT Alkaline Phosphatase Total Creatine Kinase CK-MB (CK-2) Troponin T C-Reactive Protein NT-Pro-B Natriuret Pep Total Protein Albumin Cholesterol HDL Cholesterol Ur Specific [place] Urine WBC (Auto) Urine Creatinine Urine Total Protein 06/26/17 06/27/17 06/27/17 16:49 00:28 09:52 WBC RBC Hgb Hct MCV MCH MCHC RDW Lymph % (Auto) [place] % (Auto) Lymph # [place] # Seg Neutrophils % Seg Neuts % (Manual) Lymphocytes % (Manual) Seg Neutrophils # Seg Neutrophils # Man Lymphocytes # (Manual) D-Dimer POC ABG pH 7.477 H 7.497 H POC ABG pCO2 POC ABG pO2 71 L Sodium Chloride Carbon Dioxide BUN Creatinine Glucose POC Glucose 141 H Calcium Phosphorus Total Bilirubin AST ALT Alkaline Phosphatase Total Creatine Kinase CK-MB (CK-2) Troponin T C-Reactive Protein NT-Pro-B Natriuret Pep Total Protein Albumin Cholesterol HDL Cholesterol Ur Specific [place] Urine WBC (Auto) Urine Creatinine Urine Total Protein Allied health notes reviewed: nursing
--- NOTE | 2017-06-27 14:26 | Progress Note ---
Assessment and Plan - Patient Problems (1) Other acute kidney failure Current Visit: Yes Status: Acute Plan to address problem: resolved. Follow-up electrolytes and renal function (2) Transaminasemia Current Visit: Yes Status: Acute Plan to address problem: Hepatitis B and C negative. Follow-up liver function tests. (4) Hyperphosphatemia Current Visit: Yes Status: Acute Plan to address problem: Follow up phosphorus level in am. May need to start binder (5) Seizure Current Visit: Yes Status: Acute Plan to address problem: Possible seizure .Continue management (3) Hypernatremia Current Visit: Yes Status: Acute Plan to address problem: cont D5W until pt able to tolerated PO (4) Pneumonia Current Visit: Yes Status: Acute Plan to address problem: cont ABXs, no renal adjustment needed, given improved eGFR. Subjective Date of service: 06/27/17 Principal diagnosis: Acute Hypoxemic Hypercapnic Resp Failure; Bilateral Pneumonis (?Aspiration) Interval history: Pt s/p extubation, awake, alert, in NAD Objective - Vital Signs Vital signs: Vital Signs - 12hr 06/27/17 06/27/17 06/27/17 02:31 03:00 03:31 Temperature Pulse Rate 70 67 60 Pulse Rate [ Anterior Left Lower Lobe] Pulse Rate [ Left Dorsalis Pedis] Respiratory 16 16 16 Rate Respiratory Rate [Anterior Left Lower Lobe ] Blood Pressure 154/69 137/59 137/59 O2 Sat by Pulse 97 94 97 Oximetry 06/27/17 06/27/17 06/27/17 04:00 04:31 05:00 Temperature 98.9 F Pulse Rate 58 L 62 58 L Pulse Rate [ Anterior Left Lower Lobe] Pulse Rate [ Left Dorsalis Pedis] Respiratory 16 17 16 Rate Respiratory Rate [Anterior Left Lower Lobe ] Blood Pressure 125/52 125/52 127/54 O2 Sat by Pulse 94 98 94 Oximetry 06/27/17 06/27/17 06/27/17 05:30 06:00 06:03 Temperature Pulse Rate 58 L 63 62 Pulse Rate [ Anterior Left Lower Lobe] Pulse Rate [ Left Dorsalis Pedis] Respiratory 16 Rate Respiratory Rate [Anterior Left Lower Lobe ] Blood Pressure 127/54 138/60 138/60 O2 Sat by Pulse 97 96 Oximetry 06/27/17 06/27/17 06/27/17 06:30 07:00 07:30 Temperature Pulse Rate 64 75 Pulse Rate [ Anterior Left Lower Lobe] Pulse Rate [ Left Dorsalis Pedis] Respiratory 16 14 Rate Respiratory Rate [Anterior Left Lower Lobe ] Blood Pressure 138/60 131/54 131/54 O2 Sat by Pulse 98 94 96 Oximetry 06/27/17 06/27/17 06/27/17 07:41 07:49 07:54 Temperature Pulse Rate 70 Pulse Rate [ 76 78 Anterior Left Lower Lobe] Pulse Rate [ Left Dorsalis Pedis] Respiratory 17 Rate Respiratory 18 18 Rate [Anterior Left Lower Lobe ] Blood Pressure 131/54 O2 Sat by Pulse 96 Oximetry 06/27/17 06/27/17 06/27/17 08:00 08:30 09:00 Temperature 99.1 F Pulse Rate 72 69 69 Pulse Rate [ Anterior Left Lower Lobe] Pulse Rate [ 70 Left Dorsalis Pedis] Respiratory 12 15 14 Rate Respiratory Rate [Anterior Left Lower Lobe ] Blood Pressure 139/58 139/58 138/57 O2 Sat by Pulse 94 95 93 Oximetry 06/27/17 06/27/17 06/27/17 09:13 09:30 10:00 Temperature Pulse Rate 74 77 78 Pulse Rate [ Anterior Left Lower Lobe] Pulse Rate [ Left Dorsalis Pedis] Respiratory 11 L 9 L Rate Respiratory Rate [Anterior Left Lower Lobe ] Blood Pressure 138/57 138/57 131/55 O2 Sat by Pulse 95 93 Oximetry 06/27/17 06/27/17 06/27/17 10:30 11:00 11:29 Temperature Pulse Rate 75 70 74 Pulse Rate [ Anterior Left Lower Lobe] Pulse Rate [ Left Dorsalis Pedis] Respiratory 13 15 20 Rate Respiratory Rate [Anterior Left Lower Lobe ] Blood Pressure 131/55 130/53 O2 Sat by Pulse 93 92 96 Oximetry 06/27/17 06/27/17 06/27/17 11:30 11:31 12:00 Temperature 98.6 F Pulse Rate 80 72 Pulse Rate [ Anterior Left Lower Lobe] Pulse Rate [ Left Dorsalis Pedis] Respiratory 18 11 L Rate Respiratory Rate [Anterior Left Lower Lobe ] Blood Pressure 130/53 130/55 O2 Sat by Pulse 95 95 93 Oximetry 06/27/17 06/27/17 06/27/17 12:30 13:00 13:21 Temperature Pulse Rate 71 71 77 Pulse Rate [ Anterior Left Lower Lobe] Pulse Rate [ Left Dorsalis Pedis] Respiratory 12 14 Rate Respiratory Rate [Anterior Left Lower Lobe ] Blood Pressure 130/55 143/60 143/60 O2 Sat by Pulse 95 94 Oximetry 06/27/17 06/27/17 13:30 14:00 Temperature Pulse Rate 73 81 Pulse Rate [ Anterior Left Lower Lobe] Pulse Rate [ Left Dorsalis Pedis] Respiratory 17 22 Rate Respiratory Rate [Anterior Left Lower Lobe ] Blood Pressure 143/60 137/57 O2 Sat by Pulse 92 92 Oximetry - General Appearance General appearance: well-developed, well-nourished, appears stated age EENT: ATNC, PERRL, mucous membranes moist Neck: no JVD Respiratory: Present: Clear to Ascultation Cardiology: regular, S1S2 Gastrointestinal: normoactive bowel sounds Integumentary: no rash, other (no edema ) Neurologic: no focal deficit, alert and oriented x3, strength 5/5, CN 3-12 intact Psychiatric: mood/affect appropriate, cooperative - Lab 06/26/17 05:30 06/26/17 05:30 Most recent lab results Calcium 8.7 mg/dL (8.4-10.2) 06/26/17 05:30 Phosphorus 7.20 mg/dL (2.5-4.5) H 06/21/17 18:15 Magnesium 1.70 mg/dL (1.7-2.3) 06/21/17 18:15 Urine Creatinine 136.8 mg/dL (0.1-20.0) H 06/23/17 04:10 Urine Sodium 34 mmol/L 06/23/17 04:10 Urine Total Protein 41 mg/dL (5-11.8) H 06/23/17 04:10
--- NOTE | 2017-06-27 16:24 | Progress Note ---
Assessment and Plan Assessment and plan: Acute hypoxic respiratory failure -Patient is intubated and on mechanical ventilation -Weaning trial -Neurology consulted and will do EEG - Patient is on COPD protocol On mechanical ventilation > 96 hours Sepsis Aspiration pneumonia - Patient was on IV Zosyn Acute systolic congestive heart failure Transaminitis - UDS is positive for benzo, acute hepatitis panel is negative DVT prophylaxis -Heparin Disposition -Continue ICU care The high probability of a clinically significant, sudden or life threatening deterioration of the [respiratory, COMMUNICATIONS EXECUTIVE] system(s) required my full and direct attention, intervention and personal management. The aggregate critical care time was [35] minutes. This time is in addition to time spent performing reported procedures but includes the following: [X] Data Review and interpretation [X] Patient assessment and monitoring of vital signs [X] Documentation [X] Medication orders and management History Interval history: Patient is intubated and on mechanical ventilation, sedated Hospitalist Physical - Physical exam Narrative exam: patient is intubated and on MV. The patient appeared well nourished and normally developed. Vital signs as documented. Head exam is unremarkable. No scleral icterus . Neck is without jugular venous distension, thyromegaly, or carotid bruits. Lungs are coarse creptations bilaterally, decreased air entry bilaterally . Cardiac exam reveals regular rate and Rhythm. First and second heart sounds normal. No murmurs, rubs or gallops. Abdominal exam reveals normal bowel sounds, no masses, no organomegaly and no aortic enlargement. Extremities are nonedematous and both femoral and pedal pulses are normal. COMMUNICATIONS EXECUTIVE: sedated. - Constitutional Vitals: Temp Pulse Resp BP Pulse Ox 98.6 F 81 22 137/57 94 06/27/17 12:00 06/27/17 14:00 06/27/17 14:00 06/27/17 14:00 06/27/17 15:15 General appearance: Present: no acute distress Results - Labs CBC & Chem 7: 06/26/17 05:30 06/26/17 05:30 Labs: Laboratory Last Values WBC 11.0 K/mm3 (4.5-11.0) 06/26/17 05:30 RBC 4.06 M/mm3 (3.65-5.03) 06/26/17 05:30 Hgb 13.9 gm/dl (11.8-15.2) 06/26/17 05:30 Hct 41.8 % (35.5-45.6) 06/26/17 05:30 MCV 103 fl (84-94) H 06/26/17 05:30 MCH 34 pg (28-32) H 06/26/17 05:30 MCHC 33 % (32-34) 06/26/17 05:30 RDW 18.6 % (13.2-15.2) H 06/26/17 05:30 Plt Count 158 K/mm3 (140-440) 06/26/17 05:30 Lymph % (Auto) 3.7 % (13.4-35.0) L 06/26/17 05:30 Ellis % (Auto) 6.5 % (0.0-7.3) 06/26/17 05:30 Eos % (Auto) 0.0 % (0.0-4.3) 06/26/17 05:30 Baso % (Auto) 0.1 % (0.0-1.8) 06/26/17 05:30 Lymph # 0.4 K/mm3 (1.2-5.4) L 06/26/17 05:30 Ellis # 0.7 K/mm3 (0.0-0.8) 06/26/17 05:30 Eos # 0.0 K/mm3 (0.0-0.4) 06/26/17 05:30 Baso # 0.0 K/mm3 (0.0-0.1) 06/26/17 05:30 Add Manual Diff Complete 06/25/17 05:20 Total Counted 100 06/25/17 05:20 Seg Neutrophils % 89.7 % (40.0-70.0) H 06/26/17 05:30 Seg Neuts % (Manual) 90.0 % (40.0-70.0) H 06/25/17 05:20 Band Neutrophils % 0 % 06/25/17 05:20 Lymphocytes % (Manual) 6.0 % (13.4-35.0) L 06/25/17 05:20 Reactive Lymphs % (Man) 0 % 06/25/17 05:20 Monocytes % (Manual) 4.0 % (0.0-7.3) 06/25/17 05:20 Eosinophils % (Manual) 0 % (0.0-4.3) 06/25/17 05:20 Basophils % (Manual) 0 % (0.0-1.8) 06/25/17 05:20 Metamyelocytes % 0 % 06/25/17 05:20 Myelocytes % 0 % 06/25/17 05:20 Promyelocytes % 0 % 06/25/17 05:20 Blast Cells % 0 % 06/25/17 05:20 Nucleated RBC % Not Reportable 06/25/17 05:20 Seg Neutrophils # 9.9 K/mm3 (1.8-7.7) H 06/26/17 05:30 Seg Neutrophils # Man 9.5 K/mm3 (1.8-7.7) H 06/25/17 05:20 Band Neutrophils # 0.0 K/mm3 06/25/17 05:20 Lymphocytes # (Manual) 0.6 K/mm3 (1.2-5.4) L 06/25/17 05:20 Abs React Lymphs (Man) 0.0 K/mm3 06/25/17 05:20 Monocytes # (Manual) 0.4 K/mm3 (0.0-0.8) 06/25/17 05:20 Eosinophils # (Manual) 0.0 K/mm3 (0.0-0.4) 06/25/17 05:20 Basophils # (Manual) 0.0 K/mm3 (0.0-0.1) 06/25/17 05:20 Metamyelocytes # 0.0 K/mm3 06/25/17 05:20 Myelocytes # 0.0 K/mm3 06/25/17 05:20 Promyelocytes # 0.0 K/mm3 06/25/17 05:20 Blast Cells # 0.0 K/mm3 06/25/17 05:20 WBC Morphology Not Reportable 06/25/17 05:20 Hypersegmented Neuts Not Reportable 06/25/17 05:20 Hyposegmented Neuts Not Reportable 06/25/17 05:20 Hypogranular Neuts Not Reportable 06/25/17 05:20 Smudge Cells Not Reportable 06/25/17 05:20 Toxic Granulation Not Reportable 06/25/17 05:20 Toxic Vacuolation Not Reportable 06/25/17 05:20 Dohle Bodies Not Reportable 06/25/17 05:20 Pelger-Huet Anomaly Not Reportable 06/25/17 05:20 Luz Maria Rods Not Reportable 06/25/17 05:20 Platelet Estimate Not Reportable 06/25/17 05:20 Clumped Platelets Not Reportable 06/25/17 05:20 Plt Clumps, EDTA Not Reportable 06/25/17 05:20 Large Platelets Not Reportable 06/25/17 05:20 Giant Platelets Not Reportable 06/25/17 05:20 Platelet Satelliting Not Reportable 06/25/17 05:20 Plt Morphology Comment Not Reportable 06/25/17 05:20 RBC Morphology Not Reportable 06/25/17 05:20 Dimorphic RBCs Not Reportable 06/25/17 05:20 Polychromasia Not Reportable 06/25/17 05:20 Hypochromasia Not Reportable 06/25/17 05:20 Poikilocytosis Few 06/25/17 05:20 Anisocytosis 1+ 06/25/17 05:20 Microcytosis Not Reportable 06/25/17 05:20 Macrocytosis Not Reportable 06/25/17 05:20 Spherocytes Not Reportable 06/25/17 05:20 Pappenheimer Bodies Not Reportable 06/25/17 05:20 Sickle Cells Not Reportable 06/25/17 05:20 Target Cells Not Reportable 06/25/17 05:20 Tear Drop Cells Not Reportable 06/25/17 05:20 Ovalocytes Not Reportable 06/25/17 05:20 Stomatocytes 2+ 06/24/17 06:31 Helmet Cells Not Reportable 06/25/17 05:20 Marinelli-Tijeras Bodies Not Reportable 06/25/17 05:20 [place] Rings Not Reportable 06/25/17 05:20 Helper Cells Not Reportable 06/25/17 05:20 Bite Cells Not Reportable 06/25/17 05:20 Crenated Cell Not Reportable 06/25/17 05:20 Elliptocytes Not Reportable 06/25/17 05:20 Acanthocytes (Spur) Not Reportable 06/25/17 05:20 Rouleaux Not Reportable 06/25/17 05:20 Hemoglobin C Crystals Not Reportable 06/25/17 05:20 Schistocytes Not Reportable 06/25/17 05:20 Malaria parasites Not Reportable 06/25/17 05:20 Franklyn Bodies Not Reportable 06/25/17 05:20 Hem Pathologist Commnt No 06/25/17 05:20 D-Dimer 747.03 ng/mlDDU (0-234) H 06/20/17 19:00 POC ABG pH 7.497 (7.35-7.45) H 06/27/17 09:52 POC ABG pCO2 38.1 (35-45) 06/27/17 09:52 POC ABG pO2 71 (80-105) L 06/27/17 09:52 POC ABG HCO3 29.6 06/27/17 09:52 POC ABG Total CO2 31 06/27/17 09:52 POC ABG O2 Sat 95 06/27/17 09:52 POC ABG Base Excess 6 06/27/17 09:52 FiO2 40 % 06/27/17 09:52 Sodium 151 mmol/L (137-145) H 06/26/17 05:30 Potassium 5.0 mmol/L (3.6-5.0) 06/26/17 05:30 Chloride 110.2 mmol/L (98-107) H 06/26/17 05:30 Carbon Dioxide 32 mmol/L (22-30) H 06/26/17 05:30 Anion Gap 14 mmol/L 06/26/17 05:30 BUN 43 mg/dL (9-20) H 06/26/17 05:30 Creatinine 0.9 mg/dL (0.8-1.5) 06/26/17 05:30 Estimated GFR > 60 ml/min 06/26/17 05:30 BUN/Creatinine Ratio 48 % 06/26/17 05:30 Glucose 154 mg/dL (75-100) H 06/26/17 05:30 POC Glucose 141 (70-105) H 06/27/17 00:28 Lactic Acid 1.50 mmol/L (0.7-2.0) 06/20/17 11:35 Calcium 8.7 mg/dL (8.4-10.2) 06/26/17 05:30 Phosphorus 7.20 mg/dL (2.5-4.5) H 06/21/17 18:15 Magnesium 1.70 mg/dL (1.7-2.3) 06/21/17 18:15 Total Bilirubin 2.10 mg/dL (0.1-1.2) H 06/20/17 19:00 AST 157 units/L (5-40) H 06/20/17 19:00 ALT 119 units/L (7-56) H 06/20/17 19:00 Alkaline Phosphatase 133 units/L (35-129) H 06/20/17 19:00 Total Creatine Kinase 228 units/L (55-170) H 06/22/17 04:19 CK-MB (CK-2) 6.3 ng/mL (0.0-4.0) H 06/22/17 04:19 CK-MB (CK-2) Rel Index 2.7 (0-4) 06/22/17 04:19 Troponin T 0.031 ng/mL (0.00-0.029) H D 06/22/17 04:19 C-Reactive Protein 3.90 mg/dL (0.00-1.30) H 06/21/17 18:15 NT-Pro-B Natriuret Pep 86849 pg/mL (0-900) H 06/20/17 19:00 Total Protein 6.0 g/dL (6.3-8.2) L 06/20/17 19:00 Albumin 3.7 g/dL (3.9-5) L 06/20/17 19:00 Albumin/Globulin Ratio 1.6 % 06/20/17 19:00 Triglycerides 114 mg/dL (2-149) 06/20/17 19:00 Cholesterol 212 mg/dL (50-199) H 06/20/17 19:00 LDL Cholesterol Direct 103 mg/dL (50-130) 06/20/17 19:00 HDL Cholesterol 87 mg/dL (40-59) H 06/20/17 19:00 Cholesterol/HDL Ratio 2.43 % 06/20/17 19:00 Vitamin B12 756.4 pg/mL (211-911) 06/25/17 16:07 Urine Color Yellow (Yellow) 06/21/17 05:29 Urine Turbidity Clear (Clear) 06/21/17 05:29 Urine pH 5.0 (5.0-7.0) 06/21/17 05:29 Ur Specific [place] 1.049 (1.003-1.030) H 06/21/17 05:29 Urine Protein <15 mg/dl mg/dL (Negative) 06/21/17 05:29 Urine Glucose (UA) Neg mg/dL (Negative) 06/21/17 05:29 Urine Ketones Neg mg/dL (Negative) 06/21/17 05:29 Urine Blood Mod (Negative) 06/21/17 05:29 Urine Nitrite Neg (Negative) 06/21/17 05:29 Urine Bilirubin Neg (Negative) 06/21/17 05:29 Urine Urobilinogen < 2.0 mg/dL (<2.0) 06/21/17 05:29 Ur Leukocyte Esterase Tr (Negative) 06/21/17 05:29 Urine WBC (Auto) 11.0 /HPF (0.0-6.0) H 06/21/17 05:29 Urine RBC (Auto) 2.0 /HPF (0.0-6.0) 06/21/17 05:29 U Epithel Cells (Auto) < 1.0 /HPF (0-13.0) 06/21/17 05:29 Urine Bacteria (Auto) 1+ /HPF (Negative) 06/21/17 05:29 Urine Creatinine 136.8 mg/dL (0.1-20.0) H 06/23/17 04:10 Urine Sodium 34 mmol/L 06/23/17 04:10 Urine Total Protein 41 mg/dL (5-11.8) H 06/23/17 04:10 Random Vancomycin 7.4 ug/mL (0-40.0) 06/23/17 04:20 Urine Opiates Screen Presumptive negative 06/21/17 05:29 Urine Methadone Screen Presumptive negative 06/21/17 05:29 Ur Barbiturates Screen Presumptive negative 06/21/17 05:29 Ur Phencyclidine Scrn Presumptive negative 06/21/17 05:29 Ur Amphetamines Screen Presumptive negative 06/21/17 05:29 U Benzodiazepines Scrn Presumptive positive 06/21/17 05:29 Urine Cocaine Screen Presumptive negative 06/21/17 05:29 U Marijuana (THC) Screen Presumptive negative 06/21/17 05:29 Drugs of Abuse Note Disclamer 06/21/17 05:29 Hepatitis A IgM Ab Non-reactive (NonReactive) 06/21/17 11:35 Hep Bs Antigen Non-reactive (Negative) 06/21/17 11:35 Hep B Core IgM Ab Non-reactive (NonReactive) 06/21/17 11:35 Hepatitis C Antibody Non-reactive (NonReactive) 06/21/17 11:35
[2017-06-27] MEDS: D5W 1,000 ML IV SCH (18:03)
[2017-06-27] MEDS ORDERED: MILK OF MAGNESIA PO ONE (21:00)
[2017-06-28] MEDS: LIBRIUM PO SCH ×3 (04:02→20:25)
[2017-06-28] MEDS: DUONEB *Not for PRN Use IH SCH ×7 (04:39→19:11)
[2017-06-28] MEDS: APRESOLINE PO SCH ×3 (06:12→22:57)
[2017-06-28] MEDS: D5W 1,000 ML IV SCH (06:13)
[2017-06-28 06:41] LABS: BUN/Creatinine Ratio 34; Blood Urea Nitrogen 24 mg/dL (9-20); Calcium 8.4 mg/dL (8.4-10.2); Hemolysis Index 32
[2017-06-28] MEDS: KEPPRA PO SCH ×2 (09:14→22:58)
[2017-06-28] MEDS: BABY ASPIRIN PO SCH (09:15)
[2017-06-28] MEDS: COREG PO SCH ×2 (09:15→22:58)
[2017-06-28] MEDS: HEPARIN SUB-Q SCH ×3 (09:15→20:25)
[2017-06-28] MEDS: PEPCID PO SCH ×2 (09:15→22:58)
[2017-06-28] MEDS: DELTASONE PO SCH (09:15)
[2017-06-28] MEDS ORDERED: TYLENOL PO PRN (09:50)
[2017-06-28] MEDS ORDERED: LEVAQUIN 750MG/150ML 750 MG/150 ML BAG IV SCH ×2 (10:00)
--- NOTE | 2017-06-28 10:51 | Progress Note ---
Assessment and Plan Respiratory failure on mechanical ventilation Acute systolic heart failure Echocardiogram shows a dilated cardiomyopathy with left ventricular ejection fraction 20-25%. In addition there is a thickened and calcified aortic valve with mild aortic stenosis and severe eccentric aortic regurgitation Sepsis Pneumonia Acute renal failure Nonspecifically elevated cardiac enzymes Non sustained ventricular tachycardia no reoccurrence Recommendations: Continue medical therapy for heart failure. Further evaluation of his aortic regurgitation is warranted once medically stable (this can be done as outpatient) Will continue to follow. Subjective Date of service: 06/28/17 Principal diagnosis: Acute Hypoxemic Hypercapnic Resp Failure; Bilateral Pneumonis (?Aspiration) Interval history: Patient was extubated Tele is showing SR Objective Vital Signs Temp Pulse Pulse Resp Resp BP Pulse Ox 06/28/17 09:44 92 06/28/17 09:43 92 H 21 06/28/17 09:15 89 135/64 06/28/17 08:30 94 H 18 136/59 92 06/28/17 08:00 97.7 F 87 31 H 136/59 90 06/28/17 07:30 85 20 139/59 92 06/28/17 07:00 138/62 90 06/28/17 06:30 87 139/59 95 06/28/17 06:12 90 139/59 06/28/17 06:00 139/59 06/28/17 05:30 87 22 136/59 06/28/17 05:00 82 29 H 136/59 06/28/17 04:30 85 26 H 127/60 06/28/17 04:00 69 4 L 127/60 95 06/28/17 03:30 83 128/67 93 06/28/17 03:25 98.4 F 06/28/17 03:00 86 123/60 93 06/28/17 02:30 86 123/60 94 06/28/17 02:00 87 123/60 06/28/17 01:30 93 H 22 129/61 93 06/28/17 01:00 98 H 30 H 132/59 96 06/28/17 00:30 91 H 20 132/59 95 06/28/17 00:02 96 H 28 H 150/64 94 06/28/17 00:00 93 H 25 H 132/59 94 06/27/17 23:35 98.2 F 06/27/17 23:30 90 28 H 150/64 92 06/27/17 23:00 87 150/64 06/27/17 22:30 86 145/59 96 06/27/17 22:15 88 145/59 06/27/17 22:00 84 145/59 96 06/27/17 21:30 86 144/67 96 06/27/17 21:00 91 H 144/67 91 06/27/17 20:30 85 139/69 94 06/27/17 20:00 94 H 152/64 92 06/27/17 19:48 98.7 F 06/27/17 19:30 92 H 152/64 94 06/27/17 19:00 86 152/64 92 06/27/17 18:30 95 H 142/64 93 06/27/17 18:00 92 H 142/64 91 06/27/17 17:30 87 141/70 94 06/27/17 17:00 88 141/70 96 06/27/17 16:30 81 27 H 133/62 95 06/27/17 16:00 98.0 F 84 21 133/62 93 06/27/17 15:30 77 21 142/60 93 06/27/17 15:15 94 06/27/17 15:00 83 23 142/60 90 06/27/17 14:30 81 18 137/57 92 06/27/17 14:00 81 22 137/57 92 06/27/17 13:30 73 17 143/60 92 06/27/17 13:21 77 143/60 06/27/17 13:00 71 14 143/60 94 06/27/17 12:30 71 12 130/55 95 06/27/17 12:00 98.6 F 72 11 L 130/55 93 06/27/17 11:30 80 18 130/53 95 06/27/17 11:29 74 20 96 06/27/17 11:00 70 15 130/53 92 - Physical Examination General: Other (intubated on the vent) HEENT: Positive: PERRL Neck: Positive: neck supple, trachea midline Cardiac: Positive: Reg Rate and Rhythm, Diastolic Murmur Lungs: Positive: Normal Exam Neuro: Positive: Other (sedated, on the ventilator) Abdomen: Positive: Soft, Active Bowel Sounds Skin: Positive: Clear Extremities: Absent: edema - Labs and Meds Comprehensive Metabolic Panel 01/20/18 Range/Units 06:10 Sodium 140 D (137-145) mmol/L Potassium 3.7 D (3.6-5.0) mmol/L Chloride 102.2 (98-107) mmol/L Carbon Dioxide 29 (22-30) mmol/L BUN 24 H (9-20) mg/dL Creatinine 0.7 L (0.8-1.5) mg/dL Glucose 91 (75-100) mg/dL Calcium 8.4 (8.4-10.2) mg/dL - Allied health notes Allied health notes reviewed: nursing
--- NOTE | 2017-06-28 11:11 | XRay Report ---
AP CHEST: HISTORY: Pneumonia Lines and support devices have been removed since 06/25/17. Heart size is remains at the upper limits of normal. There is decreased vascular congestion. Minor atelectatic changes are noted in the right lower lobe. Otherwise the lungs are generally clear. IMPRESSION: Unremarkable AP chest.
--- NOTE | 2017-06-28 12:03 | Progress Note ---
Assessment and Plan Acute hypoxemic respiratory failure, s/p mechanical ventilator support. Bilateral pneumonia, possibly aspiration with basilar predominance. Hypercapnia. Elevated D-dimer. Elevated transaminases. Hyperlipidemia. Possible urinary tract infection. -Continue to monitor respiratory status - continue bronchodilators and pulmonary hygiene per RT - continue enteral nutrition as tolerated - continue empiric AB's and follow cultures - continue GI & VTE prophylaxis Subjective Date of service: 06/28/17 Principal diagnosis: Acute Hypoxemic Hypercapnic Resp Failure; Bilateral Pneumonis (?Aspiration) Interval history: Patient is seen today for: Acute Hypoxemic Hypercapnic Resp Failure; Bilateral Pneumonia(Aspiration) Seen and examined at bedside; 24hour events reviewed; nursing and respiratory care staff consulted; no adverse overnight events reported to me; extubated yesterday. No episodes of desaturations, maintaining his airway. Vitals, labs, medications, chart reviewed. Objective - Exam Narrative Exam: The patient appeared well nourished and normally developed. Vital signs as documented. Head exam is unremarkable. No scleral icterus . Neck is without jugular venous distension, thyromegaly, or carotid bruits. Lungs are coarse creptations bilaterally, decreased air entry bilaterally . Cardiac exam reveals regular rate and Rhythm. First and second heart sounds normal. No murmurs, rubs or gallops. Abdominal exam reveals normal bowel sounds, no masses, no organomegaly and no aortic enlargement. Extremities are nonedematous and both femoral and pedal pulses are normal. [employer]: Awake, alert Vital Signs - 12hr 06/28/17 06/28/17 06/28/17 00:02 00:30 01:00 Temperature Pulse Rate 96 H 91 H 98 H Pulse Rate [ Anterior Left Lower Lobe] Respiratory 28 H 20 30 H Rate Respiratory Rate [Anterior Left Lower Lobe ] Blood Pressure 150/64 132/59 132/59 O2 Sat by Pulse 94 95 96 Oximetry 06/28/17 06/28/17 06/28/17 01:30 02:00 02:30 Temperature Pulse Rate 93 H 87 86 Pulse Rate [ Anterior Left Lower Lobe] Respiratory 22 Rate Respiratory Rate [Anterior Left Lower Lobe ] Blood Pressure 129/61 123/60 123/60 O2 Sat by Pulse 93 94 Oximetry 06/28/17 06/28/17 06/28/17 03:00 03:25 03:30 Temperature 98.4 F Pulse Rate 86 83 Pulse Rate [ Anterior Left Lower Lobe] Respiratory Rate Respiratory Rate [Anterior Left Lower Lobe ] Blood Pressure 123/60 128/67 O2 Sat by Pulse 93 93 Oximetry 06/28/17 06/28/17 06/28/17 04:00 04:30 05:00 Temperature Pulse Rate 69 85 82 Pulse Rate [ Anterior Left Lower Lobe] Respiratory 4 L 26 H 29 H Rate Respiratory Rate [Anterior Left Lower Lobe ] Blood Pressure 127/60 127/60 136/59 O2 Sat by Pulse 95 Oximetry 06/28/17 06/28/17 06/28/17 05:30 06:00 06:12 Temperature Pulse Rate 87 90 Pulse Rate [ Anterior Left Lower Lobe] Respiratory 22 Rate Respiratory Rate [Anterior Left Lower Lobe ] Blood Pressure 136/59 139/59 139/59 O2 Sat by Pulse Oximetry 06/28/17 06/28/17 06/28/17 06:30 07:00 07:30 Temperature Pulse Rate 87 85 Pulse Rate [ Anterior Left Lower Lobe] Respiratory 20 Rate Respiratory Rate [Anterior Left Lower Lobe ] Blood Pressure 139/59 138/62 139/59 O2 Sat by Pulse 95 90 92 Oximetry 06/28/17 06/28/17 06/28/17 08:00 08:30 09:00 Temperature 97.7 F Pulse Rate 87 94 H 90 Pulse Rate [ Anterior Left Lower Lobe] Respiratory 31 H 18 31 H Rate Respiratory Rate [Anterior Left Lower Lobe ] Blood Pressure 136/59 136/59 135/64 O2 Sat by Pulse 90 92 90 Oximetry 06/28/17 06/28/17 06/28/17 09:15 09:30 09:43 Temperature Pulse Rate 89 91 H Pulse Rate [ 92 H Anterior Left Lower Lobe] Respiratory 19 Rate Respiratory 21 Rate [Anterior Left Lower Lobe ] Blood Pressure 135/64 135/64 O2 Sat by Pulse 92 Oximetry 06/28/17 06/28/17 06/28/17 09:44 10:00 10:30 Temperature Pulse Rate 95 H 93 H Pulse Rate [ Anterior Left Lower Lobe] Respiratory 23 23 Rate Respiratory Rate [Anterior Left Lower Lobe ] Blood Pressure 123/56 123/56 O2 Sat by Pulse 92 92 90 Oximetry 06/28/17 06/28/17 11:00 11:17 Temperature Pulse Rate Pulse Rate [ Anterior Left Lower Lobe] Respiratory Rate Respiratory Rate [Anterior Left Lower Lobe ] Blood Pressure 123/56 O2 Sat by Pulse 93 Oximetry Constitutional: no acute distress, other (sedated) Eyes: non-icteric ENT: oropharynx moist, other (ETT at 22cm) Neck: supple, no lymphadenopathy, no JVD, other (No thyromegaly) Effort: mildly labored Ascultation: Bilateral: rales (bases) Percussion: Bilateral: not dull Cardiovascular: regular rate and rhythm, other (No rubs or murmurs) Gastrointestinal: normoactive bowel sounds, soft, non-tender, non-distended, other (No palpable HSM) Integumentary: normal Extremities: no cyanosis, no edema, pink and warm, pulses normal Neurologic: non-focal exam (grossly), unable to assess, other (sedated) Psychiatric: other (sedated) CBC and BMP: 06/26/17 05:30 06/28/17 06:10 ABG, PT/INR, D-dimer: ABG POC ABG pH 7.497 (7.35-7.45) H 06/27/17 09:52 POC ABG pCO2 38.1 (35-45) 06/27/17 09:52 POC ABG pO2 71 (80-105) L 06/27/17 09:52 POC ABG HCO3 29.6 06/27/17 09:52 POC ABG Total CO2 31 06/27/17 09:52 POC ABG O2 Sat 95 06/27/17 09:52 PT/INR, D-dimer D-Dimer 747.03 ng/mlDDU (0-234) H 06/20/17 19:00 Abnormal lab findings: Abnormal Labs 06/20/17 06/20/17 06/20/17 19:00 19:00 19:00 WBC RBC Hgb Hct MCV 100 H MCH 35 H MCHC 35 H RDW 18.8 H Lymph % (Auto) 4.1 L [place] % (Auto) 8.9 H Lymph # 0.4 L [place] # 0.9 H Seg Neutrophils % 86.2 H Seg Neuts % (Manual) Lymphocytes % (Manual) Seg Neutrophils # 8.6 H Seg Neutrophils # Man Lymphocytes # (Manual) D-Dimer 747.03 H POC ABG pH POC ABG pCO2 POC ABG pO2 Sodium Chloride Carbon Dioxide BUN Creatinine Glucose POC Glucose Calcium Phosphorus Total Bilirubin 2.10 H AST 157 H ALT 119 H Alkaline Phosphatase 133 H Total Creatine Kinase 285 H CK-MB (CK-2) 8.6 H Troponin T 0.043 H C-Reactive Protein NT-Pro-B Natriuret Pep 57138 H Total Protein 6.0 L Albumin 3.7 L Cholesterol 212 H HDL Cholesterol 87 H Ur Specific [place] Urine WBC (Auto) Urine Creatinine Urine Total Protein 06/20/17 06/21/17 06/21/17 23:18 04:40 05:29 WBC RBC Hgb Hct MCV MCH MCHC RDW Lymph % (Auto) [place] % (Auto) Lymph # [place] # Seg Neutrophils % Seg Neuts % (Manual) Lymphocytes % (Manual) Seg Neutrophils # Seg Neutrophils # Man Lymphocytes # (Manual) D-Dimer POC ABG pH POC ABG pCO2 53.9 H 47.1 H POC ABG pO2 221 H Sodium Chloride Carbon Dioxide BUN Creatinine Glucose POC Glucose Calcium Phosphorus Total Bilirubin AST ALT Alkaline Phosphatase Total Creatine Kinase CK-MB (CK-2) Troponin T C-Reactive Protein NT-Pro-B Natriuret Pep Total Protein Albumin Cholesterol HDL Cholesterol Ur Specific [place] 1.049 H Urine WBC (Auto) 11.0 H Urine Creatinine Urine Total Protein 06/21/17 06/21/17 06/21/17 07:50 07:50 13:33 WBC 12.0 H RBC Hgb Hct MCV 104 H MCH 35 H MCHC RDW 19.3 H Lymph % (Auto) [place] % (Auto) Lymph # [place] # Seg Neutrophils % Seg Neuts % (Manual) 93.0 H Lymphocytes % (Manual) 1.0 L Seg Neutrophils # Seg Neutrophils # Man 11.2 H Lymphocytes # (Manual) 0.1 L D-Dimer POC ABG pH POC ABG pCO2 POC ABG pO2 Sodium Chloride Carbon Dioxide BUN 21 H Creatinine Glucose 130 H POC Glucose Calcium 8.1 L Phosphorus Total Bilirubin AST ALT Alkaline Phosphatase Total Creatine Kinase CK-MB (CK-2) Troponin T 0.054 H D C-Reactive Protein NT-Pro-B Natriuret Pep Total Protein Albumin Cholesterol HDL Cholesterol Ur Specific [place] Urine WBC (Auto) Urine Creatinine Urine Total Protein 06/21/17 06/21/17 06/21/17 18:15 18:15 20:55 WBC RBC Hgb Hct MCV MCH MCHC RDW Lymph % (Auto) [place] % (Auto) Lymph # [place] # Seg Neutrophils % Seg Neuts % (Manual) Lymphocytes % (Manual) Seg Neutrophils # Seg Neutrophils # Man Lymphocytes # (Manual) D-Dimer POC ABG pH POC ABG pCO2 POC ABG pO2 Sodium Chloride Carbon Dioxide BUN Creatinine Glucose POC Glucose Calcium Phosphorus 7.20 H Total Bilirubin AST ALT Alkaline Phosphatase Total Creatine Kinase CK-MB (CK-2) Troponin T 0.042 H D C-Reactive Protein 3.90 H NT-Pro-B Natriuret Pep Total Protein Albumin Cholesterol HDL Cholesterol Ur Specific [place] Urine WBC (Auto) Urine Creatinine Urine Total Protein 06/22/17 06/22/17 06/22/17 03:03 04:19 04:19 WBC RBC 3.40 L Hgb 11.7 L Hct 35.1 L D MCV 103 H MCH 35 H MCHC RDW 18.7 H Lymph % (Auto) [place] % (Auto) Lymph # [place] # Seg Neutrophils % Seg Neuts % (Manual) 97.0 H Lymphocytes % (Manual) 1.0 L Seg Neutrophils # Seg Neutrophils # Man 10.2 H Lymphocytes # (Manual) 0.1 L D-Dimer POC ABG pH POC ABG pCO2 56.7 H POC ABG pO2 115 H Sodium Chloride Carbon Dioxide BUN 41 H Creatinine 1.6 H Glucose 126 H POC Glucose Calcium 7.7 L Phosphorus Total Bilirubin AST ALT Alkaline Phosphatase Total Creatine Kinase CK-MB (CK-2) Troponin T C-Reactive Protein NT-Pro-B Natriuret Pep Total Protein Albumin Cholesterol HDL Cholesterol Ur Specific [place] Urine WBC (Auto) Urine Creatinine Urine Total Protein 06/22/17 06/23/17 06/23/17 04:19 04:06 04:10 WBC RBC Hgb Hct MCV MCH MCHC RDW Lymph % (Auto) [place] % (Auto) Lymph # [place] # Seg Neutrophils % Seg Neuts % (Manual) Lymphocytes % (Manual) Seg Neutrophils # Seg Neutrophils # Man Lymphocytes # (Manual) D-Dimer POC ABG pH 7.492 H POC ABG pCO2 45.5 H POC ABG pO2 Sodium Chloride Carbon Dioxide BUN Creatinine Glucose POC Glucose Calcium Phosphorus Total Bilirubin AST ALT Alkaline Phosphatase Total Creatine Kinase 228 H CK-MB (CK-2) 6.3 H Troponin T 0.031 H D C-Reactive Protein NT-Pro-B Natriuret Pep Total Protein Albumin Cholesterol HDL Cholesterol Ur Specific [place] Urine WBC (Auto) Urine Creatinine 136.8 H Urine Total Protein 41 H 01/15/18 01/15/18 01/16/18 04:20 04:20 04:50 WBC 11.4 H RBC Hgb Hct MCV 102 H MCH 33 H MCHC RDW 18.9 H Lymph % (Auto) 5.5 L [place] % (Auto) Lymph # 0.6 L [place] # Seg Neutrophils % 87.7 H Seg Neuts % (Manual) Lymphocytes % (Manual) Seg Neutrophils # 10.0 H Seg Neutrophils # Man Lymphocytes # (Manual) D-Dimer POC ABG pH 7.331 L POC ABG pCO2 63.6 H POC ABG pO2 69 L Sodium 146 H Chloride Carbon Dioxide BUN 38 H Creatinine Glucose 107 H POC Glucose Calcium 8.2 L Phosphorus Total Bilirubin AST ALT Alkaline Phosphatase Total Creatine Kinase CK-MB (CK-2) Troponin T C-Reactive Protein NT-Pro-B Natriuret Pep Total Protein Albumin Cholesterol HDL Cholesterol Ur Specific [place] Urine WBC (Auto) Urine Creatinine Urine Total Protein 06/24/17 06/24/17 06/25/17 06:31 06:31 04:35 WBC RBC Hgb Hct MCV 104 H MCH 33 H MCHC RDW 18.5 H Lymph % (Auto) [place] % (Auto) Lymph # [place] # Seg Neutrophils % Seg Neuts % (Manual) 96.0 H Lymphocytes % (Manual) 3.0 L Seg Neutrophils # Seg Neutrophils # Man 8.3 H Lymphocytes # (Manual) 0.3 L D-Dimer POC ABG pH 7.471 H POC ABG pCO2 47.8 H POC ABG pO2 48 L Sodium 148 H Chloride Carbon Dioxide 32 H BUN 40 H Creatinine Glucose 154 H POC Glucose Calcium Phosphorus Total Bilirubin AST ALT Alkaline Phosphatase Total Creatine Kinase CK-MB (CK-2) Troponin T C-Reactive Protein NT-Pro-B Natriuret Pep Total Protein Albumin Cholesterol HDL Cholesterol Ur Specific [place] Urine WBC (Auto) Urine Creatinine Urine Total Protein 06/25/17 06/25/17 06/25/17 04:46 05:20 05:20 WBC RBC Hgb Hct MCV 103 H MCH 34 H MCHC RDW 18.6 H Lymph % (Auto) [place] % (Auto) Lymph # [place] # Seg Neutrophils % Seg Neuts % (Manual) 90.0 H Lymphocytes % (Manual) 6.0 L Seg Neutrophils # Seg Neutrophils # Man 9.5 H Lymphocytes # (Manual) 0.6 L D-Dimer POC ABG pH 7.479 H POC ABG pCO2 POC ABG pO2 79 L Sodium 149 H Chloride 109.1 H Carbon Dioxide BUN 40 H Creatinine Glucose 122 H POC Glucose Calcium Phosphorus Total Bilirubin AST ALT Alkaline Phosphatase Total Creatine Kinase CK-MB (CK-2) Troponin T C-Reactive Protein NT-Pro-B Natriuret Pep Total Protein Albumin Cholesterol HDL Cholesterol Ur Specific [place] Urine WBC (Auto) Urine Creatinine Urine Total Protein 06/26/17 06/26/17 06/26/17 03:59 05:30 05:30 WBC RBC Hgb Hct MCV 103 H MCH 34 H MCHC RDW 18.6 H Lymph % (Auto) 3.7 L [place] % (Auto) Lymph # 0.4 L [place] # Seg Neutrophils % 89.7 H Seg Neuts % (Manual) Lymphocytes % (Manual) Seg Neutrophils # 9.9 H Seg Neutrophils # Man Lymphocytes # (Manual) D-Dimer POC ABG pH 7.499 H POC ABG pCO2 POC ABG pO2 109 H Sodium 151 H Chloride 110.2 H Carbon Dioxide 32 H BUN 43 H Creatinine Glucose 154 H POC Glucose Calcium Phosphorus Total Bilirubin AST ALT Alkaline Phosphatase Total Creatine Kinase CK-MB (CK-2) Troponin T C-Reactive Protein NT-Pro-B Natriuret Pep Total Protein Albumin Cholesterol HDL Cholesterol Ur Specific [place] Urine WBC (Auto) Urine Creatinine Urine Total Protein 06/26/17 06/27/17 06/27/17 16:49 00:28 09:52 WBC RBC Hgb Hct MCV MCH MCHC RDW Lymph % (Auto) [place] % (Auto) Lymph # [place] # Seg Neutrophils % Seg Neuts % (Manual) Lymphocytes % (Manual) Seg Neutrophils # Seg Neutrophils # Man Lymphocytes # (Manual) D-Dimer POC ABG pH 7.477 H 7.497 H POC ABG pCO2 POC ABG pO2 71 L Sodium Chloride Carbon Dioxide BUN Creatinine Glucose POC Glucose 141 H Calcium Phosphorus Total Bilirubin AST ALT Alkaline Phosphatase Total Creatine Kinase CK-MB (CK-2) Troponin T C-Reactive Protein NT-Pro-B Natriuret Pep Total Protein Albumin Cholesterol HDL Cholesterol Ur Specific [place] Urine WBC (Auto) Urine Creatinine Urine Total Protein 06/28/17 06:10 WBC RBC Hgb Hct MCV MCH MCHC RDW Lymph % (Auto) [place] % (Auto) Lymph # [place] # Seg Neutrophils % Seg Neuts % (Manual) Lymphocytes % (Manual) Seg Neutrophils # Seg Neutrophils # Man Lymphocytes # (Manual) D-Dimer POC ABG pH POC ABG pCO2 POC ABG pO2 Sodium Chloride Carbon Dioxide BUN 24 H Creatinine 0.7 L Glucose POC Glucose Calcium Phosphorus Total Bilirubin AST ALT Alkaline Phosphatase Total Creatine Kinase CK-MB (CK-2) Troponin T C-Reactive Protein NT-Pro-B Natriuret Pep Total Protein Albumin Cholesterol HDL Cholesterol Ur Specific [place] Urine WBC (Auto) Urine Creatinine Urine Total Protein Allied health notes reviewed: nursing
--- NOTE | 2017-06-28 12:23 | Progress Note ---
Assessment and Plan - Patient Problems (1) Other acute kidney failure Current Visit: Yes Status: Acute Plan to address problem: resolved. will sign off for now. please call with any questions . (2) Transaminasemia Current Visit: Yes Status: Acute Plan to address problem: Hepatitis B and C negative. Follow-up liver function tests. (4) Hyperphosphatemia Current Visit: Yes Status: Acute Plan to address problem: Follow up phosphorus level in am. May need to start binder (5) Seizure Current Visit: Yes Status: Acute Plan to address problem: Possible seizure .Continue management (3) Hypernatremia Current Visit: Yes Status: Acute Plan to address problem: resolved. D/C D5W (4) Pneumonia Current Visit: Yes Status: Acute Plan to address problem: cont ABXs, no renal adjustment needed, given improved eGFR. Subjective Date of service: 06/28/17 Principal diagnosis: Acute Hypoxemic Hypercapnic Resp Failure; Bilateral Pneumonis (?Aspiration) Interval history: Pt awake, alert, in NAD Objective - Vital Signs Vital signs: Vital Signs - 12hr 06/28/17 06/28/17 06/28/17 00:30 01:00 01:30 Temperature Pulse Rate 91 H 98 H 93 H Pulse Rate [ Anterior Left Lower Lobe] Respiratory 20 30 H 22 Rate Respiratory Rate [Anterior Left Lower Lobe ] Blood Pressure 132/59 132/59 129/61 O2 Sat by Pulse 95 96 93 Oximetry 06/28/17 06/28/17 06/28/17 02:00 02:30 03:00 Temperature Pulse Rate 87 86 86 Pulse Rate [ Anterior Left Lower Lobe] Respiratory Rate Respiratory Rate [Anterior Left Lower Lobe ] Blood Pressure 123/60 123/60 123/60 O2 Sat by Pulse 94 93 Oximetry 06/28/17 06/28/17 06/28/17 03:25 03:30 04:00 Temperature 98.4 F Pulse Rate 83 69 Pulse Rate [ Anterior Left Lower Lobe] Respiratory 4 L Rate Respiratory Rate [Anterior Left Lower Lobe ] Blood Pressure 128/67 127/60 O2 Sat by Pulse 93 95 Oximetry 06/28/17 06/28/17 06/28/17 04:30 05:00 05:30 Temperature Pulse Rate 85 82 87 Pulse Rate [ Anterior Left Lower Lobe] Respiratory 26 H 29 H 22 Rate Respiratory Rate [Anterior Left Lower Lobe ] Blood Pressure 127/60 136/59 136/59 O2 Sat by Pulse Oximetry 06/28/17 06/28/17 06/28/17 06:00 06:12 06:30 Temperature Pulse Rate 90 87 Pulse Rate [ Anterior Left Lower Lobe] Respiratory Rate Respiratory Rate [Anterior Left Lower Lobe ] Blood Pressure 139/59 139/59 139/59 O2 Sat by Pulse 95 Oximetry 06/28/17 06/28/17 06/28/17 07:00 07:30 08:00 Temperature 97.7 F Pulse Rate 85 87 Pulse Rate [ Anterior Left Lower Lobe] Respiratory 20 31 H Rate Respiratory Rate [Anterior Left Lower Lobe ] Blood Pressure 138/62 139/59 136/59 O2 Sat by Pulse 90 92 90 Oximetry 06/28/17 06/28/17 06/28/17 08:30 09:00 09:15 Temperature Pulse Rate 94 H 90 89 Pulse Rate [ Anterior Left Lower Lobe] Respiratory 18 31 H Rate Respiratory Rate [Anterior Left Lower Lobe ] Blood Pressure 136/59 135/64 135/64 O2 Sat by Pulse 92 90 Oximetry 06/28/17 06/28/17 06/28/17 09:30 09:43 09:44 Temperature Pulse Rate 91 H Pulse Rate [ 92 H Anterior Left Lower Lobe] Respiratory 19 Rate Respiratory 21 Rate [Anterior Left Lower Lobe ] Blood Pressure 135/64 O2 Sat by Pulse 92 92 Oximetry 06/28/17 06/28/17 06/28/17 10:00 10:30 11:00 Temperature Pulse Rate 95 H 93 H Pulse Rate [ Anterior Left Lower Lobe] Respiratory 23 23 Rate Respiratory Rate [Anterior Left Lower Lobe ] Blood Pressure 123/56 123/56 123/56 O2 Sat by Pulse 92 90 Oximetry 06/28/17 11:17 Temperature Pulse Rate Pulse Rate [ Anterior Left Lower Lobe] Respiratory Rate Respiratory Rate [Anterior Left Lower Lobe ] Blood Pressure O2 Sat by Pulse 93 Oximetry - General Appearance General appearance: well-developed, well-nourished, appears stated age EENT: ATNC, PERRL, mucous membranes moist Neck: no JVD Respiratory: Present: Clear to Ascultation Cardiology: regular, S1S2 Gastrointestinal: normoactive bowel sounds Integumentary: no rash, other (no edema ) Neurologic: no focal deficit, alert and oriented x3, strength 5/5, CN 3-12 intact Psychiatric: mood/affect appropriate, cooperative - Lab 06/26/17 05:30 06/28/17 06:10 Most recent lab results Calcium 8.4 mg/dL (8.4-10.2) 06/28/17 06:10 Phosphorus 7.20 mg/dL (2.5-4.5) H 06/21/17 18:15 Magnesium 1.70 mg/dL (1.7-2.3) 06/21/17 18:15 Urine Creatinine 136.8 mg/dL (0.1-20.0) H 06/23/17 04:10 Urine Sodium 34 mmol/L 06/23/17 04:10 Urine Total Protein 41 mg/dL (5-11.8) H 06/23/17 04:10
--- NOTE | 2017-06-28 15:56 | Progress Note ---
Assessment and Plan Assessment and plan: Acute hypoxic respiratory failure - Patient was extubated yesterday and tolerated well Sepsis - Resolved Aspiration pneumonia -Treated with IV antibiotics Acute combined systolic and diastolic congestive heart failure - Echo showed EF of 20-25% with diastolic dysfunction - Cardiology consult appreciated - Patient is on carvedilol Transaminitis - UDS is positive for benzo, acute hepatitis panel is negative DVT prophylaxis -Heparin Disposition -Transferred to the floor History Interval history: Patient was seen and evaluated this morning, patient was extubated yesterday and tolerated well. Hospitalist Physical - Physical exam Narrative exam: Patient is not in cardiopulmonary distress. Extubated yesterday. The patient appeared well nourished and normally developed. Vital signs as documented. Head exam is unremarkable. No scleral icterus . Neck is without jugular venous distension, thyromegaly, or carotid bruits. Lungs are coarse creptations bilaterally, decreased air entry bilaterally . Cardiac exam reveals regular rate and Rhythm. First and second heart sounds normal. No murmurs, rubs or gallops. Abdominal exam reveals normal bowel sounds, no masses, no organomegaly and no aortic enlargement. Extremities are nonedematous and both femoral and pedal pulses are normal. 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 - Constitutional Vitals: Temp Pulse Resp BP Pulse Ox 98 F 83 12 134/50 95 06/28/17 12:00 06/28/17 15:00 06/28/17 15:00 06/28/17 15:00 06/28/17 15:00 General appearance: Present: no acute distress Results - Labs CBC & Chem 7: 06/26/17 05:30 06/28/17 06:10 Labs: Laboratory Last Values WBC 11.0 K/mm3 (4.5-11.0) 06/26/17 05:30 RBC 4.06 M/mm3 (3.65-5.03) 06/26/17 05:30 Hgb 13.9 gm/dl (11.8-15.2) 06/26/17 05:30 Hct 41.8 % (35.5-45.6) 06/26/17 05:30 MCV 103 fl (84-94) H 06/26/17 05:30 MCH 34 pg (28-32) H 06/26/17 05:30 MCHC 33 % (32-34) 06/26/17 05:30 RDW 18.6 % (13.2-15.2) H 06/26/17 05:30 Plt Count 158 K/mm3 (140-440) 06/26/17 05:30 Lymph % (Auto) 3.7 % (13.4-35.0) L 06/26/17 05:30 [place] % (Auto) 6.5 % (0.0-7.3) 06/26/17 05:30 Eos % (Auto) 0.0 % (0.0-4.3) 06/26/17 05:30 Baso % (Auto) 0.1 % (0.0-1.8) 06/26/17 05:30 Lymph # 0.4 K/mm3 (1.2-5.4) L 06/26/17 05:30 Leslie # 0.7 K/mm3 (0.0-0.8) 06/26/17 05:30 Eos # 0.0 K/mm3 (0.0-0.4) 06/26/17 05:30 Baso # 0.0 K/mm3 (0.0-0.1) 06/26/17 05:30 Add Manual Diff Complete 06/25/17 05:20 Total Counted 100 06/25/17 05:20 Seg Neutrophils % 89.7 % (40.0-70.0) H 06/26/17 05:30 Seg Neuts % (Manual) 90.0 % (40.0-70.0) H 06/25/17 05:20 Band Neutrophils % 0 % 06/25/17 05:20 Lymphocytes % (Manual) 6.0 % (13.4-35.0) L 06/25/17 05:20 Reactive Lymphs % (Man) 0 % 06/25/17 05:20 Monocytes % (Manual) 4.0 % (0.0-7.3) 06/25/17 05:20 Eosinophils % (Manual) 0 % (0.0-4.3) 06/25/17 05:20 Basophils % (Manual) 0 % (0.0-1.8) 06/25/17 05:20 Metamyelocytes % 0 % 06/25/17 05:20 Myelocytes % 0 % 06/25/17 05:20 Promyelocytes % 0 % 06/25/17 05:20 Blast Cells % 0 % 06/25/17 05:20 Nucleated RBC % Not Reportable 06/25/17 05:20 Seg Neutrophils # 9.9 K/mm3 (1.8-7.7) H 06/26/17 05:30 Seg Neutrophils # Man 9.5 K/mm3 (1.8-7.7) H 06/25/17 05:20 Band Neutrophils # 0.0 K/mm3 06/25/17 05:20 Lymphocytes # (Manual) 0.6 K/mm3 (1.2-5.4) L 06/25/17 05:20 Abs React Lymphs (Man) 0.0 K/mm3 06/25/17 05:20 Monocytes # (Manual) 0.4 K/mm3 (0.0-0.8) 06/25/17 05:20 Eosinophils # (Manual) 0.0 K/mm3 (0.0-0.4) 06/25/17 05:20 Basophils # (Manual) 0.0 K/mm3 (0.0-0.1) 06/25/17 05:20 Metamyelocytes # 0.0 K/mm3 06/25/17 05:20 Myelocytes # 0.0 K/mm3 06/25/17 05:20 Promyelocytes # 0.0 K/mm3 06/25/17 05:20 Blast Cells # 0.0 K/mm3 06/25/17 05:20 WBC Morphology Not Reportable 06/25/17 05:20 Hypersegmented Neuts Not Reportable 06/25/17 05:20 Hyposegmented Neuts Not Reportable 06/25/17 05:20 Hypogranular Neuts Not Reportable 06/25/17 05:20 Smudge Cells Not Reportable 06/25/17 05:20 Toxic Granulation Not Reportable 06/25/17 05:20 Toxic Vacuolation Not Reportable 06/25/17 05:20 Dohle Bodies Not Reportable 06/25/17 05:20 Pelger-Huet Anomaly Not Reportable 06/25/17 05:20 Luz Maria Rods Not Reportable 06/25/17 05:20 Platelet Estimate Not Reportable 06/25/17 05:20 Clumped Platelets Not Reportable 06/25/17 05:20 Plt Clumps, EDTA Not Reportable 06/25/17 05:20 Large Platelets Not Reportable 06/25/17 05:20 Giant Platelets Not Reportable 06/25/17 05:20 Platelet Satelliting Not Reportable 06/25/17 05:20 Plt Morphology Comment Not Reportable 06/25/17 05:20 RBC Morphology Not Reportable 06/25/17 05:20 Dimorphic RBCs Not Reportable 06/25/17 05:20 Polychromasia Not Reportable 06/25/17 05:20 Hypochromasia Not Reportable 06/25/17 05:20 Poikilocytosis Few 06/25/17 05:20 Anisocytosis 1+ 06/25/17 05:20 Microcytosis Not Reportable 06/25/17 05:20 Macrocytosis Not Reportable 06/25/17 05:20 Spherocytes Not Reportable 06/25/17 05:20 Pappenheimer Bodies Not Reportable 06/25/17 05:20 Sickle Cells Not Reportable 06/25/17 05:20 Target Cells Not Reportable 06/25/17 05:20 Tear Drop Cells Not Reportable 06/25/17 05:20 Ovalocytes Not Reportable 06/25/17 05:20 Stomatocytes 2+ 06/24/17 06:31 Helmet Cells Not Reportable 06/25/17 05:20 Marinelli-[place] Bodies Not Reportable 06/25/17 05:20 [place] Rings Not Reportable 06/25/17 05:20 [place] Cells Not Reportable 06/25/17 05:20 Bite Cells Not Reportable 06/25/17 05:20 Crenated Cell Not Reportable 06/25/17 05:20 Elliptocytes Not Reportable 06/25/17 05:20 Acanthocytes (Spur) Not Reportable 06/25/17 05:20 Rouleaux Not Reportable 06/25/17 05:20 Hemoglobin C Crystals Not Reportable 06/25/17 05:20 Schistocytes Not Reportable 06/25/17 05:20 Malaria parasites Not Reportable 06/25/17 05:20 [place] Bodies Not Reportable 06/25/17 05:20 Hem Pathologist Commnt No 06/25/17 05:20 D-Dimer 747.03 ng/mlDDU (0-234) H 06/20/17 19:00 POC ABG pH 7.497 (7.35-7.45) H 06/27/17 09:52 POC ABG pCO2 38.1 (35-45) 06/27/17 09:52 POC ABG pO2 71 (80-105) L 06/27/17 09:52 POC ABG HCO3 29.6 06/27/17 09:52 POC ABG Total CO2 31 06/27/17 09:52 POC ABG O2 Sat 95 06/27/17 09:52 POC ABG Base Excess 6 06/27/17 09:52 FiO2 40 % 06/27/17 09:52 Sodium 140 mmol/L (137-145) D 06/28/17 06:10 Potassium 3.7 mmol/L (3.6-5.0) D 06/28/17 06:10 Chloride 102.2 mmol/L (98-107) 06/28/17 06:10 Carbon Dioxide 29 mmol/L (22-30) 06/28/17 06:10 Anion Gap 13 mmol/L 06/28/17 06:10 BUN 24 mg/dL (9-20) H 06/28/17 06:10 Creatinine 0.7 mg/dL (0.8-1.5) L 06/28/17 06:10 Estimated GFR > 60 ml/min 06/28/17 06:10 BUN/Creatinine Ratio 34 % 06/28/17 06:10 Glucose 91 mg/dL (75-100) 06/28/17 06:10 POC Glucose 141 (70-105) H 06/27/17 00:28 Lactic Acid 1.50 mmol/L (0.7-2.0) 06/20/17 11:35 Calcium 8.4 mg/dL (8.4-10.2) 06/28/17 06:10 Phosphorus 7.20 mg/dL (2.5-4.5) H 06/21/17 18:15 Magnesium 1.70 mg/dL (1.7-2.3) 06/21/17 18:15 Total Bilirubin 2.10 mg/dL (0.1-1.2) H 06/20/17 19:00 AST 157 units/L (5-40) H 06/20/17 19:00 ALT 119 units/L (7-56) H 06/20/17 19:00 Alkaline Phosphatase 133 units/L (35-129) H 06/20/17 19:00 Total Creatine Kinase 228 units/L (55-170) H 06/22/17 04:19 CK-MB (CK-2) 6.3 ng/mL (0.0-4.0) H 06/22/17 04:19 CK-MB (CK-2) Rel Index 2.7 (0-4) 06/22/17 04:19 Troponin T 0.031 ng/mL (0.00-0.029) H D 06/22/17 04:19 C-Reactive Protein 3.90 mg/dL (0.00-1.30) H 06/21/17 18:15 NT-Pro-B Natriuret Pep 19509 pg/mL (0-900) H 06/20/17 19:00 Total Protein 6.0 g/dL (6.3-8.2) L 06/20/17 19:00 Albumin 3.7 g/dL (3.9-5) L 06/20/17 19:00 Albumin/Globulin Ratio 1.6 % 06/20/17 19:00 Triglycerides 114 mg/dL (2-149) 06/20/17 19:00 Cholesterol 212 mg/dL (50-199) H 06/20/17 19:00 LDL Cholesterol Direct 103 mg/dL (50-130) 06/20/17 19:00 HDL Cholesterol 87 mg/dL (40-59) H 06/20/17 19:00 Cholesterol/HDL Ratio 2.43 % 06/20/17 19:00 Vitamin B12 756.4 pg/mL (211-911) 06/25/17 16:07 Urine Color Yellow (Yellow) 06/21/17 05:29 Urine Turbidity Clear (Clear) 06/21/17 05:29 Urine pH 5.0 (5.0-7.0) 06/21/17 05:29 Ur Specific [place] 1.049 (1.003-1.030) H 06/21/17 05:29 Urine Protein <15 mg/dl mg/dL (Negative) 06/21/17 05:29 Urine Glucose (UA) Neg mg/dL (Negative) 06/21/17 05:29 Urine Ketones Neg mg/dL (Negative) 06/21/17 05:29 Urine Blood Mod (Negative) 06/21/17 05:29 Urine Nitrite Neg (Negative) 06/21/17 05:29 Urine Bilirubin Neg (Negative) 06/21/17 05:29 Urine Urobilinogen < 2.0 mg/dL (<2.0) 06/21/17 05:29 Ur Leukocyte Esterase Tr (Negative) 06/21/17 05:29 Urine WBC (Auto) 11.0 /HPF (0.0-6.0) H 06/21/17 05:29 Urine RBC (Auto) 2.0 /HPF (0.0-6.0) 06/21/17 05:29 U Epithel Cells (Auto) < 1.0 /HPF (0-13.0) 06/21/17 05:29 Urine Bacteria (Auto) 1+ /HPF (Negative) 06/21/17 05:29 Urine Creatinine 136.8 mg/dL (0.1-20.0) H 06/23/17 04:10 Urine Sodium 34 mmol/L 06/23/17 04:10 Urine Total Protein 41 mg/dL (5-11.8) H 06/23/17 04:10 Random Vancomycin 7.4 ug/mL (0-40.0) 06/23/17 04:20 Urine Opiates Screen Presumptive negative 06/21/17 05:29 Urine Methadone Screen Presumptive negative 06/21/17 05:29 Ur Barbiturates Screen Presumptive negative 06/21/17 05:29 Ur Phencyclidine Scrn Presumptive negative 06/21/17 05:29 Ur Amphetamines Screen Presumptive negative 06/21/17 05:29 U Benzodiazepines Scrn Presumptive positive 06/21/17 05:29 Urine Cocaine Screen Presumptive negative 06/21/17 05:29 U Marijuana (THC) Screen Presumptive negative 06/21/17 05:29 Drugs of Abuse Note Disclamer 06/21/17 05:29 Hepatitis A IgM Ab Non-reactive (NonReactive) 06/21/17 11:35 Hep Bs Antigen Non-reactive (Negative) 06/21/17 11:35 Hep B Core IgM Ab Non-reactive (NonReactive) 06/21/17 11:35 Hepatitis C Antibody Non-reactive (NonReactive) 06/21/17 11:35
[2017-06-29] MEDS: DUONEB *Not for PRN Use IH SCH ×3 (03:10→21:04)
[2017-06-29] MEDS: LIBRIUM PO SCH ×3 (04:45→22:57)
[2017-06-29] MEDS: APRESOLINE PO SCH ×3 (06:06→22:56)
[2017-06-29] MEDS: DELTASONE PO SCH (09:30)
[2017-06-29] MEDS: PEPCID PO SCH ×2 (09:30→22:58)
[2017-06-29] MEDS: BABY ASPIRIN PO SCH (09:30)
[2017-06-29] MEDS: COREG PO SCH ×2 (09:31→22:57)
[2017-06-29] MEDS: HEPARIN SUB-Q SCH ×3 (09:32→20:55)
--- NOTE | 2017-06-29 10:45 | Progress Note ---
Assessment and Plan Respiratory failure Resolved Acute systolic heart failure Echocardiogram shows a dilated cardiomyopathy with left ventricular ejection fraction 20-25%. In addition there is a thickened and calcified aortic valve with mild aortic stenosis and severe eccentric aortic regurgitation Pseudocoarctation of the thoracic aorta and coronary calcifications noted on CTA Sepsis Pneumonia Acute renal failure - resolved Nonspecifically elevated cardiac enzymes Non-sustained ventricular tachycardia in the setting of sepsis no reoccurrence Recommendations: Continue medical therapy for heart failure. Add ACEi to current regimen and increase coreg to 6.25 mg po bid Discussed plan for his cardiomyopathy - he will need a RYDER as well as ischemic work-up. He prefers to have these done as outpatient. Patient is aware of his underlying heart disease. He was told of the underlying pathologies in the past but never sought medical attention. I gave him my contact information to call and schedule appointment Subjective Date of service: 06/29/17 Principal diagnosis: Acute Hypoxemic Hypercapnic Resp Failure; Bilateral Pneumonis (?Aspiration) Interval history: No cardiac events Patient is comfortable and ready to go home this morning Objective Vital Signs Temp Pulse Pulse Pulse Pulse Resp Resp 06/29/17 09:50 109 H 06/29/17 09:39 109 H 06/29/17 09:31 109 H 06/29/17 06:07 98.2 F 105 H 18 06/29/17 06:06 85 06/29/17 05:35 87 06/29/17 01:03 06/28/17 18:41 93 H 20 06/28/17 18:31 87 20 06/28/17 15:00 83 12 06/28/17 14:54 82 06/28/17 14:30 93 H 19 06/28/17 14:00 86 86 30 H 06/28/17 13:40 06/28/17 13:00 75 27 H 06/28/17 12:30 98 H 23 06/28/17 12:00 98 F 80 20 06/28/17 11:30 84 23 06/28/17 11:17 06/28/17 11:00 Resp BP BP Pulse Ox 06/29/17 09:50 06/29/17 09:39 193/77 06/29/17 09:31 193/77 06/29/17 06:07 168/82 98 06/29/17 06:06 168/82 06/29/17 05:35 06/29/17 01:03 97 06/28/17 18:41 06/28/17 18:31 94 06/28/17 15:00 134/50 95 06/28/17 14:54 127/58 06/28/17 14:30 127/54 66 L 06/28/17 14:00 26 H 127/58 06/28/17 13:40 126/63 95 06/28/17 13:00 127/54 91 06/28/17 12:30 126/63 93 06/28/17 12:00 126/63 91 06/28/17 11:30 123/56 95 06/28/17 11:17 93 06/28/17 11:00 123/56 - Physical Examination General: Other (intubated on the vent) HEENT: Positive: PERRL Neck: Positive: neck supple, trachea midline Cardiac: Positive: Reg Rate and Rhythm, Systolic Murmur, Diastolic Murmur Lungs: Positive: Decreased Breath Sounds Neuro: Positive: Other (sedated, on the ventilator) Abdomen: Positive: Soft, Active Bowel Sounds Skin: Positive: Clear Extremities: Absent: edema - Allied health notes Allied health notes reviewed: nursing
[2017-06-29] MEDS: KEPPRA PO SCH ×2 (13:08→22:57)
--- NOTE | 2017-06-29 16:56 | Progress Note ---
Assessment and Plan Assessment and plan: Acute hypoxic respiratory failure - Patient was extubated and tolerated well Sepsis - Resolved Aspiration pneumonia -Treated with IV antibiotics Acute combined systolic and diastolic congestive heart failure - Echo showed EF of 20-25% with diastolic dysfunction - Cardiology consult appreciated - Patient is on carvedilol Transaminitis - UDS is positive for benzo, acute hepatitis panel is negative Patient is alcoholic per his sister - on [facility] protocol Acute toxic encephalopathy - supportive care DVT prophylaxis -Heparin Disposition -Transferred to the floor History Interval history: Patient was seen and evaluated this morning, patient was extubated and tolerated well. Hospitalist Physical - Physical exam Narrative exam: Patient is not in cardiopulmonary distress. Extubated yesterday. The patient appeared well nourished and normally developed. Vital signs as documented. Head exam is unremarkable. No scleral icterus . Neck is without jugular venous distension, thyromegaly, or carotid bruits. Lungs are coarse creptations bilaterally, decreased air entry bilaterally . Cardiac exam reveals regular rate and Rhythm. First and second heart sounds normal. No murmurs, rubs or gallops. Abdominal exam reveals normal bowel sounds, no masses, no organomegaly and no aortic enlargement. Extremities are nonedematous and both femoral and pedal pulses are normal. 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 - Constitutional Vitals: Temp Pulse Resp BP Pulse Ox 98.4 F 99 H 20 104/52 93 06/29/17 13:22 06/29/17 16:30 06/29/17 13:22 06/29/17 16:30 06/29/17 13:22 General appearance: Present: no acute distress Results - Labs CBC & Chem 7: 06/26/17 05:30 06/28/17 06:10 Labs: Laboratory Last Values WBC 11.0 K/mm3 (4.5-11.0) 06/26/17 05:30 RBC 4.06 M/mm3 (3.65-5.03) 06/26/17 05:30 Hgb 13.9 gm/dl (11.8-15.2) 06/26/17 05:30 Hct 41.8 % (35.5-45.6) 06/26/17 05:30 MCV 103 fl (84-94) H 06/26/17 05:30 MCH 34 pg (28-32) H 06/26/17 05:30 MCHC 33 % (32-34) 06/26/17 05:30 RDW 18.6 % (13.2-15.2) H 06/26/17 05:30 Plt Count 158 K/mm3 (140-440) 06/26/17 05:30 Lymph % (Auto) 3.7 % (13.4-35.0) L 06/26/17 05:30 [place] % (Auto) 6.5 % (0.0-7.3) 06/26/17 05:30 Eos % (Auto) 0.0 % (0.0-4.3) 06/26/17 05:30 Baso % (Auto) 0.1 % (0.0-1.8) 06/26/17 05:30 Lymph # 0.4 K/mm3 (1.2-5.4) L 06/26/17 05:30 [place] # 0.7 K/mm3 (0.0-0.8) 06/26/17 05:30 Eos # 0.0 K/mm3 (0.0-0.4) 06/26/17 05:30 Baso # 0.0 K/mm3 (0.0-0.1) 06/26/17 05:30 Add Manual Diff Complete 06/25/17 05:20 Total Counted 100 06/25/17 05:20 Seg Neutrophils % 89.7 % (40.0-70.0) H 06/26/17 05:30 Seg Neuts % (Manual) 90.0 % (40.0-70.0) H 06/25/17 05:20 Band Neutrophils % 0 % 06/25/17 05:20 Lymphocytes % (Manual) 6.0 % (13.4-35.0) L 06/25/17 05:20 Reactive Lymphs % (Man) 0 % 06/25/17 05:20 Monocytes % (Manual) 4.0 % (0.0-7.3) 06/25/17 05:20 Eosinophils % (Manual) 0 % (0.0-4.3) 06/25/17 05:20 Basophils % (Manual) 0 % (0.0-1.8) 06/25/17 05:20 Metamyelocytes % 0 % 06/25/17 05:20 Myelocytes % 0 % 06/25/17 05:20 Promyelocytes % 0 % 06/25/17 05:20 Blast Cells % 0 % 06/25/17 05:20 Nucleated RBC % Not Reportable 06/25/17 05:20 Seg Neutrophils # 9.9 K/mm3 (1.8-7.7) H 06/26/17 05:30 Seg Neutrophils # Man 9.5 K/mm3 (1.8-7.7) H 06/25/17 05:20 Band Neutrophils # 0.0 K/mm3 06/25/17 05:20 Lymphocytes # (Manual) 0.6 K/mm3 (1.2-5.4) L 06/25/17 05:20 Abs React Lymphs (Man) 0.0 K/mm3 06/25/17 05:20 Monocytes # (Manual) 0.4 K/mm3 (0.0-0.8) 06/25/17 05:20 Eosinophils # (Manual) 0.0 K/mm3 (0.0-0.4) 06/25/17 05:20 Basophils # (Manual) 0.0 K/mm3 (0.0-0.1) 06/25/17 05:20 Metamyelocytes # 0.0 K/mm3 06/25/17 05:20 Myelocytes # 0.0 K/mm3 06/25/17 05:20 Promyelocytes # 0.0 K/mm3 06/25/17 05:20 Blast Cells # 0.0 K/mm3 06/25/17 05:20 WBC Morphology Not Reportable 06/25/17 05:20 Hypersegmented Neuts Not Reportable 06/25/17 05:20 Hyposegmented Neuts Not Reportable 06/25/17 05:20 Hypogranular Neuts Not Reportable 06/25/17 05:20 Smudge Cells Not Reportable 06/25/17 05:20 Toxic Granulation Not Reportable 06/25/17 05:20 Toxic Vacuolation Not Reportable 06/25/17 05:20 Dohle Bodies Not Reportable 06/25/17 05:20 Pelger-Huet Anomaly Not Reportable 06/25/17 05:20 Luz Maria Rods Not Reportable 06/25/17 05:20 Platelet Estimate Not Reportable 06/25/17 05:20 Clumped Platelets Not Reportable 06/25/17 05:20 Plt Clumps, EDTA Not Reportable 06/25/17 05:20 Large Platelets Not Reportable 06/25/17 05:20 Giant Platelets Not Reportable 06/25/17 05:20 Platelet Satelliting Not Reportable 06/25/17 05:20 Plt Morphology Comment Not Reportable 06/25/17 05:20 RBC Morphology Not Reportable 06/25/17 05:20 Dimorphic RBCs Not Reportable 06/25/17 05:20 Polychromasia Not Reportable 06/25/17 05:20 Hypochromasia Not Reportable 06/25/17 05:20 Poikilocytosis Few 06/25/17 05:20 Anisocytosis 1+ 06/25/17 05:20 Microcytosis Not Reportable 06/25/17 05:20 Macrocytosis Not Reportable 06/25/17 05:20 Spherocytes Not Reportable 06/25/17 05:20 Pappenheimer Bodies Not Reportable 06/25/17 05:20 Sickle Cells Not Reportable 06/25/17 05:20 Target Cells Not Reportable 06/25/17 05:20 Tear Drop Cells Not Reportable 06/25/17 05:20 Ovalocytes Not Reportable 06/25/17 05:20 Stomatocytes 2+ 06/24/17 06:31 Helmet Cells Not Reportable 06/25/17 05:20 Marinelli-[place] Bodies Not Reportable 06/25/17 05:20 [place] Rings Not Reportable 06/25/17 05:20 [place] Cells Not Reportable 06/25/17 05:20 Bite Cells Not Reportable 06/25/17 05:20 Crenated Cell Not Reportable 06/25/17 05:20 Elliptocytes Not Reportable 06/25/17 05:20 Acanthocytes (Spur) Not Reportable 06/25/17 05:20 Rouleaux Not Reportable 06/25/17 05:20 Hemoglobin C Crystals Not Reportable 06/25/17 05:20 Schistocytes Not Reportable 06/25/17 05:20 Malaria parasites Not Reportable 06/25/17 05:20 [place] Bodies Not Reportable 06/25/17 05:20 Hem Pathologist Commnt No 06/25/17 05:20 D-Dimer 747.03 ng/mlDDU (0-234) H 06/20/17 19:00 POC ABG pH 7.497 (7.35-7.45) H 06/27/17 09:52 POC ABG pCO2 38.1 (35-45) 06/27/17 09:52 POC ABG pO2 71 (80-105) L 06/27/17 09:52 POC ABG HCO3 29.6 06/27/17 09:52 POC ABG Total CO2 31 06/27/17 09:52 POC ABG O2 Sat 95 06/27/17 09:52 POC ABG Base Excess 6 06/27/17 09:52 FiO2 40 % 06/27/17 09:52 Sodium 140 mmol/L (137-145) D 06/28/17 06:10 Potassium 3.7 mmol/L (3.6-5.0) D 06/28/17 06:10 Chloride 102.2 mmol/L (98-107) 06/28/17 06:10 Carbon Dioxide 29 mmol/L (22-30) 06/28/17 06:10 Anion Gap 13 mmol/L 06/28/17 06:10 BUN 24 mg/dL (9-20) H 06/28/17 06:10 Creatinine 0.7 mg/dL (0.8-1.5) L 06/28/17 06:10 Estimated GFR > 60 ml/min 06/28/17 06:10 BUN/Creatinine Ratio 34 % 06/28/17 06:10 Glucose 91 mg/dL (75-100) 06/28/17 06:10 POC Glucose 141 (70-105) H 06/27/17 00:28 Lactic Acid 1.50 mmol/L (0.7-2.0) 06/20/17 11:35 Calcium 8.4 mg/dL (8.4-10.2) 06/28/17 06:10 Phosphorus 7.20 mg/dL (2.5-4.5) H 06/21/17 18:15 Magnesium 1.70 mg/dL (1.7-2.3) 06/21/17 18:15 Total Bilirubin 2.10 mg/dL (0.1-1.2) H 06/20/17 19:00 AST 157 units/L (5-40) H 06/20/17 19:00 ALT 119 units/L (7-56) H 06/20/17 19:00 Alkaline Phosphatase 133 units/L (35-129) H 06/20/17 19:00 Total Creatine Kinase 228 units/L (55-170) H 06/22/17 04:19 CK-MB (CK-2) 6.3 ng/mL (0.0-4.0) H 06/22/17 04:19 CK-MB (CK-2) Rel Index 2.7 (0-4) 06/22/17 04:19 Troponin T 0.031 ng/mL (0.00-0.029) H D 06/22/17 04:19 C-Reactive Protein 3.90 mg/dL (0.00-1.30) H 06/21/17 18:15 NT-Pro-B Natriuret Pep 80650 pg/mL (0-900) H 06/20/17 19:00 Total Protein 6.0 g/dL (6.3-8.2) L 06/20/17 19:00 Albumin 3.7 g/dL (3.9-5) L 06/20/17 19:00 Albumin/Globulin Ratio 1.6 % 06/20/17 19:00 Triglycerides 114 mg/dL (2-149) 06/20/17 19:00 Cholesterol 212 mg/dL (50-199) H 06/20/17 19:00 LDL Cholesterol Direct 103 mg/dL (50-130) 06/20/17 19:00 HDL Cholesterol 87 mg/dL (40-59) H 06/20/17 19:00 Cholesterol/HDL Ratio 2.43 % 06/20/17 19:00 Vitamin B1 9 nmol/L (8-30) 06/25/17 16:34 Vitamin B12 756.4 pg/mL (211-911) 06/25/17 16:07 Urine Color Yellow (Yellow) 06/21/17 05:29 Urine Turbidity Clear (Clear) 06/21/17 05:29 Urine pH 5.0 (5.0-7.0) 06/21/17 05:29 Ur Specific [place] 1.049 (1.003-1.030) H 06/21/17 05:29 Urine Protein <15 mg/dl mg/dL (Negative) 06/21/17 05:29 Urine Glucose (UA) Neg mg/dL (Negative) 06/21/17 05:29 Urine Ketones Neg mg/dL (Negative) 06/21/17 05:29 Urine Blood Mod (Negative) 06/21/17 05:29 Urine Nitrite Neg (Negative) 06/21/17 05:29 Urine Bilirubin Neg (Negative) 06/21/17 05:29 Urine Urobilinogen < 2.0 mg/dL (<2.0) 06/21/17 05:29 Ur Leukocyte Esterase Tr (Negative) 06/21/17 05:29 Urine WBC (Auto) 11.0 /HPF (0.0-6.0) H 06/21/17 05:29 Urine RBC (Auto) 2.0 /HPF (0.0-6.0) 06/21/17 05:29 U Epithel Cells (Auto) < 1.0 /HPF (0-13.0) 06/21/17 05:29 Urine Bacteria (Auto) 1+ /HPF (Negative) 06/21/17 05:29 Urine Creatinine 136.8 mg/dL (0.1-20.0) H 06/23/17 04:10 Urine Sodium 34 mmol/L 06/23/17 04:10 Urine Total Protein 41 mg/dL (5-11.8) H 06/23/17 04:10 Random Vancomycin 7.4 ug/mL (0-40.0) 06/23/17 04:20 Urine Opiates Screen Presumptive negative 06/21/17 05:29 Urine Methadone Screen Presumptive negative 06/21/17 05:29 Ur Barbiturates Screen Presumptive negative 06/21/17 05:29 Ur Phencyclidine Scrn Presumptive negative 06/21/17 05:29 Ur Amphetamines Screen Presumptive negative 06/21/17 05:29 U Benzodiazepines Scrn Presumptive positive 06/21/17 05:29 Urine Cocaine Screen Presumptive negative 06/21/17 05:29 U Marijuana (THC) Screen Presumptive negative 06/21/17 05:29 Drugs of Abuse Note Disclamer 06/21/17 05:29 Hepatitis A IgM Ab Non-reactive (NonReactive) 06/21/17 11:35 Hep Bs Antigen Non-reactive (Negative) 06/21/17 11:35 Hep B Core IgM Ab Non-reactive (NonReactive) 06/21/17 11:35 Hepatitis C Antibody Non-reactive (NonReactive) 06/21/17 11:35
--- NOTE | 2017-06-29 22:13 | Progress Note ---
Assessment and Plan Patient alert, awake. Resting on room air. No complaint of chest pain or shortness of breath. O2 saturation 93%. - Patient Problems (1) Acute exacerbation of CHF (congestive heart failure) Current Visit: Yes Status: Acute Plan to address problem: Management as per cardiology. (2) Acute respiratory failure with hypoxia Current Visit: Yes Status: Acute Plan to address problem: Improved. No complaint of chest pain or shortness of breath. O2 saturation 93% on room air. Subjective Date of service: 06/29/17 Principal diagnosis: Acute Hypoxemic Hypercapnic Resp Failure; Bilateral Pneumonis (?Aspiration) Interval history: Patient alert, awake. Resting on room air. No complaint of chest pain or shortness of breath. O2 saturation 93%. Objective Vital Signs - 12hr 06/29/17 06/29/17 06/29/17 13:10 13:22 16:30 Temperature 98.4 F Pulse Rate 114 H 102 H 99 H Respiratory 20 Rate Blood Pressure 125/60 104/52 O2 Sat by Pulse 93 Oximetry 06/29/17 19:27 Temperature 98.2 F Pulse Rate 107 H Respiratory 18 Rate Blood Pressure 137/63 O2 Sat by Pulse 93 Oximetry Constitutional: no acute distress, alert Eyes: non-icteric ENT: oropharynx moist, other (ETT at 22cm) Neck: supple, no lymphadenopathy, no JVD, other (No thyromegaly) Effort: mildly labored Ascultation: Bilateral: rales (bases) Percussion: Bilateral: not dull Cardiovascular: regular rate and rhythm, other (No rubs or murmurs) Gastrointestinal: normoactive bowel sounds, soft, non-tender, non-distended, other (No palpable HSM) Integumentary: normal Extremities: no cyanosis, no edema, pink and warm, pulses normal Neurologic: non-focal exam (grossly), pupils equal and round, CN II-XII normal, other Psychiatric: other (sedated) CBC and BMP: 06/26/17 05:30 06/28/17 06:10 ABG, PT/INR, D-dimer: ABG POC ABG pH 7.497 (7.35-7.45) H 06/27/17 09:52 POC ABG pCO2 38.1 (35-45) 06/27/17 09:52 POC ABG pO2 71 (80-105) L 06/27/17 09:52 POC ABG HCO3 29.6 06/27/17 09:52 POC ABG Total CO2 31 06/27/17 09:52 POC ABG O2 Sat 95 06/27/17 09:52 PT/INR, D-dimer D-Dimer 747.03 ng/mlDDU (0-234) H 06/20/17 19:00 Abnormal lab findings: Abnormal Labs 06/20/17 06/20/17 06/20/17 19:00 19:00 19:00 WBC RBC Hgb Hct MCV 100 H MCH 35 H MCHC 35 H RDW 18.8 H Lymph % (Auto) 4.1 L [place] % (Auto) 8.9 H Lymph # 0.4 L [place] # 0.9 H Seg Neutrophils % 86.2 H Seg Neuts % (Manual) Lymphocytes % (Manual) Seg Neutrophils # 8.6 H Seg Neutrophils # Man Lymphocytes # (Manual) D-Dimer 747.03 H POC ABG pH POC ABG pCO2 POC ABG pO2 Sodium Chloride Carbon Dioxide BUN Creatinine Glucose POC Glucose Calcium Phosphorus Total Bilirubin 2.10 H AST 157 H ALT 119 H Alkaline Phosphatase 133 H Total Creatine Kinase 285 H CK-MB (CK-2) 8.6 H Troponin T 0.043 H C-Reactive Protein NT-Pro-B Natriuret Pep 90228 H Total Protein 6.0 L Albumin 3.7 L Cholesterol 212 H HDL Cholesterol 87 H Ur Specific [place] Urine WBC (Auto) Urine Creatinine Urine Total Protein 06/20/17 06/21/17 06/21/17 23:18 04:40 05:29 WBC RBC Hgb Hct MCV MCH MCHC RDW Lymph % (Auto) [place] % (Auto) Lymph # [place] # Seg Neutrophils % Seg Neuts % (Manual) Lymphocytes % (Manual) Seg Neutrophils # Seg Neutrophils # Man Lymphocytes # (Manual) D-Dimer POC ABG pH POC ABG pCO2 53.9 H 47.1 H POC ABG pO2 221 H Sodium Chloride Carbon Dioxide BUN Creatinine Glucose POC Glucose Calcium Phosphorus Total Bilirubin AST ALT Alkaline Phosphatase Total Creatine Kinase CK-MB (CK-2) Troponin T C-Reactive Protein NT-Pro-B Natriuret Pep Total Protein Albumin Cholesterol HDL Cholesterol Ur Specific [place] 1.049 H Urine WBC (Auto) 11.0 H Urine Creatinine Urine Total Protein 06/21/17 06/21/17 06/21/17 07:50 07:50 13:33 WBC 12.0 H RBC Hgb Hct MCV 104 H MCH 35 H MCHC RDW 19.3 H Lymph % (Auto) [place] % (Auto) Lymph # [place] # Seg Neutrophils % Seg Neuts % (Manual) 93.0 H Lymphocytes % (Manual) 1.0 L Seg Neutrophils # Seg Neutrophils # Man 11.2 H Lymphocytes # (Manual) 0.1 L D-Dimer POC ABG pH POC ABG pCO2 POC ABG pO2 Sodium Chloride Carbon Dioxide BUN 21 H Creatinine Glucose 130 H POC Glucose Calcium 8.1 L Phosphorus Total Bilirubin AST ALT Alkaline Phosphatase Total Creatine Kinase CK-MB (CK-2) Troponin T 0.054 H D C-Reactive Protein NT-Pro-B Natriuret Pep Total Protein Albumin Cholesterol HDL Cholesterol Ur Specific [place] Urine WBC (Auto) Urine Creatinine Urine Total Protein 06/21/17 06/21/17 06/21/17 18:15 18:15 20:55 WBC RBC Hgb Hct MCV MCH MCHC RDW Lymph % (Auto) [place] % (Auto) Lymph # [place] # Seg Neutrophils % Seg Neuts % (Manual) Lymphocytes % (Manual) Seg Neutrophils # Seg Neutrophils # Man Lymphocytes # (Manual) D-Dimer POC ABG pH POC ABG pCO2 POC ABG pO2 Sodium Chloride Carbon Dioxide BUN Creatinine Glucose POC Glucose Calcium Phosphorus 7.20 H Total Bilirubin AST ALT Alkaline Phosphatase Total Creatine Kinase CK-MB (CK-2) Troponin T 0.042 H D C-Reactive Protein 3.90 H NT-Pro-B Natriuret Pep Total Protein Albumin Cholesterol HDL Cholesterol Ur Specific [place] Urine WBC (Auto) Urine Creatinine Urine Total Protein 06/22/17 06/22/17 06/22/17 03:03 04:19 04:19 WBC RBC 3.40 L Hgb 11.7 L Hct 35.1 L D MCV 103 H MCH 35 H MCHC RDW 18.7 H Lymph % (Auto) [place] % (Auto) Lymph # [place] # Seg Neutrophils % Seg Neuts % (Manual) 97.0 H Lymphocytes % (Manual) 1.0 L Seg Neutrophils # Seg Neutrophils # Man 10.2 H Lymphocytes # (Manual) 0.1 L D-Dimer POC ABG pH POC ABG pCO2 56.7 H POC ABG pO2 115 H Sodium Chloride Carbon Dioxide BUN 41 H Creatinine 1.6 H Glucose 126 H POC Glucose Calcium 7.7 L Phosphorus Total Bilirubin AST ALT Alkaline Phosphatase Total Creatine Kinase CK-MB (CK-2) Troponin T C-Reactive Protein NT-Pro-B Natriuret Pep Total Protein Albumin Cholesterol HDL Cholesterol Ur Specific [place] Urine WBC (Auto) Urine Creatinine Urine Total Protein 06/22/17 06/23/17 06/23/17 04:19 04:06 04:10 WBC RBC Hgb Hct MCV MCH MCHC RDW Lymph % (Auto) [place] % (Auto) Lymph # [place] # Seg Neutrophils % Seg Neuts % (Manual) Lymphocytes % (Manual) Seg Neutrophils # Seg Neutrophils # Man Lymphocytes # (Manual) D-Dimer POC ABG pH 7.492 H POC ABG pCO2 45.5 H POC ABG pO2 Sodium Chloride Carbon Dioxide BUN Creatinine Glucose POC Glucose Calcium Phosphorus Total Bilirubin AST ALT Alkaline Phosphatase Total Creatine Kinase 228 H CK-MB (CK-2) 6.3 H Troponin T 0.031 H D C-Reactive Protein NT-Pro-B Natriuret Pep Total Protein Albumin Cholesterol HDL Cholesterol Ur Specific [place] Urine WBC (Auto) Urine Creatinine 136.8 H Urine Total Protein 41 H 06/23/17 06/23/17 06/24/17 04:20 04:20 04:50 WBC 11.4 H RBC Hgb Hct MCV 102 H MCH 33 H MCHC RDW 18.9 H Lymph % (Auto) 5.5 L [place] % (Auto) Lymph # 0.6 L [place] # Seg Neutrophils % 87.7 H Seg Neuts % (Manual) Lymphocytes % (Manual) Seg Neutrophils # 10.0 H Seg Neutrophils # Man Lymphocytes # (Manual) D-Dimer POC ABG pH 7.331 L POC ABG pCO2 63.6 H POC ABG pO2 69 L Sodium 146 H Chloride Carbon Dioxide BUN 38 H Creatinine Glucose 107 H POC Glucose Calcium 8.2 L Phosphorus Total Bilirubin AST ALT Alkaline Phosphatase Total Creatine Kinase CK-MB (CK-2) Troponin T C-Reactive Protein NT-Pro-B Natriuret Pep Total Protein Albumin Cholesterol HDL Cholesterol Ur Specific [place] Urine WBC (Auto) Urine Creatinine Urine Total Protein 06/24/17 06/24/17 06/25/17 06:31 06:31 04:35 WBC RBC Hgb Hct MCV 104 H MCH 33 H MCHC RDW 18.5 H Lymph % (Auto) [place] % (Auto) Lymph # [place] # Seg Neutrophils % Seg Neuts % (Manual) 96.0 H Lymphocytes % (Manual) 3.0 L Seg Neutrophils # Seg Neutrophils # Man 8.3 H Lymphocytes # (Manual) 0.3 L D-Dimer POC ABG pH 7.471 H POC ABG pCO2 47.8 H POC ABG pO2 48 L Sodium 148 H Chloride Carbon Dioxide 32 H BUN 40 H Creatinine Glucose 154 H POC Glucose Calcium Phosphorus Total Bilirubin AST ALT Alkaline Phosphatase Total Creatine Kinase CK-MB (CK-2) Troponin T C-Reactive Protein NT-Pro-B Natriuret Pep Total Protein Albumin Cholesterol HDL Cholesterol Ur Specific [place] Urine WBC (Auto) Urine Creatinine Urine Total Protein 06/25/17 06/25/17 06/25/17 04:46 05:20 05:20 WBC RBC Hgb Hct MCV 103 H MCH 34 H MCHC RDW 18.6 H Lymph % (Auto) [place] % (Auto) Lymph # [place] # Seg Neutrophils % Seg Neuts % (Manual) 90.0 H Lymphocytes % (Manual) 6.0 L Seg Neutrophils # Seg Neutrophils # Man 9.5 H Lymphocytes # (Manual) 0.6 L D-Dimer POC ABG pH 7.479 H POC ABG pCO2 POC ABG pO2 79 L Sodium 149 H Chloride 109.1 H Carbon Dioxide BUN 40 H Creatinine Glucose 122 H POC Glucose Calcium Phosphorus Total Bilirubin AST ALT Alkaline Phosphatase Total Creatine Kinase CK-MB (CK-2) Troponin T C-Reactive Protein NT-Pro-B Natriuret Pep Total Protein Albumin Cholesterol HDL Cholesterol Ur Specific Speed Urine WBC (Auto) Urine Creatinine Urine Total Protein 06/26/17 06/26/17 06/26/17 03:59 05:30 05:30 WBC RBC Hgb Hct MCV 103 H MCH 34 H MCHC RDW 18.6 H Lymph % (Auto) 3.7 L [place] % (Auto) Lymph # 0.4 L [place] # Seg Neutrophils % 89.7 H Seg Neuts % (Manual) Lymphocytes % (Manual) Seg Neutrophils # 9.9 H Seg Neutrophils # Man Lymphocytes # (Manual) D-Dimer POC ABG pH 7.499 H POC ABG pCO2 POC ABG pO2 109 H Sodium 151 H Chloride 110.2 H Carbon Dioxide 32 H BUN 43 H Creatinine Glucose 154 H POC Glucose Calcium Phosphorus Total Bilirubin AST ALT Alkaline Phosphatase Total Creatine Kinase CK-MB (CK-2) Troponin T C-Reactive Protein NT-Pro-B Natriuret Pep Total Protein Albumin Cholesterol HDL Cholesterol Ur Specific Speed Urine WBC (Auto) Urine Creatinine Urine Total Protein 06/26/17 06/27/17 06/27/17 16:49 00:28 09:52 WBC RBC Hgb Hct MCV MCH MCHC RDW Lymph % (Auto) [place] % (Auto) Lymph # [place] # Seg Neutrophils % Seg Neuts % (Manual) Lymphocytes % (Manual) Seg Neutrophils # Seg Neutrophils # Man Lymphocytes # (Manual) D-Dimer POC ABG pH 7.477 H 7.497 H POC ABG pCO2 POC ABG pO2 71 L Sodium Chloride Carbon Dioxide BUN Creatinine Glucose POC Glucose 141 H Calcium Phosphorus Total Bilirubin AST ALT Alkaline Phosphatase Total Creatine Kinase CK-MB (CK-2) Troponin T C-Reactive Protein NT-Pro-B Natriuret Pep Total Protein Albumin Cholesterol HDL Cholesterol Ur Specific Speed Urine WBC (Auto) Urine Creatinine Urine Total Protein 06/28/17 06:10 WBC RBC Hgb Hct MCV MCH MCHC RDW Lymph % (Auto) [place] % (Auto) Lymph # [place] # Seg Neutrophils % Seg Neuts % (Manual) Lymphocytes % (Manual) Seg Neutrophils # Seg Neutrophils # Man Lymphocytes # (Manual) D-Dimer POC ABG pH POC ABG pCO2 POC ABG pO2 Sodium Chloride Carbon Dioxide BUN 24 H Creatinine 0.7 L Glucose POC Glucose Calcium Phosphorus Total Bilirubin AST ALT Alkaline Phosphatase Total Creatine Kinase CK-MB (CK-2) Troponin T C-Reactive Protein NT-Pro-B Natriuret Pep Total Protein Albumin Cholesterol HDL Cholesterol Ur Specific [place] Urine WBC (Auto) Urine Creatinine Urine Total Protein Chest x-ray: report reviewed (Minor atelectatic changes right base,), image reviewed Allied health notes reviewed: nursing
[2017-06-30] MEDS: DUONEB *Not for PRN Use IH SCH ×3 (03:45→14:15)
[2017-06-30] MEDS: APRESOLINE PO SCH (06:22)
[2017-06-30] MEDS: LIBRIUM PO SCH ×2 (07:58→09:59)
[2017-06-30] MEDS: KEPPRA PO SCH ×2 (07:59→10:00)
[2017-06-30] MEDS: PEPCID PO SCH (09:59)
[2017-06-30] MEDS: COREG PO SCH (10:00)
[2017-06-30] MEDS: BABY ASPIRIN PO SCH (10:00)
[2017-06-30] MEDS: DELTASONE PO SCH (10:00)
[2017-06-30] MEDS: HEPARIN SUB-Q SCH (10:00)
[2017-06-30] MEDS ORDERED: ZESTRIL PO SCH (10:00)
--- NOTE | 2017-06-30 12:24 | Progress Note ---
Assessment and Plan Respiratory failure s/p extubation Acute systolic heart failure Echocardiogram shows a dilated cardiomyopathy with left ventricular ejection fraction 20-25%. In addition there is a thickened and calcified aortic valve with moderate aortic stenosis and moderate to severe aortic regurgitation. Sepsis Pneumonia Acute renal failure Nonspecifically elevated cardiac enzymes Non sustained ventricular tachycardia no reoccurrence Recommendations: Continue medical therapy for heart failure. Patient will need a RYDER as well as ischemic work-up. He prefers to have these done as outpatient. Stable, cardiac serna, for discharge home today. Subjective Date of service: 06/30/17 Principal diagnosis: Acute Hypoxemic Hypercapnic Resp Failure; Bilateral Pneumonis (?Aspiration) Interval history: Patient sitting up in bedside chair. He denies shortness of breath and chest pain. Wants to go home. Objective Vital Signs Temp Pulse Pulse Resp Resp BP Pulse Ox 06/30/17 08:54 94 H 17 06/30/17 08:00 94 H 17 06/30/17 04:40 98.4 F 18 129/48 06/30/17 00:23 18 96 06/29/17 23:16 97.9 F 105 H 18 124/65 94 06/29/17 22:57 107 H 137/63 06/29/17 22:56 107 H 137/63 06/29/17 19:27 98.2 F 107 H 18 137/63 93 06/29/17 16:30 99 H 104/52 06/29/17 13:22 98.4 F 102 H 20 125/60 93 06/29/17 13:10 114 H - Physical Examination General: No Apparent Distress HEENT: Positive: PERRL Neck: Positive: trachea midline Cardiac: Positive: Reg Rate and Rhythm Lungs: Positive: Decreased Breath Sounds Neuro: Positive: Grossly Intact Extremities: Absent: edema - Allied health notes Allied health notes reviewed: nursing
--- NOTE | 2017-06-30 13:01 | Progress Note ---
Assessment and Plan Acute hypoxemic respiratory failure, on mechanical ventilator support. Bilateral pneumonia, possibly aspiration with basilar predominance. Hypercapnia. Elevated D-dimer. Elevated transaminases. Hyperlipidemia. Possible urinary tract infection. - trial of extubation - continue aspiration precautions - continue bronchodilators and pulmonary hygiene per RT - hold tube feeds for extubation; ST evaluation post extubation - continue empiric AB's and follow cultures - continue GI & VTE prophylaxis - continue other care per attending / orther consultants ...35' Subjective Date of service: 06/30/17 Principal diagnosis: Acute Hypoxemic Hypercapnic Resp Failure; Bilateral Pneumonis (?Aspiration) Interval history: Patient is seen today for: Acute Hypoxemic Hypercapnic Resp Failure; Bilateral Pneumonis (?Aspiration) Seen and examined at bedside; 24hour events reviewed; nursing and respiratory care staff consulted; no adverse overnight events reported to me; remains on MVS ; Objective Vital Signs - 12hr 06/30/17 06/30/17 06/30/17 04:40 08:00 08:54 Temperature 98.4 F Pulse Rate [ 94 H 94 H Anterior Left Lower Lobe] Respiratory 18 Rate Respiratory 17 17 Rate [Anterior Left Lower Lobe ] Blood Pressure 129/48 Constitutional: no acute distress, other (sedated) Eyes: non-icteric ENT: oropharynx moist, other (ETT at 22cm) Neck: supple, no lymphadenopathy, no JVD, other (No thyromegaly) Effort: mildly labored Ascultation: Bilateral: rales (bases) Percussion: Bilateral: not dull Cardiovascular: regular rate and rhythm, other (No rubs or murmurs) Gastrointestinal: normoactive bowel sounds, soft, non-tender, non-distended, other (No palpable HSM) Integumentary: normal Extremities: no cyanosis, no edema, pink and warm, pulses normal Neurologic: non-focal exam (grossly), unable to assess, other (sedated) Psychiatric: other (sedated) CBC and BMP: 06/26/17 05:30 06/28/17 06:10 ABG, PT/INR, D-dimer: ABG POC ABG pH 7.497 (7.35-7.45) H 06/27/17 09:52 POC ABG pCO2 38.1 (35-45) 06/27/17 09:52 POC ABG pO2 71 (80-105) L 06/27/17 09:52 POC ABG HCO3 29.6 06/27/17 09:52 POC ABG Total CO2 31 06/27/17 09:52 POC ABG O2 Sat 95 06/27/17 09:52 PT/INR, D-dimer D-Dimer 747.03 ng/mlDDU (0-234) H 06/20/17 19:00 Abnormal lab findings: Abnormal Labs 06/20/17 06/20/17 06/20/17 19:00 19:00 19:00 WBC RBC Hgb Hct MCV 100 H MCH 35 H MCHC 35 H RDW 18.8 H Lymph % (Auto) 4.1 L [place] % (Auto) 8.9 H Lymph # 0.4 L [place] # 0.9 H Seg Neutrophils % 86.2 H Seg Neuts % (Manual) Lymphocytes % (Manual) Seg Neutrophils # 8.6 H Seg Neutrophils # Man Lymphocytes # (Manual) D-Dimer 747.03 H POC ABG pH POC ABG pCO2 POC ABG pO2 Sodium Chloride Carbon Dioxide BUN Creatinine Glucose POC Glucose Calcium Phosphorus Total Bilirubin 2.10 H AST 157 H ALT 119 H Alkaline Phosphatase 133 H Total Creatine Kinase 285 H CK-MB (CK-2) 8.6 H Troponin T 0.043 H C-Reactive Protein NT-Pro-B Natriuret Pep 83358 H Total Protein 6.0 L Albumin 3.7 L Cholesterol 212 H HDL Cholesterol 87 H Ur Specific [place] Urine WBC (Auto) Urine Creatinine Urine Total Protein 06/20/17 06/21/17 06/21/17 23:18 04:40 05:29 WBC RBC Hgb Hct MCV MCH MCHC RDW Lymph % (Auto) [place] % (Auto) Lymph # [place] # Seg Neutrophils % Seg Neuts % (Manual) Lymphocytes % (Manual) Seg Neutrophils # Seg Neutrophils # Man Lymphocytes # (Manual) D-Dimer POC ABG pH POC ABG pCO2 53.9 H 47.1 H POC ABG pO2 221 H Sodium Chloride Carbon Dioxide BUN Creatinine Glucose POC Glucose Calcium Phosphorus Total Bilirubin AST ALT Alkaline Phosphatase Total Creatine Kinase CK-MB (CK-2) Troponin T C-Reactive Protein NT-Pro-B Natriuret Pep Total Protein Albumin Cholesterol HDL Cholesterol Ur Specific [place] 1.049 H Urine WBC (Auto) 11.0 H Urine Creatinine Urine Total Protein 06/21/17 06/21/17 06/21/17 07:50 07:50 13:33 WBC 12.0 H RBC Hgb Hct MCV 104 H MCH 35 H MCHC RDW 19.3 H Lymph % (Auto) [place] % (Auto) Lymph # [place] # Seg Neutrophils % Seg Neuts % (Manual) 93.0 H Lymphocytes % (Manual) 1.0 L Seg Neutrophils # Seg Neutrophils # Man 11.2 H Lymphocytes # (Manual) 0.1 L D-Dimer POC ABG pH POC ABG pCO2 POC ABG pO2 Sodium Chloride Carbon Dioxide BUN 21 H Creatinine Glucose 130 H POC Glucose Calcium 8.1 L Phosphorus Total Bilirubin AST ALT Alkaline Phosphatase Total Creatine Kinase CK-MB (CK-2) Troponin T 0.054 H D C-Reactive Protein NT-Pro-B Natriuret Pep Total Protein Albumin Cholesterol HDL Cholesterol Ur Specific [place] Urine WBC (Auto) Urine Creatinine Urine Total Protein 06/21/17 06/21/17 06/21/17 18:15 18:15 20:55 WBC RBC Hgb Hct MCV MCH MCHC RDW Lymph % (Auto) [place] % (Auto) Lymph # [place] # Seg Neutrophils % Seg Neuts % (Manual) Lymphocytes % (Manual) Seg Neutrophils # Seg Neutrophils # Man Lymphocytes # (Manual) D-Dimer POC ABG pH POC ABG pCO2 POC ABG pO2 Sodium Chloride Carbon Dioxide BUN Creatinine Glucose POC Glucose Calcium Phosphorus 7.20 H Total Bilirubin AST ALT Alkaline Phosphatase Total Creatine Kinase CK-MB (CK-2) Troponin T 0.042 H D C-Reactive Protein 3.90 H NT-Pro-B Natriuret Pep Total Protein Albumin Cholesterol HDL Cholesterol Ur Specific [place] Urine WBC (Auto) Urine Creatinine Urine Total Protein 06/22/17 06/22/17 06/22/17 03:03 04:19 04:19 WBC RBC 3.40 L Hgb 11.7 L Hct 35.1 L D MCV 103 H MCH 35 H MCHC RDW 18.7 H Lymph % (Auto) [place] % (Auto) Lymph # [place] # Seg Neutrophils % Seg Neuts % (Manual) 97.0 H Lymphocytes % (Manual) 1.0 L Seg Neutrophils # Seg Neutrophils # Man 10.2 H Lymphocytes # (Manual) 0.1 L D-Dimer POC ABG pH POC ABG pCO2 56.7 H POC ABG pO2 115 H Sodium Chloride Carbon Dioxide BUN 41 H Creatinine 1.6 H Glucose 126 H POC Glucose Calcium 7.7 L Phosphorus Total Bilirubin AST ALT Alkaline Phosphatase Total Creatine Kinase CK-MB (CK-2) Troponin T C-Reactive Protein NT-Pro-B Natriuret Pep Total Protein Albumin Cholesterol HDL Cholesterol Ur Specific [place] Urine WBC (Auto) Urine Creatinine Urine Total Protein 06/22/17 06/23/17 06/23/17 04:19 04:06 04:10 WBC RBC Hgb Hct MCV MCH MCHC RDW Lymph % (Auto) [place] % (Auto) Lymph # [place] # Seg Neutrophils % Seg Neuts % (Manual) Lymphocytes % (Manual) Seg Neutrophils # Seg Neutrophils # Man Lymphocytes # (Manual) D-Dimer POC ABG pH 7.492 H POC ABG pCO2 45.5 H POC ABG pO2 Sodium Chloride Carbon Dioxide BUN Creatinine Glucose POC Glucose Calcium Phosphorus Total Bilirubin AST ALT Alkaline Phosphatase Total Creatine Kinase 228 H CK-MB (CK-2) 6.3 H Troponin T 0.031 H D C-Reactive Protein NT-Pro-B Natriuret Pep Total Protein Albumin Cholesterol HDL Cholesterol Ur Specific [place] Urine WBC (Auto) Urine Creatinine 136.8 H Urine Total Protein 41 H 06/23/17 06/23/17 06/24/17 04:20 04:20 04:50 WBC 11.4 H RBC Hgb Hct MCV 102 H MCH 33 H MCHC RDW 18.9 H Lymph % (Auto) 5.5 L [place] % (Auto) Lymph # 0.6 L [place] # Seg Neutrophils % 87.7 H Seg Neuts % (Manual) Lymphocytes % (Manual) Seg Neutrophils # 10.0 H Seg Neutrophils # Man Lymphocytes # (Manual) D-Dimer POC ABG pH 7.331 L POC ABG pCO2 63.6 H POC ABG pO2 69 L Sodium 146 H Chloride Carbon Dioxide BUN 38 H Creatinine Glucose 107 H POC Glucose Calcium 8.2 L Phosphorus Total Bilirubin AST ALT Alkaline Phosphatase Total Creatine Kinase CK-MB (CK-2) Troponin T C-Reactive Protein NT-Pro-B Natriuret Pep Total Protein Albumin Cholesterol HDL Cholesterol Ur Specific [place] Urine WBC (Auto) Urine Creatinine Urine Total Protein 06/24/17 06/24/17 06/25/17 06:31 06:31 04:35 WBC RBC Hgb Hct MCV 104 H MCH 33 H MCHC RDW 18.5 H Lymph % (Auto) [place] % (Auto) Lymph # [place] # Seg Neutrophils % Seg Neuts % (Manual) 96.0 H Lymphocytes % (Manual) 3.0 L Seg Neutrophils # Seg Neutrophils # Man 8.3 H Lymphocytes # (Manual) 0.3 L D-Dimer POC ABG pH 7.471 H POC ABG pCO2 47.8 H POC ABG pO2 48 L Sodium 148 H Chloride Carbon Dioxide 32 H BUN 40 H Creatinine Glucose 154 H POC Glucose Calcium Phosphorus Total Bilirubin AST ALT Alkaline Phosphatase Total Creatine Kinase CK-MB (CK-2) Troponin T C-Reactive Protein NT-Pro-B Natriuret Pep Total Protein Albumin Cholesterol HDL Cholesterol Ur Specific [place] Urine WBC (Auto) Urine Creatinine Urine Total Protein 06/25/17 06/25/17 06/25/17 04:46 05:20 05:20 WBC RBC Hgb Hct MCV 103 H MCH 34 H MCHC RDW 18.6 H Lymph % (Auto) [place] % (Auto) Lymph # [place] # Seg Neutrophils % Seg Neuts % (Manual) 90.0 H Lymphocytes % (Manual) 6.0 L Seg Neutrophils # Seg Neutrophils # Man 9.5 H Lymphocytes # (Manual) 0.6 L D-Dimer POC ABG pH 7.479 H POC ABG pCO2 POC ABG pO2 79 L Sodium 149 H Chloride 109.1 H Carbon Dioxide BUN 40 H Creatinine Glucose 122 H POC Glucose Calcium Phosphorus Total Bilirubin AST ALT Alkaline Phosphatase Total Creatine Kinase CK-MB (CK-2) Troponin T C-Reactive Protein NT-Pro-B Natriuret Pep Total Protein Albumin Cholesterol HDL Cholesterol Ur Specific [place] Urine WBC (Auto) Urine Creatinine Urine Total Protein 06/26/17 06/26/17 06/26/17 03:59 05:30 05:30 WBC RBC Hgb Hct MCV 103 H MCH 34 H MCHC RDW 18.6 H Lymph % (Auto) 3.7 L [place] % (Auto) Lymph # 0.4 L [place] # Seg Neutrophils % 89.7 H Seg Neuts % (Manual) Lymphocytes % (Manual) Seg Neutrophils # 9.9 H Seg Neutrophils # Man Lymphocytes # (Manual) D-Dimer POC ABG pH 7.499 H POC ABG pCO2 POC ABG pO2 109 H Sodium 151 H Chloride 110.2 H Carbon Dioxide 32 H BUN 43 H Creatinine Glucose 154 H POC Glucose Calcium Phosphorus Total Bilirubin AST ALT Alkaline Phosphatase Total Creatine Kinase CK-MB (CK-2) Troponin T C-Reactive Protein NT-Pro-B Natriuret Pep Total Protein Albumin Cholesterol HDL Cholesterol Ur Specific [place] Urine WBC (Auto) Urine Creatinine Urine Total Protein 06/26/17 06/27/17 06/27/17 16:49 00:28 09:52 WBC RBC Hgb Hct MCV MCH MCHC RDW Lymph % (Auto) [place] % (Auto) Lymph # [place] # Seg Neutrophils % Seg Neuts % (Manual) Lymphocytes % (Manual) Seg Neutrophils # Seg Neutrophils # Man Lymphocytes # (Manual) D-Dimer POC ABG pH 7.477 H 7.497 H POC ABG pCO2 POC ABG pO2 71 L Sodium Chloride Carbon Dioxide BUN Creatinine Glucose POC Glucose 141 H Calcium Phosphorus Total Bilirubin AST ALT Alkaline Phosphatase Total Creatine Kinase CK-MB (CK-2) Troponin T C-Reactive Protein NT-Pro-B Natriuret Pep Total Protein Albumin Cholesterol HDL Cholesterol Ur Specific [place] Urine WBC (Auto) Urine Creatinine Urine Total Protein 06/28/17 06:10 WBC RBC Hgb Hct MCV MCH MCHC RDW Lymph % (Auto) [place] % (Auto) Lymph # [place] # Seg Neutrophils % Seg Neuts % (Manual) Lymphocytes % (Manual) Seg Neutrophils # Seg Neutrophils # Man Lymphocytes # (Manual) D-Dimer POC ABG pH POC ABG pCO2 POC ABG pO2 Sodium Chloride Carbon Dioxide BUN 24 H Creatinine 0.7 L Glucose POC Glucose Calcium Phosphorus Total Bilirubin AST ALT Alkaline Phosphatase Total Creatine Kinase CK-MB (CK-2) Troponin T C-Reactive Protein NT-Pro-B Natriuret Pep Total Protein Albumin Cholesterol HDL Cholesterol Ur Specific [place] Urine WBC (Auto) Urine Creatinine Urine Total Protein Allied health notes reviewed: nursing
[2017-06-30 13:52] VITALS: BP 135/66
--- NOTE | 2017-06-30 13:54 | Discharge Summary ---
Providers - Providers Date of Admission: 06/20/17 22:58 Date of discharge: 06/30/17 Attending physician: LIS CARSON MD 06/20/17 22:59 Consult to Physician [CONS] Routine Consulting Provider: FRANCISCO JAVIER PAK Reason For Exam: respiratory failure Place consult to:: Dr. Pak Notified:: Answering Service Phone number called:: [phone] Was contact made?: Yes If yes, spoke with:: Dr. Pak Time called:: 20:36 Comment:: Gave heads up early before order was put in 06/21/17 19:01 Consult to Physician [CONS] Routine Consulting Provider: SANDRA DIAZ Reason For Exam: [address] consult to:: Cardio Notified:: no 06/22/17 11:15 Consult to Physician [CONS] Routine Consulting Provider: DIMITRIS VALENZUELA Reason For Exam: ARF Place consult to:: NEPHRO Notified:: Y If yes, spoke with:: Chavo/Violet WILLIS Time called:: 11:40 06/23/17 12:20 Consult to Dietitian/Nutrition [CONS] Stat Physician Instructions: Reason For Exam: Reason for Consult: Write/Manage Tube Feeding 06/24/17 11:19 Consult to Physician [CONS] Routine Consulting Provider: PUSHPA CAMPBELL Reason For Exam: sz, encephalopathy Place consult to:: Dr. 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 He wants to see [facility] in a week. Disposition: - TO HOME OR SELFCARE Time spent for discharge: 31 minutes - Discharge Diagnoses (1) Acute respiratory failure with hypoxia and hypercapnia Status: Acute (2) Pneumonia Status: Acute (3) Seizure Status: Acute (4) Acute systolic CHF (congestive heart failure), NYHA class 3 Status: Acute Core Measure Documentation - Palliative Care Palliative Care/ Comfort Measures: Not Applicable - Core Measures Any of the following diagnoses?: heart failure - Heart Failure Discharge Requirements ASHLEY/ARB for LVSD if EF <40%: Yes Beta flor at discharge: Yes Exam - Physical Exam Narrative exam: Patient is not in cardiopulmonary distress. Extubated yesterday. The patient appeared well nourished and normally developed. Vital signs as documented. Head exam is unremarkable. No scleral icterus . Neck is without jugular venous distension, thyromegaly, or carotid bruits. Lungs CTAB . Cardiac exam reveals regular rate and Rhythm. First and second heart sounds normal. No murmurs, rubs or gallops. Abdominal exam reveals normal bowel sounds, no masses, no organomegaly and no aortic enlargement. Extremities are nonedematous and both femoral and pedal pulses are normal. 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 - Constitutional Vitals: Temp Pulse Resp BP Pulse Ox 98.4 F 94 H 17 129/48 96 06/30/17 04:40 06/30/17 08:54 06/30/17 08:54 06/30/17 04:40 06/30/17 00:23 Plan Activity: no restrictions Weight Bearing Status: Full Weight Bearing Diet: low fat, low cholesterol, low salt Follow up with: MERCY ATKINS MD [Primary Care Provider] - 3-5 Days DAVINA DODGE MD [Staff Physician] - 7 Days Prescriptions: ALBUTEROL Inhaler [ProAir HFA Inhaler] 2 puff IH QID PRN #1 can PRN Reason: Shortness Of Breath Aspirin [Aspirin BABY CHEW TAB] 81 mg PO QDAY #30 tab.chew Carvedilol [Coreg] 6.25 mg PO BID #60 tablet Famotidine [Pepcid] 20 mg PO BID #60 tablet levETIRAcetam [Keppra TAB] 500 mg PO BID #60 tablet Levofloxacin [Levaquin TAB] 500 mg PO QDAY #7 tablet Lisinopril [Zestril TAB] 5 mg PO QDAY #30 tablet Prednisone [predniSONE 5 mg (6-Day Pack, 21 Tabs)] 5 mg PO .TAPER #1 tab.ds.pk QUEtiapine [SEROquel] 200 mg PO BID #60 tablet
--- NOTE | 2017-06-30 14:50 | Consultation ---
History of Present Illness - Reason for Consult Consult date: 06/30/17 Reason for consult: Mental Health Evaluation Requesting physician: LIS CARSON - Chief Complaint Chief complaint: "Hello" - History of Present Psychiatric Illness Today the patient is calm and cooperative during the evaluation. Per the child support case officer, the patient would like to have a RYDER done as a outpatient service. The medical team would like to do the procedure now since he is a patient in the hospital. This decisional capacity evaluation is to determine if the patient can make the decision to have a RYDER in the outpatient setting. When asked questions about general orientation (person, place, and time), the patient is A/O x3. He could tell his name, location, and today dates. 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 He stated that he has a scheduled vacation that's very important to him. This vacation is scheduled once he is discharged from the hospital. He stated once he return from his vacation next week he would get the "RYDER done MARYANA." He was able to tell me about his cardiac issues and the importance of the RYDER procedure. He stated being healthy is important to him. He stated what can happened if this procedure isn't done. He denies a mental health dx. He was asked about taking Seroquel, he stated, "The hospital started me on that, I've never taken that medication before." Per collateral information from staff members and his assigned RN, the patient have not refused any procedures or medications since being assigned to the telemetry floor. At the current time, the full capacity evaluation was completed. The patient was not medicated or sedated during the interview. He was lucid when answering the 4 questions below reference specific decision making capacity. I am outlining the detailed process of how to complete a capacity evaluation below, if the primary team would like to engage in that process with the patient independently at another point in time. Per this evaluation, I would say that the patient have the capacity to make the specific decision about having the RYDER done in a outpatient setting. Decisional capacity is subject to change from time to time and need to be assessed each time a decision is being made by the patient regarding their medical care. The consent process for treatment usually fulfills the requirements necessary for decisional capacity and it can be used to determine decisional capacity when augmented by the specific steps outlined below. *We have 4 criteria (based on Jerrell & Delmi in 1988) to assess TASK- specific decision-making capacity: 1) communicating a consistent choice 2) understanding pertinent information (nature of illness) 3) appreciate the circumstances & consequences (treatment options, prognosis with and without treatment, risk/ benefit ratio of treatment) 4) ability to rationally manipulate the information. It is fluid and may change from day to day. If order for a capacity evaluation to be complete, the following information needs to be assessed and documented by the primary team. A. Please document why there is a concern about lack of capacity and the specific task that we are evaluating. Capacity must be TASK specific evaluating vs global evaluation for competency. 1. For example- does the patient have capacity to leave AMA or refuse a surgery? 2. Global Capacity (a.k.a. Competency) is determined by the legal system. B. Please document the patients understanding of specific problems and treatment options? ( if possible, use their own words) C. Is the patient able to explain the consequences (risks vs benefits) of treatment options? Please document their explanation. D. Is the patient able to reason through their treatment options and manipulate information in regards to themselves? E. Does the patient display a clear and consistent choice? F. If the patient is unable to demonstrate that they have capacity, then a surrogate decision maker should be named to assist with decision making. Medications and Allergies Allergies Allergy/AdvReac Type Severity Reaction Status Date / Time codeine Allergy Severe Itching Verified 06/20/17 17:57 Home Medications Medication Instructions Recorded Confirmed Last Taken Type ALBUTEROL Inhaler [ProAir HFA 2 puff IH QID PRN #1 can 06/30/17 Unknown Rx Inhaler] Aspirin [Aspirin BABY CHEW TAB] 81 mg PO QDAY #30 tab.chew 06/30/17 Unknown Rx Carvedilol [Coreg] 6.25 mg PO BID #60 tablet 06/30/17 Unknown Rx Famotidine [Pepcid] 20 mg PO BID #60 tablet 06/30/17 Unknown Rx Levofloxacin [Levaquin TAB] 500 mg PO QDAY #7 tablet 06/30/17 Unknown Rx Lisinopril [Zestril TAB] 5 mg PO QDAY #30 tablet 06/30/17 Unknown Rx Prednisone [predniSONE 5 mg (6-Day 5 mg PO .TAPER #1 tab.ds.pk 06/30/17 Unknown Rx Pack, 21 Tabs)] QUEtiapine [SEROquel] 200 mg PO BID #60 tablet 06/30/17 Unknown Rx levETIRAcetam [Keppra TAB] 500 mg PO BID #60 tablet 06/30/17 Unknown Rx Active Meds: Active Medications Acetaminophen (Tylenol) 650 mg PO Q6H PRN PRN Reason: Pain, Mild (1-3) Last Admin: 06/28/17 10:47 Dose: 650 mg Albuterol/Ipratropium (Duoneb *Not For Prn Use*) 1 ampul IH Q6HRT [facility] Last Admin: 06/30/17 14:15 Dose: 1 ampul Aspirin (Baby Aspirin) 81 mg PO QDAY [facility] Last Admin: 06/30/17 10:00 Dose: 81 mg Carvedilol (Coreg) 6.25 mg PO BID [facility] Last Admin: 06/30/17 10:00 Dose: 6.25 mg Chlordiazepoxide HCl (Librium) 50 mg PO Q12HR [facility] Last Admin: 06/30/17 09:59 Dose: 50 mg Famotidine (Pepcid) 20 mg PO BID [facility] Last Admin: 06/30/17 09:59 Dose: 20 mg Heparin Sodium (Porcine) (Heparin) 5,000 unit SUB-Q TID [facility] Last Admin: 06/30/17 10:00 Dose: 5,000 unit Hydralazine HCl (Apresoline) 20 mg IV Q4H PRN PRN Reason: Hypertension Last Admin: 06/29/17 09:39 Dose: 20 mg Hydralazine HCl (Apresoline) 25 mg PO Q8HR [facility] Last Admin: 06/30/17 06:22 Dose: Not Given Hydrophilic Ointment (Vaseline Lip Therapy) 1 applic TP Q2HR PRN PRN Reason: Dry Lips Levetiracetam (Keppra) 500 mg PO BID [facility] Last Admin: 06/30/17 10:00 Dose: 500 mg Lisinopril (Zestril) 5 mg PO QDAY [facility] Last Admin: 06/30/17 09:59 Dose: 5 mg Multi-Ingred Cream/Lotion/Oil/Oint (Artificial Tears Ophth Oint) 1 applic OU Q4HR PRN PRN Reason: Dry Eye(s) Prednisone (Deltasone) 40 mg PO QDAY [facility] Last Admin: 06/30/17 10:00 Dose: 40 mg Quetiapine Fumarate (Seroquel) 200 mg PO BID [facility] Last Admin: 06/30/17 11:16 Dose: 200 mg Past psychiatric history - Past Medical History Past Medical History: heart failure Past Surgical History: No surgical history - past Psychiatric treatment and history psychiatric treatment history: Denies a psy hx and fam psy hx. - Social History Social history: Lives alone Mental Status Exam - Vital signs Last Vital Signs Temp 98.3 F 06/30/17 08:19 Pulse 94 H 06/30/17 08:54 Resp 17 06/30/17 08:54 BP 135/66 06/30/17 08:19 Pulse Ox 94 06/30/17 10:00 - Exam Narrative exam: MSE: Appearance: calm, cooperative Behavior: regular eye contact Speech: regular rate and low tone Mood: "okay" Affect: congruent to mood Thought Process: linear Thought Content: denies SI/HI's and AVH's Motor Activity: ambulatory Cognition: A/O x 3 Insight: appropriate Judgment: appropriate Results Result Diagrams: 06/26/17 05:30 06/28/17 06:10 All other labs normal.
== END 2017-06-30 15:52 | disposition home or self-care (01) | DRG 870 ==
LOC: ED 17:15 → CC1 22:58 → 4A 06-28 18:12
PROVIDERS: ADMIT Internal Medicine; ATTEND Internal Medicine
PROC: 5A1955Z Respiratory Ventilation, Greater than 96 Consecutive Hours (ICD-10-PCS; principal; 2017-06-20)
PROC: 0BH17EZ Insertion of Endotracheal Airway into Trachea, Via Natural or Artificial Opening (ICD-10-PCS; 2017-06-20)
PROC: 4A033R1 Measurement of Arterial Saturation, Peripheral, Percutaneous Approach (ICD-10-PCS; 2017-06-20)
PROC: 3E0234Z Introduction of Serum, Toxoid and Vaccine into Muscle, Percutaneous Approach (ICD-10-PCS; 2017-06-22)
DX: A41.9 Sepsis, unspecified organism (principal); J96.01 Acute respiratory failure with hypoxia; J69.0 Pneumonitis due to inhalation of food and vomit; J96.02 Acute respiratory failure with hypercapnia; I50.43 Acute on chronic combined systolic (congestive) and diastolic (congestive) heart failure; G92 Toxic encephalopathy; N28.0 Ischemia and infarction of kidney; N17.9 Acute kidney failure, unspecified; I42.0 Dilated cardiomyopathy; I47.2 Ventricular tachycardia; E83.39 Other disorders of phosphorus metabolism; R56.9 Unspecified convulsions; T50.995A Adverse effect of other drugs, medicaments and biological substances, initial encounter; Z88.5 Allergy status to narcotic agent; Z23 Encounter for immunization; Y92.89 Other specified places as the place of occurrence of the external cause
CPT/HCPCS: 36415; 36600; 71045; 71275; 74018; 76770; 80048; 80053; 80061; 80074; 80202; 80307; 81001; 82140; 82550; 82553; 82570; 82607; 82803; 82962; 83735; 83880; 84100; 84156; 84300; 84425; 84484; 85007; 85025; 85379; 86140; 87040; 87070; 87205; 87400; 90686; 90732; 93005; 93010; 93306; 94002; 94003; 94640; 94760; 95819; 96365; 96372; 96375; 99291; J0330; J0360; J0696; J1644; J1940; J1953; J1956; J2060; J2250; J2543; J2704; J2920; J2930; J3010; J3370; J7040; J7070; J7512; Q9967